=== PATIENT | female | born 1980 | race Hispanic/Latino ===

== ENCOUNTER 2018-12-07 11:02 | Emergency (ER) | payer SELFPAY ==
--- OUTSIDE RECORDS SUMMARY | 2018-12-07 11:04 | XMS REPORT ---
:1980 [facility] Address [address] [place] [address] Care Team Providers Name Role Phone Unavailable Unavailable Unavailable Problems This patient has no known problems. Allergies, Adverse Reactions, Alerts This patient has no known allergies or adverse reactions. Medications This patient has no known medications. Results Test Description Test Time Test Comments Text Results Atomic Results Result Comments DIAG MAMM BILATERAL CAD 2018-10-13 11:19:31 - DIAG MAMM BILATERAL CAD DIGITAL DIGITALBILATERAL DIGITAL DIAGNOSTIC MAMMOGRAM WITH CAD: 10/13/2018CLINICAL: Palpable mass, left breast. Current mammographic images were evaluated by either a PPTV M-Vu or a [employer] ImageChecker CAD (computer aided detection system). No prior exams were available for comparison. The tissue of both breasts has scattered fibroglandular background echotexure. No suspicious mass, architectural distortion, malignant type calcification, or lymph node abnormality detected. INCOMPLETE ASSESSMENT: ADDITIONAL IMAGING EVALUATION RECOMMENDEDThere is no mammographic evidence of malignancy. Targeted left and bilateral survey ultrasound to follow.- BREAST ULTRASOUND BILATERALULTRASOUND OF BOTH BREASTS: 10/13/2018No prior exams were available for comparison. Color flow and real-time ultrasound of both breasts were performed. Garcia scale images of the real-time examination were reviewed. The breast tissue has scattered fibroglandular background echotexture. Targeted left breast ultrasound at 2 o'clock, 7 cm from the nipple, at the site of clinical area of concern demonstrates no suspicious sonographic abnormality. The rest of the bilateral survey ultrasound demonstrates no suspicious sonographic abnormality. No axillary lymphadenopathy was seen.IMPRESSION: NEGATIVE There is no sonographic evidence of malignancy. Resume annual screening mammography in one year. Clinical follow up is also recommended, and further management of palpable abnormalities should be based on clinical examination.Xu Ascencio M.D. ss/:10/13/2018 11:19:31 Entry: allen Liu 10/14/2018 08:09:35Imaging Technologist: Marti HUERTA, [facility]FW[facility] sent: BIRADS 1-2 Combo FU Letter Mammogram BI-RADS: 0 Indeterminate Ultrasound BI-RADS: 1 Negative BREAST ULTRASOUND 2018-10-13 11:19:31 - DIAG MAMM BILATERAL CAD BILATERAL DIGITALBILATERAL DIGITAL DIAGNOSTIC MAMMOGRAM WITH CAD: 10/13/2018CLINICAL: Palpable mass, left breast. Current mammographic images were evaluated by either a PPTV M-Vu or a [employer] CAD (computer aided detection system). No prior exams were available for comparison. The tissue of both breasts has scattered fibroglandular background echotexure. No suspicious mass, architectural distortion, malignant type calcification, or lymph node abnormality detected. INCOMPLETE ASSESSMENT: ADDITIONAL IMAGING EVALUATION RECOMMENDEDThere is no mammographic evidence of malignancy. Targeted left and bilateral survey ultrasound to follow.- BREAST ULTRASOUND BILATERALULTRASOUND OF BOTH BREASTS: 10/13/2018No prior exams were available for comparison. Color flow and real-time ultrasound of both breasts were performed. Garcia scale images of the real-time examination were reviewed. The breast tissue has scattered fibroglandular background echotexture. Targeted left breast ultrasound at 2 o'clock, 7 cm from the nipple, at the site of clinical area of concern demonstrates no suspicious sonographic abnormality. The rest of the bilateral survey ultrasound demonstrates no suspicious sonographic abnormality. No axillary lymphadenopathy was seen.IMPRESSION: NEGATIVE There is no sonographic evidence of malignancy. Resume annual screening mammography in one year. Clinical follow up is also recommended, and further management of palpable abnormalities should be based on clinical examination.Xu Ascencio M.D. /:10/13/2018 11:19:31 Entry: - 10/14/2018 08:09:35Imaging Technologist: Marti HUERTA, [facility]-FWletter sent: BIRADS 1-2 Combo FU Letter Mammogram BI-RADS: 0 Indeterminate Ultrasound BI-RADS: 1 Negative
[2018-12-07] MEDS ORDERED: MORPHINE 4 MG/ML SYR ONE (12:32)
[2018-12-07] MEDS ORDERED: NA CHLORIDE 0.9% 1,000 ML ONE (12:32)
[2018-12-07] MEDS ORDERED: ONDANSETRON 4 MG/2 ML VIAL ONE (12:32)
[2018-12-07] MEDS ORDERED: CEFTRIAXONE/SWI 1gm 1 GM/10 ML SYR ONE (12:32)
--- NOTE | 2018-12-07 12:40 | RAD REPORT ---
EXAM DESCRIPTION: CT - Abdomen Pelvis Wo Contrast - 12/07/2018 12:31 pm CLINICAL HISTORY: Abdominal pain COMPARISON: 2014 TECHNIQUE: Computed axial tomography of the abdomen and pelvis was obtained. IV and oral contrast we re not requested. All CT scans are performed using dose optimization technique as appropriate and may include automated exposure control or mA/KV adjustment according to patient size. FINDINGS: The evaluation of solid organs, vessels and bowel is limited secondary to the lack of con trast administration. Liver, spleen, pancreas, adrenals and kidneys appear grossly normal. Multiple gallstones without gallbladder wall thickening Small umbilical hernia contains fat. Tampon is present within the vagina. There is no evidence of diverticulitis. IMPRESSION: Cholelithiasis without cholecystitis.
[2018-12-07 13:30] LABS: Absolute Lymphocytes (CBC) 2.3 K/uL (0.7-4.9); Absolute Monocytes 0.5 K/uL (0.1-1.3); Absolute Neutrophil 6.4 K/uL (1.8-8.0); Basophils % 0.5 % (0-1.3); Eosinophils % 1.1 % (0-4.4); Hematocrit 41.5 % (36.0-45.0); Lymphocytes % 24.4 % (15.3-44.8); MPV 8.2 fL (7.6-11.3); Monocytes % 5.2 % (3.3-12.3)
[2018-12-07 13:39] LABS: ALT/SGPT 27 U/L (12-78); AST/SGOT 14 U/L (15-37); Albumin 3.8 g/dL (3.4-5.0); Alkaline Phosphatase 76 U/L (45-117); BUN Blood Urea Nitrogen 13 mg/dL (7-18); Bicarbonate 26 mmol/L (21-32); Bilirubin Direct < 0.1 mg/dL (0-0.2); Bilirubin Total 0.3 mg/dL (0.2-1.0); Glucose Level 97 mg/dL (74-106); Lipase 62 U/L (73-393); Protein, Total 7.6 g/dL (6.4-8.2); Sodium Level 141 mmol/L (136-145)
--- NOTE | 2018-12-07 13:55 | EDPHYS ---
Physician Documentation [facility] Name: Maria De Jesus Wagoner Age: 38 yrs Sex: Female : 1980 Arrival Date: 12/07/2018 Time: 11:06 Bed 13 Private MD: None, None ED Physician Aspen Perla HPI: 12/07 12:09 This 38 yrs old Female presents to ER via Ambulatory with complaints of Flank ma2 Burn, Back Pain. 12:09 Onset: The symptoms/episode began/occurred gradually, 1 day(s) ago. Associated signs ma2 and symptoms: Pertinent positives: vomiting, Pertinent negatives: confusion, increased lacrimation, nausea, neck pain. The patient has experienced a previous episode. left flank pain . Historical: - Allergies: 11:08 No Known Allergies; sv - PMHx: 11:08 Hypertension; GERD; sv - PSHx: 11:08 Tubal ligation; sv - Immunization history:: Flu vaccine is up to date. - Social history:: Smoking status: Patient/guardian denies using tobacco, Smoking status: Patient/guardian denies using alcohol, street drugs, The patient lives with family. - Ebola Screening: : No symptoms or risks identified at this time. - Family history:: not pertinent. ROS: 12:09 Constitutional: Negative for fever, chills, and weight loss, Respiratory: Negative for ma2 shortness of breath, cough, wheezing, and pleuritic chest pain. 12:09 Abdomen/GI: Positive for nausea, vomiting, diarrhea, Negative for rectal pain, bowel incontinence. 12:09 Back: Positive for flank pain, Negative for pain at rest, radiated pain. 12:09 All other systems are negative. Exam: 12:09 Constitutional: This is a well developed, well nourished patient who is awake, alert, ma2 and in no acute distress. Chest/axilla: Normal chest wall appearance and motion. Nontender with no deformity. No lesions are appreciated. Cardiovascular: Regular rate and rhythm with a normal S1 and S2. No gallops, murmurs, or rubs. Normal PMI, no JVD. No pulse deficits. Respiratory: Lungs have equal breath sounds bilaterally, clear to auscultation and percussion. No rales, rhonchi or wheezes noted. No increased work of breathing, no retractions or nasal flaring. Abdomen/GI: Soft, non-tender, with normal bowel sounds. No distension or tympany. No guarding or rebound. No evidence of tenderness throughout. MS/ Extremity: Pulses equal, no cyanosis. Neurovascular intact. Full, normal range of motion. Neuro: Awake and alert, GCS 15, oriented to person, place, time, and situation. Cranial nerves II-XII grossly intact. Motor strength 5/5 in all extremities. Sensory grossly intact. Cerebellar exam normal. Normal gait. 12:09 Back: CVA tenderness, that is moderate, is noted on the left. Vital Signs: 11:08 BP 124 / 83; Resp 18; Temp 98.6; Weight 97.52 kg; Height 5 ft. 3 in. (160.02 cm); Pain sv 7/10; 11:08 Body Mass Index 38.08 (97.52 kg, 160.02 cm) sv MDM: 11:59 Patient medically screened. [facility] 12:09 Differential diagnosis: pyelonephritis vs diverticulitis vs kidney stoen. [facility] 13:54 Data reviewed: vital signs, nurses notes. Counseling: I had a detailed discussion with ma2 the patient and/or guardian regarding: the historical points, exam findings, and any diagnostic results supporting the discharge/admit diagnosis, the presence of at least one elevated blood pressure reading (>120/80) during this emergency department visit, the need for outpatient follow up. Response to treatment: the patient's symptoms have resolved after treatment. 12/07 12:07 Order name: Basic Metabolic Panel; Complete Time: 13:53 [facility] 12/07 12:07 Order name: CBC with Diff; Complete Time: 13:53 [facility] 12/07 12:07 Order name: Creatinine for Radiology; Complete Time: 13:53 [facility] 12/07 12:07 Order name: Hepatic Function; Complete Time: 13:53 [facility] 12/07 12:07 Order name: Lipase; Complete Time: 13:53 [facility] 12/07 13:29 Order name: Urine Dipstick--Ancillary (enter results) bd 12/07 12:07 Order name: IV Saline Lock; Complete Time: 13:30 [facility] 12/07 12:07 Order name: Labs collected and sent; Complete Time: 13:31 [facility] 12/07 12:07 Order name: CT Abd/Pelvis - Without Cont; Complete Time: 12:46 ma2 12/07 13:29 Order name: Urine --Ancillary (enter results) bd 12/07 12:07 Order name: Urine Dipstick-Ancillary (obtain specimen); Complete Time: 12:32 ma2 Administered Medications: 13:10 Drug: NS 0.9% 1000 ml Route: IV; Rate: 1 bolus; Site: right antecubital; hb 13:10 Drug: Rocephin 1 grams Route: IV; Rate: calculated rate; Site: right antecubital; hb 13:10 Drug: Zofran 4 mg Route: IVP; Site: right antecubital; hb 13:10 Drug: morphine 4 mg Route: IVP; Site: right antecubital; hb Disposition: 12/07/18 13:55 Discharged to Home. Impression: Diarrhea, unspecified, Vomiting. - Condition is Stable. - Discharge Instructions: Diarrhea, Adult, Viral Gastroenteritis, Adult, Form - Excuse from Work, School, or Physical Activity. - Prescriptions for Tylenol- Codeine #3 300-30 mg Oral Tablet - take 2 tablet by ORAL route every 6 hours As needed; 30 tablet. Zofran 4 mg Oral Tablet - take 1 tablet by ORAL route every 12 hours As needed; 20 tablet. - Work release form, Medication Reconciliation Form, Thank You Letter, Antibiotic Education, Prescription Opioid Use form. - Follow up: Private Physician; When: Tomorrow; Reason: Continuance of care. Signatures: Dispatcher [employer] Elisabet Wilhelm RN RN Dennise Cuevas RN RN hb Alzahri, Mohammad, MD MD ma2 Corrections: (The following items were deleted from the chart) 14:43 13:55 12/07/2018 13:55 Discharged to Home. Impression: Diarrhea, unspecified; Vomiting. hb Condition is Stable. Forms are Medication Reconciliation Form, Thank You Letter, Antibiotic Education, Prescription Opioid Use. Follow up: Private Physician; When: Tomorrow; Reason: Continuance of care. ma2
--- NOTE | 2018-12-07 13:55 | ER ---
Nurse's Notes [facility] Name: Maria De Jesus Wagoner Age: 38 yrs Sex: Female : 1980 Arrival Date: 12/07/2018 Time: 11:06 Bed 13 Private MD: None, None Diagnosis: Diarrhea, unspecified;Vomiting Presentation: 12/07 11:07 Presenting complaint: Patient states: left flank burning x 2 days. c/o vomiting. sv Transition of care: patient was not received from another setting of care. Onset of symptoms was December 05, 2018. Care prior to arrival: None. 11:07 Method Of Arrival: Ambulatory sv 11:07 Acuity: JOCELIN 3 sv 11:30 Risk Assessment: Do you want to hurt yourself or someone else? Patient reports no hb desire to harm self or others. Initial Sepsis Screen: Does the patient meet any 2 criteria? No. Patient's initial sepsis screen is negative. Does the patient have a suspected source of infection? No. Patient's initial sepsis screen is negative. Triage Assessment: 11:09 General: Appears in no apparent distress. uncomfortable, Behavior is calm, cooperative, sv appropriate for age. Pain: Complains of pain in posterior aspect of left lateral abdomen and anterior aspect of left lateral abdomen Pain currently is 7 out of 10 on a pain scale. Neuro: Level of Consciousness is awake, alert, obeys commands, Oriented to person, place, time, situation, Gait is steady. GI: Reports vomiting. Historical: - Allergies: 11:08 No Known Allergies; sv - PMHx: 11:08 Hypertension; GERD; sv - PSHx: 11:08 Tubal ligation; sv - Immunization history:: Flu vaccine is up to date. - Social history:: Smoking status: Patient/guardian denies using tobacco, Smoking status: Patient/guardian denies using alcohol, street drugs, The patient lives with family. - Ebola Screening: : No symptoms or risks identified at this time. - Family history:: not pertinent. Screenin:15 Abuse screen: Denies threats or abuse. Denies injuries from another. Nutritional hb screening: No deficits noted. Tuberculosis screening: No symptoms or risk factors identified. Fall Risk None identified. Assessment: 12:15 General: Appears in no apparent distress. Behavior is calm, cooperative. Pain: Pain hb currently is 7 out of 10 on a pain scale. Neuro: Level of Consciousness is awake, alert, obeys commands, Oriented to person, place, time, situation. Cardiovascular: Capillary refill < 3 seconds Patient's skin is warm and dry. Respiratory: Airway is patent Respiratory effort is even, unlabored, Respiratory pattern is regular, symmetrical, Breath sounds are clear bilaterally. GI: Abdomen is non-distended, Bowel sounds present X 4 quads. Abd is soft and non tender X 4 quads. Reports lower abdominal pain. : No signs and/or symptoms were reported regarding the genitourinary system. EENT: No signs and/or symptoms were reported regarding the EENT system. Derm: Skin is intact, is healthy with good turgor, Skin is pink, warm \T\ dry. Musculoskeletal: No signs and/or symptoms reported regarding the musculoskeletal system. 13:00 Reassessment: Patient appears in no apparent distress at this time. No changes from hb previously documented assessment. Patient and/or family updated on plan of care and expected duration. Pain level reassessed. Patient is alert, oriented x 3, equal unlabored respirations, skin warm/dry/pink. 14:00 Reassessment: Patient appears in no apparent distress at this time. No changes from hb previously documented assessment. Patient and/or family updated on plan of care and expected duration. Pain level reassessed. Patient is alert, oriented x 3, equal unlabored respirations, skin warm/dry/pink. Vital Signs: 11:08 BP 124 / 83; Resp 18; Temp 98.6; Weight 97.52 kg; Height 5 ft. 3 in. (160.02 cm); Pain sv 7/10; 11:08 Body Mass Index 38.08 (97.52 kg, 160.02 cm) sv ED Course: 11:06 Patient arrived in ED. mr 11:06 None, None is Private Physician. mr 11:07 Triage completed. sv 11:09 Arm band placed on. sv 11:59 Aspen Perla MD is Attending Physician. ma2 12:01 Dennise Cuevas, WILI is Primary Nurse. hb 12:15 Patient has correct armband on for positive identification. Placed in gown. Bed in low hb position. Call light in reach. Side rails up X 1. 12:32 CT Abd/Pelvis - Without Cont In Process Unspecified. EDMS 14:40 No provider procedures requiring assistance completed. IV discontinued, intact, hb bleeding controlled, No redness/swelling at site. Pressure dressing applied. Administered Medications: 13:10 Drug: NS 0.9% 1000 ml Route: IV; Rate: 1 bolus; Site: right antecubital; hb 13:10 Drug: Rocephin 1 grams Route: IV; Rate: calculated rate; Site: right antecubital; hb 13:10 Drug: Zofran 4 mg Route: IVP; Site: right antecubital; hb 13:10 Drug: morphine 4 mg Route: IVP; Site: right antecubital; hb Outcome: 13:55 Discharge ordered by . alexsandra 14:40 Discharged to home ambulatory. hb 14:40 Condition: stable 14:40 Discharge instructions given to patient, Instructed on discharge instructions, follow up and referral plans. medication usage, Demonstrated understanding of instructions, follow-up care, medications, Prescriptions given X 2. 14:43 Patient left the ED. Signatures: Dispatcher [employer] EDElisabet Mederos RN RN Elisa Barba Heather, RN RN Aspen Perla MD MD ma2 Corrections: (The following items were deleted from the chart) 11:09 11:08 Resp 18bpm; Temp 98.6F; 97.52 kg; Height 5 ft. 3 in.; BMI: 38.0; Pain 7/10; [facility]
[2018-12-07 14:01] LABS: Urine Blood 1+ (NEG); Urine Glucose NEGATIVE (NEG); Urine Protein NEGATIVE (NEG); Urine Specific Gravity >1.030 (1.005-1.030); Urine pH 5.5 (5.0-7.0)
[2018-12-07 14:47] VITALS: BP 124/83; TEMP 98.6
== END 2018-12-07 14:43 | disposition home or self-care (01) ==
LOC: ER 11:02
DX: R19.7 Diarrhea, unspecified (principal); R11.10 Vomiting, unspecified; I10 Essential (primary) hypertension
CPT/HCPCS: 36415; 74176; 80048; 80076; 81003; 81025; 83690; 85025; 96374; 96375; 99283; J0696; J2405; J7030

== ENCOUNTER 2019-04-18 08:38 | Day surgery (SDC) | payer BC ==
[2019-04-14 17:21] LABS: Absolute Lymphocytes (CBC) 2.5 K/uL (0.7-4.9); Basophils % 0.6 % (0-1.3); Hematocrit 35.6 % (36.0-45.0); Lymphocytes % 24.7 % (15.3-44.8); RBC Red Blood Cell Count 4.15 M/uL (3.86-4.86)
[2019-04-14 17:57] LABS: ALT/SGPT 26 U/L (12-78); AST/SGOT 13 U/L (15-37); Albumin 3.5 g/dL (3.4-5.0); Alkaline Phosphatase 91 U/L (45-117); Amylase Level 32 U/L (25-115); BUN Blood Urea Nitrogen 14 mg/dL (7-18); Bicarbonate 26 mmol/L (21-32); Bilirubin Direct < 0.1 mg/dL (0-0.2); Bilirubin Total 0.2 mg/dL (0.2-1.0); Glucose Level 110 mg/dL (74-106); Potassium 3.6 mmol/L (3.5-5.1); Protein, Total 6.9 g/dL (6.4-8.2); Sodium Level 142 mmol/L (136-145)
--- OUTSIDE RECORDS SUMMARY | 2019-04-18 08:41 | XMS REPORT ---
:1980 [facility] Address [address] [place] [address] Dr. [address] [place] [id number] Care Team Providers Name Role Phone Unavailable [...] mammographic images were evaluated by either a [employer] M-Vu or a [employer] ImageChecker CAD (computer aided detection system). No [...] clinical examination.Xu Ascencio M.D. ss/:10/13/2018 11:19:31 Entry: - 10/14/2018 08:09:35Imaging Technologist: Marti HUERTA, [facility]-FWletter sent: BIRADS 1-2 Combo FU Letter Mammogram BI-RADS: 0 Indeterminate Ultrasound BI-RADS: 1 Negative BREAST ULTRASOUND 2018-10-13 11:19:31 - DIAG MAMM BILATERAL CAD BILATERAL DIGITALBILATERAL DIGITAL DIAGNOSTIC MAMMOGRAM WITH CAD: 10/13/2018CLINICAL: Palpable mass, left breast. Current mammographic images were evaluated by either a [employer] M-Vu or a [employer] CAD (computer aided detection system). No prior [...] - 10/14/2018 08:09:35Imaging Technologist: Marti HUERTA, [facility] sent: BIRADS 1-2 Combo FU Letter Mammogram BI-RADS: 0 Indeterminate Ultrasound BI-RADS: 1 Negative
[2019-04-18 09:07] LABS: Specific Gravity 1.025 (1.005-1.030)
[2019-04-18] MEDS ORDERED: Ringers Lactate 1,000 ML IV ONE ×2 (09:20→11:39)
[2019-04-18] MEDS ORDERED: FENTANYL CITR 100 MCG/2 ML ONE ×2 (09:28→10:42)
[2019-04-18] MEDS ORDERED: PROPOFOL 200 MG/20 ML VIAL IV ONE (09:28)
[2019-04-18] MEDS ORDERED: MIDAZOLAM HCL 2 MG/2 ML INJ ONE (09:29)
[2019-04-18] MEDS ORDERED: ROCURONIUM 50 MG/5 ML VIAL IV ONE (09:29)
[2019-04-18] MEDS ORDERED: LIDOCAINE 2% MPF 5 ML VIAL ONE (09:29)
[2019-04-18] MEDS ORDERED: CEFOXITIN/SWI 1gm 1 GM/10 ML SYR ONE (09:37)
[2019-04-18] MEDS ORDERED: SCOPOLAMINE HYDROBROMIDE PATCH TD ONE (09:53)
[2019-04-18] MEDS ORDERED: ONDANSETRON 4 MG/2 ML VIAL ONE (10:12)
[2019-04-18] MEDS ORDERED: dexAMETHasone 4 MG/ML VIAL ONE (10:12)
[2019-04-18] MEDS ORDERED: GLYCOPYRROLATE 0.2 MG/ML SYR ONE (11:00)
[2019-04-18] MEDS: HYDROMORPHONE HCL 1 MG/ML INJ ONE ×2 (11:20→11:30)
[2019-04-18] MEDS ORDERED: PROMETHAZINE 25 MG/ML VIAL ONE (11:33)
[2019-04-18] MEDS ORDERED: NEOSTIGMINE 1 MG/ML -10 ML VIAL ONE (11:39)
[2019-04-18] MEDS ORDERED: HYDROCODONE/APAP 7.5/325 MG TAB ONE (12:45)
[2019-04-18 13:01] VITALS: O2SAT 100
[2019-04-18 14:19] VITALS: BP 134/82; TEMP 97.5
--- NOTE | 2019-04-18 21:37 | OP ---
Date of Procedure: 04/18/2019 Surgeon: Timothy Welsh MD Manager Project Management: MARC Santos Preoperative Diagnosis: Symptomatic cholelithiasis. Postoperative Diagnoses: Symptomatic cholelithiasis with left upper quadrant adhesions. Procedure Performed: Laparoscopic cholecystectomy and lysis of adhesions. Estimated Blood Loss: Minimal. Specimen: Gallbladder. Findings: As stated above. Anesthesia: General. Complications: None. Patient tolerated the procedure in stable condition and taken to Recovery in good general condition. Procedure In Detail: Patient was brought to the OR and placed in supine position. General anesthesi a was begun. Patient was prepped and draped in the usual sterile fashion. Marcaine 0.5% was infiltr ated locally. A 15-blade was used to make a 1 cm supraumbilical midline incision. Subcutaneous tiss ue was divided. The fascia was identified and divided. A #1 Vicryl stay suture was placed. Periton eal cavity was entered with sharp and blunt dissection. 12 mm trocar was placed in the peritoneal ca vity under direct vision. Pneumoperitoneum was established. Three 5 mm trocars were placed, 1 in th e epigastrium just to the right of midline and 2 in the right subcostal region. Laparoscopy revealed inflammation of the gallbladder with some adhesions to the gallbladder itself, but there were also a dhesions in the left upper quadrant. The adhesions in the left upper quadrant were taken down with s harp dissection. Bleeding controlled with cautery. Omentum was being tented up in the upper quadran t on the left side. Then, fundus was retracted superiorly. There were adhesions to the body and inf undibulum of the gallbladder which were taken down with sharp and blunt dissection. Bleeding was con trolled with cautery. The infundibulum was identified and retracted inferolaterally. Cystic duct an d cystic artery were clearly identified with blunt dissection. Clips were placed. Both structures w ere divided. Cautery was used to remove the gallbladder from the liver bed. Bleeding on the liver b ed was controlled with cautery. The gallbladder was retrieved through the umbilicus via an EndoCatch bag. Right upper quadrant was irrigated. Effluent was clear. No evidence of bleeding or bile leak age appreciated. Subsequently, all trocars were removed under direct vision. Stay sutures were tied to each other across the fascial defect. Subcutaneous wounds were irrigated. Bleeding was controll ed with cautery. 3-0 chromic was used to approximate the subcutaneous tissue and close the skin. St erile dressing was applied. Patient was awakened and taken to Recovery in good general condition. Discharge Note: Patient will go to Day Surgery and home when stable. Disposition: Home. Condition: Stable. Discharge Instructions: Resume home medications and diet. Activity as tolerated. No heavy lifting. Remove outer dressing in 2 days. Shower. Keep wound clean and dry. Follow up in my office in 1 w barrow, call for appointment. Tylenol No. 3 one tablet p.o. q.4 p.r.n. pain. Keep Steri-Strips on at a ll times. Incentive spirometry was ordered. /MODL Voice ID: [id number] Report ID: [id number]
== END 2019-04-18 13:50 | disposition home or self-care (01) ==
LOC: OR 08:38
PROVIDERS: ATTEND Surgery
PROC: 0FT44ZZ Resection of Gallbladder, Percutaneous Endoscopic Approach (ICD-10-PCS; principal; 2019-04-18 10:00)
DX: K80.10 Calculus of gallbladder with chronic cholecystitis without obstruction (principal); K66.0 Peritoneal adhesions (postprocedural) (postinfection); I10 Essential (primary) hypertension; Z79.899 Other long term (current) drug therapy
CPT/HCPCS: 36415; 80048; 80076; 81025; 82150; 85025; 88304; J1170; J2250; J2405; J2550; J2704; J2710; J3010

== ENCOUNTER 2021-04-19 07:54 | Emergency (ER) | payer SELFPAY ==
--- OUTSIDE RECORDS SUMMARY | 2021-04-19 07:57 | XMS REPORT | Continuity of Care Document ---
:1980 Author Organization [facility] Address [address] [place] [id number] Care Team Providers Name Role Phone Unavailable Unavailable Unavailable Problems This patient has no known problems. Allergies, Adverse Reactions, Alerts This patient has no known allergies or adverse reactions. Medications This patient has no known medications. Procedures This patient has no known procedures. Results Test Description Test Time Test Comments Results Result [facility] e Comments SCR MAMM 2020-04-20 - SCR MAMM BILATERAL BILATERAL CAD 09:16:04 CAD DIGITALBILATERAL DIGITAL DIGITAL SCREENING MAMMOGRAM WITH CAD: 04/20/2020CLINICAL: Asymptomatic. Current mammographic images were evaluated by either a [employer] M-Vu or a IM-[employer]ense Imagepg40 Consulting Groupcker CAD (computer aided detection system). Comparison is made to exam dated 10/13/2018 mammogram - [facility]. There are scattered fibroglandular tissues in both breasts. No suspicious mass, architectural distortion, malignant type calcification, or lymph node abnormality detected. Breast architecture is stable compared to prior exams.IMPRESSION: NEGATIVEThere is no mammographic evidence of malignancy. Resume annual screening mammography in one year. Xu Ascencio M.D. ss/penrad:04/20/2020 09:16:04 Cabinet Abrasive Sandblaster: Kaye Marion FW, [facility] sent: BIRADS 1-2 Normal Mammogram BI-RADS: 1 Negative DIAG MAMM 2018-10-13 - DIAG MAMM BILATERAL BILATERAL CAD 11:19:31 CAD DIGITALBILATERAL DIGITAL DIGITAL DIAGNOSTIC MAMMOGRAM WITH CAD: 10/13/2018CLINICAL: Palpable mass, left breast. Current mammographic images were evaluated by either a [employer] M-Vu or a [employer] ImageChecker CAD (computer aided detection system). No [...] Entry: - 10/14/2018 08:09:35Imaging Technologist: Marti HUERTA, [facility] sent: BIRADS 1-2 Combo FU Letter Mammogram BI-RADS: 0 Indeterminate Ultrasound BI-RADS: 1 Negative BREAST ULTRASOUND 2018-10-13 - DIAG MAMM BILATERAL BILATERAL 11:19:31 CAD DIGITALBILATERAL DIGITAL DIAGNOSTIC MAMMOGRAM WITH CAD: 10/13/2018CLINICAL: Palpable mass, left breast. Current mammographic images were evaluated by either a [employer] M-Vu or a IM-Sense ImageChecker CAD (computer aided detection system). No [...] suspicious sonographic abnormality. No axillary lymphadenopathy was seen.
[2021-04-19 08:19] LABS: Urine Blood 2+ (Negative); Urine Glucose Negative (Negative); Urine Protein Trace (Negative); Urine Specific Gravity >=1.030 (1.005-1.030); Urine pH 5.5 (5.0-7.0)
--- NOTE | 2021-04-19 08:48 | EDPHYS ---
Physician Documentation [facility] Name: Maria De Jesus Wagoner Age: 40 yrs Sex: Female : 1980 Arrival Date: 04/19/2021 Time: 07:58 Bed 26 Private MD: BOZENA Physician Javier Weems HPI: 04/19 08:41 This 40 yrs old Female presents to ER via Ambulatory with complaints of barney Vaginal anal swelling. 08:41 The patient presents with perineal itching, of the clitoris, perineum, right labia barney majora and left labia majora. Onset: The symptoms/episode began/occurred 7 day(s) ago. Modifying factors: The symptoms are alleviated by nothing, the symptoms are aggravated by movement, pressure, walking. Associated signs and symptoms: The patient has no apparent associated signs or symptoms. Severity of symptoms: At their worst the symptoms were mild, in the emergency department the symptoms are unchanged. The patient has not experienced similar symptoms in the past. Historical: - Allergies: 08:04 No Known Allergies; tw2 - Home Meds: 08:04 lisinopril 20 mg Oral tab 1 tab once daily [Active]; omeprazole 40 mg Oral cpDR 1 cap tw2 once daily [Active]; "unknown name of med for depression and anxiety" [Active]; - PMHx: 08:04 Hypertension; GERD; Depressive disorder; Anxiety; tw2 - PSHx: 08:05 Cholecystectomy; tubal ligation; tw2 - Immunization history:: Client reports receiving the 2nd dose of the Covid vaccine. - Social history:: Smoking status: Patient denies any tobacco usage or history of. Patient uses street drugs, marijuana, every day use. - Family history:: not pertinent. ROS: 08:41 Constitutional: Negative for fever, chills, and weight loss, Eyes: Negative for injury, barney pain, redness, and discharge, ENT: Negative for injury, pain, and discharge, Neck: Negative for injury, pain, and swelling, Cardiovascular: Negative for chest pain, palpitations, and edema, Respiratory: Negative for shortness of breath, cough, wheezing, and pleuritic chest pain, Abdomen/GI: Negative for abdominal pain, nausea, vomiting, diarrhea, and constipation, Back: Negative for injury and pain, MS/Extremity: Negative for injury and deformity, Neuro: Negative for headache, weakness, numbness, tingling, and seizure, Psych: Negative for depression, anxiety, suicide ideation, homicidal ideation, and hallucinations, Allergy/Immunology: Negative for hives, rash, and allergies, Endocrine: Negative for neck swelling, polydipsia, polyuria, polyphagia, and marked weight changes, Hematologic/Lymphatic: Negative for swollen nodes, abnormal bleeding, and unusual bruising. 08:41 : Positive for burning with urination, vaginal itching, of the prepuce, perineum, right labia majora and left labia majora. Exam: 08:41 Constitutional: This is a well developed, well nourished patient who is awake, alert, barney and in no acute distress. Head/Face: Normocephalic, atraumatic. Eyes: Pupils equal round and reactive to light, extra-ocular motions intact. Lids and lashes normal. Conjunctiva and sclera are non-icteric and not injected. Cornea within normal limits. Periorbital areas with no swelling, redness, or edema. ENT: Nares patent. No nasal discharge, no septal abnormalities noted. Tympanic membranes are normal and external auditory canals are clear. Oropharynx with no redness, swelling, or masses, exudates, or evidence of obstruction, uvula midline. Mucous membranes moist. Neck: Trachea midline, no thyromegaly or masses palpated, and no cervical lymphadenopathy. Supple, full range of motion without nuchal rigidity, or vertebral point tenderness. No Meningismus. Chest/axilla: Normal chest wall appearance and motion. Nontender with no deformity. No lesions are appreciated. Cardiovascular: Regular rate and rhythm with a normal S1 and S2. No gallops, murmurs, or rubs. Normal PMI, no JVD. No pulse deficits. Respiratory: Lungs have equal breath sounds bilaterally, clear to auscultation and percussion. No rales, rhonchi or wheezes noted. No increased work of breathing, no retractions or nasal flaring. Abdomen/GI: Soft, non-tender, with normal bowel sounds. No distension or tympany. No guarding or rebound. No evidence of tenderness throughout. Back: No spinal tenderness. No costovertebral tenderness. Full range of motion. Skin: Warm, dry with normal turgor. Normal color with no rashes, no lesions, and no evidence of cellulitis. MS/ Extremity: Pulses equal, no cyanosis. Neurovascular intact. Full, normal range of motion. Neuro: Awake and alert, GCS 15, oriented to person, place, time, and situation. Cranial nerves II-XII grossly intact. Motor strength 5/5 in all extremities. Sensory grossly intact. Cerebellar exam normal. Normal gait. Psych: Awake, alert, with orientation to person, place and time. Behavior, mood, and affect are within normal limits. 08:41 : CVA tenderness, is absent, Pelvic Exam: External exam: erythema is noted. Vital Signs: 08:02 BP 122 / 80; Pulse 89; Resp 17; Temp 97.9(TE); Pulse Ox 100% on R/A; Weight 86.18 kg; tw2 Height 5 ft. 4 in. (162.56 cm); Pain 9/10; 08:02 Body Mass Index 32.61 (86.18 kg, 162.56 cm) tw2 MDM: 08:07 Patient medically screened. [facility] 08:45 Differential diagnosis: urinary tract infection. Data reviewed: vital signs, nurses [facility] notes, lab test result(s), urinalysis. Data interpreted: manager monitoring: rate is 89 beats/min, rhythm is regular. Test interpretation: by ED physician or midlevel provider:. Counseling: I had a detailed discussion with the patient and/or guardian regarding: lab results. 04/19 08:19 Order name: Urine Dipstick-Ancillary; Complete Time: 08:40 EDCT 04/19 08:41 Order name: Urine Culture [facility] 04/19 08:42 Order name: Urine --Ancillary (enter results) 04/19 08:43 Order name: Urine --Ancillary EDCT 04/19 08:59 Order name: Glucose, Ancillary Testing [facility] 04/19 08:41 Order name: Blood Glucose Level; Complete Time: 08:45 [facility] Administered Medications: 08:50 Drug: Bactrim (trimethoprim-sulfamethoxazole) (160 mg-800 mg (DS) 1 tablet Route: PO; tr6 09:23 Follow up: Response: No adverse reaction tr6 09:22 Drug: Zithromax (azithromycin) 1 grams Route: PO; tr6 09:22 Drug: Doxycycline 100 mg Route: PO; tr6 09:23 Drug: Rocephin (cefTRIAXone) 1 grams Route: IM; Site: right gluteus; tr6 Disposition Summary: 04/19/21 08:47 Discharge Ordered Location: Home [facility] Problem: new [facility] Symptoms: have improved barney Condition: Stable barney Diagnosis - UTI/ Urinary tract infection, site not specified barney - Other specified noninflammatory disorders of vagina barney Followup: barney - With: Private Physician - When: 2 - 3 days - Reason: Recheck today's complaints, Continuance of care, Re-evaluation by your physician Followup: barney - With: Alexandrea Castillo MD - When: 2 - 3 days - Reason: Recheck today's complaints, Re-evaluation by your physician Discharge Instructions: - Discharge Summary Sheet barney - Dysuria barney - Urinary Tract Infection, Adult barney - Urinary Tract Infection, Adult, [id number] [facility] - Preventing Sexually Transmitted Infections, Adult [facility] Forms: - Medication Reconciliation Form [facility] - Thank You Letter [facility] - Antibiotic Education [facility] - Prescription Opioid Use [facility] Prescriptions: - Ibuprofen 600 mg Oral Tablet - take 1 tablet by ORAL route every 6 hours As needed take with food; 20 tablet; barney Refills: 0, Product Selection Permitted - Medrol (Raul) 4 mg Oral Tablets, Dose Pack - take 1 tablet by ORAL route as directed - follow package instructions; 1 barney packet; Refills: 0, Product Selection Permitted - Doxycycline Hyclate 100 mg Oral Tablet - take 1 tablet by ORAL route every 12 hours; 20 tablet; Refills: 0, Product [facility] Selection Permitted - Bactrim DS 800-160 mg Oral Tablet - take 1 tablet by ORAL route every 12 hours for 7 days; 14 tablet; Refills: 0, [facility] Product Selection Permitted Signatures: Dispatcher [employer] Javier Cerrato MD MD cha Wise, Tara, RN RN tw2 Iraida Fabian, RN RN tr6
--- NOTE | 2021-04-19 08:48 | ER ---
Nurse's Notes [facility] Name: Maria De Jesus Wagoner Age: 40 yrs Sex: Female : 1980 Arrival Date: 04/19/2021 Time: 07:58 Bed 26 Private MD: Diagnosis: UTI/ Urinary tract infection, site not specified;Other specified noninflammatory disorders of vagina Presentation: 04/19 08:02 Chief complaint: Patient states: almost 2 weeks ago i was in the hospital with my tw2 daughter who was having a baby and thought i got irritated with the toilet paper. so i have been treating it with over the counter and spray stuff. i have been treating it. so i have this break out between my vagina and my anus. and i feel this big ball on the left side of my vagina. Coronavirus screen: At this time, the client does not indicate any symptoms associated with coronavirus-19. Ebola Screen: Patient denies travel to an Ebola-affected area in the 21 days before illness onset. Initial Sepsis Screen: Does the patient meet any 2 criteria? No. Patient's initial sepsis screen is negative. Does the patient have a suspected source of infection? No. Patient's initial sepsis screen is negative. Risk Assessment: Do you want to hurt yourself or someone else? Patient reports no desire to harm self or others. Onset of symptoms was April 19, 2021. 08:02 Method Of Arrival: Ambulatory tw2 08:02 Acuity: JOCELIN 3 tw2 Triage Assessment: 08:06 General: Appears uncomfortable, Behavior is calm, cooperative, appropriate for age. tw2 Pain: Complains of pain in pelvis. : Reports burning with urination, pain. : Reports "sores on my labia". Historical: - Allergies: 08:04 No Known Allergies; tw2 - Home Meds: 08:04 lisinopril 20 mg Oral tab 1 tab once daily [Active]; omeprazole 40 mg Oral cpDR 1 cap tw2 once daily [Active]; "unknown name of med for depression and anxiety" [Active]; - PMHx: 08:04 Hypertension; GERD; Depressive disorder; Anxiety; tw2 - PSHx: 08:05 Cholecystectomy; tubal ligation; tw2 - Immunization history:: Client reports receiving the 2nd dose of the Covid vaccine. - Social history:: Smoking status: Patient denies any tobacco usage or history of. Patient uses street drugs, marijuana, every day use. - Family history:: not pertinent. Screenin:20 Abuse screen: Denies threats or abuse. Denies injuries from another. Nutritional tr6 screening: No deficits noted. Tuberculosis screening: No symptoms or risk factors identified. Fall Risk None identified. Assessment: 08:20 General: Appears uncomfortable, Behavior is calm, cooperative, appropriate for age. tr6 Pain: Complains of pain in pelvis. Neuro: No deficits noted. Cardiovascular: No deficits noted. Respiratory: No deficits noted. GI: No deficits noted. : Reports pain in vaginal area. EENT: No deficits noted. Derm: No deficits noted. Musculoskeletal: No deficits noted. Vital Signs: 08:02 BP 122 / 80; Pulse 89; Resp 17; Temp 97.9(TE); Pulse Ox 100% on R/A; Weight 86.18 kg; tw2 Height 5 ft. 4 in. (162.56 cm); Pain 9/10; 08:02 Body Mass Index 32.61 (86.18 kg, 162.56 cm) tw2 ED Course: 07:58 Patient arrived in ED. mr 08:04 Triage completed. tw2 08:06 Iraida Fabian, RN is Primary Nurse. tr6 08:06 Arm band placed on. tw2 08:07 Javier Weems MD is Attending Physician. [facility] 08:20 Patient has correct armband on for positive identification. Bed in low position. Call tr6 light in reach. Side rails up X 1. Door closed. Noise minimized. Visitors limited. Lights dimmed. 08:44 Assist provider with pelvic exam: Performed by Javier Weems MD Patient tolerated well.tr6 08:46 Alexandrea Castillo MD is Referral Physician. barney Administered Medications: 08:50 Drug: Bactrim (trimethoprim-sulfamethoxazole) (160 mg-800 mg (DS) 1 tablet Route: PO; tr6 09:23 Follow up: Response: No adverse reaction tr6 09:22 Drug: Zithromax (azithromycin) 1 grams Route: PO; tr6 09:22 Drug: Doxycycline 100 mg Route: PO; tr6 09:23 Drug: Rocephin (cefTRIAXone) 1 grams Route: IM; Site: right gluteus; tr6 Outcome: 08:47 Discharge ordered by . barney 09:23 Patient left the ED. tr6 Signatures: Javier Weems MD MD cha Rivera, Mary mr Wise, Tara, RN RN tw2 Iraida Fabian RN RN tr6
[2021-04-19] MEDS ORDERED: SMZ./TMP. 800/160 MG TABLET ONE (09:11)
[2021-04-19 09:30] VITALS: BP 122/80; TEMP 97.9; O2SAT 100
[2021-04-19] MEDS ORDERED: AZITHROMYCIN 250 MG TAB ONE (09:34)
[2021-04-19] MEDS ORDERED: CEFTRIAXONE 1000 MG/VIAL ONE (09:34)
[2021-04-19] MEDS ORDERED: DOXYCYCLINE 100 MG CAP PO ONE (09:34)
[2021-04-19] MEDS ORDERED: LIDOCAINE 1% MPF 2 ML AMPULE ONE (09:35)
[2021-04-19] MEDS ORDERED: WATER FOR INJ,STERILE 10 ML ONE (09:36)
== END 2021-04-19 09:23 | disposition home or self-care (01) ==
LOC: ER 07:54
DX: N39.0 Urinary tract infection, site not specified (principal); N89.8 Other specified noninflammatory disorders of vagina; I10 Essential (primary) hypertension; K21.9 Gastro-esophageal reflux disease without esophagitis; F32.9 Major depressive disorder, single episode, unspecified; F41.9 Anxiety disorder, unspecified
CPT/HCPCS: 81003; 81025; 82947; 87086; 87088; 96372; 99283

== ENCOUNTER 2022-12-07 14:38 | Emergency (ER) | payer BC, SELFPAY ==
--- OUTSIDE RECORDS SUMMARY | 2022-12-07 14:44 | XMS REPORT | Continuity of Care Document ---
:1980 Author Organization [facility] t Address [address] [place] [address] [place] [id number] Care Team Providers Name Role Phone Lilly Farley Primary Care Physician [phone] Problems This patient has no known problems. Allergies, Adverse Reactions, Alerts This patient has no known allergies or adverse reactions. Medications Ordered Filled Start Stop Current Ordering Indication Dosage Frequency Signature Comments Components Source Medication Medication Date Date Medication? Clinician (SIG) Name Name TAKE 1 CAP 2022-0 No 40 DAILY 05-23 00:00: 00 TAKE 1 CAP 2022-0 No DAILY 05-23 00:00: 00 TAKE 1 2022-0 No TABLET BY 8-16 MOUTH EVERY 00:00: 12 HOURS 00 FOR 7 DAYS TAKE 1 2022-0 No TABLET BY 8-16 MOUTH EVERY 00:00: 12 HOURS 00 FOR 7 DAYS Cymbalta 30 2-0 No 1mg mg 7-18 capsule,del 00:00: ayed 00 release TAKE 1 2-0 No 100 TABLET BY 7-18 MOUTH EVERY 00:00: 12 HOURS 00 Cymbalta 30 2022-0 No 1mg mg 7-18 capsule,del 00:00: ayed 00 release TAKE 1 2022-0 No 100 TABLET BY 7-18 MOUTH EVERY 00:00: 12 HOURS 00 Cymbalta 30 2022-0 No 1mg mg 6-22 capsule,del 00:00: ayed 00 release Cymbalta 30 2022-0 No 1mg mg 6-22 capsule,del 00:00: ayed 00 release lisinopril 2022-0 No 1mg 20 mg 6-01 tablet 00:00: 00 omeprazole 2022-0 No 1mg 40 mg 6-01 capsule,del 00:00: ayed 00 release TAKE 1 2022-0 No TABLET BY 6- MOUTH EVERY 00:00: 12 HOURS 00 TAKE 1 2022-0 No TABLET BY 6-01 MOUTH EVERY 00:00: 6 HOURS 00 NEEDED FOR PAIN WITH FOOD lisinopril 2022-0 No 1mg 20 mg 6-01 tablet 00:00: 00 TAKE 1 CAP 2022-0 No DAILY 02-19 00:00: 00 TAKE 1 2022-0 No TABLET BY 6- MOUTH EVERY 00:00: 12 HOURS 00 TAKE 1 2022-0 No TABLET BY 6- MOUTH EVERY 00:00: 6 HOURS 00 NEEDED FOR PAIN WITH FOOD Cymbalta 30 2022-0 No 1mg mg 5-23 capsule,del 00:00: ayed 00 release Dose 2022-0 No Unknown 5-23 00:00: 00 Cymbalta 30 2022-0 No 1mg mg 5-23 capsule,del 00:00: ayed 00 release Dose 2022-0 No Unknown 5-23 00:00: 00 Cymbalta 20 2022-0 No 1mg mg 5-12 capsule,del 00:00: ayed 00 release Cymbalta 20 2022-0 No 1mg mg 5-12 capsule,del 00:00: ayed 00 release Dose 2022-0 No Unknown 3-31 00:00: 00 Dose 2022-0 No Unknown 3-31 00:00: 00 Dose 2022-0 No Unknown 3-31 00:00: 00 Dose 2022-0 No Unknown 3-31 00:00: 00 lisinopril 2022-0 No 1mg 20 mg 2-22 tablet 00:00: 00 omeprazole 2022-0 No 1mg 40 mg 2-22 capsule,del 00:00: ayed 00 release lisinopril 2022-0 No 1mg 20 mg 2-22 tablet 00:00: 00 omeprazole 2022-0 No 1mg 40 mg 2-22 capsule,del 00:00: ayed 00 release Bromfed DM 2022-0 No 5mg/5 2 mg-30 2-09 mL mg-10 mg/5 00:00: mL oral 00 syrup Bromfed DM 2022-0 No 5mg/5 2 mg-30 2-09 mL mg-10 mg/5 00:00: mL oral 00 syrup Wellbutrin 2022-0 No 1mg XL 150 mg 1-14 24 hr 00:00: tablet, 00 extended release Zoloft 50 2021-0 No 1mg mg tablet 1-14 00:00: 00 buspirone 2021-0 No 1mg 15 mg 1-14 tablet 00:00: 00 Wellbutrin 2021-0 No 1mg XL 150 mg 1-14 24 hr 00:00: tablet, 00 extended release Zoloft 50 2021-0 No 1mg mg tablet 1-14 00:00: 00 Dose 2021-0 No Unknown 1-14 00:00: 00 Wellbutrin 2020-1 No 1mg XL 150 mg 2-06 24 hr 00:00: tablet, 00 extended release Zoloft 50 2020-1 No 1mg mg tablet 2-06 00:00: 00 Wellbutrin 2020-1 No 1mg XL 150 mg 2-06 24 hr 00:00: tablet, 00 extended release Zoloft 50 2020-1 No 1mg mg tablet 2-06 00:00: 00 Wellbutrin 2020-1 No 1mg XL 150 mg 1-24 24 hr 00:00: tablet, 00 extended release propranolol 2020-1 No 1mg 10 mg 1-24 tablet 00:00: 00 Zoloft 50 2020-1 No 1mg mg tablet 1-24 00:00: 00 buspirone 2020-1 No 1mg 15 mg 1-24 tablet 00:00: 00 Wellbutrin 2020-1 No 1mg XL 150 mg 1-24 24 hr 00:00: tablet, 00 extended release propranolol 2020-1 No 1mg 10 mg 1-24 tablet 00:00: 00 Zoloft 50 2020-1 No 1mg mg tablet 1-24 00:00: 00 buspirone 2020-1 No 1mg 15 mg 1-24 tablet 00:00: 00 Dose 2020-1 No Unknown 1-16 00:00: 00 Dose 2020-1 No Unknown 1-16 00:00: 00 Dose 2020-1 No Unknown 1-16 00:00: 00 Dose 2020-1 No Unknown 1-16 00:00: 00 omeprazole 2020-1 No 1mg 40 mg 0-13 capsule,del 00:00: ayed 00 release omeprazole 2021-1 No 1mg 40 mg 0-13 capsule,del 00:00: ayed 00 release lisinopril 2021-0 No 1mg 20 mg 8-18 tablet 00:00: 00 lisinopril 2021-0 No 1mg 20 mg 8-18 tablet 00:00: 00 omeprazole 2021-0 No 1mg 40 mg 7-22 capsule,del 00:00: ayed 00 release omeprazole 2021-0 No 1mg 40 mg 7-22 capsule,del 00:00: ayed 00 release sulfamethox 2021-0 No 1mg azole 800 7-10 mg-trimetho 00:00: prim 160 mg 00 tablet sulfamethox 2021-0 No 1mg azole 800 7-10 mg-trimetho 00:00: prim 160 mg 00 tablet ibuprofen 2021-0 No 1mg 800 mg 7-05 tablet 00:00: 00 ibuprofen 2021-0 No 1mg 800 mg 7-05 tablet 00:00: 00 diclofenac 2021-0 No 1% 1 % topical 7-01 gel 00:00: 00 cyclobenzap 2021-0 No 1mg rine 10 mg 7-01 tablet 00:00: 00 diclofenac 2021-0 No 1% 1 % topical 7-01 gel 00:00: 00 cyclobenzap 2021-0 No 1mg rine 10 mg 7-01 tablet 00:00: 00 Zoloft 100 2021-0 No 2mg mg tablet 6-23 00:00: 00 Wellbutrin 2021-0 No 1mg XL 150 mg 6-23 24 hr 00:00: tablet, 00 extended release propranolol 2021-0 No 1mg 10 mg 6-23 tablet 00:00: 00 buspirone 2021-0 No 1mg 15 mg 6-23 tablet 00:00: 00 Zoloft 100 2021-0 No 2mg mg tablet 6-23 00:00: 00 Wellbutrin 2021-0 No 1mg XL 150 mg 6-23 24 hr 00:00: tablet, 00 extended release propranolol 2021-0 No 1mg 10 mg 6-23 tablet 00:00: 00 buspirone 2021-0 No 1mg 15 mg 6-23 tablet 00:00: 00 prednisone 2021-0 No 1mg 20 mg 6-09 tablet 00:00: 00 cetirizine 2021-0 No 1mg 5 6-09 mg-pseudoep 00:00: hedrine ER 00 120 mg tablet,exte nded release,12h r amoxicillin 1-0 No 1mg 875 6-09 mg-potassiu 00:00: m 00 clavulanate 125 mg tablet Bromfed DM 2020-0 No 5mg/5 2 mg-30 6-09 mL mg-10 mg/5 00:00: mL oral 00 syrup prednisone 1-0 No 1mg 20 mg 6-09 tablet 00:00: 00 cetirizine 1-0 No 1mg 5 6-09 mg-pseudoep 00:00: hedrine ER 00 120 mg tablet,exte nded release,12h r amoxicillin 1-0 No 1mg 875 6-09 mg-potassiu 00:00: m 00 clavulanate 125 mg tablet Bromfed DM 2020-0 No 5mg/5 2 mg-30 6-09 mL mg-10 mg/5 00:00: mL oral 00 syrup Anusol-HC 1-0 No % 2.5 % 6-03 topical 00:00: cream with 00 perineal applicator medroxyprog 1-0 No 1mg/mL esterone 6-03 150 mg/mL 00:00: intramuscul 00 ar suspension Anusol-HC 1-0 No % 2.5 % 6-03 topical 00:00: cream with 00 perineal applicator medroxyprog 1-0 No 1mg/mL esterone 6-03 150 mg/mL 00:00: intramuscul 00 ar suspension benzonatate 1-0 No 1mg 200 mg 6-02 capsule 00:00: 00 Bromfed DM 2020-0 No 5mg/5 2 mg-30 6-02 mL mg-10 mg/5 00:00: mL oral 00 syrup ProAir HFA 2020-0 No 12mcg/a 90 6-02 ctuatio mcg/actuati 00:00: n on aerosol 00 inhaler azithromyci 1-0 No mg n 250 mg 6-02 tablet 00:00: 00 benzonatate 1-0 No 1mg 200 mg 6-02 capsule 00:00: 00 Bromfed DM 2020-0 No 5mg/5 2 mg-30 6-02 mL mg-10 mg/5 00:00: mL oral 00 syrup ProAir HFA 1-0 No 12mcg/a 90 6-02 ctuatio mcg/actuati 00:00: n on aerosol 00 inhaler azithromyci 1-0 No mg n 250 mg 6-02 tablet 00:00: 00 lisinopril 2021-0 No 1mg 20 mg 5-05 tablet 00:00: 00 lisinopril 1-0 No 1mg 20 mg 5-05 tablet 00:00: 00 Zoloft 100 1-0 No 2mg mg tablet 5-04 00:00: 00 Wellbutrin 1-0 No 1mg XL 150 mg 5-04 24 hr 00:00: tablet, 00 extended release propranolol 1-0 No 1mg 10 mg 5-04 tablet 00:00: 00 buspirone 1-0 No 1mg 15 mg 5-04 tablet 00:00: 00 Zoloft 100 1-0 No 2mg mg tablet 5-04 00:00: 00 Wellbutrin 1-0 No 1mg XL 150 mg 5-04 24 hr 00:00: tablet, 00 extended release propranolol 2021-0 No 1mg 10 mg 5-04 tablet 00:00: 00 buspirone 2021-0 No 1mg 15 mg 5-04 tablet 00:00: 00 Zoloft 100 2021-0 No 2mg mg tablet 4-20 00:00: 00 Wellbutrin 2021-0 No 1mg XL 150 mg 4-20 24 hr 00:00: tablet, 00 extended release propranolol 2021-0 No 1mg 10 mg 4-20 tablet 00:00: 00 buspirone 2021-0 No 1mg 15 mg 4-20 tablet 00:00: 00 Zoloft 100 2021-0 No 2mg mg tablet 4-20 00:00: 00 Wellbutrin 2021-0 No 1mg XL 150 mg 4-20 24 hr 00:00: tablet, 00 extended release propranolol 2021-0 No 1mg 10 mg 4-20 tablet 00:00: 00 buspirone 2021-0 No 1mg 15 mg 4-20 tablet 00:00: 00 lisinopril 2021-0 No 1mg 20 mg 4-05 tablet 00:00: 00 Zoloft 100 2021-0 No 15mg mg tablet 4-05 00:00: 00 Wellbutrin 1-0 No 1mg XL 150 mg 4-05 24 hr 00:00: tablet, 00 extended release buspirone 2021-0 No 1mg 15 mg 4-05 tablet 00:00: 00 omeprazole 1-0 No 1mg 40 mg 4-05 capsule,del 00:00: ayed 00 release lisinopril 1-0 No 1mg 20 mg 4-05 tablet 00:00: 00 Zoloft 100 1-0 No 15mg mg tablet 4-05 00:00: 00 Wellbutrin 1-0 No 1mg XL 150 mg 4-05 24 hr 00:00: tablet, 00 extended release buspirone 1-0 No 1mg 15 mg 4-05 tablet 00:00: 00 omeprazole 1-0 No 1mg 40 mg 4-05 capsule,del 00:00: ayed 00 release Anusol-HC 1-0 No % 2.5 % 3-18 topical 00:00: cream with 00 perineal applicator Anusol-HC 2021-0 No % 2.5 % 3-18 topical 00:00: cream with 00 perineal applicator sulfamethox 1-0 No 1mg azole 800 3-17 mg-trimetho 00:00: prim 160 mg 00 tablet sulfamethox 1-0 No 1mg azole 800 3-17 mg-trimetho 00:00: prim 160 mg 00 tablet Zoloft 100 1-0 No 15mg mg tablet 3-02 00:00: 00 Wellbutrin 1-0 No 1mg XL 150 mg 3-02 24 hr 00:00: tablet, 00 extended release buspirone 1-0 No 1mg 15 mg 3-02 tablet 00:00: 00 Zoloft 100 1-0 No 15mg mg tablet 3-02 00:00: 00 Wellbutrin 2021-0 No 1mg XL 150 mg 3-02 24 hr 00:00: tablet, 00 extended release buspirone 2021-0 No 1mg 15 mg 3-02 tablet 00:00: 00 Zoloft 100 2021-0 No 1mg mg tablet 2-02 00:00: 00 Wellbutrin 2021-0 No 1mg XL 150 mg 2-02 24 hr 00:00: tablet, 00 extended release buspirone 1-0 No 1mg 10 mg 2-02 tablet 00:00: 00 Zoloft 100 1-0 No 1mg mg tablet 2-02 00:00: 00 Wellbutrin 1-0 No 1mg XL 150 mg 2-02 24 hr 00:00: tablet, 00 extended release buspirone 2020-0 No 1mg 10 mg 2-02 tablet 00:00: 00 ibuprofen 1-0 No 1mg 800 mg 1-28 tablet 00:00: 00 ibuprofen 1-0 No 1mg 800 mg 1-28 tablet 00:00: 00 Zoloft 100 1-0 No 1mg mg tablet 1-20 00:00: 00 Wellbutrin 2020-0 No 1mg XL 150 mg 1-20 24 hr 00:00: tablet, 00 extended release buspirone 2020-0 No 1mg 10 mg 1-20 tablet 00:00: 00 Zoloft 100 2020-0 No 1mg mg tablet 1-20 00:00: 00 Wellbutrin 2020-0 No 1mg XL 150 mg 1-20 24 hr 00:00: tablet, 00 extended release buspirone 2020-0 No 1mg 10 mg 1-20 tablet 00:00: 00 lisinopril 2019-1 No 1mg 20 mg 2-28 tablet 00:00: 00 lisinopril 2019-1 No 1mg 20 mg 2-28 tablet 00:00: 00 Wellbutrin 2019-1 No 1mg XL 150 mg 2-08 24 hr 00:00: tablet, 00 extended release Zoloft 50 2019-1 No 15mg mg tablet 2-08 00:00: 00 buspirone 2019-1 No 1mg 10 mg 2-08 tablet 00:00: 00 Wellbutrin 2019-1 No 1mg XL 150 mg 2-08 24 hr 00:00: tablet, 00 extended release Zoloft 50 2019-1 No 15mg mg tablet 2-08 00:00: 00 buspirone 2019-1 No 1mg 10 mg 2-08 tablet 00:00: 00 Zoloft 50 2019-1 No 15mg mg tablet 1-18 00:00: 00 Wellbutrin 2019-1 No 1mg XL 150 mg 1-18 24 hr 00:00: tablet, 00 extended release buspirone 2019-1 No 1mg 10 mg 1-18 tablet 00:00: 00 Zoloft 50 2019-1 No 15mg mg tablet 1-18 00:00: 00 Wellbutrin 2019-1 No 1mg XL 150 mg 1-18 24 hr 00:00: tablet, 00 extended release buspirone 2019-1 No 1mg 10 mg 1-18 tablet 00:00: 00 Wellbutrin 2019-1 No 1mg XL 150 mg 0-22 24 hr 00:00: tablet, 00 extended release Zoloft 50 2019-1 No 1mg mg tablet 0-22 00:00: 00 buspirone 2019-1 No 1mg 10 mg 0-22 tablet 00:00: 00 Wellbutrin 2019-1 No 1mg XL 150 mg 0-22 24 hr 00:00: tablet, 00 extended release Zoloft 50 2019-1 No 1mg mg tablet 022 00:00: 00 buspirone 2019-1 No 1mg 10 mg 0-22 tablet 00:00: 00 lisinopril 2019-1 No 1mg 20 mg 0-02 tablet 00:00: 00 omeprazole 2019-1 No 1mg 40 mg 0-02 capsule,del 00:00: ayed 00 release lisinopril 2019-1 No 1mg 20 mg 0-02 tablet 00:00: 00 omeprazole 2019-1 No 1mg 40 mg 0-02 capsule,del 00:00: ayed 00 release Wellbutrin 2019-0 No 1mg XL 150 mg 9-22 24 hr 00:00: tablet, 00 extended release Zoloft 50 2019-0 No 1mg mg tablet 922 00:00: 00 buspirone 2020-0 No 1mg 10 mg 9-22 tablet 00:00: 00 Wellbutrin 2019-0 No 1mg XL 150 mg 9-22 24 hr 00:00: tablet, 00 extended release Zoloft 50 2019-0 No 1mg mg tablet 922 00:00: 00 buspirone 2020-0 No 1mg 10 mg 9-22 tablet 00:00: 00 Zoloft 50 2019-0 No 1mg mg tablet 8-21 00:00: 00 Wellbutrin 2020-0 No 1mg XL 150 mg 8-21 24 hr 00:00: tablet, 00 extended release buspirone 2020-0 No 1mg 10 mg 8-21 tablet 00:00: 00 Zoloft 50 2020-0 No 1mg mg tablet 8-21 00:00: 00 Wellbutrin 2020-0 No 1mg XL 150 mg 8-21 24 hr 00:00: tablet, 00 extended release buspirone 2020-0 No 1mg 10 mg 8-21 tablet 00:00: 00 Zoloft 100 2020-0 No 1mg mg tablet 7-23 00:00: 00 buspirone 2020-0 No 1mg 10 mg 7-23 tablet 00:00: 00 Zoloft 100 2020-0 No 1mg mg tablet 7-23 00:00: 00 buspirone 2020-0 No 1mg 10 mg 7-23 tablet 00:00: 00 Zoloft 100 2020-0 No 1mg mg tablet 7-16 00:00: 00 buspirone 2020-0 No 1mg 10 mg 7-16 tablet 00:00: 00 Zoloft 100 2020-0 No 1mg mg tablet 7-16 00:00: 00 buspirone 2020-0 No 1mg 10 mg 7-16 tablet 00:00: 00 lisinopril 2020-0 No 1mg 20 mg 7-02 tablet 00:00: 00 lisinopril 2020-0 No 1mg 20 mg 7-02 tablet 00:00: 00 mupirocin 2 2020-0 No 1% % topical 6-04 ointment 00:00: 00 mupirocin 2 2020-0 No 1% % topical 6-04 ointment 00:00: 00 mirtazapine 2020-0 No 1mg 7.5 mg 5-27 tablet 00:00: 00 mirtazapine 2020-0 No 2mg 7.5 mg 5-27 tablet 00:00: 00 hydroxyzine 2020-0 No 1mg pamoate 25 5-27 mg capsule 00:00: 00 mirtazapine 2020-0 No 1mg 7.5 mg 5-27 tablet 00:00: 00 mirtazapine 2020-0 No 2mg 7.5 mg 5-27 tablet 00:00: 00 hydroxyzine 2020-0 No 1mg pamoate 25 5-27 mg capsule 00:00: 00 escitalopra 2020-0 No 1mg m 20 mg 5-26 tablet 00:00: 00 escitalopra 2020-0 No 1mg m 20 mg 5-26 tablet 00:00: 00 buspirone 2020-0 No 1mg 10 mg 5-04 tablet 00:00: 00 buspirone 2020-0 No 1mg 10 mg 5-04 tablet 00:00: 00 omeprazole 2020-0 No 1mg 40 mg 4-23 capsule,del 00:00: ayed 00 release omeprazole 2020-0 No 1mg 40 mg 4-23 capsule,del 00:00: ayed 00 release lisinopril 2020-0 No 1mg 20 mg 4-06 tablet 00:00: 00 buspirone 2020-0 No 1mg 10 mg 4-06 tablet 00:00: 00 lisinopril 2020-0 No 1mg 20 mg 4-06 tablet 00:00: 00 buspirone 2020-0 No 1mg 10 mg 4-06 tablet 00:00: 00 Macrobid 2020-0 No 1mg 100 mg 3-26 capsule 00:00: 00 Macrobid 2020-0 No 1mg 100 mg 3-26 capsule 00:00: 00 oxybutynin 2020-0 No 1mg chloride ER 2-25 10 mg 00:00: tablet,exte 00 nded release 24 hr escitalopra 2020-0 No 1mg m 20 mg 2-25 tablet 00:00: 00 oxybutynin 2020-0 No 1mg chloride ER 2-25 10 mg 00:00: tablet,exte 00 nded release 24 hr escitalopra 2020-0 No 1mg m 20 mg 2-25 tablet 00:00: 00 escitalopra 2020-0 No 1mg m 10 mg 1-15 tablet 00:00: 00 oxybutynin 2020-0 No 1mg chloride ER 1-15 10 mg 00:00: tablet,exte 00 nded release 24 hr mirtazapine 2020-0 No 1mg 30 mg 1-15 tablet 00:00: 00 escitalopra 2020-0 No 1mg m 10 mg 1-15 tablet 00:00: 00 oxybutynin 2020-0 No 1mg chloride ER 1-15 10 mg 00:00: tablet,exte 00 nded release 24 hr mirtazapine 2020-0 No 1mg 30 mg 1-15 tablet 00:00: 00 mupirocin 2 2019-1 No 1% % topical 2-09 ointment 00:00: 00 mupirocin 2 2019-1 No 1% % topical 2-09 ointment 00:00: 00 atorvastati 2019-1 No 1mg n 10 mg 0-30 tablet 00:00: 00 atorvastati 2019-1 No 1mg n 10 mg 0-30 tablet 00:00: 00 lisinopril 2019-1 No 1mg 20 mg 0-29 tablet 00:00: 00 lisinopril 2019-1 No 1mg 20 mg 0-29 tablet 00:00: 00 omeprazole 2019-1 No 1mg 40 mg 0-29 capsule,del 00:00: ayed 00 release lisinopril 2019-1 No 1mg 20 mg 0-29 tablet 00:00: 00 lisinopril 2019-1 No 1mg 20 mg 0-29 tablet 00:00: 00 omeprazole 2019-1 No 1mg 40 mg 0-29 capsule,del 00:00: ayed 00 release lisinopril 2019-0 No 1mg 20 mg 9-23 tablet 00:00: 00 lisinopril 2019-0 No 1mg 20 mg 9-23 tablet 00:00: 00 lisinopril 2019-0 No 1mg 20 mg 6-17 tablet 00:00: 00 lisinopril 2019-0 No 1mg 20 mg 6-17 tablet 00:00: 00 lisinopril 2019-0 No 1mg 10 mg 4-23 tablet 00:00: 00 omeprazole 2019-0 No 1mg 20 mg 4-23 capsule,del 00:00: ayed 00 release lisinopril 2019-0 No 1mg 10 mg 4-23 tablet 00:00: 00 omeprazole 2019-0 No 1mg 20 mg 4-23 capsule,del 00:00: ayed 00 release lisinopril 2019-0 No 1mg 10 mg 1-16 tablet 00:00: 00 omeprazole 2019-0 No 1mg 20 mg 1-16 capsule,del 00:00: ayed 00 release lisinopril 2019-0 No 1mg 10 mg 1-16 tablet 00:00: 00 omeprazole 2019-0 No 1mg 20 mg 1-16 capsule,del 00:00: ayed 00 release lisinopril 2019-0 No 1mg 10 mg 1-14 tablet 00:00: 00 omeprazole 2019-0 No 1mg 20 mg 1-14 capsule,del 00:00: ayed 00 release lisinopril 2019-0 No 1mg 10 mg 1-14 tablet 00:00: 00 omeprazole 2019-0 No 1mg 20 mg 1-14 capsule,del 00:00: ayed 00 release lisinopril 2018-1 No 1mg 10 mg 2-14 tablet 00:00: 00 omeprazole 2018-1 No 1mg 20 mg 2-14 capsule,del 00:00: ayed 00 release lisinopril 2018-1 No 1mg 10 mg 2-14 tablet 00:00: 00 omeprazole 2018-1 No 1mg 20 mg 2-14 capsule,del 00:00: ayed 00 release fluticasone 2018-1 No 2mcg/ac 50 1-06 tuation mcg/actuati 00:00: on nasal 00 spray,suspe nsion amoxicillin 2018-1 No 1mg 500 1-06 mg-potassiu 00:00: m 00 clavulanate 125 mg tablet fluticasone 2018-1 No 2mcg/ac 50 1-06 tuation mcg/actuati 00:00: on nasal 00 spray,suspe nsion amoxicillin 2018-1 No 1mg 500 1-06 mg-potassiu 00:00: m 00 clavulanate 125 mg tablet amoxicillin 2018-0 No 1mg 500 mg 3-08 capsule 00:00: 00 amoxicillin 2018-0 No 1mg 500 mg 3-08 capsule 00:00: 00 Zoloft 50 2018-0 No 1mg mg tablet - 00:00: 00 trazodone 2018-0 No 1mg 50 mg 1-26 tablet 00:00: 00 buspirone 5 2018-0 No 1mg mg tablet 10-16 00:00: 00 Zoloft 50 2018-0 No 1mg mg tablet 10-16 00:00: 00 trazodone 2018-0 No 1mg 50 mg 1-26 tablet 00:00: 00 buspirone 5 2018-0 No 1mg mg tablet 10-16 00:00: 00 lisinopril 2017-0 No 1mg 10 mg 8-01 tablet 00:00: 00 lisinopril 2017-0 No 1mg 10 mg 8-01 tablet 00:00: 00 lisinopril 2016-0 No 1mg 10 mg 6-30 tablet 00:00: 00 meclizine 2016-0 No 1mg 12.5 mg 6-30 tablet 00:00: 00 lisinopril 2016-0 No 1mg 10 mg 6-30 tablet 00:00: 00 meclizine 2016-0 No 1mg 12.5 mg 6-30 tablet 00:00: 00 lisinopril 2016-0 No 1mg 10 mg 6-06 tablet 00:00: 00 lisinopril 2016-0 No 1mg 10 mg 6-06 tablet 00:00: 00 lisinopril 2016-0 No 1mg 10 mg 5-05 tablet 00:00: 00 meclizine 2016-0 No 1mg 12.5 mg 5-05 tablet 00:00: 00 lisinopril 2016-0 No 1mg 10 mg 5-05 tablet 00:00: 00 meclizine 2016-0 No 1mg 12.5 mg 5-05 tablet 00:00: 00 lisinopril 2016-0 No 1mg 10 mg 4-06 tablet 00:00: 00 meclizine 2016-0 No 1mg 12.5 mg 4-06 tablet 00:00: 00 lisinopril 2016-0 No 1mg 10 mg 4-06 tablet 00:00: 00 meclizine 2016-0 No 1mg 12.5 mg 4-06 tablet 00:00: 00 loratadine 2016-0 No 1mg 10 mg 2-03 tablet 00:00: 00 loratadine 2016-0 No 1mg 10 mg 2-03 tablet 00:00: 00 tramadol 50 2016-0 No 1mg mg tablet 1- 00:00: 00 tramadol 50 2016-0 No 1mg mg tablet - 00:00: 00 Immunizations Ordered Immunization Filled Immunization Date Status Commen ts Source Name Name Tunde COVID-19 2020-10-13 Completed Vaccine 00:00:00 Moderna COVID-19 2020-10-13 Completed Vaccine 00:00:00 Moderna COVID-19 2020-09-17 Completed Vaccine 00:00:00 Moderna COVID-19 2020-09-17 Completed Vaccine 00:00:00 Influenza, seasonal, 2020-07-04 Completed inj 00:00:00 Influenza, seasonal, 2020-07-04 Completed inj 00:00:00 Influenza, seasonal, 2020-06-26 Completed inj 00:00:00 Influenza, seasonal, 2020-06-26 Completed inj 00:00:00 Hep B, adult 2018-12-28 Completed 00:00:00 Hep B, adult 2018-12-28 Completed 00:00:00 Hep B, adult 2018-11-15 Completed 00:00:00 Hep B, adult 2018-11-15 Completed 00:00:00 Tdap 2018-09-03 Completed 00:00:00 Influenza, seasonal, 2018-09-03 Completed inj 00:00:00 Tdap 2018-09-03 Completed 00:00:00 Influenza, seasonal, 2018-09-03 Completed inj 00:00:00 Vital Signs Vital Name Observation Time Observation Value Comments Source BP Systolic 2022-06-17 11:09:00 118 mm[Hg] BP Diastolic 2022-06-17 11:09:00 87 mm[Hg] Weight Measured 2022-06-17 11:09:00 182.80 pounds Height Measured 2022-06-17 11:09:00 54.00 inches Body Temperature 2022-06-17 11:09:00 98.30 degrees Heart Rate 2022-06-17 11:09:00 97.00 /min Respiratory Rate 2022-06-17 11:09:00 BP Systolic 2022-05-23 15:21:00 BP Diastolic 2022-05-23 15:21:00 Weight Measured 2022-05-23 15:21:00 160.00 pounds Height Measured 2022-05-23 15:21:00 54.00 inches Body Temperature 2022-05-23 15:21:00 Heart Rate 2022-05-23 15:21:00 Respiratory Rate 2022-05-23 15:21:00 BP Systolic 2022-02-19 17:06:00 127 mm[Hg] BP Diastolic 2022-02-19 17:06:00 80 mm[Hg] Weight Measured 2022-02-19 17:06:00 160.00 pounds Height Measured 2022-02-19 17:06:00 Body Temperature 2022-02-19 17:06:00 Heart Rate 2022-02-19 17:06:00 Respiratory Rate 2022-02-19 17:06:00 BP Systolic 2021-11-12 09:44:00 BP Diastolic 2021-11-12 09:44:00 Weight Measured 2021-11-12 09:44:00 140.00 pounds Height Measured 2021-11-12 09:44:00 54.00 inches Body Temperature 2021-11-12 09:44:00 Heart Rate 2021-11-12 09:44:00 Respiratory Rate 2021-11-12 09:44:00 BP Systolic 2021-08-06 14:45:00 124 mm[Hg] BP Diastolic 2021-08-06 14:45:00 82 mm[Hg] Weight Measured 2021-08-06 14:45:00 189.40 pounds Height Measured 2021-08-06 14:45:00 54.00 inches Body Temperature 2021-08-06 14:45:00 98.20 degrees Heart Rate 2021-08-06 14:45:00 85.00 /min Respiratory Rate 2021-08-06 14:45:00 21.00 /min BP Systolic 2021-03-21 15:50:00 116 mm[Hg] BP Diastolic 2021-03-21 15:50:00 77 mm[Hg] Weight Measured 2021-03-21 15:50:00 197.20 pounds Height Measured 2021-03-21 15:50:00 54.00 inches Body Temperature 2021-03-21 15:50:00 98.60 degrees Heart Rate 2021-03-21 15:50:00 88.00 /min Respiratory Rate 2021-03-21 15:50:00 21.00 /min BP Systolic 2021-02-27 16:37:00 130 mm[Hg] BP Diastolic 2021-02-27 16:37:00 83 mm[Hg] Weight Measured 2021-02-27 16:37:00 197.80 pounds Height Measured 2021-02-27 16:37:00 54.00 inches Body Temperature 2021-02-27 16:37:00 99.50 degrees Heart Rate 2021-02-27 16:37:00 78.00 /min Respiratory Rate 2021-02-27 16:37:00 16.00 /min BP Systolic 2021-02-21 13:36:00 124 mm[Hg] BP Diastolic 2021-02-21 13:36:00 80 mm[Hg] Weight Measured 2021-02-21 13:36:00 197.40 pounds Height Measured 2021-02-21 13:36:00 54.00 inches Body Temperature 2021-02-21 13:36:00 98.60 degrees Heart Rate 2021-02-21 13:36:00 80.00 /min Respiratory Rate 2021-02-21 13:36:00 21.00 /min BP Systolic 2021-02-20 14:29:00 126 mm[Hg] BP Diastolic 2021-02-20 14:29:00 94 mm[Hg] Weight Measured 2021-02-20 14:29:00 197.40 pounds Height Measured 2021-02-20 14:29:00 54.00 inches Body Temperature 2021-02-20 14:29:00 98.20 degrees Heart Rate 2021-02-20 14:29:00 94.00 /min Respiratory Rate 2021-02-20 14:29:00 16.00 /min BP Systolic 2021-01-23 10:16:00 123 mm[Hg] BP Diastolic 2021-01-23 10:16:00 80 mm[Hg] Weight Measured 2021-01-23 10:16:00 200.00 pounds Height Measured 2021-01-23 10:16:00 64.00 inches Body Temperature 2021-01-23 10:16:00 98.40 degrees Heart Rate 2021-01-23 10:16:00 75.00 /min Respiratory Rate 2021-01-23 10:16:00 16.00 /min BP Systolic 2020-12-06 17:32:00 119 mm[Hg] BP Diastolic 2020-12-06 17:32:00 82 mm[Hg] Weight Measured 2020-12-06 17:32:00 202.00 pounds Height Measured 2020-12-06 17:32:00 64.00 inches Body Temperature 2020-12-06 17:32:00 98.10 degrees Heart Rate 2020-12-06 17:32:00 70.00 /min Respiratory Rate 2020-12-06 17:32:00 18.00 /min Procedures This patient has no known procedures. Plan of Care Planned Activity Planned Date Details Comments Source Goal Plan of Care Note [code = 12592-0] Goal Plan of Care Note [code = 83458-4] Goal Plan of Care Note [code = 09383-8] Goal Plan of Care Note [code = 95876-3] Goal Plan of Care Note [code = 79869-8] Goal Plan of Care Note [code = 62761-5] Goal Plan of Care Note [code = 83383-7] Goal Plan of Care Note [code = 53714-0] Goal Plan of Care Note [code = 41636-1] Goal Plan of Care Note [code = 66269-8] Goal Plan of Care Note [code = 67665-0] Goal Plan of Care Note [code = 84618-0] Goal Plan of Care Note [code = 81380-8] Goal Plan of Care Note [code = 60597-0] Goal Plan of Care Note [code = 07136-7] Goal Plan of Care Note [code = 31038-8] Goal Plan of Care Note [code = 79227-6] Goal Plan of Care Note [code = 70717-9] Goal Plan of Care Note [code = 98068-0] Goal Plan of Care Note [code = 10012-0] Goal Plan of Care Note [code = 18593-1] Goal Plan of Care Note [code = 02854-9] Goal Plan of Care Note [code = 25103-9] Goal Plan of Care Note [code = 33804-5] Goal Plan of Care Note [code = 18834-8] Goal Plan of Care Note [code = 10300-3] Goal Plan of Care Note [code = 55779-8] Goal Plan of Care Note [code = 42171-0] Goal Plan of Care Note [code = 30523-9] Goal Plan of Care Note [code = 05168-9] Goal Plan of Care Note [code = 54579-9] Goal Plan of Care Note [code = 55883-1] Goal Plan of Care Note [code = 93923-8] Goal Plan of Care Note [code = 01729-9] Goal Plan of Care Note [code = 56371-8] Goal Plan of Care Note [code = 51602-5] Goal Plan of Care Note [code = 63112-2] Goal Plan of Care Note [code = 93665-3] Goal Plan of Care Note [code = 11401-2] Goal Plan of Care Note [code = 86169-6] Goal Plan of Care Note [code = 43068-6] Goal Plan of Care Note [code = 24134-8] Goal Plan of Care Note [code = 02851-2] Goal Plan of Care Note [code = 67399-1] Goal Plan of Care Note [code = 65086-0] Goal Plan of Care Note [code = 71795-2] Goal Plan of Care Note [code = 22772-6] Goal Plan of Care Note [code = 53172-9] Goal Plan of Care Note [code = 80205-4] Goal Plan of Care Note [code = 30495-8] Goal Plan of Care Note [code = 39306-8] Goal Plan of Care Note [code = 92412-4] Goal Plan of Care Note [code = 52827-5] Goal Plan of Care Note [code = 34010-8] Goal Plan of Care Note [code = 90823-8] Goal Plan of Care Note [code = 79743-2] Goal Plan of Care Note [code = 69462-5] Goal Plan of Care Note [code = 82157-3] Goal Plan of Care Note [code = 25379-5] Goal Plan of Care Note [code = 34320-5] Goal Plan of Care Note [code = 59620-5] Goal Plan of Care Note [code = 66883-2] Goal Plan of Care Note [code = 06629-7] Goal Plan of Care Note [code = 87137-6] Goal Plan of Care Note [code = 12341-1] Goal Plan of Care Note [code = 78556-3] Goal Plan of Care Note [code = 14951-1] Goal Plan of Care Note [code = 32690-9] Goal Plan of Care Note [code = 12812-3] Goal Plan of Care Note [code = 36395-0] Goal Plan of Care Note [code = 67499-5] Goal Plan of Care Note [code = 88201-5] Goal Plan of Care Note [code = 50155-9] Goal Plan of Care Note [code = 89235-8] Goal Plan of Care Note [code = 76167-8] Goal Plan of Care Note [code = 70169-6] Goal Plan of Care Note [code = 58016-4] Goal Plan of Care Note [code = 11557-0] Goal Plan of Care Note [code = 97893-5] Goal Plan of Care Note [code = 58205-9] Goal Plan of Care Note [code = 94893-6] Goal Plan of Care Note [code = 15050-6] Goal Plan of Care Note [code = 38880-8] Goal Plan of Care Note [code = 72524-3] Goal Plan of Care Note [code = 27926-6] Goal Plan of Care Note [code = 86774-9] Goal Plan of Care Note [code = 27591-8] Goal Plan of Care Note [code = 55296-9] Goal Plan of Care Note [code = 88951-6] Goal Plan of Care Note [code = 30352-9] Goal Plan of Care Note [code = 61466-9] Goal Plan of Care Note [code = 24966-5] Goal Plan of Care Note [code = 91323-9] Goal Plan of Care Note [code = 12735-8] Goal Plan of Care Note [code = 14194-3] Goal Plan of Care Note [code = 34882-8] Goal Plan of Care Note [code = 41279-5] Goal Plan of Care Note [code = 15414-7] Goal Plan of Care Note [code = 08793-9] Goal Plan of Care Note [code = 24571-2] Goal Plan of Care Note [code = 98212-8] Goal Plan of Care Note [code = 04707-5] Goal Plan of Care Note [code = 29541-3] Goal Plan of Care Note [code = 09051-6] Goal Plan of Care Note [code = 67203-1] Goal Plan of Care Note [code = 46383-3] Goal Plan of Care Note [code = 68658-1] Goal Plan of Care Note [code = 90086-9] Goal Plan of Care Note [code = 03792-3] Goal Plan of Care Note [code = 86048-4] Goal Plan of Care Note [code = 93713-7] Goal Plan of Care Note [code = 64365-3] Goal Plan of Care Note [code = 78531-3] Goal Plan of Care Note [code = 03326-3] Goal Plan of Care Note [code = 72199-9] Goal Plan of Care Note [code = 66155-1] Encounters Start End Encounter Admission Attending Care Care Encounter Source Date/Time Date/Time Type Type Clinicians Facility Department ID 2022-09-01 2022-09-01 Outpatient [facility] [id number] Alex 18:36:29 18:36:29 1212 F Pernell 2022-08-25 2022-08-25 Outpatient [facility] [id number] Alex 18:01:33 18:01:33 1205 F Pernell 2022-06-17 2022-06-17 Outpatient [id number] 00:00:00 00:00:00 Visit [id number] [id number] 2022-05-23 2022-05-23 Outpatient [id number] 00:00:00 00:00:00 Visit [id number] -[id number]-afc [id number] Results Test Description Test Time Test Comments Results Result Sour e Comments BREAST ULTRASOUND 2022-08-04 BILATERAL 10:28:50 Name: Abigail : 1980 Sex: F - DIAG MAMM BILATERAL KAREN CAD DIGITAL - BREAST ULTRASOUND BILATERALBILATERAL DIGITAL DIAGNOSTIC MAMMOGRAM 3D/2D WITH CAD: 2CLINICAL: Left breast pain and masses. Pain left breast. Digital breast tomosynthesis was performed in addition to routine CC and MLO views. Current mammographic images were evaluated by [employer] CAD (computer-aided detection) software. Comparison is made to exams dated 04/20/2020 mammogram and [facility] There are scattered fibroglandular tissues in both breasts. No suspicious mass, architectural distortion, malignant type calcification, or lymph node abnormality detected. IMPRESSION: NEGATIVEThere is no mammographic evidence of malignancy. Bilateral survey ultrasound to follow.COMPLETE ULTRASOUND OF BOTH BREASTS AND AXILLA: 08/04/2022omparison is made to exams dated 04/20/2020 mammogram and [facility] Color flow and real-time ultrasound of both breasts four quadrants, retroareolar, and axilla regions were performed. The breast tissue has scattered fibroglandular background echotexture. Bilateral survey ultrasound demonstrates no suspicious sonographic abnormality. No axillary lymphadenopathy.IMPRESSI ON: NEGATIVE There is no sonographic evidence of malignancy. Resume annual screening mammography in one year. (08/05/2023) Clinical follow is also recommended, and further management of clinical findings should be based on clinical examination.Xu Ascencio M.D. ss/:08/04/2022 10:28:50 Entry: - 08/04/2022 12:56:06Imaging Technologist: Jael Alfaro FW, [facility]; Rose Lundberg , [facility]-letter sent: BIRADS 1-2 Normal Mammogram BI-RADS: 1 Negative Ultrasound BI-RADS: [address]/NG, NAAT, URINE 2022-06-18 18:19:17 Test Item Value Reference Range Interpretation Comme nts GONORRHEA, NAAT NEGATIVE NEGATIVE IMPORTA NT NOTICE: SEE ANNOUNCEMENT AT (test code = [email or web address].introNetworks/OpenPlacementKit Note: 34745) Assay methodolo gy is nucleic acid amplification by transcriptio n mediated amplification (TMA) utilizing the A ptima Combo 2 Assay. CHLAMYDIA, NAAT NEGATIVE NEGATIVE IMPORTA NT NOTICE: SEE ANNOUNCEMENT AT (test code = [email or web address]://www.introNetworks/Novalere FPCobasUrineKit Note: 70052) Assay methodolo gy is nucleic acid amplification by transcriptio n mediated amplification (TMA) utilizing the A ptima Combo 2 Assay. [id number] 04:50:21 Test Item Value Reference Range Interpretation Comments RPR RESULT (test NON-REACTIVE NON-REACTIVE code = 3501) RPR TITER (test NOT INDIC. NOT INDIC. UNLESS OTHE RWISE code = 3500) TITER INDICATED, ALL TESTING PERFORMED [facility] [employer] [address] [place] [address] 4 LABORATORY DIRE CTOR: MARQUIS AL M.D. CLIA NUMBER [id number] [place] [id number] HIV 1/2 4TH GEN, RFLX [id number] 04:32:05 Test Item Value Reference Range Interpretation Comments HIV 1/2 4TH GEN, RFLX CONF (test NON-REACTIVE NON-REACTIVE code = 3514) HEPATITIS PANEL, [id number] 04:32:05 Test Item Value Reference Range Interpretation Comments HEPATITIS A IgM (test NON-REACTIVE NON-REACTIVE code = 31452) HEPATITIS B CORE IgM NON-REACTIVE NON-REACTIVE (test code = 4644) HEPATITIS B SURF AG NON-REACTIVE NON-REACTIVE (test code = 2739) HEPATITIS C ANTIBODY NON-REACTIVE NON-REACTIVE (test code = 4675) INTERPRETATION (NOTE) Hepatitis A HEPATITIS A: (test code sero logy shows no = 2552) evidence of acu te hepatitis A. INTERPRETATION (NOTE) Hepatitis B HEPATITIS B: (test code sero logy shows no = 45623) evidence of acu te hepatitis B and no indication of exposure to hepatitis B vir us in the previous zulma eight months. INTERPRETATION (NOTE) Hepatitis C HEPATITIS C: (test code sero logy shows no = 90137) evidence of exposure to hepatitisC viru s at this time. I t can take up to 12 months after exposure tothe hepatitis C vir us for antibodies to become detectab le in the blood i n certain patient s. SARS-CoV-2 (COVID-19), RT-PCR/[id number] 07:46:51 Test Item Value Reference Interpretation Comments Range SARS-CoV-2 NEGATIVE SEE NOTE SARS-CoV-2 RNA NOT INTERPRETATION DETECTEDNegat carolyn (test code = 28810) results do not preclude SARS-C oV-2 infection and s shikha hartley used as t he sole basis for patie nt management deci sions. Negativeresults must be combined wit h clinical observ ations, patient history ,and epidemiological information. Op timum specimen types and timingfor peak viral levels during infections caus ed by SARS-CoV-2 have notbeen determi isidro. Collection of m ultiple specimens or ty pes ofspecimens may be necessary to de tect virus. Improper specimencollect ion and handling, seque nce variability und er primers/probes, or organism presen t below the limit of de tection may lead to falsenegative r esults. Positive and ne gative predictive valu es oftesting are h ighly dependent on prevalence. Fal se negative testre sults are more likely when prevalence is h igh. SOURCE (test code = NASOPHARYNGEAL Note: [place] [address]) Tim Marjorie Elisa l-Time RT-PCR. The exp ected result or refer ence range is NEGATI VE (Not Detected). For more information reg arding COVID-19 testin g to include clinicalinforma tion, methodology det ail, intended use, F DA authorization andrecommended fact sheets for saira ents or healthcare prov iders, see NewTest Announcement: SARS-CoV-2 (COV ID-19) by NAAT at URL below (note,fact shee ts are provided by met hod given in report:[email or web address] Alternatively, see downloadable PD F fact sheet at:[email or web address]/[email or web address]-R T-PCR UNLESS OTHERWIS E INDICATED, ALL TESTING PERFORMED [facility], [place] [id number] [place] [address] RAFIA DIRECTOR: MARQUIS GURROLA M.D. CLIA NUMBER [id number] CAP ACCREDITATION N O. [id number] SARS-CoV-2 (COVID-19) by RT-PCR (HIGH RISK)2021-10-31 00:00:00 Test Item Value Reference Range Interpretation Comments SARS-CoV-2 INTERPRETATION NEGATIVE (test code = 37803) SOURCE (test code = 11076) NASOPHARYNGEAL SARS-CoV-2 (COVID-19) by RT-PCR (HIGH RISK)2021-10-31 00:00:00 Test Item Value Reference Range Interpretation Comments SARS-CoV-2 INTERPRETATION NEGATIVE (test code = 91543) SOURCE (test code = 58662) NASOPHARYNGEAL SARS-CoV-2 (COVID-19) by RT-PCR (HIGH RISK)2021-10-31 00:00:00 Test Item Value Reference Range Interpretation Comments SARS-CoV-2 INTERPRETATION NEGATIVE (test code = 80312) SOURCE (test code = 39801) NASOPHARYNGEAL SARS-CoV-2 (COVID-19) by RT-PCR (HIGH RISK)2021-10-31 00:00:00 Test Item Value Reference Range Interpretation Comments SARS-CoV-2 INTERPRETATION NEGATIVE (test code = 26775) SOURCE (test code = 61329) NASOPHARYNGEAL SARS-CoV-2 (COVID-19) by RT-PCR (HIGH RISK)2020-08-29 00:00:00 Test Item Value Reference Range Interpretation Comments SARS-CoV-2 INTERPRETATION NEGATIVE (test code = 30728) SOURCE (test code = 57497) NASOPHARYNGEAL SARS-CoV-2 (COVID-19) by RT-PCR (HIGH RISK)2020-08-29 00:00:00 Test Item Value Reference Range Interpretation Comments SARS-CoV-2 INTERPRETATION NEGATIVE (test code = 38207) SOURCE (test code = 75127) NASOPHARYNGEAL SARS-CoV-2 (COVID-19) by RT-PCR (HIGH RISK)2020-08-29 00:00:00 Test Item Value Reference Range Interpretation Comments SARS-CoV-2 INTERPRETATION NEGATIVE (test code = 40474) SOURCE (test code = 02758) NASOPHARYNGEAL SARS-CoV-2 (COVID-19) by RT-PCR (HIGH RISK)2020-08-29 00:00:00 Test Item Value Reference Range Interpretation Comments SARS-CoV-2 INTERPRETATION NEGATIVE (test code = 91466) SOURCE (test code = 53126) NASOPHARYNGEAL LIPID [id number] 00:00:00 Test Item Value Reference Range Interpretation Comments CHOLESTEROL (test code = 2210) 195 MG/DL TRIGLYCERIDES (test code = 2232) 334 MG/DL HDL CHOLESTEROL (test code = 2220) 34 MG/DL CALC LDL CHOL (test code = 2237) 113 MG/DL RISK RATIO LDL/HDL (test code = 3.32 RATIO 2238) LIPID [id number] 00:00:00 Test Item Value Reference Range Interpretation Comments CHOLESTEROL (test code = 2210) 195 MG/DL TRIGLYCERIDES (test code = 2232) 334 MG/DL HDL CHOLESTEROL (test code = 2220) 34 MG/DL CALC LDL CHOL (test code = 2237) 113 MG/DL RISK RATIO LDL/HDL (test code = 3.32 RATIO 2238) COMPREHENSIVE METABOLIC [id number] 00:00:00 Test Item Value Reference Range Interpretation Comments GLUCOSE (test code = 2217) 89 MG/DL BUN (test code = 2208) 16 MG/DL CREATININE (test code = 2214) 0.74 MG/DL eGFR AMER. (test code 117 ML/MIN/1.73 = 73736) eGFR NON- AMER. (test 101 ML/MIN/1.73 code = 42436) CALC BUN/CREAT (test code = 22 RATIO 2235) SODIUM (test code = 2231) 138 MEQ/L POTASSIUM (test code = 2228) 3.9 MEQ/L CHLORIDE (test code = 2215) 101 MEQ/L CARBON DIOXIDE (test code = 26 MEQ/L 2206) CALCIUM (test code = 2209) 9.2 MG/DL PROTEIN, TOTAL (test code = 7.5 G/DL 2228) ALBUMIN (test code = 2201) 4.5 G/DL CALC GLOBULIN (test code = 3.0 G/DL 2240) CALC A/G RATIO (test code = 1.5 RATIO 4) BILIRUBIN, TOTAL (test code = 0.4 MG/DL 2206) ALKALINE PHOSPHATASE (test 90 U/L code = 2204) AST (test code = 2218) 19 U/L ALT (test code = 2219) 23 U/L COMPREHENSIVE METABOLIC [id number] 00:00:00 Test Item Value Reference Range Interpretation Comments GLUCOSE (test code = 2217) 89 MG/DL BUN (test code = 2208) 16 MG/DL CREATININE (test code = 2214) 0.74 MG/DL eGFR AMER. (test code 117 ML/MIN/1.73 = 18618) eGFR NON- AMER. (test 101 ML/MIN/1.73 code = 63447) CALC BUN/CREAT (test code = 22 RATIO 2235) SODIUM (test code = 2231) 138 MEQ/L POTASSIUM (test code = 2228) 3.9 MEQ/L CHLORIDE (test code = 2215) 101 MEQ/L CARBON DIOXIDE (test code = 26 MEQ/L 2206) CALCIUM (test code = 220) 9.2 MG/DL PROTEIN, TOTAL (test code = 7.5 G/DL 2228) ALBUMIN (test code = 2201) 4.5 G/DL CALC GLOBULIN (test code = 3.0 G/DL 2239) CALC A/G RATIO (test code = 1.5 RATIO 2234) BILIRUBIN, TOTAL (test code = 0.4 MG/DL 2206) ALKALINE PHOSPHATASE (test 90 U/L code = 2204) AST (test code = 2218) 19 U/L ALT (test code = 2219) 23 U/L LIPID [id number] 00:00:00 Test Item Value Reference Range Interpretation Comments CHOLESTEROL (test code = 2210) 195 MG/DL TRIGLYCERIDES (test code = 2232) 334 MG/DL HDL CHOLESTEROL (test code = 2220) 34 MG/DL CALC LDL CHOL (test code = 2237) 113 MG/DL RISK RATIO LDL/HDL (test code = 3.32 RATIO 2238) LIPID [id number] 00:00:00 Test Item Value Reference Range Interpretation Comments CHOLESTEROL (test code = 2210) 195 MG/DL TRIGLYCERIDES (test code = 2232) 334 MG/DL HDL CHOLESTEROL (test code = 2220) 34 MG/DL CALC LDL CHOL (test code = 2237) 113 MG/DL RISK RATIO LDL/HDL (test code = 3.32 RATIO 2238) COMPREHENSIVE METABOLIC [id number] 00:00:00 Test Item Value Reference Range Interpretation Comments GLUCOSE (test code = 2217) 89 MG/DL BUN (test code = 2208) 16 MG/DL CREATININE (test code = 2214) 0.74 MG/DL eGFR AMER. (test code 117 ML/MIN/1.73 = 85832) eGFR NON- AMER. (test 101 ML/MIN/1.73 code = 24133) CALC BUN/CREAT (test code = 22 RATIO 2235) SODIUM (test code = 2231) 138 MEQ/L POTASSIUM (test code = 2228) 3.9 MEQ/L CHLORIDE (test code = 2215) 101 MEQ/L CARBON DIOXIDE (test code = 26 MEQ/L 2205) CALCIUM (test code = 2209) 9.2 MG/DL PROTEIN, TOTAL (test code = 7.5 G/DL 2228) ALBUMIN (test code = 2201) 4.5 G/DL CALC GLOBULIN (test code = 3.0 G/DL 2240) CALC A/G RATIO (test code = 1.5 RATIO 2234) BILIRUBIN, TOTAL (test code = 0.4 MG/DL 2206) ALKALINE PHOSPHATASE (test 90 U/L code = 2204) AST (test code = 2218) 19 U/L ALT (test code = 2219) 23 U/L COMPREHENSIVE METABOLIC [id number] 00:00:00 Test Item Value Reference Range Interpretation Comments GLUCOSE (test code = 2217) 89 MG/DL BUN (test code = 2208) 16 MG/DL CREATININE (test code = 2214) 0.74 MG/DL eGFR AMER. (test code 117 ML/MIN/1.73 = 97329) eGFR NON- AMER. (test 101 ML/MIN/1.73 code = 14771) CALC BUN/CREAT (test code = 22 RATIO 2235) SODIUM (test code = 2231) 138 MEQ/L POTASSIUM (test code = 2228) 3.9 MEQ/L CHLORIDE (test code = 2215) 101 MEQ/L CARBON DIOXIDE (test code = 26 MEQ/L 220) CALCIUM (test code = 2209) 9.2 MG/DL PROTEIN, TOTAL (test code = 7.5 G/DL 2228) ALBUMIN (test code = 2201) 4.5 G/DL CALC GLOBULIN (test code = 3.0 G/DL 2240) CALC A/G RATIO (test code = 1.5 RATIO 2234) BILIRUBIN, TOTAL (test code = 0.4 MG/DL 2206) ALKALINE PHOSPHATASE (test 90 U/L code = 2204) AST (test code = 2218) 19 U/L ALT (test code = 2219) 23 U/L SARS-CoV-2 (COVID-19) by RT-PCR (HIGH RISK)2020-04-27 00:00:00 Test Item Value Reference Range Interpretation Comments SARS-CoV-2 INTERPRETATION NEGATIVE (test code = 21118) SOURCE (test code = 32873) NASOPHARYNGEAL SARS-CoV-2 (COVID-19) by RT-PCR (HIGH RISK)2020-04-27 00:00:00 Test Item Value Reference Range Interpretation Comments SARS-CoV-2 INTERPRETATION NEGATIVE (test code = 34290) SOURCE (test code = 03212) NASOPHARYNGEAL SARS-CoV-2 (COVID-19) by RT-PCR (HIGH RISK)2020-04-27 00:00:00 Test Item Value Reference Range Interpretation Comments SARS-CoV-2 INTERPRETATION NEGATIVE (test code = 03502) SOURCE (test code = 52382) NASOPHARYNGEAL SARS-CoV-2 (COVID-19) by RT-PCR (HIGH RISK)2020-04-27 00:00:00 Test Item Value Reference Range Interpretation Comments SARS-CoV-2 INTERPRETATION NEGATIVE (test code = 84715) SOURCE (test code = 33001) NASOPHARYNGEAL SCR MAMM BILATERAL CAD [id number] 09:16:04 - SCR MAMM BILATERAL CAD DIGITALBILATERAL DIGITAL SCREENING MAMMOGRAM WITH CAD: 04/20/2020CLINICAL: A symptomatic. Current mammographic images were evaluated by either a [employer]u or a [employer] Image[employer]er CAD (computer aided detection system). Comparison is made to exam dated 10/13/2018 mammogram - [facility]-. There are scattered fibroglandular tissues in both breasts. No suspicious mass, architectural distortion, malignant type calcification, or lymph node abnormality detected. Breast architecture is stable compared to prior exams.IMPRESSION: NEGATIVEThere is no mammographic evidence of malignancy. Resume annual screening mammography in one year. Xu Ascencio M.D. ss/penrad:04/20/2020 09:16:04 Podiatric Surgeon: Kaye Marion , [facility]-FWletter sent: BIRADS 1-2 Normal Mammogram BI-RADS: 1 NegativePAP TEST, THINPREP, [id number] 00:00:00 Test Item Value Reference Range Interpretation Comments SOURCE: (test code = Cervical/Endocervical 8001) SLIDES: (test code = 1 8011) LMP: (test code = 8021) 03/05/2020 SPECIMEN ADEQUACY: (test (NOTE) code = 89039) INTERPRETATION: (test NILM/NO EPITH. code = 18765) ABNORMALITY;SEE BELOW MILIEU COORDINATOR: (test Amparo Hartman CT (ASCP) code = 8101) QC TECHNOLOGIST: (test Roxanne code = 8111) MAYKEL Olsen(ASCP)CT(IA C) LOCATION: (test code = (NOTE) 59483) CPT: (test code = 8140) (NOTE) PAP TEST, THINPREP, [id number] 00:00:00 Test Item Value Reference Range Interpretation Comments SOURCE: (test code = Cervical/Endocervical 8001) SLIDES: (test code = 1 8011) LMP: (test code = 8021) 03/05/2020 SPECIMEN ADEQUACY: (test (NOTE) code = 70657) INTERPRETATION: (test NILM/NO EPITH. code = 53018) ABNORMALITY;SEE BELOW MILIEU COORDINATOR: (test Amparo Hartman CT (ASCP) code = 8101) QC TECHNOLOGIST: (test Roxanne code = 8111) MAYKEL Olsen(ASCP)CT(IA C) LOCATION: (test code = (NOTE) 46930) CPT: (test code = 8140) (NOTE) PAP TEST, THINPREP, [id number] 00:00:00 Test Item Value Reference Range Interpretation Comments SOURCE: (test code = Cervical/Endocervical 8001) SLIDES: (test code = 1 8011) LMP: (test code = 8021) 03/05/2020 SPECIMEN ADEQUACY: (test (NOTE) code = 41493) INTERPRETATION: (test NILM/NO EPITH. code = 18221) ABNORMALITY;SEE BELOW MILIEU COORDINATOR: (test AD Meier (ASCP) code = 8101) QC TECHNOLOGIST: (test Roxanne code = 8111) RaúlSCT(ASCP)CT(IA C) LOCATION: (test code = (NOTE) 15465) CPT: (test code = 8140) (NOTE) PAP TEST, THINPREP, [id number] 00:00:00 Test Item Value Reference Range Interpretation Comments SOURCE: (test code = Cervical/Endocervical 8001) SLIDES: (test code = 1 8011) LMP: (test code = 8021) 03/05/2020 SPECIMEN ADEQUACY: (test (NOTE) code = 99969) INTERPRETATION: (test NILM/NO EPITH. code = 53184) ABNORMALITY;SEE BELOW MILIEU COORDINATOR: (test AD Meier (ASCP) code = 8101) QC TECHNOLOGIST: (test Roxanne code = 8111) MAYKEL Olsen(ASCP)CT(IA C) LOCATION: (test code = (NOTE) 80992) CPT: (test code = 8140) (NOTE) HPV HIGH RISK WITH GENOTYPE, [id number] 00:00:00 Test Item Value Reference Range Interpretation Comments HPV HIGH RISK INTERP (test code = POSITIVE 77333) HPV 16 (test code = 63094) NEGATIVE HPV 18 (test code = 85109) NEGATIVE HPV, HR, OTHER GENOTYPES (test code POSITIVE = 45717) HPV HIGH RISK WITH GENOTYPE, [id number] 00:00:00 Test Item Value Reference Range Interpretation Comments HPV HIGH RISK INTERP (test code = POSITIVE 23407) HPV 16 (test code = 11581) NEGATIVE HPV 18 (test code = 09825) NEGATIVE HPV, HR, OTHER GENOTYPES (test code POSITIVE = 53197) HPV HIGH RISK WITH GENOTYPE, [id number] 00:00:00 Test Item Value Reference Range Interpretation Comments HPV HIGH RISK INTERP (test code = POSITIVE 58350) HPV 16 (test code = 86270) NEGATIVE HPV 18 (test code = 74794) NEGATIVE HPV, HR, OTHER GENOTYPES (test code POSITIVE = 35262) HPV HIGH RISK WITH GENOTYPE, [id number] 00:00:00 Test Item Value Reference Range Interpretation Comments HPV HIGH RISK INTERP (test code = POSITIVE 19430) HPV 16 (test code = 12174) NEGATIVE HPV 18 (test code = 02747) NEGATIVE HPV, HR, OTHER GENOTYPES (test code POSITIVE = 10542) VAGINAL PATHOGENS DNA [id number] 00:00:00 Test Item Value Reference Range Interpretation Comments ELIZABETH SPECIES (test code = ) NEGATIVE G. VAGINALIS (test code = 48335) NEGATIVE T. VAGINALIS (test code = 08755) NEGATIVE VAGINAL PATHOGENS DNA [id number] 00:00:00 Test Item Value Reference Range Interpretation Comments ELIZABETH SPECIES (test code = 50637) NEGATIVE G. VAGINALIS (test code = 30689) NEGATIVE T. VAGINALIS (test code = 32351) NEGATIVE VAGINAL PATHOGENS DNA [id number] 00:00:00 Test Item Value Reference Range Interpretation Comments ELIZABETH SPECIES (test code = 75894) NEGATIVE G. VAGINALIS (test code = 15560) NEGATIVE T. VAGINALIS (test code = 34514) NEGATIVE VAGINAL PATHOGENS DNA [id number] 00:00:00 Test Item Value Reference Range Interpretation Comments ELIZABETH SPECIES (test code = 76240) NEGATIVE G. VAGINALIS (test code = ) NEGATIVE T. VAGINALIS (test code = ) NEGATIVE SARS-CoV-2 (COVID-19) by RT-PCR (HIGH RISK)2020-03-19 00:00:00 Test Item Value Reference Range Interpretation Comments SARS-CoV-2 INTERPRETATION (test NEGATIVE code = 79063) SOURCE (test code = 27941) NOT SPECIFIED SARS-CoV-2 (COVID-19) by RT-PCR (HIGH RISK)2020-03-19 00:00:00 Test Item Value Reference Range Interpretation Comments SARS-CoV-2 INTERPRETATION (test NEGATIVE code = 85374) SOURCE (test code = 53547) NOT SPECIFIED SARS-CoV-2 (COVID-19) by RT-PCR (HIGH RISK)2020-03-19 00:00:00 Test Item Value Reference Range Interpretation Comments SARS-CoV-2 INTERPRETATION (test NEGATIVE code = 35630) SOURCE (test code = 89800) NOT SPECIFIED SARS-CoV-2 (COVID-19) by RT-PCR (HIGH RISK)2020-03-19 00:00:00 Test Item Value Reference Range Interpretation Comments SARS-CoV-2 INTERPRETATION (test NEGATIVE code = 39102) SOURCE (test code = 27075) NOT SPECIFIED CULTURE, [id number] 00:00:00 Test Item Value Reference Range Interpretation Comments CULTURE, URINE (test SPECIMEN NUMBER: code = 81961) [id number] CULTURE, [id number] 00:00:00 Test Item Value Reference Range Interpretation Comments CULTURE, URINE (test SPECIMEN NUMBER: code = 06841) [id number] CULTURE, [id number] 00:00:00 Test Item Value Reference Range Interpretation Comments CULTURE, URINE (test SPECIMEN NUMBER: code = 52263) [id number] CULTURE, [id number] 00:00:00 Test Item Value Reference Range Interpretation Comments CULTURE, URINE (test SPECIMEN NUMBER: code = 54343) [id number] CULTURE, URINE [ADDED]2019-10-07 00:00:00 Test Item Value Reference Range Interpretation Comments CULTURE, URINE (test SPECIMEN NUMBER: code = 44225) [id number] CULTURE, URINE [ADDED]2019-10-07 00:00:00 Test Item Value Reference Range Interpretation Comments CULTURE, URINE (test SPECIMEN NUMBER: code = 76717) [id number] CULTURE, URINE [ADDED]2019-10-07 00:00:00 Test Item Value Reference Range Interpretation Comments CULTURE, URINE (test SPECIMEN NUMBER: code = 48579) [id number] CULTURE, URINE [ADDED]2019-10-07 00:00:00 Test Item Value Reference Range Interpretation Comments CULTURE, URINE (test SPECIMEN NUMBER: code = 41001) [id number] COMPREHENSIVE METABOLIC [id number] 00:00:00 Test Item Value Reference Range Interpretation Comments GLUCOSE (test code = 2217) 70 MG/DL BUN (test code = 2208) 13 MG/DL CREATININE (test code = 2214) 0.52 MG/DL eGFR AMER. (test code 139 ML/MIN/1.73 = 71649) eGFR NON- AMER. (test 120 ML/MIN/1.73 code = 93749) CALC BUN/CREAT (test code = 25 RATIO 2235) SODIUM (test code = 2231) 143 MEQ/L POTASSIUM (test code = 2228) 4.0 MEQ/L CHLORIDE (test code = 2215) 104 MEQ/L CARBON DIOXIDE (test code = 26 MEQ/L 6) CALCIUM (test code = 2209) 9.8 MG/DL PROTEIN, TOTAL (test code = 7.6 G/DL 2228) ALBUMIN (test code = 2201) 4.9 G/DL CALC GLOBULIN (test code = 2.7 G/DL 2240) CALC A/G RATIO (test code = 1.8 RATIO 4) BILIRUBIN, TOTAL (test code = 0.3 MG/DL 2206) ALKALINE PHOSPHATASE (test 92 U/L code = 2204) AST (test code = 2218) 14 U/L ALT (test code = 2219) 19 U/L COMPREHENSIVE METABOLIC [id number] 00:00:00 Test Item Value Reference Range Interpretation Comments GLUCOSE (test code = 2217) 70 MG/DL BUN (test code = 2208) 13 MG/DL CREATININE (test code = 2214) 0.52 MG/DL eGFR AMER. (test code 139 ML/MIN/1.73 = 99898) eGFR NON- AMER. (test 120 ML/MIN/1.73 code = 33526) CALC BUN/CREAT (test code = 25 RATIO 2235) SODIUM (test code = 2231) 143 MEQ/L POTASSIUM (test code = 2228) 4.0 MEQ/L CHLORIDE (test code = 2215) 104 MEQ/L CARBON DIOXIDE (test code = 26 MEQ/L 2205) CALCIUM (test code = 2209) 9.8 MG/DL PROTEIN, TOTAL (test code = 7.6 G/DL 2228) ALBUMIN (test code = 2201) 4.9 G/DL CALC GLOBULIN (test code = 2.7 G/DL 2239) CALC A/G RATIO (test code = 1.8 RATIO 2233) BILIRUBIN, TOTAL (test code = 0.3 MG/DL 2206) ALKALINE PHOSPHATASE (test 92 U/L code = 2204) AST (test code = 2218) 14 U/L ALT (test code = 2219) 19 U/L CBC W/AUTO [id number] 00:00:00 Test Item Value Reference Range Interpretation Comments WBC (test code = 1001) 10.4 K/UL RBC (test code = 1002) 4.73 M/UL HEMOGLOBIN (test code = 1003) 13.5 G/DL HEMATOCRIT (test code = 1004) 39.0 % MCV (test code = 1005) 82.5 fL MCH (test code = 1006) 28.5 PG MCHC (test code = 1007) 34.6 G/DL RDW (test code = 1038) 13.4 % NEUTROPHILS (test code = 1008) 66.0 % LYMPHOCYTES (test code = 1010) 25.7 % MONOCYTES (test code = 1011) 6.7 % EOSINOPHILS (test code = 1012) 1.2 % BASOPHILS (test code = 1013) 0.4 % PLATELET COUNT (test code = 1015) 322 K/UL CBC W/AUTO [id number] 00:00:00 Test Item Value Reference Range Interpretation Comments WBC (test code = 1001) 10.4 K/UL RBC (test code = 1002) 4.73 M/UL HEMOGLOBIN (test code = 1003) 13.5 G/DL HEMATOCRIT (test code = 1004) 39.0 % MCV (test code = 1005) 82.5 fL MCH (test code = 1006) 28.5 PG MCHC (test code = 1007) 34.6 G/DL RDW (test code = 1038) 13.4 % NEUTROPHILS (test code = 1008) 66.0 % LYMPHOCYTES (test code = 1010) 25.7 % MONOCYTES (test code = 1011) 6.7 % EOSINOPHILS (test code = 1012) 1.2 % BASOPHILS (test code = 1013) 0.4 % PLATELET COUNT (test code = 1015) 322 K/UL CBC W/AUTO [id number] 00:00:00 Test Item Value Reference Range Interpretation Comments WBC (test code = 1001) 10.4 K/UL RBC (test code = 1002) 4.73 M/UL HEMOGLOBIN (test code = 1003) 13.5 G/DL HEMATOCRIT (test code = 1004) 39.0 % MCV (test code = 1005) 82.5 fL MCH (test code = 1006) 28.5 PG MCHC (test code = 1007) 34.6 G/DL RDW (test code = 1038) 13.4 % NEUTROPHILS (test code = 1008) 66.0 % LYMPHOCYTES (test code = 1010) 25.7 % MONOCYTES (test code = 1011) 6.7 % EOSINOPHILS (test code = 1012) 1.2 % BASOPHILS (test code = 1013) 0.4 % PLATELET COUNT (test code = 1015) 322 K/UL HEMOGLOBIN [id number] 00:00:00 Test Item Value Reference Range Interpretation Comments HEMOGLOBIN A1c (test code = 41487) 5.5 % HEMOGLOBIN [id number] 00:00:00 Test Item Value Reference Range Interpretation Comments HEMOGLOBIN A1c (test code = 85408) 5.5 % HEMOGLOBIN [id number] 00:00:00 Test Item Value Reference Range Interpretation Comments HEMOGLOBIN A1c (test code = 31767) 5.5 % [id number] 00:00:00 Test Item Value Reference Range Interpretation Comments TSH, THIRD GENERATION (test code 0.978 UIU/ML = 2821) [id number] 00:00:00 Test Item Value Reference Range Interpretation Comments TSH, THIRD GENERATION (test code 0.978 UIU/ML = 2821) [id number] 00:00:00 Test Item Value Reference Range Interpretation Comments TSH, THIRD GENERATION (test code 0.978 UIU/ML = 2821) COMPREHENSIVE METABOLIC [id number] 00:00:00 Test Item Value Reference Range Interpretation Comments GLUCOSE (test code = 2217) 70 MG/DL BUN (test code = 2208) 13 MG/DL CREATININE (test code = 2214) 0.52 MG/DL eGFR AMER. (test code 139 ML/MIN/1.73 = 36610) eGFR NON- AMER. (test 120 ML/MIN/1.73 code = 78829) CALC BUN/CREAT (test code = 25 RATIO 2235) SODIUM (test code = 2231) 143 MEQ/L POTASSIUM (test code = 2228) 4.0 MEQ/L CHLORIDE (test code = 2215) 104 MEQ/L CARBON DIOXIDE (test code = 26 MEQ/L 2205) CALCIUM (test code = 2209) 9.8 MG/DL PROTEIN, TOTAL (test code = 7.6 G/DL 2228) ALBUMIN (test code = 2201) 4.9 G/DL CALC GLOBULIN (test code = 2.7 G/DL 2239) CALC A/G RATIO (test code = 1.8 RATIO 2234) BILIRUBIN, TOTAL (test code = 0.3 MG/DL 2206) ALKALINE PHOSPHATASE (test 92 U/L code = 2204) AST (test code = 2218) 14 U/L ALT (test code = 2219) 19 U/L COMPREHENSIVE METABOLIC [id number] 00:00:00 Test Item Value Reference Range Interpretation Comments GLUCOSE (test code = 2217) 70 MG/DL BUN (test code = 2208) 13 MG/DL CREATININE (test code = 2214) 0.52 MG/DL eGFR AMER. (test code 139 ML/MIN/1.73 = 66533) eGFR NON- AMER. (test 120 ML/MIN/1.73 code = 42688) CALC BUN/CREAT (test code = 25 RATIO 2235) SODIUM (test code = 2231) 143 MEQ/L POTASSIUM (test code = 2228) 4.0 MEQ/L CHLORIDE (test code = 2215) 104 MEQ/L CARBON DIOXIDE (test code = 26 MEQ/L 220) CALCIUM (test code = 2209) 9.8 MG/DL PROTEIN, TOTAL (test code = 7.6 G/DL 2228) ALBUMIN (test code = 2201) 4.9 G/DL CALC GLOBULIN (test code = 2.7 G/DL 2240) CALC A/G RATIO (test code = 1.8 RATIO 2234) BILIRUBIN, TOTAL (test code = 0.3 MG/DL 7) ALKALINE PHOSPHATASE (test 92 U/L code = 2204) AST (test code = 2218) 14 U/L ALT (test code = 2219) 19 U/L CBC W/AUTO [id number] 00:00:00 Test Item Value Reference Range Interpretation Comments WBC (test code = 1001) 10.4 K/UL RBC (test code = 1002) 4.73 M/UL HEMOGLOBIN (test code = 1003) 13.5 G/DL HEMATOCRIT (test code = 1004) 39.0 % MCV (test code = 1005) 82.5 fL MCH (test code = 1006) 28.5 PG MCHC (test code = 1007) 34.6 G/DL RDW (test code = 1038) 13.4 % NEUTROPHILS (test code = 1008) 66.0 % LYMPHOCYTES (test code = 1010) 25.7 % MONOCYTES (test code = 1011) 6.7 % EOSINOPHILS (test code = 1012) 1.2 % BASOPHILS (test code = 1013) 0.4 % PLATELET COUNT (test code = 1015) 322 K/UL CBC W/AUTO [id number] 00:00:00 Test Item Value Reference Range Interpretation Comments WBC (test code = 1001) 10.4 K/UL RBC (test code = 1002) 4.73 M/UL HEMOGLOBIN (test code = 1003) 13.5 G/DL HEMATOCRIT (test code = 1004) 39.0 % MCV (test code = 1005) 82.5 fL MCH (test code = 1006) 28.5 PG MCHC (test code = 1007) 34.6 G/DL RDW (test code = 1038) 13.4 % NEUTROPHILS (test code = 1008) 66.0 % LYMPHOCYTES (test code = 1010) 25.7 % MONOCYTES (test code = 1011) 6.7 % EOSINOPHILS (test code = 1012) 1.2 % BASOPHILS (test code = 1013) 0.4 % PLATELET COUNT (test code = 1015) 322 K/UL CBC W/AUTO [id number] 00:00:00 Test Item Value Reference Range Interpretation Comments WBC (test code = 1001) 10.4 K/UL RBC (test code = 1002) 4.73 M/UL HEMOGLOBIN (test code = 1003) 13.5 G/DL HEMATOCRIT (test code = 1004) 39.0 % MCV (test code = 1005) 82.5 fL MCH (test code = 1006) 28.5 PG MCHC (test code = 1007) 34.6 G/DL RDW (test code = 1038) 13.4 % NEUTROPHILS (test code = 1008) 66.0 % LYMPHOCYTES (test code = 1010) 25.7 % MONOCYTES (test code = 1011) 6.7 % EOSINOPHILS (test code = 1012) 1.2 % BASOPHILS (test code = 1013) 0.4 % PLATELET COUNT (test code = 1015) 322 K/UL HEMOGLOBIN [id number] 00:00:00 Test Item Value Reference Range Interpretation Comments HEMOGLOBIN A1c (test code = 89502) 5.5 % HEMOGLOBIN [id number] 00:00:00 Test Item Value Reference Range Interpretation Comments HEMOGLOBIN A1c (test code = 18526) 5.5 % HEMOGLOBIN [id number] 00:00:00 Test Item Value Reference Range Interpretation Comments HEMOGLOBIN A1c (test code = 54042) 5.5 % [id number] 00:00:00 Test Item Value Reference Range Interpretation Comments TSH, THIRD GENERATION (test code 0.978 UIU/ML = 2821) [id number] 00:00:00 Test Item Value Reference Range Interpretation Comments TSH, THIRD GENERATION (test code 0.978 UIU/ML = 2821) [id number] 00:00:00 Test Item Value Reference Range Interpretation Comments TSH, THIRD GENERATION (test code 0.978 UIU/ML = 2821) LIPID [id number] 00:00:00 Test Item Value Reference Range Interpretation Comments CHOLESTEROL (test code = 2210) 172 MG/DL TRIGLYCERIDES (test code = 2232) 230 MG/DL HDL CHOLESTEROL (test code = 2220) 36 MG/DL CALC LDL CHOL (test code = 2237) 90 MG/DL RISK RATIO LDL/HDL (test code = 2.50 RATIO 2238) LIPID [id number] 00:00:00 Test Item Value Reference Range Interpretation Comments CHOLESTEROL (test code = 2210) 172 MG/DL TRIGLYCERIDES (test code = 2232) 230 MG/DL HDL CHOLESTEROL (test code = 2220) 36 MG/DL CALC LDL CHOL (test code = 2237) 90 MG/DL RISK RATIO LDL/HDL (test code = 2.50 RATIO 2238) LIPID [id number] 00:00:00 Test Item Value Reference Range Interpretation Comments CHOLESTEROL (test code = 2210) 172 MG/DL TRIGLYCERIDES (test code = 2232) 230 MG/DL HDL CHOLESTEROL (test code = 2220) 36 MG/DL CALC LDL CHOL (test code = 2237) 90 MG/DL RISK RATIO LDL/HDL (test code = 2.50 RATIO 2238) LIPID [id number] 00:00:00 Test Item Value Reference Range Interpretation Comments CHOLESTEROL (test code = 2210) 172 MG/DL TRIGLYCERIDES (test code = 2232) 230 MG/DL HDL CHOLESTEROL (test code = 2220) 36 MG/DL CALC LDL CHOL (test code = 2237) 90 MG/DL RISK RATIO LDL/HDL (test code = 2.50 RATIO 2238) CBC W/AUTO [id number] 00:00:00 Test Item Value Reference Range Interpretation Comments WBC (test code = 1001) 8.2 K/UL RBC (test code = 1002) 4.55 M/UL HEMOGLOBIN (test code = 1003) 12.9 G/DL HEMATOCRIT (test code = 1004) 38.0 % MCV (test code = 1005) 83.5 fL MCH (test code = 1006) 28.4 PG MCHC (test code = 1007) 33.9 G/DL RDW (test code = 1038) 13.4 % NEUTROPHILS (test code = 1008) 62.7 % LYMPHOCYTES (test code = 1010) 29.5 % MONOCYTES (test code = 1011) 6.0 % EOSINOPHILS (test code = 1012) 1.2 % BASOPHILS (test code = 1013) 0.6 % PLATELET COUNT (test code = 1015) 301 K/UL CBC W/AUTO [id number] 00:00:00 Test Item Value Reference Range Interpretation Comments WBC (test code = 1001) 8.2 K/UL RBC (test code = 1002) 4.55 M/UL HEMOGLOBIN (test code = 1003) 12.9 G/DL HEMATOCRIT (test code = 1004) 38.0 % MCV (test code = 1005) 83.5 fL MCH (test code = 1006) 28.4 PG MCHC (test code = 1007) 33.9 G/DL RDW (test code = 1038) 13.4 % NEUTROPHILS (test code = 1008) 62.7 % LYMPHOCYTES (test code = 1010) 29.5 % MONOCYTES (test code = 1011) 6.0 % EOSINOPHILS (test code = 1012) 1.2 % BASOPHILS (test code = 1013) 0.6 % PLATELET COUNT (test code = 1015) 301 K/UL CBC W/AUTO [id number] 00:00:00 Test Item Value Reference Range Interpretation Comments WBC (test code = 1001) 8.2 K/UL RBC (test code = 1002) 4.55 M/UL HEMOGLOBIN (test code = 1003) 12.9 G/DL HEMATOCRIT (test code = 1004) 38.0 % MCV (test code = 1005) 83.5 fL MCH (test code = 1006) 28.4 PG MCHC (test code = 1007) 33.9 G/DL RDW (test code = 1038) 13.4 % NEUTROPHILS (test code = 1008) 62.7 % LYMPHOCYTES (test code = 1010) 29.5 % MONOCYTES (test code = 1011) 6.0 % EOSINOPHILS (test code = 1012) 1.2 % BASOPHILS (test code = 1013) 0.6 % PLATELET COUNT (test code = 1015) 301 K/UL LIPID [id number] 00:00:00 Test Item Value Reference Range Interpretation Comments CHOLESTEROL (test code = 2210) 155 MG/DL TRIGLYCERIDES (test code = 2232) 192 MG/DL HDL CHOLESTEROL (test code = 2220) 36 MG/DL CALC LDL CHOL (test code = 2237) 81 MG/DL RISK RATIO LDL/HDL (test code = 2.24 RATIO 2238) LIPID [id number] 00:00:00 Test Item Value Reference Range Interpretation Comments CHOLESTEROL (test code = 2210) 155 MG/DL TRIGLYCERIDES (test code = 2232) 192 MG/DL HDL CHOLESTEROL (test code = 2220) 36 MG/DL CALC LDL CHOL (test code = 2237) 81 MG/DL RISK RATIO LDL/HDL (test code = 2.24 RATIO 2238) COMPREHENSIVE METABOLIC [id number] 00:00:00 Test Item Value Reference Range Interpretation Comments GLUCOSE (test code = 2217) 103 MG/DL BUN (test code = 2208) 16 MG/DL CREATININE (test code = 2214) 0.58 MG/DL eGFR AMER. (test code 135 ML/MIN/1.73 = 53894) eGFR NON- AMER. (test 116 ML/MIN/1.73 code = 18549) CALC BUN/CREAT (test code = 28 RATIO 2235) SODIUM (test code = 2231) 143 MEQ/L POTASSIUM (test code = 2228) 4.6 MEQ/L CHLORIDE (test code = 2215) 106 MEQ/L CARBON DIOXIDE (test code = 26 MEQ/L 2205) CALCIUM (test code = 2209) 9.2 MG/DL PROTEIN, TOTAL (test code = 7.1 G/DL 2228) ALBUMIN (test code = 2201) 4.5 G/DL CALC GLOBULIN (test code = 2.6 G/DL 2240) CALC A/G RATIO (test code = 1.7 RATIO 2234) BILIRUBIN, TOTAL (test code = 0.2 MG/DL 2206) ALKALINE PHOSPHATASE (test 76 U/L code = 2204) AST (test code = 2218) 17 U/L ALT (test code = 2219) 19 U/L COMPREHENSIVE METABOLIC [id number] 00:00:00 Test Item Value Reference Range Interpretation Comments GLUCOSE (test code = 2217) 103 MG/DL BUN (test code = 2208) 16 MG/DL CREATININE (test code = 2214) 0.58 MG/DL eGFR AMER. (test code 135 ML/MIN/1.73 = 13957) eGFR NON- AMER. (test 116 ML/MIN/1.73 code = 17792) CALC BUN/CREAT (test code = 28 RATIO 2235) SODIUM (test code = 2231) 143 MEQ/L POTASSIUM (test code = 2228) 4.6 MEQ/L CHLORIDE (test code = 2215) 106 MEQ/L CARBON DIOXIDE (test code = 26 MEQ/L 2206) CALCIUM (test code = 2209) 9.2 MG/DL PROTEIN, TOTAL (test code = 7.1 G/DL 2228) ALBUMIN (test code = 2201) 4.5 G/DL CALC GLOBULIN (test code = 2.6 G/DL 0) CALC A/G RATIO (test code = 1.7 RATIO 4) BILIRUBIN, TOTAL (test code = 0.2 MG/DL 2206) ALKALINE PHOSPHATASE (test 76 U/L code = 2204) AST (test code = 2218) 17 U/L ALT (test code = 2219) 19 U/L [id number] 00:00:00 Test Item Value Reference Range Interpretation Comments TSH, THIRD GENERATION (test code 0.772 UIU/ML = 2821) [id number] 00:00:00 Test Item Value Reference Range Interpretation Comments TSH, THIRD GENERATION (test code 0.772 UIU/ML = 2821) [id number] 00:00:00 Test Item Value Reference Range Interpretation Comments TSH, THIRD GENERATION (test code 0.772 UIU/ML = 2821) CBC W/AUTO [id number] 00:00:00 Test Item Value Reference Range Interpretation Comments WBC (test code = 1001) 8.2 K/UL RBC (test code = 1002) 4.55 M/UL HEMOGLOBIN (test code = 1003) 12.9 G/DL HEMATOCRIT (test code = 1004) 38.0 % MCV (test code = 1005) 83.5 fL MCH (test code = 1006) 28.4 PG MCHC (test code = 1007) 33.9 G/DL RDW (test code = 1038) 13.4 % NEUTROPHILS (test code = 1008) 62.7 % LYMPHOCYTES (test code = 1010) 29.5 % MONOCYTES (test code = 1011) 6.0 % EOSINOPHILS (test code = 1012) 1.2 % BASOPHILS (test code = 1013) 0.6 % PLATELET COUNT (test code = 1015) 301 K/UL CBC W/AUTO [id number] 00:00:00 Test Item Value Reference Range Interpretation Comments WBC (test code = 1001) 8.2 K/UL RBC (test code = 1002) 4.55 M/UL HEMOGLOBIN (test code = 1003) 12.9 G/DL HEMATOCRIT (test code = 1004) 38.0 % MCV (test code = 1005) 83.5 fL MCH (test code = 1006) 28.4 PG MCHC (test code = 1007) 33.9 G/DL RDW (test code = 1038) 13.4 % NEUTROPHILS (test code = 1008) 62.7 % LYMPHOCYTES (test code = 1010) 29.5 % MONOCYTES (test code = 1011) 6.0 % EOSINOPHILS (test code = 1012) 1.2 % BASOPHILS (test code = 1013) 0.6 % PLATELET COUNT (test code = 1015) 301 K/UL CBC W/AUTO [id number] 00:00:00 Test Item Value Reference Range Interpretation Comments WBC (test code = 1001) 8.2 K/UL RBC (test code = 1002) 4.55 M/UL HEMOGLOBIN (test code = 1003) 12.9 G/DL HEMATOCRIT (test code = 1004) 38.0 % MCV (test code = 1005) 83.5 fL MCH (test code = 1006) 28.4 PG MCHC (test code = 1007) 33.9 G/DL RDW (test code = 1038) 13.4 % NEUTROPHILS (test code = 1008) 62.7 % LYMPHOCYTES (test code = 1010) 29.5 % MONOCYTES (test code = 1011) 6.0 % EOSINOPHILS (test code = 1012) 1.2 % BASOPHILS (test code = 1013) 0.6 % PLATELET COUNT (test code = 1015) 301 K/UL LIPID [id number] 00:00:00 Test Item Value Reference Range Interpretation Comments CHOLESTEROL (test code = 2210) 155 MG/DL TRIGLYCERIDES (test code = 2232) 192 MG/DL HDL CHOLESTEROL (test code = 2220) 36 MG/DL CALC LDL CHOL (test code = 2237) 81 MG/DL RISK RATIO LDL/HDL (test code = 2.24 RATIO 2238) LIPID [id number] 00:00:00 Test Item Value Reference Range Interpretation Comments CHOLESTEROL (test code = 2210) 155 MG/DL TRIGLYCERIDES (test code = 2232) 192 MG/DL HDL CHOLESTEROL (test code = 2220) 36 MG/DL CALC LDL CHOL (test code = 2237) 81 MG/DL RISK RATIO LDL/HDL (test code = 2.24 RATIO 2238) COMPREHENSIVE METABOLIC [id number] 00:00:00 Test Item Value Reference Range Interpretation Comments GLUCOSE (test code = 2217) 103 MG/DL BUN (test code = 2208) 16 MG/DL CREATININE (test code = 2214) 0.58 MG/DL eGFR AMER. (test code 135 ML/MIN/1.73 = 46079) eGFR NON- AMER. (test 116 ML/MIN/1.73 code = 28510) CALC BUN/CREAT (test code = 28 RATIO 2235) SODIUM (test code = 2231) 143 MEQ/L POTASSIUM (test code = 2228) 4.6 MEQ/L CHLORIDE (test code = 2215) 106 MEQ/L CARBON DIOXIDE (test code = 26 MEQ/L 220) CALCIUM (test code = 2209) 9.2 MG/DL PROTEIN, TOTAL (test code = 7.1 G/DL 2228) ALBUMIN (test code = 2201) 4.5 G/DL CALC GLOBULIN (test code = 2.6 G/DL 2239) CALC A/G RATIO (test code = 1.7 RATIO 2234) BILIRUBIN, TOTAL (test code = 0.2 MG/DL 2206) ALKALINE PHOSPHATASE (test 76 U/L code = 2204) AST (test code = 2218) 17 U/L ALT (test code = 2219) 19 U/L COMPREHENSIVE METABOLIC [id number] 00:00:00 Test Item Value Reference Range Interpretation Comments GLUCOSE (test code = 2217) 103 MG/DL BUN (test code = 2208) 16 MG/DL CREATININE (test code = 2214) 0.58 MG/DL eGFR AMER. (test code 135 ML/MIN/1.73 = 94124) eGFR NON- AMER. (test 116 ML/MIN/1.73 code = 37507) CALC BUN/CREAT (test code = 28 RATIO 2235) SODIUM (test code = 2231) 143 MEQ/L POTASSIUM (test code = 2228) 4.6 MEQ/L CHLORIDE (test code = 2215) 106 MEQ/L CARBON DIOXIDE (test code = 26 MEQ/L 2206) CALCIUM (test code = 2209) 9.2 MG/DL PROTEIN, TOTAL (test code = 7.1 G/DL 2228) ALBUMIN (test code = 2201) 4.5 G/DL CALC GLOBULIN (test code = 2.6 G/DL 2240) CALC A/G RATIO (test code = 1.7 RATIO 2234) BILIRUBIN, TOTAL (test code = 0.2 MG/DL 2206) ALKALINE PHOSPHATASE (test 76 U/L code = 2204) AST (test code = 2218) 17 U/L ALT (test code = 2219) 19 U/L [id number] 00:00:00 Test Item Value Reference Range Interpretation Comments TSH, THIRD GENERATION (test code 0.772 UIU/ML = 2821) [id number] 00:00:00 Test Item Value Reference Range Interpretation Comments TSH, THIRD GENERATION (test code 0.772 UIU/ML = 2821) [id number] 00:00:00 Test Item Value Reference Range Interpretation Comments TSH, THIRD GENERATION (test code 0.772 UIU/ML = 2821) MUMPS IgG AND [id number] 00:00:00 Test Item Value Reference Range Interpretation Comments MUMPS VIRUS IgG (test code = 46.5 AU/mL 98159) MUMPS VIRUS IgM (test code = 4587) 0.55 IV MUMPS IgG AND [id number] 00:00:00 Test Item Value Reference Range Interpretation Comments MUMPS VIRUS IgG (test code = 46.5 AU/mL 60035) MUMPS VIRUS IgM (test code = 4587) 0.55 IV MUMPS IgG AND [id number] 00:00:00 Test Item Value Reference Range Interpretation Comments MUMPS VIRUS IgG (test code = 46.5 AU/mL 43241) MUMPS VIRUS IgM (test code = 4587) 0.55 IV MUMPS IgG AND [id number] 00:00:00 Test Item Value Reference Range Interpretation Comments MUMPS VIRUS IgG (test code = 46.5 AU/mL 16718) MUMPS VIRUS IgM (test code = 4587) 0.55 IV RUBEOLA IgG [id number] 00:00:00 Test Item Value Reference Range Interpretation Comments RUBEOLA IgG ANTIBODY (test code = 98.5 AU/ML 38101) RUBEOLA IgG [id number] 00:00:00 Test Item Value Reference Range Interpretation Comments RUBEOLA IgG ANTIBODY (test code = 98.5 AU/ML 37950) RUBELLA ANTIBODY [id number] 00:00:00 Test Item Value Reference Range Interpretation Comments RUBELLA ANTIBODY SCREEN (test code = 12 IU/ML 4600) RUBELLA IgG INTERP (test code = REACTIVE 75859) RUBELLA ANTIBODY [id number] 00:00:00 Test Item Value Reference Range Interpretation Comments RUBELLA ANTIBODY SCREEN (test code = 12 IU/ML 4600) RUBELLA IgG INTERP (test code = REACTIVE 77004) VARICELLA ZOSTER [id number] 00:00:00 Test Item Value Reference Range Interpretation Comments VARICELLA ZOSTER IgG (test code = 454 INDEX 40476) VARICELLA ZOSTER [id number] 00:00:00 Test Item Value Reference Range Interpretation Comments VARICELLA ZOSTER IgG (test code = 454 INDEX 33257) HEPATITIS B SURFACE [id number] 00:00:00 Test Item Value Reference Range Interpretation Comments HEPATITIS B SURFACE AB (test NON-REACTIVE code = 2737) HEPATITIS B SURFACE [id number] 00:00:00 Test Item Value Reference Range Interpretation Comments HEPATITIS B SURFACE AB (test NON-REACTIVE code = 2737) RUBEOLA IgG [id number] 00:00:00 Test Item Value Reference Range Interpretation Comments RUBEOLA IgG ANTIBODY (test code = 98.5 AU/ML 76979) RUBEOLA IgG [id number] 00:00:00 Test Item Value Reference Range Interpretation Comments RUBEOLA IgG ANTIBODY (test code = 98.5 AU/ML 37332) RUBELLA ANTIBODY [id number] 00:00:00 Test Item Value Reference Range Interpretation Comments RUBELLA ANTIBODY SCREEN (test code = 12 IU/ML 4600) RUBELLA IgG INTERP (test code = REACTIVE 64385) RUBELLA ANTIBODY [id number] 00:00:00 Test Item Value Reference Range Interpretation Comments RUBELLA ANTIBODY SCREEN (test code = 12 IU/ML 4600) RUBELLA IgG INTERP (test code = REACTIVE 53999) VARICELLA ZOSTER [id number] 00:00:00 Test Item Value Reference Range Interpretation Comments VARICELLA ZOSTER IgG (test code = 454 INDEX 58836) VARICELLA ZOSTER [id number] 00:00:00 Test Item Value Reference Range Interpretation Comments VARICELLA ZOSTER IgG (test code = 454 INDEX 36114) HEPATITIS B SURFACE [id number] 00:00:00 Test Item Value Reference Range Interpretation Comments HEPATITIS B SURFACE AB (test NON-REACTIVE code = 2737) HEPATITIS B SURFACE [id number] 00:00:00 Test Item Value Reference Range Interpretation Comments HEPATITIS B SURFACE AB (test NON-REACTIVE code = 2737) DIAG MAMM BILATERAL CAD [id number] 11:19:31 - DIAG MAMM BILATERAL CAD DIGITALBILATERAL DIGITAL DIAGNOSTIC MAMMOGRAM WITH CAD: 10/13/2018CLINICAL: Palpable mass, left breast. Current mammographic images were evaluated by either a [employer]-Vu or [employer] ImageChecker CAD (computer aided detection system). No [...] of the bilateral survey ultrasound demonstrates no suspicioussonographic abnormality. No axillary lymphadenopathy was seen.IMPRESSION: NEGATIVE There is no sonographic evidence of malignancy. Resume annual screening mammography in one year. Clinical follow up isalso recommended, and further management of palpable abnormalities should be based on clinical examination.Xu Ascencio M.D. ss/:10/13/2018 11:19:31 Entry: - 10/14/2018 08:09:35Imaging Technologist: Marti HUERTA, [facility]-FWletter sent: BIRADS 1-2 Combo FU Letter Mammogram BI-RADS: 0 Indeterminate Ultrasound BI-RADS: 1 NegativeBREAST ULTRASOUND BILATERAL 2018-10-13 11:19:31 - DIAG MAMM BILATERAL CAD DIGITALBILATERAL DIGITAL DIAGNOSTIC MAMMOGRAM WITH CAD: 10/13/2018CLINICAL: Palpable mass, left breast. Current mammographic images were evaluated by either a [employer] M-Vu or [facility] ImageChecker CAD (computer aided detection system). No [...] of the bilateral survey ultrasound demonstrates no suspicioussonographic abnormality. No axillary lymphadenopathy was seen.IMPRESSION: NEGATIVE There is no sonographic evidence of malignancy. Resume annual screening mammography in one year. Clinical follow up isalso recommended, and further management of palpable abnormalities should be based on clinical examination.Xu Ascencio M.D. ss/:10/13/2018 11:19:31 Entry: - 10/14/2018 08:09:35Imaging Technologist: Marti HUERTA, [facility]-FWletter sent: BIRADS 1-2 Combo FU Letter Mammogram BI-RADS: 0 Indeterminate Ultrasound BI-RADS: 1 NegativeCBC W/AUTO [id number] 00:00:00 Test Item Value Reference Range Interpretation Comments WBC (test code = 1001) 9.8 K/UL RBC (test code = 1002) 4.52 M/UL HEMOGLOBIN (test code = 1003) 12.6 G/DL HEMATOCRIT (test code = 1004) 36.8 % MCV (test code = 1005) 81.4 fL MCH (test code = 1006) 27.9 PG MCHC (test code = 1007) 34.2 G/DL RDW (test code = 1038) 14.2 % NEUTROPHILS (test code = 1008) 64.8 % LYMPHOCYTES (test code = 1010) 28.1 % MONOCYTES (test code = 1011) 5.7 % EOSINOPHILS (test code = 1012) 1.2 % BASOPHILS (test code = 1013) 0.2 % PLATELET COUNT (test code = 1015) 312 K/UL CBC W/AUTO [id number] 00:00:00 Test Item Value Reference Range Interpretation Comments WBC (test code = 1001) 9.8 K/UL RBC (test code = 1002) 4.52 M/UL HEMOGLOBIN (test code = 1003) 12.6 G/DL HEMATOCRIT (test code = 1004) 36.8 % MCV (test code = 1005) 81.4 fL MCH (test code = 1006) 27.9 PG MCHC (test code = 1007) 34.2 G/DL RDW (test code = 1038) 14.2 % NEUTROPHILS (test code = 1008) 64.8 % LYMPHOCYTES (test code = 1010) 28.1 % MONOCYTES (test code = 1011) 5.7 % EOSINOPHILS (test code = 1012) 1.2 % BASOPHILS (test code = 1013) 0.2 % PLATELET COUNT (test code = 1015) 312 K/UL CBC W/AUTO [id number] 00:00:00 Test Item Value Reference Range Interpretation Comments WBC (test code = 1001) 9.8 K/UL RBC (test code = 1002) 4.52 M/UL HEMOGLOBIN (test code = 1003) 12.6 G/DL HEMATOCRIT (test code = 1004) 36.8 % MCV (test code = 1005) 81.4 fL MCH (test code = 1006) 27.9 PG MCHC (test code = 1007) 34.2 G/DL RDW (test code = 1038) 14.2 % NEUTROPHILS (test code = 1008) 64.8 % LYMPHOCYTES (test code = 1010) 28.1 % MONOCYTES (test code = 1011) 5.7 % EOSINOPHILS (test code = 1012) 1.2 % BASOPHILS (test code = 1013) 0.2 % PLATELET COUNT (test code = 1015) 312 K/UL COMPREHENSIVE METABOLIC [id number] 00:00:00 Test Item Value Reference Range Interpretation Comments GLUCOSE (test code = 2217) 85 MG/DL BUN (test code = 2208) 13 MG/DL CREATININE (test code = 2214) 0.56 MG/DL eGFR AMER. (test code 136 ML/MIN/1.73 = 06470) eGFR NON- AMER. (test 117 ML/MIN/1.73 code = 98332) CALC BUN/CREAT (test code = 23 RATIO 2235) SODIUM (test code = 2231) 140 MEQ/L POTASSIUM (test code = 2228) 3.9 MEQ/L CHLORIDE (test code = 2215) 102 MEQ/L CARBON DIOXIDE (test code = 27 MEQ/L 2206) CALCIUM (test code = 2209) 9.5 MG/DL PROTEIN, TOTAL (test code = 7.0 G/DL 2228) ALBUMIN (test code = 2201) 4.5 G/DL CALC GLOBULIN (test code = 2.5 G/DL 2240) CALC A/G RATIO (test code = 1.8 RATIO 2234) BILIRUBIN, TOTAL (test code = <0.2 MG/DL 2206) ALKALINE PHOSPHATASE (test 88 U/L code = 2204) AST (test code = 2218) 13 U/L ALT (test code = 2219) 18 U/L COMPREHENSIVE METABOLIC [id number] 00:00:00 Test Item Value Reference Range Interpretation Comments GLUCOSE (test code = 2217) 85 MG/DL BUN (test code = 2208) 13 MG/DL CREATININE (test code = 2214) 0.56 MG/DL eGFR AMER. (test code 136 ML/MIN/1.73 = 90785) eGFR NON- AMER. (test 117 ML/MIN/1.73 code = 12929) CALC BUN/CREAT (test code = 23 RATIO 2235) SODIUM (test code = 2231) 140 MEQ/L POTASSIUM (test code = 2228) 3.9 MEQ/L CHLORIDE (test code = 2215) 102 MEQ/L CARBON DIOXIDE (test code = 27 MEQ/L 2206) CALCIUM (test code = 2209) 9.5 MG/DL PROTEIN, TOTAL (test code = 7.0 G/DL 2228) ALBUMIN (test code = 2201) 4.5 G/DL CALC GLOBULIN (test code = 2.5 G/DL 2240) CALC A/G RATIO (test code = 1.8 RATIO 2234) BILIRUBIN, TOTAL (test code = <0.2 MG/DL 2206) ALKALINE PHOSPHATASE (test 88 U/L code = 2204) AST (test code = 2218) 13 U/L ALT (test code = 2219) 18 U/L [id number] 00:00:00 Test Item Value Reference Range Interpretation Comments TSH, THIRD GENERATION (test code 0.630 UIU/ML = 2821) [id number] 00:00:00 Test Item Value Reference Range Interpretation Comments TSH, THIRD GENERATION (test code 0.630 UIU/ML = 2821) [id number] 00:00:00 Test Item Value Reference Range Interpretation Comments TSH, THIRD GENERATION (test code 0.630 UIU/ML = 2821) CBC W/AUTO [id number] 00:00:00 Test Item Value Reference Range Interpretation Comments WBC (test code = 1001) 9.8 K/UL RBC (test code = 1002) 4.52 M/UL HEMOGLOBIN (test code = 1003) 12.6 G/DL HEMATOCRIT (test code = 1004) 36.8 % MCV (test code = 1005) 81.4 fL MCH (test code = 1006) 27.9 PG MCHC (test code = 1007) 34.2 G/DL RDW (test code = 1038) 14.2 % NEUTROPHILS (test code = 1008) 64.8 % LYMPHOCYTES (test code = 1010) 28.1 % MONOCYTES (test code = 1011) 5.7 % EOSINOPHILS (test code = 1012) 1.2 % BASOPHILS (test code = 1013) 0.2 % PLATELET COUNT (test code = 1015) 312 K/UL CBC W/AUTO [id number] 00:00:00 Test Item Value Reference Range Interpretation Comments WBC (test code = 1001) 9.8 K/UL RBC (test code = 1002) 4.52 M/UL HEMOGLOBIN (test code = 1003) 12.6 G/DL HEMATOCRIT (test code = 1004) 36.8 % MCV (test code = 1005) 81.4 fL MCH (test code = 1006) 27.9 PG MCHC (test code = 1007) 34.2 G/DL RDW (test code = 1038) 14.2 % NEUTROPHILS (test code = 1008) 64.8 % LYMPHOCYTES (test code = 1010) 28.1 % MONOCYTES (test code = 1011) 5.7 % EOSINOPHILS (test code = 1012) 1.2 % BASOPHILS (test code = 1013) 0.2 % PLATELET COUNT (test code = 1015) 312 K/UL CBC W/AUTO [id number] 00:00:00 Test Item Value Reference Range Interpretation Comments WBC (test code = 1001) 9.8 K/UL RBC (test code = 1002) 4.52 M/UL HEMOGLOBIN (test code = 1003) 12.6 G/DL HEMATOCRIT (test code = 1004) 36.8 % MCV (test code = 1005) 81.4 fL MCH (test code = 1006) 27.9 PG MCHC (test code = 1007) 34.2 G/DL RDW (test code = 1038) 14.2 % NEUTROPHILS (test code = 1008) 64.8 % LYMPHOCYTES (test code = 1010) 28.1 % MONOCYTES (test code = 1011) 5.7 % EOSINOPHILS (test code = 1012) 1.2 % BASOPHILS (test code = 1013) 0.2 % PLATELET COUNT (test code = 1015) 312 K/UL COMPREHENSIVE METABOLIC [id number] 00:00:00 Test Item Value Reference Range Interpretation Comments GLUCOSE (test code = 2217) 85 MG/DL BUN (test code = 2208) 13 MG/DL CREATININE (test code = 2214) 0.56 MG/DL eGFR AMER. (test code 136 ML/MIN/1.73 = 95943) eGFR NON- AMER. (test 117 ML/MIN/1.73 code = 37534) CALC BUN/CREAT (test code = 23 RATIO 2235) SODIUM (test code = 2231) 140 MEQ/L POTASSIUM (test code = 2228) 3.9 MEQ/L CHLORIDE (test code = 2215) 102 MEQ/L CARBON DIOXIDE (test code = 27 MEQ/L 2205) CALCIUM (test code = 2209) 9.5 MG/DL PROTEIN, TOTAL (test code = 7.0 G/DL 2228) ALBUMIN (test code = 2201) 4.5 G/DL CALC GLOBULIN (test code = 2.5 G/DL 2239) CALC A/G RATIO (test code = 1.8 RATIO 2233) BILIRUBIN, TOTAL (test code = <0.2 MG/DL 2206) ALKALINE PHOSPHATASE (test 88 U/L code = 2204) AST (test code = 2218) 13 U/L ALT (test code = 2219) 18 U/L COMPREHENSIVE METABOLIC [id number] 00:00:00 Test Item Value Reference Range Interpretation Comments GLUCOSE (test code = 2217) 85 MG/DL BUN (test code = 2208) 13 MG/DL CREATININE (test code = 2214) 0.56 MG/DL eGFR AMER. (test code 136 ML/MIN/1.73 = 52701) eGFR NON- AMER. (test 117 ML/MIN/1.73 code = 23137) CALC BUN/CREAT (test code = 23 RATIO 2235) SODIUM (test code = 2231) 140 MEQ/L POTASSIUM (test code = 2228) 3.9 MEQ/L CHLORIDE (test code = 2215) 102 MEQ/L CARBON DIOXIDE (test code = 27 MEQ/L 2205) CALCIUM (test code = 2209) 9.5 MG/DL PROTEIN, TOTAL (test code = 7.0 G/DL 2228) ALBUMIN (test code = 2201) 4.5 G/DL CALC GLOBULIN (test code = 2.5 G/DL 2240) CALC A/G RATIO (test code = 1.8 RATIO 2234) BILIRUBIN, TOTAL (test code = <0.2 MG/DL 2206) ALKALINE PHOSPHATASE (test 88 U/L code = 2204) AST (test code = 2218) 13 U/L ALT (test code = 2219) 18 U/L [id number] 00:00:00 Test Item Value Reference Range Interpretation Comments TSH, THIRD GENERATION (test code 0.630 UIU/ML = 2821) [id number] 00:00:00 Test Item Value Reference Range Interpretation Comments TSH, THIRD GENERATION (test code 0.630 UIU/ML = 2821) [id number] 00:00:00 Test Item Value Reference Range Interpretation Comments TSH, THIRD GENERATION (test code 0.630 UIU/ML = 2821) COMPREHENSIVE METABOLIC [id number] 00:00:00 Test Item Value Reference Range Interpretation Comments GLUCOSE (test code = 2217) 92 MG/DL BUN (test code = 2208) 20 MG/DL CREATININE (test code = 2214) 0.69 MG/DL eGFR AMER. (test code 129 ML/MIN/1.73 = 47709) eGFR NON- AMER. (test 111 ML/MIN/1.73 code = 77337) CALC BUN/CREAT (test code = 29 RATIO 2235) SODIUM (test code = 2231) 144 MEQ/L POTASSIUM (test code = 2228) 3.9 MEQ/L CHLORIDE (test code = 2215) 101 MEQ/L CARBON DIOXIDE (test code = 24 MEQ/L 2206) CALCIUM (test code = 2209) 9.6 MG/DL PROTEIN, TOTAL (test code = 6.8 G/DL 2228) ALBUMIN (test code = 2201) 4.5 G/DL CALC GLOBULIN (test code = 2.3 G/DL 2240) CALC A/G RATIO (test code = 2.0 RATIO 2234) BILIRUBIN, TOTAL (test code = 0.3 MG/DL 2206) ALKALINE PHOSPHATASE (test 78 U/L code = 2204) AST (test code = 2218) 20 U/L ALT (test code = 2219) 20 U/L COMPREHENSIVE METABOLIC [id number] 00:00:00 Test Item Value Reference Range Interpretation Comments GLUCOSE (test code = 2217) 92 MG/DL BUN (test code = 2208) 20 MG/DL CREATININE (test code = 2214) 0.69 MG/DL eGFR AMER. (test code 129 ML/MIN/1.73 = 29136) eGFR NON- AMER. (test 111 ML/MIN/1.73 code = 53289) CALC BUN/CREAT (test code = 29 RATIO 2235) SODIUM (test code = 2231) 144 MEQ/L POTASSIUM (test code = 2228) 3.9 MEQ/L CHLORIDE (test code = 2215) 101 MEQ/L CARBON DIOXIDE (test code = 24 MEQ/L 2206) CALCIUM (test code = 2209) 9.6 MG/DL PROTEIN, TOTAL (test code = 6.8 G/DL 2228) ALBUMIN (test code = 2201) 4.5 G/DL CALC GLOBULIN (test code = 2.3 G/DL 2240) CALC A/G RATIO (test code = 2.0 RATIO 2234) BILIRUBIN, TOTAL (test code = 0.3 MG/DL 2206) ALKALINE PHOSPHATASE (test 78 U/L code = 2204) AST (test code = 2218) 20 U/L ALT (test code = 2219) 20 U/L COMPREHENSIVE METABOLIC [id number] 00:00:00 Test Item Value Reference Range Interpretation Comments GLUCOSE (test code = 2217) 92 MG/DL BUN (test code = 2208) 20 MG/DL CREATININE (test code = 2214) 0.69 MG/DL eGFR AMER. (test code 129 ML/MIN/1.73 = 68181) eGFR NON- AMER. (test 111 ML/MIN/1.73 code = 69135) CALC BUN/CREAT (test code = 29 RATIO 2235) SODIUM (test code = 2231) 144 MEQ/L POTASSIUM (test code = 2228) 3.9 MEQ/L CHLORIDE (test code = 2215) 101 MEQ/L CARBON DIOXIDE (test code = 24 MEQ/L 2205) CALCIUM (test code = 2209) 9.6 MG/DL PROTEIN, TOTAL (test code = 6.8 G/DL 2228) ALBUMIN (test code = 2201) 4.5 G/DL CALC GLOBULIN (test code = 2.3 G/DL 224) CALC A/G RATIO (test code = 2.0 RATIO 2234) BILIRUBIN, TOTAL (test code = 0.3 MG/DL 2206) ALKALINE PHOSPHATASE (test 78 U/L code = 2204) AST (test code = 2218) 20 U/L ALT (test code = 2219) 20 U/L COMPREHENSIVE METABOLIC [id number] 00:00:00 Test Item Value Reference Range Interpretation Comments GLUCOSE (test code = 2217) 92 MG/DL BUN (test code = 2208) 20 MG/DL CREATININE (test code = 2214) 0.69 MG/DL eGFR AMER. (test code 129 ML/MIN/1.73 = 10976) eGFR NON- AMER. (test 111 ML/MIN/1.73 code = 19025) CALC BUN/CREAT (test code = 29 RATIO 2235) SODIUM (test code = 2231) 144 MEQ/L POTASSIUM (test code = 2228) 3.9 MEQ/L CHLORIDE (test code = 2215) 101 MEQ/L CARBON DIOXIDE (test code = 24 MEQ/L 2206) CALCIUM (test code = 2209) 9.6 MG/DL PROTEIN, TOTAL (test code = 6.8 G/DL 2228) ALBUMIN (test code = 2201) 4.5 G/DL CALC GLOBULIN (test code = 2.3 G/DL 2240) CALC A/G RATIO (test code = 2.0 RATIO 2234) BILIRUBIN, TOTAL (test code = 0.3 MG/DL 2206) ALKALINE PHOSPHATASE (test 78 U/L code = 2204) AST (test code = 2218) 20 U/L ALT (test code = 2219) 20 U/L COMPREHENSIVE METABOLIC [id number] 00:00:00 Test Item Value Reference Range Interpretation Comments GLUCOSE (test code = 2217) 85 MG/DL BUN (test code = 2208) 15 MG/DL CREATININE (test code = 2214) 0.48 MG/DL eGFR AMER. (test code 146 ML/MIN/1.73 = 84679) eGFR NON- AMER. (test 126 ML/MIN/1.73 code = 33960) CALCULATED BUN/CREAT (test 31 RATIO code = 2235) SODIUM (test code = 2231) 138 MEQ/L POTASSIUM (test code = 2228) 3.9 MEQ/L CHLORIDE (test code = 2215) 106 MEQ/L CARBON DIOXIDE (test code = 20 MEQ/L 2206) CALCIUM (test code = 2209) 9.1 MG/DL PROTEIN, TOTAL (test code = 7.2 G/DL 2228) ALBUMIN (test code = 2201) 4.1 G/DL CALCULATED GLOBULIN (test 3.1 G/DL code = 2240) CALCULATED A/G RATIO (test 1.3 RATIO code = 2234) BILIRUBIN, TOTAL (test code = 0.3 MG/DL 2206) ALKALINE PHOSPHATASE (test 66 U/L code = 2204) SGOT (AST) (test code = 2218) 11 U/L SGPT (ALT) (test code = 2219) 9 U/L COMPREHENSIVE METABOLIC [id number] 00:00:00 Test Item Value Reference Range Interpretation Comments GLUCOSE (test code = 2217) 85 MG/DL BUN (test code = 2208) 15 MG/DL CREATININE (test code = 2214) 0.48 MG/DL eGFR AMER. (test code 146 ML/MIN/1.73 = 36919) eGFR NON- AMER. (test 126 ML/MIN/1.73 code = 77158) CALCULATED BUN/CREAT (test 31 RATIO code = 2235) SODIUM (test code = 2231) 138 MEQ/L POTASSIUM (test code = 2228) 3.9 MEQ/L CHLORIDE (test code = 2215) 106 MEQ/L CARBON DIOXIDE (test code = 20 MEQ/L 2205) CALCIUM (test code = 2209) 9.1 MG/DL PROTEIN, TOTAL (test code = 7.2 G/DL 2228) ALBUMIN (test code = 2201) 4.1 G/DL CALCULATED GLOBULIN (test 3.1 G/DL code = 2240) CALCULATED A/G RATIO (test 1.3 RATIO code = 2234) BILIRUBIN, TOTAL (test code = 0.3 MG/DL 2206) ALKALINE PHOSPHATASE (test 66 U/L code = 220) SGOT (AST) (test code = 2218) 11 U/L SGPT (ALT) (test code = 221) 9 U/L LIPID [id number] 00:00:00 Test Item Value Reference Range Interpretation Comments CHOLESTEROL (test code = 2210) 187 MG/DL TRIGLYCERIDES (test code = 2232) 284 MG/DL HDL CHOLESTEROL (test code = 2220) 39 MG/DL CALCULATED LDL CHOL (test code = 91 MG/DL 7) RISK RATIO LDL/HDL (test code = 2.34 RATIO 2238) LIPID [id number] 00:00:00 Test Item Value Reference Range Interpretation Comments CHOLESTEROL (test code = 2210) 187 MG/DL TRIGLYCERIDES (test code = 2232) 284 MG/DL HDL CHOLESTEROL (test code = 2220) 39 MG/DL CALCULATED LDL CHOL (test code = 91 MG/DL 7) RISK RATIO LDL/HDL (test code = 2.34 RATIO 2238) CBC W/AUTO [id number] 00:00:00 Test Item Value Reference Range Interpretation Comments WBC (test code = 1001) 9.7 K/UL RBC (test code = 1002) 4.59 M/UL HEMOGLOBIN (test code = 1003) 13.5 G/DL HEMATOCRIT (test code = 1004) 40.7 % MCV (test code = 1005) 88.7 fL MCH (test code = 1006) 29.4 PG MCHC (test code = 1007) 33.2 G/DL RDW (test code = 1038) 13.6 % NEUTROPHILS (test code = 1008) 68 % LYMPHOCYTES (test code = 1010) 25 % MONOCYTES (test code = 1011) 5 % EOSINOPHILS (test code = 1012) 1 % BASOPHILS (test code = 1013) % PLATELET COUNT (test code = 1015) 261 K/UL CBC W/AUTO [id number] 00:00:00 Test Item Value Reference Range Interpretation Comments WBC (test code = 1001) 9.7 K/UL RBC (test code = 1002) 4.59 M/UL HEMOGLOBIN (test code = 1003) 13.5 G/DL HEMATOCRIT (test code = 1004) 40.7 % MCV (test code = 1005) 88.7 fL MCH (test code = 1006) 29.4 PG MCHC (test code = 1007) 33.2 G/DL RDW (test code = 1038) 13.6 % NEUTROPHILS (test code = 1008) 68 % LYMPHOCYTES (test code = 1010) 25 % MONOCYTES (test code = 1011) 5 % EOSINOPHILS (test code = 1012) 1 % BASOPHILS (test code = 1013) % PLATELET COUNT (test code = 1015) 261 K/UL CBC W/AUTO [id number] 00:00:00 Test Item Value Reference Range Interpretation Comments WBC (test code = 1001) 9.7 K/UL RBC (test code = 1002) 4.59 M/UL HEMOGLOBIN (test code = 1003) 13.5 G/DL HEMATOCRIT (test code = 1004) 40.7 % MCV (test code = 1005) 88.7 fL MCH (test code = 1006) 29.4 PG MCHC (test code = 1007) 33.2 G/DL RDW (test code = 1038) 13.6 % NEUTROPHILS (test code = 1008) 68 % LYMPHOCYTES (test code = 1010) 25 % MONOCYTES (test code = 1011) 5 % EOSINOPHILS (test code = 1012) 1 % BASOPHILS (test code = 1013) % PLATELET COUNT (test code = 1015) 261 K/UL HEMOGLOBIN [id number] 00:00:00 Test Item Value Reference Range Interpretation Comments HEMOGLOBIN A1c (test code = 41435) 5.3 % HEMOGLOBIN [id number] 00:00:00 Test Item Value Reference Range Interpretation Comments HEMOGLOBIN A1c (test code = 41904) 5.3 % HEMOGLOBIN [id number] 00:00:00 Test Item Value Reference Range Interpretation Comments HEMOGLOBIN A1c (test code = 69780) 5.3 % [id number] 00:00:00 Test Item Value Reference Range Interpretation Comments TSH (test code = 2821) 0.9 UIU/ML [id number] 00:00:00 Test Item Value Reference Range Interpretation Comments TSH (test code = 2821) 0.9 UIU/ML [id number] 00:00:00 Test Item Value Reference Range Interpretation Comments TSH (test code = 2821) 0.9 UIU/ML COMPREHENSIVE METABOLIC [id number] 00:00:00 Test Item Value Reference Range Interpretation Comments GLUCOSE (test code = 2217) 85 MG/DL BUN (test code = 2208) 15 MG/DL CREATININE (test code = 2214) 0.48 MG/DL eGFR AMER. (test code 146 ML/MIN/1.73 = 24222) eGFR NON- AMER. (test 126 ML/MIN/1.73 code = 09611) CALCULATED BUN/CREAT (test 31 RATIO code = 2235) SODIUM (test code = 2231) 138 MEQ/L POTASSIUM (test code = 2228) 3.9 MEQ/L CHLORIDE (test code = 2215) 106 MEQ/L CARBON DIOXIDE (test code = 20 MEQ/L 2205) CALCIUM (test code = 2209) 9.1 MG/DL PROTEIN, TOTAL (test code = 7.2 G/DL 2228) ALBUMIN (test code = 2201) 4.1 G/DL CALCULATED GLOBULIN (test 3.1 G/DL code = 2240) CALCULATED A/G RATIO (test 1.3 RATIO code = 2234) BILIRUBIN, TOTAL (test code = 0.3 MG/DL 2206) ALKALINE PHOSPHATASE (test 66 U/L code = 2204) SGOT (AST) (test code = 2218) 11 U/L SGPT (ALT) (test code = 2219) 9 U/L COMPREHENSIVE METABOLIC [id number] 00:00:00 Test Item Value Reference Range Interpretation Comments GLUCOSE (test code = 2217) 85 MG/DL BUN (test code = 2208) 15 MG/DL CREATININE (test code = 2214) 0.48 MG/DL eGFR AMER. (test code 146 ML/MIN/1.73 = 23772) eGFR NON- AMER. (test 126 ML/MIN/1.73 code = 25825) CALCULATED BUN/CREAT (test 31 RATIO code = 2235) SODIUM (test code = 2231) 138 MEQ/L POTASSIUM (test code = 2228) 3.9 MEQ/L CHLORIDE (test code = 2215) 106 MEQ/L CARBON DIOXIDE (test code = 20 MEQ/L 2205) CALCIUM (test code = 2209) 9.1 MG/DL PROTEIN, TOTAL (test code = 7.2 G/DL 2228) ALBUMIN (test code = 2201) 4.1 G/DL CALCULATED GLOBULIN (test 3.1 G/DL code = 2240) CALCULATED A/G RATIO (test 1.3 RATIO code = 2234) BILIRUBIN, TOTAL (test code = 0.3 MG/DL 2206) ALKALINE PHOSPHATASE (test 66 U/L code = 2204) SGOT (AST) (test code = 2218) 11 U/L SGPT (ALT) (test code = 2219) 9 U/L LIPID [id number] 00:00:00 Test Item Value Reference Range Interpretation Comments CHOLESTEROL (test code = 2210) 187 MG/DL TRIGLYCERIDES (test code = 2232) 284 MG/DL HDL CHOLESTEROL (test code = 2220) 39 MG/DL CALCULATED LDL CHOL (test code = 91 MG/DL 2237) RISK RATIO LDL/HDL (test code = 2.34 RATIO 2238) LIPID [id number] 00:00:00 Test Item Value Reference Range Interpretation Comments CHOLESTEROL (test code = 2210) 187 MG/DL TRIGLYCERIDES (test code = 2232) 284 MG/DL HDL CHOLESTEROL (test code = 2220) 39 MG/DL CALCULATED LDL CHOL (test code = 91 MG/DL 2237) RISK RATIO LDL/HDL (test code = 2.34 RATIO 2238) CBC W/AUTO [id number] 00:00:00 Test Item Value Reference Range Interpretation Comments WBC (test code = 1001) 9.7 K/UL RBC (test code = 1002) 4.59 M/UL HEMOGLOBIN (test code = 1003) 13.5 G/DL HEMATOCRIT (test code = 1004) 40.7 % MCV (test code = 1005) 88.7 fL MCH (test code = 1006) 29.4 PG MCHC (test code = 1007) 33.2 G/DL RDW (test code = 1038) 13.6 % NEUTROPHILS (test code = 1008) 68 % LYMPHOCYTES (test code = 1010) 25 % MONOCYTES (test code = 1011) 5 % EOSINOPHILS (test code = 1012) 1 % BASOPHILS (test code = 1013) % PLATELET COUNT (test code = 1015) 261 K/UL CBC W/AUTO [id number] 00:00:00 Test Item Value Reference Range Interpretation Comments WBC (test code = 1001) 9.7 K/UL RBC (test code = 1002) 4.59 M/UL HEMOGLOBIN (test code = 1003) 13.5 G/DL HEMATOCRIT (test code = 1004) 40.7 % MCV (test code = 1005) 88.7 fL MCH (test code = 1006) 29.4 PG MCHC (test code = 1007) 33.2 G/DL RDW (test code = 1038) 13.6 % NEUTROPHILS (test code = 1008) 68 % LYMPHOCYTES (test code = 1010) 25 % MONOCYTES (test code = 1011) 5 % EOSINOPHILS (test code = 1012) 1 % BASOPHILS (test code = 1013) % PLATELET COUNT (test code = 1015) 261 K/UL CBC W/AUTO [id number] 00:00:00 Test Item Value Reference Range Interpretation Comments WBC (test code = 1001) 9.7 K/UL RBC (test code = 1002) 4.59 M/UL HEMOGLOBIN (test code = 1003) 13.5 G/DL HEMATOCRIT (test code = 1004) 40.7 % MCV (test code = 1005) 88.7 fL MCH (test code = 1006) 29.4 PG MCHC (test code = 1007) 33.2 G/DL RDW (test code = 1038) 13.6 % NEUTROPHILS (test code = 1008) 68 % LYMPHOCYTES (test code = 1010) 25 % MONOCYTES (test code = 1011) 5 % EOSINOPHILS (test code = 1012) 1 % BASOPHILS (test code = 1013) % PLATELET COUNT (test code = 1015) 261 K/UL HEMOGLOBIN [id number] 00:00:00 Test Item Value Reference Range Interpretation Comments HEMOGLOBIN A1c (test code = 34541) 5.3 % HEMOGLOBIN [id number] 00:00:00 Test Item Value Reference Range Interpretation Comments HEMOGLOBIN A1c (test code = 42924) 5.3 % HEMOGLOBIN [id number] 00:00:00 Test Item Value Reference Range Interpretation Comments HEMOGLOBIN A1c (test code = 35474) 5.3 % [id number] 00:00:00 Test Item Value Reference Range Interpretation Comments TSH (test code = 2821) 0.9 UIU/ML [id number] 00:00:00 Test Item Value Reference Range Interpretation Comments TSH (test code = 2821) 0.9 UIU/ML [id number] 00:00:00 Test Item Value Reference Range Interpretation Comments TSH (test code = 2821) 0.9 UIU/ML
[2022-12-07 15:14] LABS: Urine Blood 3+ (Negative); Urine Glucose Trace (Negative); Urine Protein 3+ (Negative); Urine pH 8.5 (5.0-7.0)
[2022-12-07] MEDS ORDERED: NA CHLORIDE 0.9% 1,000 ML ONE (15:31)
[2022-12-07] MEDS ORDERED: KETOROLAC 30 MG/ML INJ ONE (15:31)
--- NOTE | 2022-12-07 15:35 | RAD REPORT ---
EXAM DESCRIPTION: CT - Stone Protocol - 12/07/2022 3:20 pm CLINICAL HISTORY: FLANK PAIN COMPARISON: Abdomen Pelvis Wo Contrast dated 12/07/2018; CT ABD PELVIS W CONTRAST dated 09/17/2015; CTSTONE PROTOCOL dated 05/20/2013 TECHNIQUE: Thin cut axial CT imaging of the abdomen and pelvis was performed without IV contrast. Mu ltiplanar reformats were generated and reviewed. All CT scans are performed using dose optimization technique as appropriate and may include automated exposure control or mA/KV adjustment according to patient size. FINDINGS: No suspicious findings in the lung bases. The liver, spleen, and pancreas show no suspicious findings. Gallbladder has been surgically removed. Biliary tree is without suspicious finding. Symmetric renal contour, without suspicious parenchymal findings within limits of noncontrast techniq ue. No evidence of radiopaque calculi or hydroureteronephrosis. No dilated bowel loops or bowel wall thickening. No free air, free fluid or inflammatory stranding. N o hernia, mass or bulky lymphadenopathy. The urinary bladder is suboptimally distended limiting evalu ation. No suspicious bony findings. IMPRESSION: No acute intra-abdominal process.
[2022-12-07 16:37] LABS: Absolute Lymphocytes (CBC) 2.5 K/uL (0.7-4.9); Lymphocytes % 14.7 % (15.3-44.8); MCV 85.6 fL (80-100); MPV 8.1 fL (7.6-11.3); RBC Red Blood Cell Count 4.44 M/uL (3.86-4.86)
[2022-12-07 16:43] LABS: Albumin 3.9 g/dL (3.4-5.0); Bilirubin Total 0.5 mg/dL (0.2-1.0); Potassium 3.7 mEq/L (3.5-5.1); Protein, Total 7.7 g/dL (6.4-8.2)
--- NOTE | 2022-12-07 17:46 | ER ---
Nurse's Notes [facility] Name: Maria De Jesus Wagoner Age: 42 yrs Sex: Female : 1980 Arrival Date: 12/07/2022 Time: 14:41 Bed 19 Private MD: Diagnosis: UTI/ Urinary tract infection, site not specified Presentation: 12/07 15:01 Chief complaint: Patient states: Dysuria, hematuria, clots in urine, L flank pain ll1 started last night. No N/V/D or fever. Coronavirus screen: Vaccine status: Patient reports receiving the 2nd dose of the covid vaccine. Client denies travel out of the [place] in the last 14 days. At this time, the client does not indicate any symptoms associated with coronavirus-19. Ebola Screen: Patient denies travel to an Ebola-affected area in the 21 days before illness onset. Initial Sepsis Screen: Does the patient meet any 2 criteria? HR > 90 bpm. No. Patient's initial sepsis screen is negative. Does the patient have a suspected source of infection? Yes: Dysuria/Frequency/Urgency/UTI. Risk Assessment: Do you want to hurt yourself or someone else? Patient reports no desire to harm self or others. Onset of symptoms was December 06, 2022. 15:01 Method Of Arrival: Ambulatory ll1 15:01 Acuity: JOCELIN 3 ll1 Triage Assessment: 15:05 General: Appears uncomfortable, Behavior is calm, cooperative, appropriate for age. ll1 Pain: Complains of pain in L flank Quality of pain is described as aching. : Reports burning with urination, cramping, pain in left flank(s), urgency, urinary frequency. Historical: - Allergies: 15:01 No Known Allergies; ll1 - PMHx: 14:58 Anxiety; depressive disorder; GERD; Hypertension; ll1 15:01 ADHD; ll1 - PSHx: 14:58 Cholecystectomy; tubal ligation; ll1 - Immunization history:: Adult Immunizations up to date, Client reports receiving the 2nd dose of the Covid vaccine. - Social history:: Smoking status: Patient denies any tobacco usage or history of. Vital Signs: 15:01 BP 149 / 98; Pulse 105; Resp 18; Temp 99.1; Pulse Ox 99% ; Weight 72.57 kg; Height 5 ll1 ft. 4 in. ; Pain 9/10; 15:01 Body Mass Index 27.46 (72.57 kg, 162.56 cm) ll1 15:01 Pain Scale: Adult ll1 ED Course: 14:41 Patient arrived in ED. mr 14:42 Marti Gonzalez FNP-C is [facility]. kb 14:42 Ronald Brock MD is Attending Physician. kb 14:58 Arm band placed on. ll1 15:03 Triage completed. ll1 15:09 Sienna Celestin, RN is Primary Nurse. kr3 15:21 CT Stone Protocol In Process Unspecified. EDMS 15:30 Inserted saline lock: 20 gauge in right antecubital area, using aseptic technique. eh3 Blood collected. Administered Medications: 15:35 Drug: NS 0.9% IV 1000 ml Route: IV; Rate: 1 bolus; Site: right antecubital; eh3 15:35 Drug: TORadol - Ketorolac IVP 15 mg Route: IVP; Site: right antecubital; 3 Outcome: 17:46 Discharge ordered by . kb Signatures: Dispatcher [employer] EDOH Marti Gonzalez FNP-C FNP-Elisa Ramirez mr Jessee Wagoner RN RN 1 Isela Ellsworth RN RN 3 Sienna Celestin, WILI RN 3
--- NOTE | 2022-12-07 17:47 | EDPHYS ---
Physician Documentation [facility] Name: Maria De Jesus Wagoner Age: 42 yrs Sex: Female : 1980 Arrival Date: 12/07/2022 Time: 14:41 Bed 19 Private MD: ED Physician Ronald Brock Historical: - Allergies: 12/07 15:01 No Known Allergies; ll1 - PMHx: 14:58 Anxiety; depressive disorder; GERD; Hypertension; ll1 15:01 ADHD; ll1 - PSHx: 14:58 Cholecystectomy; tubal ligation; ll1 - Immunization history:: Adult Immunizations up to date, Client reports receiving the 2nd dose of the Covid vaccine. - Social history:: Smoking status: Patient denies any tobacco usage or history of. Vital Signs: 15:01 BP 149 / 98; Pulse 105; Resp 18; Temp 99.1; Pulse Ox 99% ; Weight 72.57 kg; Height 5 ll1 ft. 4 in. ; Pain 9/10; 15:01 Body Mass Index 27.46 (72.57 kg, 162.56 cm) ll1 15:01 Pain Scale: Adult ll1 MDM: 14:42 Patient medically screened. kb 12/07 14:51 Order name: Urine Microscopic Only kb 12/07 14:51 Order name: Urine Dipstick-Ancillary (obtain specimen); Complete Time: 15:19 kb 12/07 14:51 Order name: Urine Test (obtain specimen); Complete Time: 15:19 kb 12/07 15:16 Order name: Urine --Ancillary (enter results); Complete Time: 15:28 kj1 12/07 14:51 Order name: CT Stone Protocol; Complete Time: 15:36 kb 12/07 14:51 Order name: IV Saline Lock; Complete Time: 15:47 kb 12/07 14:51 Order name: Labs collected and sent; Complete Time: 15:47 kb 12/07 14:51 Order name: CBC with Diff; Complete Time: 16:42 kb 12/07 14:51 Order name: CMP; Complete Time: 16:47 kb 12/07 14:51 Order name: Lipase; Complete Time: 16:47 kb 12/07 15:14 Order name: Urine Dipstick-Ancillary; Complete Time: 15:16 EDMS Administered Medications: 15:35 Drug: NS 0.9% IV 1000 ml Route: IV; Rate: 1 bolus; Site: right antecubital; 3 15:35 Drug: TORadol - Ketorolac IVP 15 mg Route: IVP; Site: right antecubital; 3 Disposition Summary: 12/07/22 17:46 Discharge Ordered Location: Home kb Condition: Stable kb Diagnosis - UTI/ Urinary tract infection, site not specified kb Followup: kb - With: Emergency Department - When: As needed - Reason: Worsening of condition Followup: kb - With: Private Physician - When: 2 - 3 days - Reason: Recheck today's complaints, Continuance of care, Re-evaluation by your physician Forms: - Medication Reconciliation Form kb - Thank You Letter kb - Antibiotic Education kb - Prescription Opioid Use kb Signatures: Dispatcher [employer] Marti Hess FNP-C FNP-Jessee Jackson, RN RN 1 Isela Ellsworth RN RN eh3
[2022-12-07] MEDS ORDERED: NA CHLORIDE 0.9% 50 ML ONE (17:56)
[2022-12-07] MEDS ORDERED: CEFTRIAXONE 1000 MG/VIAL ONE (17:56)
[2022-12-07 22:17] VITALS: TEMP 99.1
[2022-12-07 22:18] VITALS: O2SAT 100
[2022-12-07 22:20] VITALS: BP 149/109
== END 2022-12-07 18:30 | disposition home or self-care (01) ==
LOC: ER 14:38
DX: N39.0 Urinary tract infection, site not specified (principal); R30.0 Dysuria; R31.9 Hematuria, unspecified; R10.32 Left lower quadrant pain; R35.0 Frequency of micturition; F41.9 Anxiety disorder, unspecified; F32.A Depression, unspecified; K21.9 Gastro-esophageal reflux disease without esophagitis; I10 Essential (primary) hypertension
CPT/HCPCS: 36415; 74176; 76377; 80053; 81003; 81025; 83690; 85025; 96361; 96365; 96375; 99284; J7030

== ENCOUNTER 2023-02-11 09:45 | Emergency (ER) | payer BC, SELFPAY ==
--- OUTSIDE RECORDS SUMMARY | 2023-02-11 09:57 | XMS REPORT | Continuity of Care Document ---
:1980 Author Organization [facility] t Address [address] [place] [address] [place] [address] Care Team Providers Name Role Phone Lilly Farley Primary Care Physician [phone] Problems This patient has no known problems. [...] Goal Plan of Care Note [code = 93470-4] Goal Plan of Care Note [code = 10928-2] Goal Plan of Care Note [code = 70223-2] Goal Plan of Care Note [code = 83541-0] Goal Plan of Care Note [code = 11666-8] Goal Plan of Care Note [code = 66011-4] Goal Plan of Care Note [code = 94627-6] Goal Plan of Care Note [code = 87119-2] Goal Plan of Care Note [code = 31630-4] Goal Plan of Care Note [code = 34079-0] Goal Plan of Care Note [code = 84004-4] Goal Plan of Care Note [code = 31209-7] Goal Plan of Care Note [code = 85767-9] Goal Plan of Care Note [code = 09940-0] Goal Plan of Care Note [code = 42586-1] Goal Plan of Care Note [code = 08734-8] Goal Plan of Care Note [code = 78390-8] Goal Plan of Care Note [code = 26019-7] Goal Plan of Care Note [code = 36425-8] Goal Plan of Care Note [code = 76212-4] Goal Plan of Care Note [code = 08143-0] Goal Plan of Care Note [code = 39328-7] Goal Plan of Care Note [code = 14079-3] Goal Plan of Care Note [code = 74960-8] Goal Plan of Care Note [code = 36200-9] Goal Plan of Care Note [code = 34526-7] Goal Plan of Care Note [code = 24341-3] Goal Plan of Care Note [code = 75855-3] Goal Plan of Care Note [code = 13580-9] Goal Plan of Care Note [code = 63412-2] Goal Plan of Care Note [code = 50480-6] Goal Plan of Care Note [code = 11896-6] Goal Plan of Care Note [code = 51362-8] Goal Plan of Care Note [code = 99964-5] Goal Plan of Care Note [code = 35185-2] Goal Plan of Care Note [code = 51570-9] Goal Plan of Care Note [code = 72579-3] Goal Plan of Care Note [code = 14367-1] Goal Plan of Care Note [code = 44558-6] Goal Plan of Care Note [code = 55999-9] Goal Plan of Care Note [code = 82121-4] Goal Plan of Care Note [code = 67043-0] Goal Plan of Care Note [code = 85890-9] Goal Plan of Care Note [code = 18297-7] Goal Plan of Care Note [code = 35516-1] Goal Plan of Care Note [code = 93514-2] Goal Plan of Care Note [code = 63398-5] Goal Plan of Care Note [code = 03123-3] Goal Plan of Care Note [code = 98767-5] Goal Plan of Care Note [code = 40459-0] Goal Plan of Care Note [code = 72235-5] Goal Plan of Care Note [code = 04319-3] Goal Plan of Care Note [code = 13600-5] Goal Plan of Care Note [code = 96157-5] Goal Plan of Care Note [code = 37177-9] Goal Plan of Care Note [code = 02090-3] Goal Plan of Care Note [code = 62527-3] Goal Plan of Care Note [code = 99005-9] Goal Plan of Care Note [code = 38523-6] Goal Plan of Care Note [code = 45587-6] Goal Plan of Care Note [code = 61444-9] Goal Plan of Care Note [code = 48471-7] Goal Plan of Care Note [code = 88641-6] Goal Plan of Care Note [code = 16314-7] Goal Plan of Care Note [code = 84142-9] Goal Plan of Care Note [code = 40457-5] Goal Plan of Care Note [code = 29206-7] Goal Plan of Care Note [code = 00823-3] Goal Plan of Care Note [code = 86469-8] Goal Plan of Care Note [code = 53892-1] Goal Plan of Care Note [code = 08611-8] Goal Plan of Care Note [code = 95615-8] Goal Plan of Care Note [code = 13528-4] Goal Plan of Care Note [code = 10317-8] Goal Plan of Care Note [code = 03006-9] Goal Plan of Care Note [code = 77809-0] Goal Plan of Care Note [code = 42295-6] Goal Plan of Care Note [code = 95392-3] Goal Plan of Care Note [code = 46250-7] Goal Plan of Care Note [code = 97199-7] Goal Plan of Care Note [code = 35364-7] Goal Plan of Care Note [code = 39875-2] Goal Plan of Care Note [code = 99981-4] Goal Plan of Care Note [code = 45782-2] Goal Plan of Care Note [code = 37971-4] Goal Plan of Care Note [code = 74465-4] Goal Plan of Care Note [code = 49745-6] Goal Plan of Care Note [code = 80241-7] Goal Plan of Care Note [code = 39211-8] Goal Plan of Care Note [code = 54181-2] Goal Plan of Care Note [code = 12566-3] Goal Plan of Care Note [code = 38613-7] Goal Plan of Care Note [code = 63379-2] Goal Plan of Care Note [code = 66523-6] Goal Plan of Care Note [code = 21918-2] Goal Plan of Care Note [code = 71860-8] Goal Plan of Care Note [code = 25762-2] Goal Plan of Care Note [code = 53559-9] Goal Plan of Care Note [code = 13766-2] Goal Plan of Care Note [code = 89937-7] Goal Plan of Care Note [code = 73128-7] Goal Plan of Care Note [code = 46422-5] Goal Plan of Care Note [code = 89962-1] Goal Plan of Care Note [code = 01563-6] Goal Plan of Care Note [code = 68002-7] Goal Plan of Care Note [code = 82618-3] Goal Plan of Care Note [code = 02569-5] Goal Plan of Care Note [code = 57961-4] Goal Plan of Care Note [code = 63526-9] Goal Plan of Care Note [code = 65587-1] Goal Plan of Care Note [code = 90278-5] Goal Plan of Care Note [code = 48163-2] Goal Plan of Care Note [code = 76185-3] Goal Plan of Care Note [code = 25192-0] Goal Plan of Care Note [code = 51741-4] Goal Plan of Care Note [code = 19785-6] Encounters Start End Encounter Admission Attending Care Care Encounter Source Date/Time Date/Time Type Type Clinicians Facility Department ID 2022-09-01 2022-09-01 Outpatient [facility] [id number] Alex 18:36:29 18:36:29 1212 F Pernell 2022-08-25 2022-08-25 Outpatient [facility] [id number] Alex 18:01:33 18:01:33 1205 F Pernell 2022-06-17 2022-06-17 Outpatient [id number] 00:00:00 00:00:00 Visit [id number] fef-[id number]-a -[id number] 2022-05-23 2022-05-23 Outpatient gi2he5kg- [id number] 00:00:00 00:00:00 Visit [id number] [id number]-1 -8ead-afc [id number] Results Test Description Test Time Test [...] views. Current mammographic images were evaluated by [employer] CAD (computer-aided detection) software. Comparison is made to exams dated 04/20/2020 mammogram [facility] There are scattered fibroglandular tissues in both breasts. No suspicious mass, architectural distortion, malignant type calcification, or lymph node abnormality detected. IMPRESSION: NEGATIVEThere is no mammographic evidence of malignancy. Bilateral survey ultrasound to follow.COMPLETE ULTRASOUND OF BOTH BREASTS AND AXILLA: 08/04/2022omparison is made to exams dated 04/20/2020 mammogram and [facility] Color flow and real-time ultrasound of both [...] 08/04/2022 12:56:06Imaging Technologist: Jael Alfaro FW, [facility]; Rose Lundberg , [facility]-letter sent: BIRADS 1-2 Normal Mammogram BI-RADS: 1 Negative Ultrasound BI-RADS: [address]/NG, NAAT, URINE 2022-06-18 18:19:17 Test Item Value Reference Range Interpretation Comme nts GONORRHEA, NAAT NEGATIVE NEGATIVE IMPORTA NT NOTICE: SEE ANNOUNCEMENT AT (test code = [email or web address] ReservationsKit Note: 44030) Assay methodolo gy is nucleic acid amplification by transcriptio n mediated amplification (TMA) utilizing the A ptima Combo 2 Assay. CHLAMYDIA, NAAT NEGATIVE NEGATIVE IMPORTA NT NOTICE: SEE ANNOUNCEMENT AT (test code = [email or web address]/SQLstreamCobasUrineKit Note: 60428) Assay methodolo gy is nucleic acid amplification by transcriptio n mediated amplification (TMA) utilizing the A ptima Combo 2 Assay. [id number] 04:50:21 Test Item Value Reference Range Interpretation Comments RPR RESULT (test NON-REACTIVE NON-REACTIVE code = 3501) RPR TITER (test NOT INDIC. NOT INDIC. UNLESS OTHE RWISE code = 3500) TITER INDICATED, ALL TESTING PERFORMED [facility] [employer] [address] [place] [address] 4 LABORATORY DIRE CTOR: MARQUIS AL M.D. CLIA NUMBER [id number] [place] [id number] HIV 1/2 4TH GEN, RFLX [id number] 04:32:05 Test Item Value Reference Range Interpretation Comments HIV 1/2 4TH GEN, RFLX CONF (test NON-REACTIVE NON-REACTIVE code = 3514) HEPATITIS PANEL, [id number] 04:32:05 Test Item Value Reference Range Interpretation Comments HEPATITIS A IgM (test NON-REACTIVE NON-REACTIVE code = 12500) HEPATITIS B CORE IgM NON-REACTIVE NON-REACTIVE (test code = 4644) HEPATITIS B SURF AG NON-REACTIVE NON-REACTIVE (test code = 2739) HEPATITIS C ANTIBODY NON-REACTIVE NON-REACTIVE (test code = 4675) INTERPRETATION (NOTE) Hepatitis A HEPATITIS A: (test code sero logy shows no = 2552) evidence of acu te hepatitis A. INTERPRETATION (NOTE) Hepatitis B HEPATITIS B: (test code sero logy shows no = 35960) evidence of acu te hepatitis B and no indication of exposure to hepatitis B vir us in the previous zulma eight months. INTERPRETATION (NOTE) Hepatitis C HEPATITIS C: (test code sero logy shows no = 12055) evidence of exposure to hepatitisC viru s at this time. I t can take up to 12 months after exposure tothe hepatitis C vir us for antibodies to become detectab le in the blood i n certain patient s. SARS-CoV-2 (COVID-19), RT-PCR/[id number] 07:46:51 Test Item Value Reference Interpretation Comments Range SARS-CoV-2 NEGATIVE SEE NOTE SARS-CoV-2 RNA NOT INTERPRETATION DETECTEDNegat carolyn (test code = 47740) results do not preclude SARS-C oV-2 infection [...] (test code = [place]OP[place]: [place] [address]) Tim Marjorie Elisa l-Time RT-PCR. The exp [...] provided by met hod given in report:https:// www.[facility].com/clinic ians/cl ient-communicat ions/ Alternatively, see downloadable PD F fact sheet at:https://www. [employer]/COVID-19-R T-PCR UNLESS OTHERWIS E INDICATED, ALL TESTING PERFORMED [facility], [place] [id number] [place] [address] RAFIA DIRECTOR: MARQUIS GURROLA M.D. CLIA NUMBER [id number] CAP ACCREDITATION N O. [id number] SARS-CoV-2 (COVID-19) by RT-PCR (HIGH RISK)2021-10-31 00:00:00 Test Item Value Reference Range Interpretation Comments SARS-CoV-2 INTERPRETATION NEGATIVE (test code = 18310) SOURCE (test code = 83226) NASOPHARYNGEAL SARS-CoV-2 (COVID-19) by RT-PCR (HIGH RISK)2021-10-31 00:00:00 Test Item Value Reference Range Interpretation Comments SARS-CoV-2 INTERPRETATION NEGATIVE (test code = 75329) SOURCE (test code = 90399) NASOPHARYNGEAL SARS-CoV-2 (COVID-19) by RT-PCR (HIGH RISK)2021-10-31 00:00:00 Test Item Value Reference Range Interpretation Comments SARS-CoV-2 INTERPRETATION NEGATIVE (test code = 16900) SOURCE (test code = 79965) NASOPHARYNGEAL SARS-CoV-2 (COVID-19) by RT-PCR (HIGH RISK)2021-10-31 00:00:00 Test Item Value Reference Range Interpretation Comments SARS-CoV-2 INTERPRETATION NEGATIVE (test code = 09075) SOURCE (test code = 88417) NASOPHARYNGEAL SARS-CoV-2 (COVID-19) by RT-PCR (HIGH RISK)2020-08-29 00:00:00 Test Item Value Reference Range Interpretation Comments SARS-CoV-2 INTERPRETATION NEGATIVE (test code = 64684) SOURCE (test code = 37934) NASOPHARYNGEAL SARS-CoV-2 (COVID-19) by RT-PCR (HIGH RISK)2020-08-29 00:00:00 Test Item Value Reference Range Interpretation Comments SARS-CoV-2 INTERPRETATION NEGATIVE (test code = 39940) SOURCE (test code = 82672) NASOPHARYNGEAL SARS-CoV-2 (COVID-19) by RT-PCR (HIGH RISK)2020-08-29 00:00:00 Test Item Value Reference Range Interpretation Comments SARS-CoV-2 INTERPRETATION NEGATIVE (test code = 55564) SOURCE (test code = 45563) NASOPHARYNGEAL SARS-CoV-2 (COVID-19) by RT-PCR (HIGH RISK)2020-08-29 00:00:00 Test Item Value Reference Range Interpretation Comments SARS-CoV-2 INTERPRETATION NEGATIVE (test code = 07927) SOURCE (test code = 28612) NASOPHARYNGEAL LIPID [id number] 00:00:00 Test Item Value Reference Range Interpretation Comments CHOLESTEROL (test code = 2210) 195 MG/DL TRIGLYCERIDES (test code = 2232) 334 MG/DL HDL CHOLESTEROL (test code = 2220) 34 MG/DL CALC LDL CHOL (test code = 2237) 113 MG/DL RISK RATIO LDL/HDL (test code = 3.32 RATIO 2238) LIPID [id number] 00:00:00 Test Item Value Reference Range Interpretation Comments CHOLESTEROL (test code = 2210) 195 MG/DL TRIGLYCERIDES (test code = 2232) 334 MG/DL HDL CHOLESTEROL (test code = 2220) 34 MG/DL CALC LDL CHOL (test code = 2237) 113 MG/DL RISK RATIO LDL/HDL (test code = 3.32 RATIO 2238) COMPREHENSIVE METABOLIC [id number] 00:00:00 Test Item Value Reference Range Interpretation Comments GLUCOSE (test code = 2217) 89 MG/DL BUN (test code = 2208) 16 MG/DL CREATININE (test code = 2214) 0.74 MG/DL eGFR AMER. (test code 117 ML/MIN/1.73 = 79704) eGFR NON- AMER. (test 101 ML/MIN/1.73 code = 42302) CALC BUN/CREAT (test code = 22 RATIO [...] code = 2219) 23 U/L COMPREHENSIVE METABOLIC [id number] 00:00:00 Test Item Value Reference Range Interpretation Comments GLUCOSE (test code = 2217) 89 MG/DL BUN (test code = 2208) 16 MG/DL CREATININE (test code = 2214) 0.74 MG/DL eGFR AMER. (test code 117 ML/MIN/1.73 = 82171) eGFR NON- AMER. (test 101 ML/MIN/1.73 code = 98023) CALC BUN/CREAT (test code = 22 RATIO [...] (test code = 2219) 23 U/L LIPID [id number] 00:00:00 Test Item Value Reference Range Interpretation Comments CHOLESTEROL (test code = 2210) 195 MG/DL TRIGLYCERIDES (test code = 2232) 334 MG/DL HDL CHOLESTEROL (test code = 2220) 34 MG/DL CALC LDL CHOL (test code = 2237) 113 MG/DL RISK RATIO LDL/HDL (test code = 3.32 RATIO 2238) LIPID [id number] 00:00:00 Test Item Value Reference Range Interpretation Comments CHOLESTEROL (test code = 2210) 195 MG/DL TRIGLYCERIDES (test code = 2232) 334 MG/DL HDL CHOLESTEROL (test code = 2220) 34 MG/DL CALC LDL CHOL (test code = 2237) 113 MG/DL RISK RATIO LDL/HDL (test code = 3.32 RATIO 2238) COMPREHENSIVE METABOLIC [id number] 00:00:00 Test Item Value Reference Range Interpretation Comments GLUCOSE (test code = 2217) 89 MG/DL BUN (test code = 2208) 16 MG/DL CREATININE (test code = 2214) 0.74 MG/DL eGFR AMER. (test code 117 ML/MIN/1.73 = 92131) eGFR NON- AMER. (test 101 ML/MIN/1.73 code = 76074) CALC BUN/CREAT (test code = 22 RATIO [...] code = 2219) 23 U/L COMPREHENSIVE METABOLIC [id number] 00:00:00 Test Item Value Reference Range Interpretation Comments GLUCOSE (test code = 2217) 89 MG/DL BUN (test code = 2208) 16 MG/DL CREATININE (test code = 2214) 0.74 MG/DL eGFR AMER. (test code 117 ML/MIN/1.73 = 48175) eGFR NON- AMER. (test 101 ML/MIN/1.73 code = 76019) CALC BUN/CREAT (test code = 22 RATIO [...] Comments SARS-CoV-2 INTERPRETATION NEGATIVE (test code = 58872) SOURCE (test code = 21884) NASOPHARYNGEAL SARS-CoV-2 (COVID-19) by RT-PCR (HIGH RISK)2020-04-27 00:00:00 Test Item Value Reference Range Interpretation Comments SARS-CoV-2 INTERPRETATION NEGATIVE (test code = 51114) SOURCE (test code = 32932) NASOPHARYNGEAL SARS-CoV-2 (COVID-19) by RT-PCR (HIGH RISK)2020-04-27 00:00:00 Test Item Value Reference Range Interpretation Comments SARS-CoV-2 INTERPRETATION NEGATIVE (test code = 66539) SOURCE (test code = 39196) NASOPHARYNGEAL SARS-CoV-2 (COVID-19) by RT-PCR (HIGH RISK)2020-04-27 00:00:00 Test Item Value Reference Range Interpretation Comments SARS-CoV-2 INTERPRETATION NEGATIVE (test code = 27633) SOURCE (test code = 53250) NASOPHARYNGEAL SCR MAMM BILATERAL CAD [id number] 09:16:04 - SCR MAMM BILATERAL CAD DIGITALBILATERAL DIGITAL SCREENING MAMMOGRAM WITH CAD: 04/20/2020CLINICAL: A symptomatic. Current mammographic images were evaluated by either a [employer] M-Vu or a [employer] CAD (computer aided detection system). Comparison is made to exam dated 10/13/2018 mammogram - [facility]-. There are scattered fibroglandular tissues in both breasts. No suspicious mass, architectural distortion, malignant type calcification, or lymph node abnormality detected. Breast architecture is stable compared to prior exams.IMPRESSION: NEGATIVEThere is no mammographic evidence of malignancy. Resume annual screening mammography in one year. Xu Ascencio M.D. ss/penrad:04/20/2020 09:16:04 Small Animal Caretaker: Kaye Marion , [facility]-FWletter sent: BIRADS 1-2 Normal Mammogram BI-RADS: 1 NegativePAP TEST, THINPREP, [id number] 00:00:00 Test Item Value Reference Range Interpretation Comments SOURCE: (test code = Cervical/Endocervical 8001) SLIDES: (test code = 1 8011) LMP: (test code = 8021) 03/05/2020 SPECIMEN ADEQUACY: (test (NOTE) code = 92805) INTERPRETATION: (test NILM/NO EPITH. code = 98059) ABNORMALITY;SEE BELOW FRONT DESK SUPERVISOR: (test Amparo Hartman CT (ASCP) code = 8101) QC TECHNOLOGIST: (test Roxanne code = 8111) MAYKEL Olsen(ASCP)CT(IA C) LOCATION: (test code = (NOTE) 49764) CPT: (test code = 8140) (NOTE) PAP TEST, THINPREP, [id number] 00:00:00 Test Item Value Reference Range Interpretation Comments SOURCE: (test code = Cervical/Endocervical 8001) SLIDES: (test code = 1 8011) LMP: (test code = 8021) 03/05/2020 SPECIMEN ADEQUACY: (test (NOTE) code = 88166) INTERPRETATION: (test NILM/NO EPITH. code = 38063) ABNORMALITY;SEE BELOW FRONT DESK SUPERVISOR: (test Amparo Harmtan CT (ASCP) code = 8101) QC TECHNOLOGIST: (test Roxanne code = 8111) AMYKEL Olsen(ASCP)CT(IA C) LOCATION: (test code = (NOTE) 02738) CPT: (test code = 8140) (NOTE) PAP TEST, THINPREP, [id number] 00:00:00 Test Item Value Reference Range Interpretation Comments SOURCE: (test code = Cervical/Endocervical 8001) SLIDES: (test code = 1 8011) LMP: (test code = 8021) 03/05/2020 SPECIMEN ADEQUACY: (test (NOTE) code = 66262) INTERPRETATION: (test NILM/NO EPITH. code = 13532) ABNORMALITY;SEE BELOW FRONT DESK SUPERVISOR: (test AD Meier (ASCP) code = 8101) QC TECHNOLOGIST: (test Roxanne code = 8111) RaúlSCT(ASCP)CT(IA C) LOCATION: (test code = (NOTE) 15294) CPT: (test code = 8140) (NOTE) PAP TEST, THINPREP, [id number] 00:00:00 Test Item Value Reference Range Interpretation Comments SOURCE: (test code = Cervical/Endocervical 8001) SLIDES: (test code = 1 8011) LMP: (test code = 8021) 03/05/2020 SPECIMEN ADEQUACY: (test (NOTE) code = 56780) INTERPRETATION: (test NILM/NO EPITH. code = 03748) ABNORMALITY;SEE BELOW FRONT DESK SUPERVISOR: (test AD Meier (ASCP) code = 8101) QC TECHNOLOGIST: (test Roxanne code = 8111) MAYKEL Olsen(ASCP)CT(IA C) LOCATION: (test code = (NOTE) 96837) CPT: (test code = 8140) (NOTE) HPV HIGH RISK WITH GENOTYPE, [id number] 00:00:00 Test Item Value Reference Range Interpretation Comments HPV HIGH RISK INTERP (test code = POSITIVE 71845) HPV 16 (test code = 11550) NEGATIVE HPV 18 (test code = 31508) NEGATIVE HPV, HR, OTHER GENOTYPES (test code POSITIVE = 49173) HPV HIGH RISK WITH GENOTYPE, [id number] 00:00:00 Test Item Value Reference Range Interpretation Comments HPV HIGH RISK INTERP (test code = POSITIVE 04951) HPV 16 (test code = 56865) NEGATIVE HPV 18 (test code = 67086) NEGATIVE HPV, HR, OTHER GENOTYPES (test code POSITIVE = 24444) HPV HIGH RISK WITH GENOTYPE, [id number] 00:00:00 Test Item Value Reference Range Interpretation Comments HPV HIGH RISK INTERP (test code = POSITIVE 43141) HPV 16 (test code = 40790) NEGATIVE HPV 18 (test code = 29964) NEGATIVE HPV, HR, OTHER GENOTYPES (test code POSITIVE = 87173) HPV HIGH RISK WITH GENOTYPE, [id number] 00:00:00 Test Item Value Reference Range Interpretation Comments HPV HIGH RISK INTERP (test code = POSITIVE 14531) HPV 16 (test code = 00118) NEGATIVE HPV 18 (test code = 80220) NEGATIVE HPV, HR, OTHER GENOTYPES (test code POSITIVE = 92363) VAGINAL PATHOGENS DNA [id number] 00:00:00 Test Item Value Reference Range Interpretation Comments [place] SPECIES (test code = ) NEGATIVE G. VAGINALIS (test code = 95900) NEGATIVE T. VAGINALIS (test code = 19013) NEGATIVE VAGINAL PATHOGENS DNA [id number] 00:00:00 Test Item Value Reference Range Interpretation Comments [place] SPECIES (test code = 69159) NEGATIVE G. VAGINALIS (test code = 82938) NEGATIVE T. VAGINALIS (test code = 57643) NEGATIVE VAGINAL PATHOGENS DNA [id number] 00:00:00 Test Item Value Reference Range Interpretation Comments [place] SPECIES (test code = 53451) NEGATIVE G. VAGINALIS (test code = 76239) NEGATIVE T. VAGINALIS (test code = 02273) NEGATIVE VAGINAL PATHOGENS DNA [id number] 00:00:00 Test Item Value Reference Range Interpretation Comments [place] SPECIES (test code = 16664) NEGATIVE G. VAGINALIS (test code = ) NEGATIVE T. VAGINALIS (test code = ) NEGATIVE SARS-CoV-2 (COVID-19) by RT-PCR (HIGH RISK)2020-03-19 00:00:00 Test Item Value Reference Range Interpretation Comments SARS-CoV-2 INTERPRETATION (test NEGATIVE code = 88838) SOURCE (test code = 64088) NOT SPECIFIED SARS-CoV-2 (COVID-19) by RT-PCR (HIGH RISK)2020-03-19 00:00:00 Test Item Value Reference Range Interpretation Comments SARS-CoV-2 INTERPRETATION (test NEGATIVE code = 41620) SOURCE (test code = 71649) NOT SPECIFIED SARS-CoV-2 (COVID-19) by RT-PCR (HIGH RISK)2020-03-19 00:00:00 Test Item Value Reference Range Interpretation Comments SARS-CoV-2 INTERPRETATION (test NEGATIVE code = 96018) SOURCE (test code = 38284) NOT SPECIFIED SARS-CoV-2 (COVID-19) by RT-PCR (HIGH RISK)2020-03-19 00:00:00 Test Item Value Reference Range Interpretation Comments SARS-CoV-2 INTERPRETATION (test NEGATIVE code = 96506) SOURCE (test code = 66157) NOT SPECIFIED CULTURE, [id number] 00:00:00 Test Item Value Reference Range Interpretation Comments CULTURE, URINE (test SPECIMEN NUMBER: code = 51235) [id number] CULTURE, [id number] 00:00:00 Test Item Value Reference Range Interpretation Comments CULTURE, URINE (test SPECIMEN NUMBER: code = 19020) [id number] CULTURE, [id number] 00:00:00 Test Item Value Reference Range Interpretation Comments CULTURE, URINE (test SPECIMEN NUMBER: code = 92055) [id number] CULTURE, [id number] 00:00:00 Test Item Value Reference Range Interpretation Comments CULTURE, URINE (test SPECIMEN NUMBER: code = 58300) [id number] CULTURE, URINE [ADDED]2019-10-07 00:00:00 Test Item Value Reference Range Interpretation Comments CULTURE, URINE (test SPECIMEN NUMBER: code = 43697) [id number] CULTURE, URINE [ADDED]2019-10-07 00:00:00 Test Item Value Reference Range Interpretation Comments CULTURE, URINE (test SPECIMEN NUMBER: code = 81147) [id number] CULTURE, URINE [ADDED]2019-10-07 00:00:00 Test Item Value Reference Range Interpretation Comments CULTURE, URINE (test SPECIMEN NUMBER: code = 03542) [id number] CULTURE, URINE [ADDED]2019-10-07 00:00:00 Test Item Value Reference Range Interpretation Comments CULTURE, URINE (test SPECIMEN NUMBER: code = 33787) [id number] COMPREHENSIVE METABOLIC [id number] 00:00:00 Test Item Value Reference Range Interpretation Comments GLUCOSE (test code = 2217) 70 MG/DL BUN (test code = 2208) 13 MG/DL CREATININE (test code = 2214) 0.52 MG/DL eGFR AMER. (test code 139 ML/MIN/1.73 = 62492) eGFR NON- AMER. (test 120 ML/MIN/1.73 code = 02825) CALC BUN/CREAT (test code = 25 RATIO [...] code = 2219) 19 U/L COMPREHENSIVE METABOLIC [id number] 00:00:00 Test Item Value Reference Range Interpretation Comments GLUCOSE (test code = 2217) 70 MG/DL BUN (test code = 2208) 13 MG/DL CREATININE (test code = 2214) 0.52 MG/DL eGFR AMER. (test code 139 ML/MIN/1.73 = 14693) eGFR NON- AMER. (test 120 ML/MIN/1.73 code = 50749) CALC BUN/CREAT (test code = 25 RATIO [...] code = 2219) 19 U/L CBC W/AUTO [id number] 00:00:00 Test Item Value Reference Range Interpretation [...] code = 1015) 322 K/UL CBC W/AUTO [id number] 00:00:00 Test Item Value Reference Range Interpretation [...] code = 1015) 322 K/UL CBC W/AUTO [id number] 00:00:00 Test Item Value Reference Range Interpretation [...] (test code = 1015) 322 K/UL HEMOGLOBIN [id number] 00:00:00 Test Item Value Reference Range Interpretation Comments HEMOGLOBIN A1c (test code = 16595) 5.5 % HEMOGLOBIN [id number] 00:00:00 Test Item Value Reference Range Interpretation Comments HEMOGLOBIN A1c (test code = 20038) 5.5 % HEMOGLOBIN [id number] 00:00:00 Test Item Value Reference Range Interpretation Comments HEMOGLOBIN A1c (test code = 99292) 5.5 % [id number] 00:00:00 Test Item Value Reference Range Interpretation Comments TSH, THIRD GENERATION (test code 0.978 UIU/ML = 2821) [id number] 00:00:00 Test Item Value Reference Range Interpretation Comments TSH, THIRD GENERATION (test code 0.978 UIU/ML = 2821) [id number] 00:00:00 Test Item Value Reference Range Interpretation Comments TSH, THIRD GENERATION (test code 0.978 UIU/ML = 2821) COMPREHENSIVE METABOLIC [id number] 00:00:00 Test Item Value Reference Range Interpretation Comments GLUCOSE (test code = 2217) 70 MG/DL BUN (test code = 2208) 13 MG/DL CREATININE (test code = 2214) 0.52 MG/DL eGFR AMER. (test code 139 ML/MIN/1.73 = 64388) eGFR NON- AMER. (test 120 ML/MIN/1.73 code = 87912) CALC BUN/CREAT (test code = 25 RATIO [...] code = 2219) 19 U/L COMPREHENSIVE METABOLIC [id number] 00:00:00 Test Item Value Reference Range Interpretation Comments GLUCOSE (test code = 2217) 70 MG/DL BUN (test code = 2208) 13 MG/DL CREATININE (test code = 2214) 0.52 MG/DL eGFR AMER. (test code 139 ML/MIN/1.73 = 82105) eGFR NON- AMER. (test 120 ML/MIN/1.73 code = 96750) CALC BUN/CREAT (test code = 25 RATIO [...] code = 2219) 19 U/L CBC W/AUTO [id number] 00:00:00 Test Item Value Reference Range Interpretation [...] code = 1015) 322 K/UL CBC W/AUTO [id number] 00:00:00 Test Item Value Reference Range Interpretation [...] code = 1015) 322 K/UL CBC W/AUTO [id number] 00:00:00 Test Item Value Reference Range Interpretation [...] (test code = 1015) 322 K/UL HEMOGLOBIN [id number] 00:00:00 Test Item Value Reference Range Interpretation Comments HEMOGLOBIN A1c (test code = 14416) 5.5 % HEMOGLOBIN [id number] 00:00:00 Test Item Value Reference Range Interpretation Comments HEMOGLOBIN A1c (test code = 11469) 5.5 % HEMOGLOBIN [id number] 00:00:00 Test Item Value Reference Range Interpretation Comments HEMOGLOBIN A1c (test code = 55768) 5.5 % [id number] 00:00:00 Test Item Value Reference Range Interpretation Comments TSH, THIRD GENERATION (test code 0.978 UIU/ML = 2821) [id number] 00:00:00 Test Item Value Reference Range Interpretation Comments TSH, THIRD GENERATION (test code 0.978 UIU/ML = 2821) [id number] 00:00:00 Test Item Value Reference Range Interpretation Comments TSH, THIRD GENERATION (test code 0.978 UIU/ML = 2821) LIPID [id number] 00:00:00 Test Item Value Reference Range Interpretation Comments CHOLESTEROL (test code = 2210) 172 MG/DL TRIGLYCERIDES (test code = 2232) 230 MG/DL HDL CHOLESTEROL (test code = 2220) 36 MG/DL CALC LDL CHOL (test code = 2237) 90 MG/DL RISK RATIO LDL/HDL (test code = 2.50 RATIO 2238) LIPID [id number] 00:00:00 Test Item Value Reference Range Interpretation Comments CHOLESTEROL (test code = 2210) 172 MG/DL TRIGLYCERIDES (test code = 2232) 230 MG/DL HDL CHOLESTEROL (test code = 2220) 36 MG/DL CALC LDL CHOL (test code = 2237) 90 MG/DL RISK RATIO LDL/HDL (test code = 2.50 RATIO 2238) LIPID [id number] 00:00:00 Test Item Value Reference Range Interpretation Comments CHOLESTEROL (test code = 2210) 172 MG/DL TRIGLYCERIDES (test code = 2232) 230 MG/DL HDL CHOLESTEROL (test code = 2220) 36 MG/DL CALC LDL CHOL (test code = 2237) 90 MG/DL RISK RATIO LDL/HDL (test code = 2.50 RATIO 2238) LIPID [id number] 00:00:00 Test Item Value Reference Range Interpretation Comments CHOLESTEROL (test code = 2210) 172 MG/DL TRIGLYCERIDES (test code = 2232) 230 MG/DL HDL CHOLESTEROL (test code = 2220) 36 MG/DL CALC LDL CHOL (test code = 2237) 90 MG/DL RISK RATIO LDL/HDL (test code = 2.50 RATIO 2238) CBC W/AUTO [id number] 00:00:00 Test Item Value Reference Range Interpretation [...] code = 1015) 301 K/UL CBC W/AUTO [id number] 00:00:00 Test Item Value Reference Range Interpretation [...] code = 1015) 301 K/UL CBC W/AUTO [id number] 00:00:00 Test Item Value Reference Range Interpretation [...] (test code = 1015) 301 K/UL LIPID [id number] 00:00:00 Test Item Value Reference Range Interpretation Comments CHOLESTEROL (test code = 2210) 155 MG/DL TRIGLYCERIDES (test code = 2232) 192 MG/DL HDL CHOLESTEROL (test code = 2220) 36 MG/DL CALC LDL CHOL (test code = 2237) 81 MG/DL RISK RATIO LDL/HDL (test code = 2.24 RATIO 2238) LIPID [id number] 00:00:00 Test Item Value Reference Range Interpretation Comments CHOLESTEROL (test code = 2210) 155 MG/DL TRIGLYCERIDES (test code = 2232) 192 MG/DL HDL CHOLESTEROL (test code = 2220) 36 MG/DL CALC LDL CHOL (test code = 2237) 81 MG/DL RISK RATIO LDL/HDL (test code = 2.24 RATIO 2238) COMPREHENSIVE METABOLIC [id number] 00:00:00 Test Item Value Reference Range Interpretation Comments GLUCOSE (test code = 2217) 103 MG/DL BUN (test code = 2208) 16 MG/DL CREATININE (test code = 2214) 0.58 MG/DL eGFR AMER. (test code 135 ML/MIN/1.73 = 09364) eGFR NON- AMER. (test 116 ML/MIN/1.73 code = 68276) CALC BUN/CREAT (test code = 28 RATIO [...] code = 2219) 19 U/L COMPREHENSIVE METABOLIC [id number] 00:00:00 Test Item Value Reference Range Interpretation Comments GLUCOSE (test code = 2217) 103 MG/DL BUN (test code = 2208) 16 MG/DL CREATININE (test code = 2214) 0.58 MG/DL eGFR AMER. (test code 135 ML/MIN/1.73 = 17970) eGFR NON- AMER. (test 116 ML/MIN/1.73 code = 24634) CALC BUN/CREAT (test code = 28 RATIO [...] ALT (test code = 2219) 19 U/L [id number] 00:00:00 Test Item Value Reference Range Interpretation Comments TSH, THIRD GENERATION (test code 0.772 UIU/ML = 2821) [id number] 00:00:00 Test Item Value Reference Range Interpretation Comments TSH, THIRD GENERATION (test code 0.772 UIU/ML = 2821) [id number] 00:00:00 Test Item Value Reference Range Interpretation Comments TSH, THIRD GENERATION (test code 0.772 UIU/ML = 2821) CBC W/AUTO [id number] 00:00:00 Test Item Value Reference Range Interpretation [...] code = 1015) 301 K/UL CBC W/AUTO [id number] 00:00:00 Test Item Value Reference Range Interpretation [...] code = 1015) 301 K/UL CBC W/AUTO [id number] 00:00:00 Test Item Value Reference Range Interpretation [...] (test code = 1015) 301 K/UL LIPID [id number] 00:00:00 Test Item Value Reference Range Interpretation Comments CHOLESTEROL (test code = 2210) 155 MG/DL TRIGLYCERIDES (test code = 2232) 192 MG/DL HDL CHOLESTEROL (test code = 2220) 36 MG/DL CALC LDL CHOL (test code = 2237) 81 MG/DL RISK RATIO LDL/HDL (test code = 2.24 RATIO 2238) LIPID [id number] 00:00:00 Test Item Value Reference Range Interpretation Comments CHOLESTEROL (test code = 2210) 155 MG/DL TRIGLYCERIDES (test code = 2232) 192 MG/DL HDL CHOLESTEROL (test code = 2220) 36 MG/DL CALC LDL CHOL (test code = 2237) 81 MG/DL RISK RATIO LDL/HDL (test code = 2.24 RATIO 2238) COMPREHENSIVE METABOLIC [id number] 00:00:00 Test Item Value Reference Range Interpretation Comments GLUCOSE (test code = 2217) 103 MG/DL BUN (test code = 2208) 16 MG/DL CREATININE (test code = 2214) 0.58 MG/DL eGFR AMER. (test code 135 ML/MIN/1.73 = 24635) eGFR NON- AMER. (test 116 ML/MIN/1.73 code = 86559) CALC BUN/CREAT (test code = 28 RATIO [...] code = 2219) 19 U/L COMPREHENSIVE METABOLIC [id number] 00:00:00 Test Item Value Reference Range Interpretation Comments GLUCOSE (test code = 2217) 103 MG/DL BUN (test code = 2208) 16 MG/DL CREATININE (test code = 2214) 0.58 MG/DL eGFR AMER. (test code 135 ML/MIN/1.73 = 12928) eGFR NON- AMER. (test 116 ML/MIN/1.73 code = 00820) CALC BUN/CREAT (test code = 28 RATIO [...] ALT (test code = 2219) 19 U/L [id number] 00:00:00 Test Item Value Reference Range Interpretation Comments TSH, THIRD GENERATION (test code 0.772 UIU/ML = 2821) [id number] 00:00:00 Test Item Value Reference Range Interpretation Comments TSH, THIRD GENERATION (test code 0.772 UIU/ML = 2821) [id number] 00:00:00 Test Item Value Reference Range Interpretation Comments TSH, THIRD GENERATION (test code 0.772 UIU/ML = 2821) MUMPS IgG AND [id number] 00:00:00 Test Item Value Reference Range Interpretation Comments MUMPS VIRUS IgG (test code = 46.5 AU/mL 33263) MUMPS VIRUS IgM (test code = 4587) 0.55 IV MUMPS IgG AND [id number] 00:00:00 Test Item Value Reference Range Interpretation Comments MUMPS VIRUS IgG (test code = 46.5 AU/mL 19312) MUMPS VIRUS IgM (test code = 4587) 0.55 IV MUMPS IgG AND [id number] 00:00:00 Test Item Value Reference Range Interpretation Comments MUMPS VIRUS IgG (test code = 46.5 AU/mL 68796) MUMPS VIRUS IgM (test code = 4587) 0.55 IV MUMPS IgG AND [id number] 00:00:00 Test Item Value Reference Range Interpretation Comments MUMPS VIRUS IgG (test code = 46.5 AU/mL 28745) MUMPS VIRUS IgM (test code = 4587) 0.55 IV RUBEOLA IgG [id number] 00:00:00 Test Item Value Reference Range Interpretation Comments RUBEOLA IgG ANTIBODY (test code = 98.5 AU/ML 03876) RUBEOLA IgG [id number] 00:00:00 Test Item Value Reference Range Interpretation Comments RUBEOLA IgG ANTIBODY (test code = 98.5 AU/ML 88591) RUBELLA ANTIBODY [id number] 00:00:00 Test Item Value Reference Range Interpretation Comments RUBELLA ANTIBODY SCREEN (test code = 12 IU/ML 4600) RUBELLA IgG INTERP (test code = REACTIVE 38114) RUBELLA ANTIBODY [id number] 00:00:00 Test Item Value Reference Range Interpretation Comments RUBELLA ANTIBODY SCREEN (test code = 12 IU/ML 4600) RUBELLA IgG INTERP (test code = REACTIVE 59329) VARICELLA ZOSTER [id number] 00:00:00 Test Item Value Reference Range Interpretation Comments VARICELLA ZOSTER IgG (test code = 454 INDEX 19525) VARICELLA ZOSTER [id number] 00:00:00 Test Item Value Reference Range Interpretation Comments VARICELLA ZOSTER IgG (test code = 454 INDEX 97500) HEPATITIS B SURFACE [id number] 00:00:00 Test Item Value Reference Range Interpretation Comments HEPATITIS B SURFACE AB (test NON-REACTIVE code = 2737) HEPATITIS B SURFACE [id number] 00:00:00 Test Item Value Reference Range Interpretation Comments HEPATITIS B SURFACE AB (test NON-REACTIVE code = 2737) RUBEOLA IgG [id number] 00:00:00 Test Item Value Reference Range Interpretation Comments RUBEOLA IgG ANTIBODY (test code = 98.5 AU/ML 97931) RUBEOLA IgG [id number] 00:00:00 Test Item Value Reference Range Interpretation Comments RUBEOLA IgG ANTIBODY (test code = 98.5 AU/ML 19918) RUBELLA ANTIBODY [id number] 00:00:00 Test Item Value Reference Range Interpretation Comments RUBELLA ANTIBODY SCREEN (test code = 12 IU/ML 4600) RUBELLA IgG INTERP (test code = REACTIVE 67439) RUBELLA ANTIBODY [id number] 00:00:00 Test Item Value Reference Range Interpretation Comments RUBELLA ANTIBODY SCREEN (test code = 12 IU/ML 4600) RUBELLA IgG INTERP (test code = REACTIVE 58444) VARICELLA ZOSTER [id number] 00:00:00 Test Item Value Reference Range Interpretation Comments VARICELLA ZOSTER IgG (test code = 454 INDEX 01263) VARICELLA ZOSTER [id number] 00:00:00 Test Item Value Reference Range Interpretation Comments VARICELLA ZOSTER IgG (test code = 454 INDEX 38568) HEPATITIS B SURFACE [id number] 00:00:00 Test Item Value Reference Range Interpretation Comments HEPATITIS B SURFACE AB (test NON-REACTIVE code = 2737) HEPATITIS B SURFACE [id number] 00:00:00 Test Item Value Reference Range Interpretation Comments HEPATITIS B SURFACE AB (test NON-REACTIVE code = 2737) DIAG MAMM BILATERAL CAD [id number] 11:19:31 - DIAG MAMM BILATERAL CAD DIGITALBILATERAL DIGITAL DIAGNOSTIC MAMMOGRAM WITH CAD: 10/13/2018CLINICAL: Palpable mass, left breast. Current mammographic images were evaluated by either a [employer] or [employer] ImageChecker CAD (computer aided detection system). No [...] - 10/14/2018 08:09:35Imaging Technologist: Marti HUERTA, [facility]-FWletter sent: BIRADS 1-2 Combo FU Letter Mammogram BI-RADS: 0 Indeterminate Ultrasound BI-RADS: 1 NegativeBREAST ULTRASOUND BILATERAL 2018-10-13 11:19:31 - DIAG MAMM BILATERAL CAD DIGITALBILATERAL DIGITAL DIAGNOSTIC MAMMOGRAM WITH CAD: 10/13/2018CLINICAL: Palpable mass, left breast. Current mammographic images were evaluated by either a [employer] M-Vu or [facility] ImageChecker CAD (computer aided detection system). [...] - 10/14/2018 08:09:35Imaging Technologist: Marti HUERTA, [facility]-FWletter sent: BIRADS 1-2 Combo FU Letter Mammogram BI-RADS: 0 Indeterminate Ultrasound BI-RADS: 1 NegativeCBC W/AUTO [id number] 00:00:00 Test Item Value Reference Range Interpretation [...] code = 1015) 312 K/UL CBC W/AUTO [id number] 00:00:00 Test Item Value Reference Range Interpretation [...] code = 1015) 312 K/UL CBC W/AUTO [id number] 00:00:00 Test Item Value Reference Range Interpretation [...] code = 1015) 312 K/UL COMPREHENSIVE METABOLIC [id number] 00:00:00 Test Item Value Reference Range Interpretation Comments GLUCOSE (test code = 2217) 85 MG/DL BUN (test code = 2208) 13 MG/DL CREATININE (test code = 2214) 0.56 MG/DL eGFR AMER. (test code 136 ML/MIN/1.73 = 81195) eGFR NON- AMER. (test 117 ML/MIN/1.73 code = 25122) CALC BUN/CREAT (test code = 23 RATIO [...] code = 2219) 18 U/L COMPREHENSIVE METABOLIC [id number] 00:00:00 Test Item Value Reference Range Interpretation Comments GLUCOSE (test code = 2217) 85 MG/DL BUN (test code = 2208) 13 MG/DL CREATININE (test code = 2214) 0.56 MG/DL eGFR AMER. (test code 136 ML/MIN/1.73 = 65767) eGFR NON- AMER. (test 117 ML/MIN/1.73 code = 31408) CALC BUN/CREAT (test code = 23 RATIO [...] ALT (test code = 2219) 18 U/L [id number] 00:00:00 Test Item Value Reference Range Interpretation Comments TSH, THIRD GENERATION (test code 0.630 UIU/ML = 2821) [id number] 00:00:00 Test Item Value Reference Range Interpretation Comments TSH, THIRD GENERATION (test code 0.630 UIU/ML = 2821) [id number] 00:00:00 Test Item Value Reference Range Interpretation Comments TSH, THIRD GENERATION (test code 0.630 UIU/ML = 2821) CBC W/AUTO [id number] 00:00:00 Test Item Value Reference Range Interpretation [...] code = 1015) 312 K/UL CBC W/AUTO [id number] 00:00:00 Test Item Value Reference Range Interpretation [...] code = 1015) 312 K/UL CBC W/AUTO [id number] 00:00:00 Test Item Value Reference Range Interpretation [...] code = 1015) 312 K/UL COMPREHENSIVE METABOLIC [id number] 00:00:00 Test Item Value Reference Range Interpretation Comments GLUCOSE (test code = 2217) 85 MG/DL BUN (test code = 2208) 13 MG/DL CREATININE (test code = 2214) 0.56 MG/DL eGFR AMER. (test code 136 ML/MIN/1.73 = 90017) eGFR NON- AMER. (test 117 ML/MIN/1.73 code = 48579) CALC BUN/CREAT (test code = 23 RATIO [...] code = 2219) 18 U/L COMPREHENSIVE METABOLIC [id number] 00:00:00 Test Item Value Reference Range Interpretation Comments GLUCOSE (test code = 2217) 85 MG/DL BUN (test code = 2208) 13 MG/DL CREATININE (test code = 2214) 0.56 MG/DL eGFR AMER. (test code 136 ML/MIN/1.73 = 29810) eGFR NON- AMER. (test 117 ML/MIN/1.73 code = 56561) CALC BUN/CREAT (test code = 23 RATIO [...] ALT (test code = 2219) 18 U/L [id number] 00:00:00 Test Item Value Reference Range Interpretation Comments TSH, THIRD GENERATION (test code 0.630 UIU/ML = 2821) [id number] 00:00:00 Test Item Value Reference Range Interpretation Comments TSH, THIRD GENERATION (test code 0.630 UIU/ML = 2821) [id number] 00:00:00 Test Item Value Reference Range Interpretation Comments TSH, THIRD GENERATION (test code 0.630 UIU/ML = 2821) COMPREHENSIVE METABOLIC [id number] 00:00:00 Test Item Value Reference Range Interpretation Comments GLUCOSE (test code = 2217) 92 MG/DL BUN (test code = 2208) 20 MG/DL CREATININE (test code = 2214) 0.69 MG/DL eGFR AMER. (test code 129 ML/MIN/1.73 = 13470) eGFR NON- AMER. (test 111 ML/MIN/1.73 code = 04198) CALC BUN/CREAT (test code = 29 RATIO [...] code = 2219) 20 U/L COMPREHENSIVE METABOLIC [id number] 00:00:00 Test Item Value Reference Range Interpretation Comments GLUCOSE (test code = 2217) 92 MG/DL BUN (test code = 2208) 20 MG/DL CREATININE (test code = 2214) 0.69 MG/DL eGFR AMER. (test code 129 ML/MIN/1.73 = 96522) eGFR NON- AMER. (test 111 ML/MIN/1.73 code = 33993) CALC BUN/CREAT (test code = 29 RATIO [...] code = 2219) 20 U/L COMPREHENSIVE METABOLIC [id number] 00:00:00 Test Item Value Reference Range Interpretation Comments GLUCOSE (test code = 2217) 92 MG/DL BUN (test code = 2208) 20 MG/DL CREATININE (test code = 2214) 0.69 MG/DL eGFR AMER. (test code 129 ML/MIN/1.73 = 38493) eGFR NON- AMER. (test 111 ML/MIN/1.73 code = 09140) CALC BUN/CREAT (test code = 29 RATIO [...] code = 2219) 20 U/L COMPREHENSIVE METABOLIC [id number] 00:00:00 Test Item Value Reference Range Interpretation Comments GLUCOSE (test code = 2217) 92 MG/DL BUN (test code = 2208) 20 MG/DL CREATININE (test code = 2214) 0.69 MG/DL eGFR AMER. (test code 129 ML/MIN/1.73 = 98664) eGFR NON- AMER. (test 111 ML/MIN/1.73 code = 18394) CALC BUN/CREAT (test code = 29 RATIO [...] code = 2219) 20 U/L COMPREHENSIVE METABOLIC [id number] 00:00:00 Test Item Value Reference Range Interpretation Comments GLUCOSE (test code = 2217) 85 MG/DL BUN (test code = 2208) 15 MG/DL CREATININE (test code = 2214) 0.48 MG/DL eGFR AMER. (test code 146 ML/MIN/1.73 = 74145) eGFR NON- AMER. (test 126 ML/MIN/1.73 code = 20541) CALCULATED BUN/CREAT (test 31 RATIO code = [...] code = 2219) 9 U/L COMPREHENSIVE METABOLIC [id number] 00:00:00 Test Item Value Reference Range Interpretation Comments GLUCOSE (test code = 2217) 85 MG/DL BUN (test code = 2208) 15 MG/DL CREATININE (test code = 2214) 0.48 MG/DL eGFR AMER. (test code 146 ML/MIN/1.73 = 71401) eGFR NON- AMER. (test 126 ML/MIN/1.73 code = 60320) CALCULATED BUN/CREAT (test 31 RATIO code = [...] (test code = 221) 9 U/L LIPID [id number] 00:00:00 Test Item Value Reference Range Interpretation Comments CHOLESTEROL (test code = 2210) 187 MG/DL TRIGLYCERIDES (test code = 2232) 284 MG/DL HDL CHOLESTEROL (test code = 2220) 39 MG/DL CALCULATED LDL CHOL (test code = 91 MG/DL 7) RISK RATIO LDL/HDL (test code = 2.34 RATIO 2238) LIPID [id number] 00:00:00 Test Item Value Reference Range Interpretation Comments CHOLESTEROL (test code = 2210) 187 MG/DL TRIGLYCERIDES (test code = 2232) 284 MG/DL HDL CHOLESTEROL (test code = 2220) 39 MG/DL CALCULATED LDL CHOL (test code = 91 MG/DL 7) RISK RATIO LDL/HDL (test code = 2.34 RATIO 2238) CBC W/AUTO [id number] 00:00:00 Test Item Value Reference Range Interpretation [...] code = 1015) 261 K/UL CBC W/AUTO [id number] 00:00:00 Test Item Value Reference Range Interpretation [...] code = 1015) 261 K/UL CBC W/AUTO [id number] 00:00:00 Test Item Value Reference Range Interpretation [...] (test code = 1015) 261 K/UL HEMOGLOBIN [id number] 00:00:00 Test Item Value Reference Range Interpretation Comments HEMOGLOBIN A1c (test code = 18952) 5.3 % HEMOGLOBIN [id number] 00:00:00 Test Item Value Reference Range Interpretation Comments HEMOGLOBIN A1c (test code = 15322) 5.3 % HEMOGLOBIN [id number] 00:00:00 Test Item Value Reference Range Interpretation Comments HEMOGLOBIN A1c (test code = 95559) 5.3 % [id number] 00:00:00 Test Item Value Reference Range Interpretation Comments TSH (test code = 2821) 0.9 UIU/ML [id number] 00:00:00 Test Item Value Reference Range Interpretation Comments TSH (test code = 2821) 0.9 UIU/ML [id number] 00:00:00 Test Item Value Reference Range Interpretation Comments TSH (test code = 2821) 0.9 UIU/ML COMPREHENSIVE METABOLIC [id number] 00:00:00 Test Item Value Reference Range Interpretation Comments GLUCOSE (test code = 2217) 85 MG/DL BUN (test code = 2208) 15 MG/DL CREATININE (test code = 2214) 0.48 MG/DL eGFR AMER. (test code 146 ML/MIN/1.73 = 72645) eGFR NON- AMER. (test 126 ML/MIN/1.73 code = 24871) CALCULATED BUN/CREAT (test 31 RATIO code = [...] code = 2219) 9 U/L COMPREHENSIVE METABOLIC [id number] 00:00:00 Test Item Value Reference Range Interpretation Comments GLUCOSE (test code = 2217) 85 MG/DL BUN (test code = 2208) 15 MG/DL CREATININE (test code = 2214) 0.48 MG/DL eGFR AMER. (test code 146 ML/MIN/1.73 = 05004) eGFR NON- AMER. (test 126 ML/MIN/1.73 code = 89537) CALCULATED BUN/CREAT (test 31 RATIO code = [...] (test code = 2219) 9 U/L LIPID [id number] 00:00:00 Test Item Value Reference Range Interpretation Comments CHOLESTEROL (test code = 2210) 187 MG/DL TRIGLYCERIDES (test code = 2232) 284 MG/DL HDL CHOLESTEROL (test code = 2220) 39 MG/DL CALCULATED LDL CHOL (test code = 91 MG/DL 2237) RISK RATIO LDL/HDL (test code = 2.34 RATIO 2238) LIPID [id number] 00:00:00 Test Item Value Reference Range Interpretation Comments CHOLESTEROL (test code = 2210) 187 MG/DL TRIGLYCERIDES (test code = 2232) 284 MG/DL HDL CHOLESTEROL (test code = 2220) 39 MG/DL CALCULATED LDL CHOL (test code = 91 MG/DL 2237) RISK RATIO LDL/HDL (test code = 2.34 RATIO 2238) CBC W/AUTO [id number] 00:00:00 Test Item Value Reference Range Interpretation [...] code = 1015) 261 K/UL CBC W/AUTO [id number] 00:00:00 Test Item Value Reference Range Interpretation [...] code = 1015) 261 K/UL CBC W/AUTO [id number] 00:00:00 Test Item Value Reference Range Interpretation [...] (test code = 1015) 261 K/UL HEMOGLOBIN [id number] 00:00:00 Test Item Value Reference Range Interpretation Comments HEMOGLOBIN A1c (test code = 63289) 5.3 % HEMOGLOBIN [id number] 00:00:00 Test Item Value Reference Range Interpretation Comments HEMOGLOBIN A1c (test code = 06601) 5.3 % HEMOGLOBIN [id number] 00:00:00 Test Item Value Reference Range Interpretation Comments HEMOGLOBIN A1c (test code = 32028) 5.3 % [id number] 00:00:00 Test Item Value Reference Range Interpretation Comments TSH (test code = 2821) 0.9 UIU/ML [id number] 00:00:00 Test Item Value Reference Range Interpretation Comments TSH (test code = 2821) 0.9 UIU/ML [id number] 00:00:00 Test Item Value Reference Range Interpretation Comments TSH (test code = 2821) 0.9 UIU/ML
[2023-02-11] MEDS ORDERED: TRIAMCINOLONE ACETON 40 MG/ML VIAL ONE (10:21)
[2023-02-11] MEDS ORDERED: DIAZEPAM 2 MG TABLET ONE (10:22)
[2023-02-11] MEDS ORDERED: LIDOCAINE 1% MPF 30 ML VIAL ONE (10:22)
--- NOTE | 2023-02-11 10:41 | EDPHYS ---
Physician Documentation [facility] Name: Maria De Jesus Wagoner Age: 42 yrs Sex: Female : 1980 Arrival Date: 02/11/2023 Time: 09:45 Bed 11 Private MD: ED Physician Gokul Bourgeois HPI: 02/11 10:08 This 42 yrs old Female presents to ER via Ambulatory with complaints of Arm snw Pain. 10:08 The patient or guardian complains of pain, that is acute. The complaints affect the snw posterior aspect of left shoulder. Context: resulted from unknown cause. Onset: The symptoms/episode began/occurred acutely. Associated signs and symptoms: Pertinent positives: left arm pain. Severity of symptoms: At their worst the symptoms were moderate. The patient has not experienced similar symptoms in the past. The patient has not recently seen a physician. 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 - Social history:: Smoking status: Patient denies any tobacco usage or history of. ROS: 10:08 Constitutional: Negative for fever, chills, and weight loss, Eyes: Negative for injury, snw pain, redness, and discharge, ENT: Negative for injury, pain, and discharge, Neck: Negative for injury, pain, and swelling, Cardiovascular: Negative for chest pain, palpitations, and edema, Respiratory: Negative for shortness of breath, cough, wheezing, and pleuritic chest pain, Abdomen/GI: Negative for abdominal pain, nausea, vomiting, diarrhea, and constipation, Back: Negative for injury and pain, : Negative for injury, bleeding, discharge, and swelling, Skin: Negative for injury, rash, and discoloration, Neuro: Negative for headache, weakness, numbness, tingling, and seizure, Psych: Negative for depression, anxiety, suicide ideation, homicidal ideation, and hallucinations. 10:08 MS/extremity: Positive for pain, tenderness, of the left scapular area. Exam: 10:07 Constitutional: This is a well developed, well nourished patient who is awake, alert, snw and in no acute distress. Head/Face: Normocephalic, atraumatic. Eyes: Pupils equal round and reactive to light, extra-ocular motions intact. Lids and lashes normal. Conjunctiva and sclera are non-icteric and not injected. Cornea within normal limits. Periorbital areas with no swelling, redness, or edema. ENT: Nares patent. No nasal discharge, no septal abnormalities noted. Tympanic membranes are normal and external auditory canals are clear. Oropharynx with no redness, swelling, or masses, exudates, or evidence of obstruction, uvula midline. Mucous membranes moist. Neck: Trachea midline, no thyromegaly or masses palpated, and no cervical lymphadenopathy. Supple, full range of motion without nuchal rigidity, or vertebral point tenderness. No Meningismus. Chest/axilla: Normal chest wall appearance and motion. Nontender with no deformity. No lesions are appreciated. Cardiovascular: Regular rate and rhythm with a normal S1 and S2. No gallops, murmurs, or rubs. Normal PMI, no JVD. No pulse deficits. Respiratory: Lungs have equal breath sounds bilaterally, clear to auscultation and percussion. No rales, rhonchi or wheezes noted. No increased work of breathing, no retractions or nasal flaring. Abdomen/GI: Soft, non-tender, with normal bowel sounds. No distension or tympany. No guarding or rebound. No evidence of tenderness throughout. Skin: Warm, dry with normal turgor. Normal color with no rashes, no lesions, and no evidence of cellulitis. Neuro: Awake and alert, GCS 15, oriented to person, place, time, and situation. Cranial nerves II-XII grossly intact. Motor strength 5/5 in all extremities. Sensory grossly intact. Cerebellar exam normal. Normal gait. Psych: Awake, alert, with orientation to person, place and time. Behavior, mood, and affect are within normal limits. 10:07 Back: pain, that is moderate, of the left scapular area, ROM is normal, CVA tenderness, is absent, vertebral tenderness, is not appreciated, muscle spasm, is appreciated in the left scapular area. Vital Signs: 10:05 BP 138 / 97; Pulse 74; Resp 16; Temp 98.4; Pulse Ox 100% on R/A; iw 10:56 BP 122 / 84; Pulse 77; Resp 15; Pulse Ox 100% ; Pain 4/10; ll1 10:56 Pain Scale: Adult ll1 Procedures: 10:26 Performed Trigger point injection 1.5ml lido with 40mg Kenalog to left lower trapezius .snw MDM: 10:07 Patient medically screened. snw 10:09 Differential diagnosis: closed fracture, contusion, muscle spasm. Data reviewed: vital snw signs, nurses notes. I considered the following discharge prescriptions or medication management in the emergency department Medications were administered in the Emergency Department. See MAR. Counseling: I had a detailed discussion with the patient and/or guardian regarding: the historical points, exam findings, and any diagnostic results supporting the discharge/admit diagnosis, the presence of at least one elevated blood pressure reading (>120/80) during this emergency department visit, the need for outpatient follow up, for definitive care, to return to the emergency department if symptoms worsen or persist or if there are any questions or concerns that arise at home. Administered Medications: 10:21 Drug: Diazepam PO 2 mg {Note: RASS 0.} Route: PO; ll1 10:56 Follow up: Response: No adverse reaction; Pain is decreased; RASS: Alert and Calm (0) ll1 10:30 Drug: Triamcinolone Acetonide IM 40 mg {Note: by Latoya Delcid NP.} Route: IM; Site: Other;ll1 10:56 Follow up: Response: No adverse reaction; Pain is decreased; RASS: Alert and Calm (0) ll1 10:30 Drug: Lidocaine Infiltration (1 %) 1 vials {Note: by Latoya Delcid NP.} Volume: 20 ml; ll1 Route: Infiltration; 10:56 Follow up: Response: No adverse reaction ll1 Disposition: 20:11 Co-signature as Attending Physician, Gokul Bourgeois MD I reviewed the patient's care rt provided by the Advanced Practice Provider and agree with the diagnosis and treatment plan. Disposition Summary: 02/11/23 10:40 Discharge Ordered Location: Home snw Condition: Stable snw Diagnosis - Pain in left shoulder snw - Muscle spasm of back snw Followup: snw - With: Emergency Department - When: As needed - Reason: Worsening of condition Followup: snw - With: Private Physician - When: 2 - 3 days - Reason: Recheck today's complaints, Continuance of care, Re-evaluation by your physician Discharge Instructions: - Discharge Summary Sheet snw - Muscle Cramps and Spasms snw - Shoulder Pain snw - Heat Therapy snw - Cervical Radiculopathy, [id number] snw Forms: - Medication Reconciliation Form snw - Thank You Letter snw - Antibiotic Education snw - Prescription Opioid Use snw Prescriptions: - Mobic 7.5 mg Oral Tablet - take 1 tablet by ORAL route once daily take with food; 20 tablet; Refills: 0, snw Product Selection Permitted - orphenadrine citrate 100 mg Oral Tablet Sustained Release - take 1 tablet by ORAL route 2 times per day As needed; 20 tablet; Refills: 0, snw Product Selection Permitted Signatures: Jackie Delcid, ARNOLD-Kian PERSONNEL MANAGER-Csnw Lola Echeverria RN RN iw Jessee Wagoner RN RN ll1 Gokul Bourgeois MD MD rt
--- NOTE | 2023-02-11 10:41 | ER ---
Nurse's Notes [facility] Name: Maria De Jesus Wagoner Age: 42 yrs Sex: Female : 1980 Arrival Date: 02/11/2023 Time: 09:45 Bed 11 Private MD: Diagnosis: Pain in left shoulder;Muscle spasm of back Presentation: 02/11 10:05 Chief complaint: Patient states: shooting pain from left shoulder into left arm. iw Coronavirus screen: At this time, the client does not indicate any symptoms associated with coronavirus-19. Ebola Screen: Patient negative for fever greater than or equal to 101.5 degrees Fahrenheit, and additional compatible Ebola Virus Disease symptoms Patient denies exposure to infectious person. Patient denies travel to an Ebola-affected area in the 21 days before illness onset. No symptoms or risks identified at this time. Initial Sepsis Screen: Does the patient meet any 2 criteria? No. Patient's initial sepsis screen is negative. Does the patient have a suspected source of infection? No. Patient's initial sepsis screen is negative. Risk Assessment: Do you want to hurt yourself or someone else? Patient reports no desire to harm self or others. 10:05 Method Of Arrival: Ambulatory iw 10:06 Onset of symptoms was February 11, 2023. 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 - Social history:: Smoking status: Patient denies any tobacco usage or history of. Screenin:22 [facility] ED Fall Risk Assessment (Adult) Score/Fall Risk Level 0 - 2 = Low Risk ll1 Oriented to surroundings, Maintained a safe environment, Educated pt \T\ family on fall prevention, incl call for assistance when getting out of bed, Hourly rounding (assess needs \T\ fall precautionary measures) done. Abuse screen: Denies threats or abuse. Nutritional screening: No deficits noted. Tuberculosis screening: No symptoms or risk factors identified. Assessment: 10:21 General: Appears uncomfortable, Behavior is calm, cooperative, appropriate for age. ll1 Pain: Complains of pain in posterior aspect of left shoulder Quality of pain is described as aching, sharp. Musculoskeletal: Circulation, motion, and sensation intact. Capillary refill < 3 seconds, Reports pain in posterior aspect of left shoulder. 10:56 Reassessment: No changes from previously documented assessment. Patient and/or family ll1 updated on plan of care and expected duration. Pain level reassessed. Patient is alert, oriented x 3, equal unlabored respirations, skin warm/dry/pink. Vital Signs: 10:05 BP 138 / 97; Pulse 74; Resp 16; Temp 98.4; Pulse Ox 100% on R/A; iw 10:56 BP 122 / 84; Pulse 77; Resp 15; Pulse Ox 100% ; Pain 4/10; ll1 10:56 Pain Scale: Adult ll1 ED Course: 09:48 Patient arrived in ED. mr 09:53 Jackie Delcid, DURAN [facility]. snw 09:53 Gokul Bourgeois MD is Attending Physician. snw 10:06 Arm band placed on. iw 10:07 Triage completed. iw 10:22 Patient has correct armband on for positive identification. Bed in low position. Call ll1 light in reach. Cardiac monitoring not applicable on this patient. 10:25 Jessee Wagoner, RN is Primary Nurse. ll1 10:56 No provider procedures requiring assistance completed. Patient did not have IV access ll1 during this emergency room visit. Administered Medications: 10:21 Drug: Diazepam PO 2 mg {Note: RASS 0.} Route: PO; ll1 10:56 Follow up: Response: No adverse reaction; Pain is decreased; RASS: Alert and Calm (0) ll1 10:30 Drug: Triamcinolone Acetonide IM 40 mg {Note: by Latoya Delcid NP.} Route: IM; Site: Other;ll1 10:56 Follow up: Response: No adverse reaction; Pain is decreased; RASS: Alert and Calm (0) ll1 10:30 Drug: Lidocaine Infiltration (1 %) 1 vials {Note: by Latoya Delcid NP.} Volume: 20 ml; ll1 Route: Infiltration; 10:56 Follow up: Response: No adverse reaction ll1 Medication: 10:22 VIS not applicable for this client. ll1 Outcome: 10:40 Discharge ordered by . wilman 10:57 Discharged to home ambulatory. ll1 10:57 Condition: stable 10:57 Discharge instructions given to patient, Instructed on discharge instructions, follow up and referral plans. no driving heavy equipment, medication usage, Demonstrated understanding of instructions, follow-up care, medications, Prescriptions given X 2. 10:57 Patient left the ED. ll1 Signatures: Jackie Delcid, DURAN HUFFMANP-Elsia Baird Irene, RN RN iw Jessee Wagoner RN RN ll1
[2023-02-11 11:01] VITALS: TEMP 98.4; O2SAT 100
[2023-02-11 11:03] VITALS: BP 122/84
== END 2023-02-11 10:57 | disposition home or self-care (01) ==
LOC: ER 09:45
DX: M62.830 Muscle spasm of back (principal)
CPT/HCPCS: J2001; J3301

== ENCOUNTER 2024-01-11 10:22 | Emergency (ER) | payer OTHER ==
--- OUTSIDE RECORDS SUMMARY | 2024-01-11 10:27 | XMS REPORT | Continuity of Care Document ---
Author Name Unknown Address [address] [facility] [address] [place] [address] [facility] thconnect Address [address] [facility] 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 Role Phone Pcp, Patient Does Not Have A Primary Care Physic nanci [email or web address] Attending Clinician Serjio Richard NP Attending Clinician SERJIO SOW Attending Clinician Unavailable [email or web address] Admitting Clinician Candelario sifuentes Payers Payer Name Policy Type Policy Number Effective Date Expirati on Date Source [employer] [id number] 2023 00:00:00 Problems Condition Name Condition Details Condition Category Status Onset Date Resolution Date Last Treatment Date Treating Clinician Comments Source Other general counseling and advice for contracept carolyn management Other general counseling and advice for contracept carolyn management Disease Active 04-08 00:00: 00 [facility] Essential hypertensi on, benign Essential hypertensi on, benign Disease Active 04-08 00:00: 00 [facility] Tubal ligation status Tubal ligation status Disease Active 04-08 00:00: 00 [facility] Non morbid obesity due to excess calories Non morbid obesity due to excess calories Disease Active 04-08 00:00: 00 [facility] Allergies, Adverse Reactions, Alerts Allergy Name Allergy Type Status Severity Reaction(s) Onset Date Inactive Date Treating Clinician Comments Source NO KNOWN ALLERGIE S Drug Class Active [facility] Social History Social Habit Start Date Stop Date Quantity Comments Source Gender identity [facility] Sexual orientation U [facility] Sex Assigned At 1980 00:00:00 1980 00:00:00 [facility] Smoking Status Start Date Stop Date Source Tobacco smoking consumption unknown [facility] Medications Ordered Medication Name Filled Medication Name Start Date Stop Date Current Medication? Ordering Clinician Indication Dosage Frequency Signature (SIG) Comments Components Source buspirone HCl (BUSPIRONE ORAL) 04-27 19:54: 31 Yes Take by mouth daily. [facility] lisinopriL 20 mg tablet 04-27 19:54: 31 Yes 20mg Take 1 tablet by mouth in the morning. [facility] omeprazole 40 mg capsule 04-27 19:54: 31 Yes 40mg Take 1 capsule by mouth in the morning. [facility] TAKE 1 CAP DAILY 0 05-23 00:00: 00 No 40 TAKE 1 CAP DAILY 0 05-23 00:00: 00 No TAKE 1 TABLET BY MOUTH EVERY 12 HOURS FOR 7 DAYS 0 16 00:00: 00 No TAKE 1 TABLET BY MOUTH EVERY 12 HOURS FOR 7 DAYS 0 16 00:00: 00 No Cymbalta 30 mg capsule,del ayed release 0 18 00:00: 00 No 1mg TAKE 1 TABLET BY MOUTH EVERY 12 HOURS 0 04-07 00:00: 00 No 100 Cymbalta 30 mg capsule,del ayed release 0 18 00:00: 00 No 1mg TAKE 1 TABLET BY MOUTH EVERY 12 HOURS 0 18 00:00: 00 No 100 Cymbalta 30 mg capsule,del ayed release 0 - 00:00: 00 No 1mg Cymbalta 30 mg capsule,del ayed release 0 03-12 00:00: 00 No 1mg lisinopril 20 mg tablet 2021-0 6- 00:00: 00 No 1mg omeprazole 40 mg capsule,del ayed release 2021-0 02-19 00:00: 00 No 1mg TAKE 1 TABLET BY MOUTH EVERY 12 HOURS 2021-0 02-19 00:00: 00 No TAKE 1 TABLET BY MOUTH EVERY 6 HOURS NEEDED FOR PAIN WITH FOOD 2021-0 02-19 00:00: 00 No lisinopril 20 mg tablet 2021-0 02-19 00:00: 00 No 1mg TAKE 1 CAP DAILY 2021-0 02-19 00:00: 00 No TAKE 1 TABLET BY MOUTH EVERY 12 HOURS 2021-0 02-19 00:00: 00 No TAKE 1 TABLET BY MOUTH EVERY 6 HOURS NEEDED FOR PAIN WITH FOOD 2021-0 02-19 00:00: 00 No Cymbalta 30 mg capsule,del ayed release 2021-0 5-23 00:00: 00 No 1mg Dose Unknown 2021-0 5-23 00:00: 00 No Cymbalta 30 mg capsule,del ayed release 2021-0 5-23 00:00: 00 No 1mg Dose Unknown 2021-0 5-23 00:00: 00 No Cymbalta 20 mg capsule,del ayed release 2021-0 5-12 00:00: 00 No 1mg Cymbalta 20 mg capsule,del ayed release 2-0 5-12 00:00: 00 No 1mg Dose Unknown 2021-0 3-31 00:00: 00 No Dose Unknown 2021-0 3-31 00:00: 00 No Dose Unknown 2-0 3-31 00:00: 00 No Dose Unknown 2-0 3-31 00:00: 00 No lisinopril 20 mg tablet 2021-0 2-22 00:00: 00 No 1mg omeprazole 40 mg capsule,del ayed release 2021-0 2-22 00:00: 00 No 1mg lisinopril 20 mg tablet 2021-0 2-22 00:00: 00 No 1mg omeprazole 40 mg capsule,del ayed release 2021-0 2-22 00:00: 00 No 1mg Bromfed DM 2 mg-30 mg-10 mg/5 mL oral syrup 2-09 00:00: 00 No 5mg/5 mL Bromfed DM 2 mg-30 mg-10 mg/5 mL oral syrup 2-09 00:00: 00 No 5mg/5 mL Wellbutrin XL 150 mg 24 hr tablet, extended release 1-14 00:00: 00 No 1mg Zoloft 50 mg tablet 1- 00:00: 00 No 1mg buspirone 15 mg tablet - 00:00: 00 No 1mg Wellbutrin XL 150 mg 24 hr tablet, extended release 10-04 00:00: 00 No 1mg Zoloft 50 mg tablet 10-04 00:00: 00 No 1mg Dose Unknown 10-04 00:00: 00 No Wellbutrin XL 150 mg 24 hr tablet, extended release 2020-09 2- 00:00: 00 No 1mg Zoloft 50 mg tablet 2020-09 2- 00:00: 00 No 1mg Wellbutrin XL 150 mg 24 hr tablet, extended release 2020-09 2 00:00: 00 No 1mg Zoloft 50 mg tablet 2020-09 2 00:00: 00 No 1mg Wellbutrin XL 150 mg 24 hr tablet, extended release 2020-09 00:00: 00 No 1mg propranolol 10 mg tablet 2020-09 00:00: 00 No 1mg Zoloft 50 mg tablet 2020-09 00:00: 00 No 1mg buspirone 15 mg tablet 2020-09 00:00: 00 No 1mg Wellbutrin XL 150 mg 24 hr tablet, extended release 2020-09 00:00: 00 No 1mg propranolol 10 mg tablet 2020-09 00:00: 00 No 1mg Zoloft 50 mg tablet 2020-09 00:00: 00 No 1mg buspirone 15 mg tablet 2020-09 00:00: 00 No 1mg Dose Unknown 2020-09- 00:00: 00 No Dose Unknown 2020-09- 00:00: 00 No Dose Unknown 2021-1 1-16 00:00: 00 No Dose Unknown 2020-09 1-16 00:00: 00 No omeprazole 40 mg capsule,del ayed release 2020-09 0-13 00:00: 00 No 1mg omeprazole 40 mg capsule,del ayed release 2020-09 0-13 00:00: 00 No 1mg lisinopril 20 mg tablet 0 8-18 00:00: 00 No 1mg lisinopril 20 mg tablet 8-18 00:00: 00 No 1mg omeprazole 40 mg capsule,del ayed release 7- 00:00: 00 No 1mg omeprazole 40 mg capsule,del ayed release 7 00:00: 00 No 1mg sulfamethox azole 800 mg-trimetho prim 160 mg tablet 7- 00:00: 00 No 1mg sulfamethox azole 800 mg-trimetho prim 160 mg tablet 7 00:00: 00 No 1mg ibuprofen 800 mg tablet 7- 00:00: 00 No 1mg ibuprofen 800 mg tablet 7 00:00: 00 No 1mg diclofenac 1 % topical gel 7 00:00: 00 No 1% cyclobenzap rine 10 mg tablet 7 00:00: 00 No 1mg diclofenac 1 % topical gel 7 00:00: 00 No 1% cyclobenzap rine 10 mg tablet 7 00:00: 00 No 1mg Zoloft 100 mg tablet 03-13 00:00: 00 No 2mg Wellbutrin XL 150 mg 24 hr tablet, extended release 03-13 00:00: 00 No 1mg propranolol 10 mg tablet 6 00:00: 00 No 1mg buspirone 15 mg tablet 03-13 00:00: 00 No 1mg Zoloft 100 mg tablet 6 00:00: 00 No 2mg Wellbutrin XL 150 mg 24 hr tablet, extended release 03-13 00:00: 00 No 1mg propranolol 10 mg tablet 03-13 00:00: 00 No 1mg buspirone 15 mg tablet 03-13 00:00: 00 No 1mg prednisone 20 mg tablet 02-27 00:00: 00 No 1mg cetirizine 5 mg-pseudoep hedrine ER 120 mg tablet,exte nded release,12h r 02-27 00:00: 00 No 1mg amoxicillin 875 mg-potassiu m clavulanate 125 mg tablet 02-27 00:00: 00 No 1mg Bromfed DM 2 mg-30 mg-10 mg/5 mL oral syrup 02-27 00:00: 00 No 5mg/5 mL prednisone 20 mg tablet 02-27 00:00: 00 No 1mg cetirizine 5 mg-pseudoep hedrine ER 120 mg tablet,exte nded release,12h r 02-27 00:00: 00 No 1mg amoxicillin 875 mg-potassiu m clavulanate 125 mg tablet 02-27 00:00: 00 No 1mg Bromfed DM 2 mg-30 mg-10 mg/5 mL oral syrup 02-27 00:00: 00 No 5mg/5 mL Anusol-HC 2.5 % topical cream with perineal applicator 02-21 00:00: 00 No % medroxyprog esterone 150 mg/mL intramuscul ar suspension 02-21 00:00: 00 No 1mg/mL Anusol-HC 2.5 % topical cream with perineal applicator 02-21 00:00: 00 No % medroxyprog esterone 150 mg/mL intramuscul ar suspension 02-21 00:00: 00 No 1mg/mL benzonatate 200 mg capsule 02-20 00:00: 00 No 1mg Bromfed DM 2 mg-30 mg-10 mg/5 mL oral syrup 02-20 00:00: 00 No 5mg/5 mL ProAir HFA 90 mcg/actuati on aerosol inhaler 02-20 00:00: 00 No 12mcg/a ctuatio n azithromyci n 250 mg tablet 02-20 00:00: 00 No mg benzonatate 200 mg capsule 02-20 00:00: 00 No 1mg Bromfed DM 2 mg-30 mg-10 mg/5 mL oral syrup 02-20 00:00: 00 No 5mg/5 mL ProAir HFA 90 mcg/actuati on aerosol inhaler 02-20 00:00: 00 No 12mcg/a ctuatio n azithromyci n 250 mg tablet 02-20 00:00: 00 No mg lisinopril 20 mg tablet 01-23 00:00: 00 No 1mg lisinopril 20 mg tablet -05 00:00: 00 No 1mg Zoloft 100 mg tablet 5- 00:00: 00 No 2mg Wellbutrin XL 150 mg 24 hr tablet, extended release - 00:00: 00 No 1mg propranolol 10 mg tablet 5- 00:00: 00 No 1mg buspirone 15 mg tablet 5- 00:00: 00 No 1mg Zoloft 100 mg tablet 5- 00:00: 00 No 2mg Wellbutrin XL 150 mg 24 hr tablet, extended release 5- 00:00: 00 No 1mg propranolol 10 mg tablet 5- 00:00: 00 No 1mg buspirone 15 mg tablet 5- 00:00: 00 No 1mg Zoloft 100 mg tablet -20 00:00: 00 No 2mg Wellbutrin XL 150 mg 24 hr tablet, extended release -20 00:00: 00 No 1mg propranolol 10 mg tablet 4-20 00:00: 00 No 1mg buspirone 15 mg tablet -20 00:00: 00 No 1mg Zoloft 100 mg tablet 4-20 00:00: 00 No 2mg Wellbutrin XL 150 mg 24 hr tablet, extended release -20 00:00: 00 No 1mg propranolol 10 mg tablet 2021-0 4-20 00:00: 00 No 1mg buspirone 15 mg tablet 420 00:00: 00 No 1mg lisinopril 20 mg tablet 12-24 00:00: 00 No 1mg Zoloft 100 mg tablet 4 00:00: 00 No 15mg Wellbutrin XL 150 mg 24 hr tablet, extended release 12-24 00:00: 00 No 1mg buspirone 15 mg tablet 12-24 00:00: 00 No 1mg omeprazole 40 mg capsule,del ayed release 12-24 00:00: 00 No 1mg lisinopril 20 mg tablet 12-24 00:00: 00 No 1mg Zoloft 100 mg tablet 12-24 00:00: 00 No 15mg Wellbutrin XL 150 mg 24 hr tablet, extended release 12-24 00:00: 00 No 1mg buspirone 15 mg tablet 12-24 00:00: 00 No 1mg omeprazole 40 mg capsule,del ayed release 12-24 00:00: 00 No 1mg Anusol-HC 2.5 % topical cream with perineal applicator 12-06 00:00: 00 No % Anusol-HC 2.5 % topical cream with perineal applicator 18 00:00: 00 No % sulfamethox azole 800 mg-trimetho prim 160 mg tablet 12-05 00:00: 00 No 1mg sulfamethox azole 800 mg-trimetho prim 160 mg tablet 12-05 00:00: 00 No 1mg Zoloft 100 mg tablet - 00:00: 00 No 15mg Wellbutrin XL 150 mg 24 hr tablet, extended release - 00:00: 00 No 1mg buspirone 15 mg tablet - 00:00: 00 No 1mg Zoloft 100 mg tablet - 00:00: 00 No 15mg Wellbutrin XL 150 mg 24 hr tablet, extended release - 00:00: 00 No 1mg buspirone 15 mg tablet 0 3- 00:00: 00 No 1mg Zoloft 100 mg tablet 0 2- 00:00: 00 No 1mg Wellbutrin XL 150 mg 24 hr tablet, extended release 0 2- 00:00: 00 No 1mg buspirone 10 mg tablet 0 2- 00:00: 00 No 1mg Zoloft 100 mg tablet 2- 00:00: 00 No 1mg Wellbutrin XL 150 mg 24 hr tablet, extended release 2- 00:00: 00 No 1mg buspirone 10 mg tablet 0 2- 00:00: 00 No 1mg ibuprofen 800 mg tablet 0 - 00:00: 00 No 1mg ibuprofen 800 mg tablet - 00:00: 00 No 1mg Zoloft 100 mg tablet 0 1-20 00:00: 00 No 1mg Wellbutrin XL 150 mg 24 hr tablet, extended release 1- 00:00: 00 No 1mg buspirone 10 mg tablet 0 1-20 00:00: 00 No 1mg Zoloft 100 mg tablet 0 1-20 00:00: 00 No 1mg Wellbutrin XL 150 mg 24 hr tablet, extended release 1-20 00:00: 00 No 1mg buspirone 10 mg tablet 0 1-20 00:00: 00 No 1mg lisinopril 20 mg tablet 2019-09 2- 00:00: 00 No 1mg lisinopril 20 mg tablet 2019-09- 00:00: 00 No 1mg Wellbutrin XL 150 mg 24 hr tablet, extended release 2019-09- 00:00: 00 No 1mg Zoloft 50 mg tablet 2019-09- 00:00: 00 No 15mg buspirone 10 mg tablet 2019-09- 00:00: 00 No 1mg Wellbutrin XL 150 mg 24 hr tablet, extended release 2019-09 2- 00:00: 00 No 1mg Zoloft 50 mg tablet 2019-09 2- 00:00: 00 No 15mg buspirone 10 mg tablet 2019-09 2-08 00:00: 00 No 1mg Zoloft 50 mg tablet 2019-09 00:00: 00 No 15mg Wellbutrin XL 150 mg 24 hr tablet, extended release 2019-09 00:00: 00 No 1mg buspirone 10 mg tablet 2019-09 00:00: 00 No 1mg Zoloft 50 mg tablet 2019-09 00:00: 00 No 15mg Wellbutrin XL 150 mg 24 hr tablet, extended release 2019-09 00:00: 00 No 1mg buspirone 10 mg tablet 2019-09 00:00: 00 No 1mg Wellbutrin XL 150 mg 24 hr tablet, extended release 2019-09 00:00: 00 No 1mg Zoloft 50 mg tablet 2019-09 00:00: 00 No 1mg buspirone 10 mg tablet 2019-09 00:00: 00 No 1mg Wellbutrin XL 150 mg 24 hr tablet, extended release 2019-09 00:00: 00 No 1mg Zoloft 50 mg tablet 2019-09 00:00: 00 No 1mg buspirone 10 mg tablet 2019-09 0 00:00: 00 No 1mg lisinopril 20 mg tablet 2019-09 0 00:00: 00 No 1mg omeprazole 40 mg capsule,del ayed release 2019-09 0 00:00: 00 No 1mg lisinopril 20 mg tablet 2019-09 0 00:00: 00 No 1mg omeprazole 40 mg capsule,del ayed release 2019-09 0 00:00: 00 No 1mg Wellbutrin XL 150 mg 24 hr tablet, extended release 06-12 00:00: 00 No 1mg Zoloft 50 mg tablet 06-12 00:00: 00 No 1mg buspirone 10 mg tablet 06-12 00:00: 00 No 1mg Wellbutrin XL 150 mg 24 hr tablet, extended release 06-12 00:00: 00 No 1mg Zoloft 50 mg tablet 06-12 00:00: 00 No 1mg buspirone 10 mg tablet 06-12 00:00: 00 No 1mg Zoloft 50 mg tablet 0 8- 00:00: 00 No 1mg Wellbutrin XL 150 mg 24 hr tablet, extended release 0 8- 00:00: 00 No 1mg buspirone 10 mg tablet 0 8 00:00: 00 No 1mg Zoloft 50 mg tablet 0 8- 00:00: 00 No 1mg Wellbutrin XL 150 mg 24 hr tablet, extended release 0 8- 00:00: 00 No 1mg buspirone 10 mg tablet 0 8 00:00: 00 No 1mg Zoloft 100 mg tablet 0 7 00:00: 00 No 1mg buspirone 10 mg tablet 0 04-12 00:00: 00 No 1mg Zoloft 100 mg tablet 0 7 00:00: 00 No 1mg buspirone 10 mg tablet 0 7 00:00: 00 No 1mg Zoloft 100 mg tablet 0 04-05 00:00: 00 No 1mg buspirone 10 mg tablet 0 04-05 00:00: 00 No 1mg Zoloft 100 mg tablet 0 16 00:00: 00 No 1mg buspirone 10 mg tablet 0 16 00:00: 00 No 1mg lisinopril 20 mg tablet 0 03-22 00:00: 00 No 1mg lisinopril 20 mg tablet 0 03-22 00:00: 00 No 1mg mupirocin 2 % topical ointment 0 604 00:00: 00 No 1% mupirocin 2 % topical ointment 0 02-22 00:00: 00 No 1% mirtazapine 7.5 mg tablet 0 02-14 00:00: 00 No 1mg mirtazapine 7.5 mg tablet 0 02-14 00:00: 00 No 2mg hydroxyzine pamoate 25 mg capsule 0 02-14 00:00: 00 No 1mg mirtazapine 7.5 mg tablet 0 02-14 00:00: 00 No 1mg mirtazapine 7.5 mg tablet 0 02-14 00:00: 00 No 2mg hydroxyzine pamoate 25 mg capsule 0 02-14 00:00: 00 No 1mg escitalopra m 20 mg tablet 0 02-13 00:00: 00 No 1mg escitalopra m 20 mg tablet 0 02-13 00:00: 00 No 1mg buspirone 10 mg tablet 0 5 00:00: 00 No 1mg buspirone 10 mg tablet 01-22 00:00: 00 No 1mg omeprazole 40 mg capsule,del ayed release 0 01-11 00:00: 00 No 1mg omeprazole 40 mg capsule,del ayed release 0 01-11 00:00: 00 No 1mg lisinopril 20 mg tablet 0 -06 00:00: 00 No 1mg buspirone 10 mg tablet 0 12-25 00:00: 00 No 1mg lisinopril 20 mg tablet 0 -06 00:00: 00 No 1mg buspirone 10 mg tablet 0 12-25 00:00: 00 No 1mg Macrobid 100 mg capsule 0 - 00:00: 00 No 1mg Macrobid 100 mg capsule 0 3- 00:00: 00 No 1mg oxybutynin chloride ER 10 mg tablet,exte nded release 24 hr 0 2-25 00:00: 00 No 1mg escitalopra m 20 mg tablet 0 2-25 00:00: 00 No 1mg oxybutynin chloride ER 10 mg tablet,exte nded release 24 hr 0 2-25 00:00: 00 No 1mg escitalopra m 20 mg tablet 0 2-25 00:00: 00 No 1mg escitalopra m 10 mg tablet 0 1-15 00:00: 00 No 1mg oxybutynin chloride ER 10 mg tablet,exte nded release 24 hr 0 1-15 00:00: 00 No 1mg mirtazapine 30 mg tablet 0 1-15 00:00: 00 No 1mg escitalopra m 10 mg tablet 0 1-15 00:00: 00 No 1mg oxybutynin chloride ER 10 mg tablet,exte nded release 24 hr 0 15 00:00: 00 No 1mg mirtazapine 30 mg tablet 0 15 00:00: 00 No 1mg mupirocin 2 % topical ointment 2018-09 209 00:00: 00 No 1% mupirocin 2 % topical ointment 2018-0909 00:00: 00 No 1% atorvastati n 10 mg tablet 2018-09 00:00: 00 No 1mg atorvastati n 10 mg tablet 2018-09 00:00: 00 No 1mg lisinopril 20 mg tablet 2018-09 00:00: 00 No 1mg omeprazole 40 mg capsule,del ayed release 2018-09 00:00: 00 No 1mg lisinopril 20 mg tablet 2018-09 00:00: 00 No 1mg omeprazole 40 mg capsule,del ayed release 2018-09 00:00: 00 No 1mg lisinopril 20 mg tablet 0 06-13 00:00: 00 No 1mg lisinopril 20 mg tablet 06-13 00:00: 00 No 1mg lisinopril 20 mg tablet 0 03-07 00:00: 00 No 1mg lisinopril 20 mg tablet 03-07 00:00: 00 No 1mg lisinopril 10 mg tablet 01-11 00:00: 00 No 1mg omeprazole 20 mg capsule,del ayed release 01-11 00:00: 00 No 1mg lisinopril 10 mg tablet 01-11 00:00: 00 No 1mg omeprazole 20 mg capsule,del ayed release 01-11 00:00: 00 No 1mg lisinopril 10 mg tablet 16 00:00: 00 No 1mg omeprazole 20 mg capsule,del ayed release 16 00:00: 00 No 1mg lisinopril 10 mg tablet 0 16 00:00: 00 No 1mg omeprazole 20 mg capsule,del ayed release 0 16 00:00: 00 No 1mg lisinopril 10 mg tablet 10-04 00:00: 00 No 1mg omeprazole 20 mg capsule,del ayed release 10-04 00:00: 00 No 1mg lisinopril 10 mg tablet 10-04 00:00: 00 No 1mg omeprazole 20 mg capsule,del ayed release 10-04 00:00: 00 No 1mg lisinopril 10 mg tablet 2017-09 00:00: 00 No 1mg omeprazole 20 mg capsule,del ayed release 2017-09 00:00: 00 No 1mg lisinopril 10 mg tablet 2017-09 00:00: 00 No 1mg omeprazole 20 mg capsule,del ayed release 2017-09 00:00: 00 No 1mg fluticasone 50 mcg/actuati on nasal spray,suspe nsion 2017-09 00:00: 00 No 2mcg/ac tuation amoxicillin 500 mg-potassiu m clavulanate 125 mg tablet 2017-09 00:00: 00 No 1mg fluticasone 50 mcg/actuati on nasal spray,suspe nsion 2017-09 00:00: 00 No 2mcg/ac tuation amoxicillin 500 mg-potassiu m clavulanate 125 mg tablet 2017-09 00:00: 00 No 1mg amoxicillin 500 mg capsule 11-26 00:00: 00 No 1mg amoxicillin 500 mg capsule 11-26 00:00: 00 No 1mg Zoloft 50 mg tablet 10-16 00:00: 00 No 1mg trazodone 50 mg tablet 10-16 00:00: 00 No 1mg buspirone 5 mg tablet 10-16 00:00: 00 No 1mg Zoloft 50 mg tablet 10-16 00:00: 00 No 1mg trazodone 50 mg tablet 10-16 00:00: 00 No 1mg buspirone 5 mg tablet 10-16 00:00: 00 No 1mg lisinopril 10 mg tablet 04-21 00:00: 00 No 1mg lisinopril 10 mg tablet 04-21 00:00: 00 No 1mg lisinopril 10 mg tablet 03-20 00:00: 00 No 1mg meclizine 12.5 mg tablet 03-20 00:00: 00 No 1mg lisinopril 10 mg tablet 03-20 00:00: 00 No 1mg meclizine 12.5 mg tablet 03-20 00:00: 00 No 1mg lisinopril 10 mg tablet 02-24 00:00: 00 No 1mg lisinopril 10 mg tablet 02-24 00:00: 00 No 1mg lisinopril 10 mg tablet 01-23 00:00: 00 No 1mg meclizine 12.5 mg tablet 01-23 00:00: 00 No 1mg lisinopril 10 mg tablet 01-23 00:00: 00 No 1mg meclizine 12.5 mg tablet 01-23 00:00: 00 No 1mg lisinopril 10 mg tablet 12-25 00:00: 00 No 1mg meclizine 12.5 mg tablet 12-25 00:00: 00 No 1mg lisinopril 10 mg tablet 12-25 00:00: 00 No 1mg meclizine 12.5 mg tablet 12-25 00:00: 00 No 1mg loratadine 10 mg tablet 10-24 00:00: 00 No 1mg loratadine 10 mg tablet 10-24 00:00: 00 No 1mg tramadol 50 mg tablet 10-16 00:00: 00 No 1mg tramadol 50 mg tablet 10-16 00:00: 00 No 1mg Vital Signs Vital Name Observation Time Observation Value Comments S ource Systolic blood pressure 2023-04-27 21:33:00 130 mm[Hg] [facility] Diastolic blood pressure 2023-04-27 21:33:00 93 mm[Hg] [facility] Heart rate 2023-04-27 21:33:00 84 [facility] 2023-04-27 21:33:00 37 [place] [facility] Respiratory rate 2023-04-27 21:33:00 20 /min [facility] Body height 2023-04-27 21:33:00 162.6 cm [facility] Body weight 2023-04-27 21:33:00 72.576 kg [facility] BMI 2023-04-27 21:33:00 27.46 kg/m2 [facility] Oxygen saturation in Arterial blood by Pulse oximetry 2023-04-27 21:33:00 99 /min [facility] BP Systolic 2022-06-17 11:09:00 118 mm[Hg] BP [...] Respiratory Rate 2020-12-06 17:32:00 18.00 /min Procedures Procedure Date / Time Performed Performing Clinicia n Source ASSIGNMENT OF BENEFITS 2023-04-27 22:18:50 Docto r Unassigned, [place] [facility] NOTICE OF PRIVACY PRACTICES 2023-04-27 21:20:36 Doctor Unassigned, [place] [facility] CONSENT/REFUSAL FOR DIAGNOSIS AND TREATMENT 2023-04-27 21:20:10 Doctor Unassigned, [place] [facility] Plan of Care Planned Activity Planned Date Details Comments Source Goal Plan of Care Note [code = 11237-4] Goal Plan of Care Note [code = 41899-1] Goal Plan of Care Note [code = 10387-7] Goal Plan of Care Note [code = 33516-5] Goal Plan of Care Note [code = 64568-6] Goal Plan of Care Note [code = 84439-1] Goal Plan of Care Note [code = 64044-6] Goal Plan of Care Note [code = 37873-4] Goal Plan of Care Note [code = 79971-8] Goal Plan of Care Note [code = 58752-2] Goal Plan of Care Note [code = 95421-7] Goal Plan of Care Note [code = 08635-9] Goal Plan of Care Note [code = 19240-2] Goal Plan of Care Note [code = 60312-8] Goal Plan of Care Note [code = 79999-8] Goal Plan of Care Note [code = 20377-2] Goal Plan of Care Note [code = 41224-8] Goal Plan of Care Note [code = 74325-6] Goal Plan of Care Note [code = 17655-6] Goal Plan of Care Note [code = 67690-1] Goal Plan of Care Note [code = 06151-9] Goal Plan of Care Note [code = 65580-5] Goal Plan of Care Note [code = 19634-4] Goal Plan of Care Note [code = 56631-7] Goal Plan of Care Note [code = 05350-8] Goal Plan of Care Note [code = 09726-4] Goal Plan of Care Note [code = 51740-9] Goal Plan of Care Note [code = 28523-6] Goal Plan of Care Note [code = 62191-2] Goal Plan of Care Note [code = 71112-4] Goal Plan of Care Note [code = 21165-1] Goal Plan of Care Note [code = 21340-5] Goal Plan of Care Note [code = 33503-6] Goal Plan of Care Note [code = 71798-3] Goal Plan of Care Note [code = 33001-7] Goal Plan of Care Note [code = 92817-6] Goal Plan of Care Note [code = 66640-6] Goal Plan of Care Note [code = 89823-2] Goal Plan of Care Note [code = 82034-3] Goal Plan of Care Note [code = 80776-5] Goal Plan of Care Note [code = 76322-0] Goal Plan of Care Note [code = 43946-7] Goal Plan of Care Note [code = 38483-8] Goal Plan of Care Note [code = 16024-1] Goal Plan of Care Note [code = 47402-1] Goal Plan of Care Note [code = 53529-3] Goal Plan of Care Note [code = 53046-3] Goal Plan of Care Note [code = 82240-6] Goal Plan of Care Note [code = 22480-5] Goal Plan of Care Note [code = 65925-5] Goal Plan of Care Note [code = 34131-2] Goal Plan of Care Note [code = 86837-1] Goal Plan of Care Note [code = 54965-0] Goal Plan of Care Note [code = 07743-1] Goal Plan of Care Note [code = 26276-4] Goal Plan of Care Note [code = 51420-8] Goal Plan of Care Note [code = 61014-3] Goal Plan of Care Note [code = 36178-9] Goal Plan of Care Note [code = 11407-1] Goal Plan of Care Note [code = 75365-3] Goal Plan of Care Note [code = 52676-9] Goal Plan of Care Note [code = 66670-5] Goal Plan of Care Note [code = 05654-7] Goal Plan of Care Note [code = 69852-8] Goal Plan of Care Note [code = 37508-6] Goal Plan of Care Note [code = 96165-8] Goal Plan of Care Note [code = 13982-6] Goal Plan of Care Note [code = 39621-6] Goal Plan of Care Note [code = 25679-8] Goal Plan of Care Note [code = 85198-3] Goal Plan of Care Note [code = 40562-6] Goal Plan of Care Note [code = 45754-5] Goal Plan of Care Note [code = 70347-5] Goal Plan of Care Note [code = 22376-1] Goal Plan of Care Note [code = 92108-1] Goal Plan of Care Note [code = 73282-8] Goal Plan of Care Note [code = 13831-4] Goal Plan of Care Note [code = 40182-2] Goal Plan of Care Note [code = 57640-5] Goal Plan of Care Note [code = 41394-6] Goal Plan of Care Note [code = 85930-3] Goal Plan of Care Note [code = 89079-4] Goal Plan of Care Note [code = 19062-9] Goal Plan of Care Note [code = 20348-6] Goal Plan of Care Note [code = 29440-2] Goal Plan of Care Note [code = 49329-4] Goal Plan of Care Note [code = 14945-6] Goal Plan of Care Note [code = 99749-4] Goal Plan of Care Note [code = 04869-7] Goal Plan of Care Note [code = 75189-2] Goal Plan of Care Note [code = 41580-6] Goal Plan of Care Note [code = 54878-8] Goal Plan of Care Note [code = 65468-4] Goal Plan of Care Note [code = 82711-1] Goal Plan of Care Note [code = 93348-1] Goal Plan of Care Note [code = 22077-1] Goal Plan of Care Note [code = 05055-4] Goal Plan of Care Note [code = 18280-0] Goal Plan of Care Note [code = 87951-8] Goal Plan of Care Note [code = 86144-2] Goal Plan of Care Note [code = 97769-0] Goal Plan of Care Note [code = 38534-4] Goal Plan of Care Note [code = 49772-4] Goal Plan of Care Note [code = 95920-3] Goal Plan of Care Note [code = 23948-5] Goal Plan of Care Note [code = 93637-2] Goal Plan of Care Note [code = 30234-5] Goal Plan of Care Note [code = 79600-6] Goal Plan of Care Note [code = 43136-5] Goal Plan of Care Note [code = 01693-0] Goal Plan of Care Note [code = 57561-6] Goal Plan of Care Note [code = 26261-6] Goal Plan of Care Note [code = 95287-4] Goal Plan of Care Note [code = 93844-8] Goal Plan of Care Note [code = 26454-9] Goal Plan of Care Note [code = 54859-1] Encounters Start Date/Time End Date/Time Encounter Type Admission Type Attending [facility] Facility Care Department Encounter ID Source 2023-12-29 00:00:00 2023-12-29 00:00:00 Outpatient GC_GCBZW_Ka hamzah_Sakina [facility] [id number] [facility] 2023-04-27 16:34:00 2023-04-27 20:29:00 Emergency Serjio Sow Corey [facility] [id number] [facility] 2023-04-27 16:34:00 2023-04-27 20:29:00 Emergency X GAGEVARSHA DUPREEALA [facility] ERT [id number] [facility] 2022-09-01 18:36:29 2022-09-01 18:36:[address] [facility] [id number] 2022-08-25 18:01:33 2022-08-25 18:01:33 Outpatient [facility] [id number] 2022-06-17 00:00:00 2022-06-17 00:00:00 Outpatient Visit [id number] 2022-05-23 00:00:00 2022-05-23 00:00:00 Outpatient Visit [id number] Results Test Description Test Time Test Comments Results Resul t Comments Source BREAST ULTRASOUND BILATERAL 2022-08-04 10:28:50 Name: Abigail : 1980 Sex: F - DIAG MAMM BILATERAL KAREN CAD DIGITAL - BREAST ULTRASOUND BILATERALBILATERAL DIGITAL DIAGNOSTIC MAMMOGRAM 3D/2D WITH CAD: 08/04/2022LINICAL: Left breast pain and masses. Pain left breast. Digital breast tomosynthesis was performed in addition to routine CC and MLO views. Current mammographic images were evaluated by [employer] ImageAvexxin CAD (computer-aided detection) software. Comparison is made to exams dated 04/20/2020 mammogram and 10/13/2018 mammogram - [facility]-. There are scattered fibroglandular tissues in both breasts. No suspicious mass, architectural distortion, malignant type calcification, or lymph node abnormality detected. IMPRESSION: NEGATIVEThere is no mammographic evidence of malignancy. Bilateral survey ultrasound to follow.COMPLETE ULTRASOUND OF BOTH BREASTS AND AXILLA: 2Comparison is made to exams dated 04/20/2020 mammogram and 10/13/2018 mammogram - [facility]-. Color flow and real-time ultrasound of both [...] clinical examination.Xu Ascencio M.D. ss/:08/04/2022 10:28:50 Entry: cl - 08/04/2022 12:56:06Imaging Technologist: Jael Alfaro FW, [facility]-; Rose Lundberg FW, [facility]-FWletter sent: BIRADS 1-2 Normal Mammogram BI-RADS: 1 Negative Ultrasound BI-RADS: 1 Negative [id number] 04:50:21* Test Item Value Reference Range Interpretation Comme nts RPR RESULT (test code = 3501) NON-REACTIVE NON-REACTIVE RPR TITER (test code = 3500) NOT INDIC. TITER NOT INDIC. UNLESS OTHERWISE INDICATED, ALL TESTING PERFORMED [facility] [employer] [address] [place] [address] RESPIRATORY COORDINATOR: MARQUIS GURROLA M.D. CLIA NUMBER [id number] [facility] [place]. [id number] HIV 1/2 4TH GEN, RFLX [id number] 04:32:05* Test Item Value Reference Range Interpretation Comme nts HIV 1/2 4TH GEN, RFLX CONF ( test code = 3514) NON-REACTIVE NON-REACTIVE HEPATITIS PANEL, [id number] 04:32:05* Test Item Value Reference Range Interpretation Comme nts HEPATITIS A IgM (test code = 93318) NON-REACTIVE NON-REACTIVE HEPATITIS B CORE IgM (test code = 4644) NON-REACTIVE NON-REACTIVE HEPATITIS B SURF AG (test code = 2739) NON-REACTIVE NON-REACTIVE HEPATITIS C ANTIBODY (test code = 4675) NON-REACTIVE NON-REACTIVE INTERPRETATION HEPATITIS A: (test code = 2552) (NOTE) Hepatitis A serology shows no evidence of acute hepatitis A. INTERPRETATION HEPATITIS B: (test code = 15139) (NOTE) Hepatitis B serology shows no evidence of acute hepatitis B andno indication of exposure to hepatitis B virus in the previous zulma eight months. INTERPRETATION HEPATITIS C: (test code = 70979) (NOTE) Hepatitis C serology shows no evidence of exposure to hepatitisC virus at this time. It can take up to 12 months after exposure tothe hepatitis C virus for antibodies to become detectable in the blood in certain patients. SARS-CoV-2 (COVID-19), RT-PCR/[id number] 07:46:51* Test Item Value Reference Range Interpretation Comments SARS-CoV-2 INTERPRETATION (test code = 80146) NEGATIVE SEE NOTE SARS-CoV-2 R NA NOT DETECTEDNegative results do not preclude SARS-CoV-2 infection and should notbe used as the sole basis for patient management decisions. Negativeresults must be combined with clinical observations, patient history,and epidemiological information. Optimum specimen types and timingfor peak viral levels during infections caused by SARS-CoV-2 have notbeen determined. Collection of multiple specimens or types ofspecimens may be necessary to detect virus. Improper specimencollection and handling, sequence variability under primers/probes,or organism present below the limit of detection may lead to falsenegative results. Positive and negative predictive values oftesting are highly dependent on prevalence. False negative testresults are more likely when prevalence is high. SOURCE (test code = 71118) NASOPHARYNGEAL Note: Methodolog y is Tim Marjorie Real-Time RT-PCR. The expected result or reference range is NEGATIVE (Not Detected). For more information regarding COVID-19 testing to include clinicalinformation, methodology detail, intended use, FDA authorization andrecommended fact sheets for patients or healthcare providers, see [employer] Announcement: SARS-CoV-2 (COVID-19) by NAAT at URL below (note,fact sheets are provided by method given in report:[email or web address] Alternatively, see downloadable PDF fact sheet at:[email or web address] UNLESS OTHERWISE INDICATED, ALL TESTING PERFORMED [facility] [address] [place] [address] RESPIRATORY COORDINATOR: MARQUIS GURROLA M.D. CLIA NUMBER [id number] [facility]. [id number] SARS-CoV-2 (COVID-19) by RT-PCR (HIGH RISK)2021-10-31 00:00:00* Test Item Value Reference Range Interpretation Comme nts SARS-CoV-2 INTERPRETATION (test code = 39213) NEGATIVE SOURCE (test code = 52621) NASOPHARYNGEAL SARS-CoV-2 (COVID-19) by RT-PCR (HIGH RISK)2021-10-31 00:00:00* Test Item Value Reference Range Interpretation Comme nts SARS-CoV-2 INTERPRETATION (test code = 75886) NEGATIVE SOURCE (test code = 39262) NASOPHARYNGEAL SARS-CoV-2 (COVID-19) by RT-PCR (HIGH RISK)2021-10-31 00:00:00* Test Item Value Reference Range Interpretation Comme nts SARS-CoV-2 INTERPRETATION (test code = 04770) NEGATIVE SOURCE (test code = 59586) NASOPHARYNGEAL SARS-CoV-2 (COVID-19) by RT-PCR (HIGH RISK)2021-10-31 00:00:00* Test Item Value Reference Range Interpretation Comme nts SARS-CoV-2 INTERPRETATION (test code = 10372) NEGATIVE SOURCE (test code = 60217) NASOPHARYNGEAL SARS-CoV-2 (COVID-19) by RT-PCR (HIGH RISK)2020-08-29 00:00:00* Test Item Value Reference Range Interpretation Comme nts SARS-CoV-2 INTERPRETATION (test code = 98780) NEGATIVE SOURCE (test code = 75338) NASOPHARYNGEAL SARS-CoV-2 (COVID-19) by RT-PCR (HIGH RISK)2020-08-29 00:00:00* Test Item Value Reference Range Interpretation Comme nts SARS-CoV-2 INTERPRETATION (test code = 38252) NEGATIVE SOURCE (test code = 20263) NASOPHARYNGEAL SARS-CoV-2 (COVID-19) by RT-PCR (HIGH RISK)2020-08-29 00:00:00* Test Item Value Reference Range Interpretation Comme nts SARS-CoV-2 INTERPRETATION (test code = 54707) NEGATIVE SOURCE (test code = 58214) NASOPHARYNGEAL SARS-CoV-2 (COVID-19) by RT-PCR (HIGH RISK)2020-08-29 00:00:00* Test Item Value Reference Range Interpretation Comme nts SARS-CoV-2 INTERPRETATION (test code = 51350) NEGATIVE SOURCE (test code = 51820) NASOPHARYNGEAL LIPID [id number] 00:00:00* Test Item Value Reference Range Interpretation Comme nts CHOLESTEROL (test code = 2210) 195 MG/DL TRIGLYCERIDES (test code = 2232) 334 MG/DL HDL CHOLESTEROL (test code = 2220) 34 MG/DL CALC LDL CHOL (test code = 2237) 113 MG/DL RISK RATIO LDL/HDL (test cod e = 2238) 3.32 RATIO LIPID [id number] 00:00:00* Test Item Value Reference Range Interpretation Comme nts CHOLESTEROL (test code = 2210) 195 MG/DL TRIGLYCERIDES (test code = 2232) 334 MG/DL HDL CHOLESTEROL (test code = 2220) 34 MG/DL CALC LDL CHOL (test code = 2237) 113 MG/DL RISK RATIO LDL/HDL (test cod e = 2238) 3.32 RATIO COMPREHENSIVE METABOLIC [id number] 00:00:00* Test Item Value Reference Range Interpretation Comme nts GLUCOSE (test code = 2217) 89 MG/DL BUN (test code = 2208) 16 MG/DL CREATININE (test code = 2214) 0.74 MG/DL eGFR AMER. (test cod e = 03232) 117 ML/MIN/1.73 eGFR NON- AMER. (test code = 80680) 101 ML/MIN/1.73 CALC BUN/CREAT (test code = 2235) 22 RATIO SODIUM (test code = 2231) 138 MEQ/L POTASSIUM (test code = 2228) 3.9 MEQ/L CHLORIDE (test code = 2215) 101 MEQ/L CARBON DIOXIDE (test code = 2206) 26 MEQ/L CALCIUM (test code = 2209) 9.2 MG/DL PROTEIN, TOTAL (test code = 2229) 7.5 G/DL ALBUMIN (test code = 2201) 4.5 G/DL CALC GLOBULIN (test code = 2240) 3.0 G/DL CALC A/G RATIO (test code = 2234) 1.5 RATIO BILIRUBIN, TOTAL (test code = 2207) 0.4 MG/DL ALKALINE PHOSPHATASE (test code = 2204) 90 U/L AST (test code = 2218) 19 U/L ALT (test code = 2219) 23 U/L COMPREHENSIVE METABOLIC [id number] 00:00:00* Test Item Value Reference Range Interpretation Comme nts GLUCOSE (test code = 2217) 89 MG/DL BUN (test code = 2208) 16 MG/DL CREATININE (test code = 2214) 0.74 MG/DL eGFR AMER. (test cod e = 84688) 117 ML/MIN/1.73 eGFR NON- AMER. (test code = 40079) 101 ML/MIN/1.73 CALC BUN/CREAT (test code = 2235) 22 RATIO SODIUM (test code = 2231) 138 MEQ/L POTASSIUM (test code = 2228) 3.9 MEQ/L CHLORIDE (test code = 2215) 101 MEQ/L CARBON DIOXIDE (test code = 2206) 26 MEQ/L CALCIUM (test code = 2209) 9.2 MG/DL PROTEIN, TOTAL (test code = 2229) 7.5 G/DL ALBUMIN (test code = 2201) 4.5 G/DL CALC GLOBULIN (test code = 2240) 3.0 G/DL CALC A/G RATIO (test code = 2234) 1.5 RATIO BILIRUBIN, TOTAL (test code = 2207) 0.4 MG/DL ALKALINE PHOSPHATASE (test code = 2204) 90 U/L AST (test code = 2218) 19 U/L ALT (test code = 2219) 23 U/L LIPID [id number] 00:00:00* Test Item Value Reference Range Interpretation Comme nts CHOLESTEROL (test code = 2210) 195 MG/DL TRIGLYCERIDES (test code = 2232) 334 MG/DL HDL CHOLESTEROL (test code = 2220) 34 MG/DL CALC LDL CHOL (test code = 2237) 113 MG/DL RISK RATIO LDL/HDL (test cod e = 2238) 3.32 RATIO LIPID [id number] 00:00:00* Test Item Value Reference Range Interpretation Comme nts CHOLESTEROL (test code = 2210) 195 MG/DL TRIGLYCERIDES (test code = 2232) 334 MG/DL HDL CHOLESTEROL (test code = 2220) 34 MG/DL CALC LDL CHOL (test code = 2237) 113 MG/DL RISK RATIO LDL/HDL (test cod e = 2238) 3.32 RATIO COMPREHENSIVE METABOLIC [id number] 00:00:00* Test Item Value Reference Range Interpretation Comme nts GLUCOSE (test code = 2217) 89 MG/DL BUN (test code = 2208) 16 MG/DL CREATININE (test code = 2214) 0.74 MG/DL eGFR AMER. (test cod e = 94183) 117 ML/MIN/1.73 eGFR NON- AMER. (test code = 78301) 101 ML/MIN/1.73 CALC BUN/CREAT (test code = 2235) 22 RATIO SODIUM (test code = 2231) 138 MEQ/L POTASSIUM (test code = 2228) 3.9 MEQ/L CHLORIDE (test code = 2215) 101 MEQ/L CARBON DIOXIDE (test code = 2206) 26 MEQ/L CALCIUM (test code = 2209) 9.2 MG/DL PROTEIN, TOTAL (test code = 2229) 7.5 G/DL ALBUMIN (test code = 2201) 4.5 G/DL CALC GLOBULIN (test code = 2240) 3.0 G/DL CALC A/G RATIO (test code = 2234) 1.5 RATIO BILIRUBIN, TOTAL (test code = 2207) 0.4 MG/DL ALKALINE PHOSPHATASE (test code = 2204) 90 U/L AST (test code = 2218) 19 U/L ALT (test code = 2219) 23 U/L COMPREHENSIVE METABOLIC [id number] 00:00:00* Test Item Value Reference Range Interpretation Comme nts GLUCOSE (test code = 2217) 89 MG/DL BUN (test code = 2208) 16 MG/DL CREATININE (test code = 2214) 0.74 MG/DL eGFR AMER. (test cod e = 66048) 117 ML/MIN/1.73 eGFR NON- AMER. (test code = 28362) 101 ML/MIN/1.73 CALC BUN/CREAT (test code = 2235) 22 RATIO SODIUM (test code = 2231) 138 MEQ/L POTASSIUM (test code = 2228) 3.9 MEQ/L CHLORIDE (test code = 2215) 101 MEQ/L CARBON DIOXIDE (test code = 2206) 26 MEQ/L CALCIUM (test code = 2209) 9.2 MG/DL PROTEIN, TOTAL (test code = 2229) 7.5 G/DL ALBUMIN (test code = 2201) 4.5 G/DL CALC GLOBULIN (test code = 2240) 3.0 G/DL CALC A/G RATIO (test code = 2234) 1.5 RATIO BILIRUBIN, TOTAL (test code = 2207) 0.4 MG/DL ALKALINE PHOSPHATASE (test code = 2204) 90 U/L AST (test code = 2218) 19 U/L ALT (test code = 2219) 23 U/L SARS-CoV-2 (COVID-19) by RT-PCR (HIGH RISK)2020-04-27 00:00:00* Test Item Value Reference Range Interpretation Comme nts SARS-CoV-2 INTERPRETATION (test code = 24779) NEGATIVE SOURCE (test code = 87060) NASOPHARYNGEAL SARS-CoV-2 (COVID-19) by RT-PCR (HIGH RISK)2020-04-27 00:00:00* Test Item Value Reference Range Interpretation Comme nts SARS-CoV-2 INTERPRETATION (test code = 27759) NEGATIVE SOURCE (test code = 97056) NASOPHARYNGEAL SARS-CoV-2 (COVID-19) by RT-PCR (HIGH RISK)2020-04-27 00:00:00* Test Item Value Reference Range Interpretation Comme nts SARS-CoV-2 INTERPRETATION (test code = 32605) NEGATIVE SOURCE (test code = 66730) NASOPHARYNGEAL SARS-CoV-2 (COVID-19) by RT-PCR (HIGH RISK)2020-04-27 00:00:00* Test Item Value Reference Range Interpretation Comme nts SARS-CoV-2 INTERPRETATION (test code = 43204) NEGATIVE SOURCE (test code = 80439) NASOPHARYNGEAL SCR MAMM BILATERAL CAD [id number] 09:16:04- SCR MAMM BILATERAL CAD DIGITALBILATERAL DIGITAL SCREENING MAMMOGRAM WITH CAD: 04/20/2020CLINICAL: A symptomatic. Current mammographic images were evaluated by either a [employer] M-Vu or a [employer] Image[employer]er CAD (computer aided detection system). Comparison is made to exam dated 10/13/2018 mammogram -[facility]-. There are scattered fibroglandular tissues in both breasts. No suspicious mass, architectural distortion, malignant type calcification, or lymph node abnormality detected.Breast architecture is stable compared to prior exams.IMPRESSION: NEGATIVEThere is no mammographic evidence of malignancy. Resume annual screening mammography in one year. Xu Ascencio M.D. ss/p enrad:04/20/2020 09:16:04 Olive Grader: Kaye Marion , [facility]-FWletter sent: BIRADS 1-2 Normal Mammogram BI-RADS: 1 NegativePAP TEST, THINPREP, [id number] 00:00:00* Test Item Value Reference Range Interpretation Comme nts SOURCE: (test code = 8001) Cervical/Endocervical SLIDES: (test code = 8011) 1 LMP: (test code = 8021) 03/05/2020 SPECIMEN ADEQUACY: (test code = 70688) (NOTE) INTERPRETATION: (test code = 02857) NILM/NO EPITH. ABNORMALITY;SEE BELOW CENTRAL PROCESSING TECHNICIAN: (test code = 8101) Amparo Hartman, CT (ASCP) QC TECHNOLOGIST: (test code = 8111) Roxanne Olsen,SCT(ASCP)CT(IA C) LOCATION: (test code = 47439) (NOTE) CPT: (test code = 8140) (NOTE) PAP TEST, THINPREP, [id number] 00:00:00* Test Item Value Reference Range Interpretation Comme nts SOURCE: (test code = 8001) Cervical/Endocervical SLIDES: (test code = 8011) 1 LMP: (test code = 8021) 03/05/2020 SPECIMEN ADEQUACY: (test code = 44855) (NOTE) INTERPRETATION: (test code = 81366) NILM/NO EPITH. ABNORMALITY;SEE BELOW CENTRAL PROCESSING TECHNICIAN: (test code = 8101) AD Meier (ASCP) QC TECHNOLOGIST: (test code = 8111) MAYKEL Musa(ASCP)CT(IA C) LOCATION: (test code = 56410) (NOTE) CPT: (test code = 8140) (NOTE) PAP TEST, THINPREP, [id number] 00:00:00* Test Item Value Reference Range Interpretation Comme nts SOURCE: (test code = 8001) Cervical/Endocervical SLIDES: (test code = 8011) 1 LMP: (test code = 8021) 03/05/2020 SPECIMEN ADEQUACY: (test code = 58724) (NOTE) INTERPRETATION: (test code = 56832) NILM/NO EPITH. ABNORMALITY;SEE BELOW CENTRAL PROCESSING TECHNICIAN: (test code = 8101) AD Meier (ASCP) QC TECHNOLOGIST: (test code = 8111) MAYKEL Musa(ASCP)CT(IA C) LOCATION: (test code = 80889) (NOTE) CPT: (test code = 8140) (NOTE) PAP TEST, THINPREP, [id number] 00:00:00* Test Item Value Reference Range Interpretation Comme nts SOURCE: (test code = 8001) Cervical/Endocervical SLIDES: (test code = 8011) 1 LMP: (test code = 8021) 03/05/2020 SPECIMEN ADEQUACY: (test code = 25949) (NOTE) INTERPRETATION: (test code = 38025) NILM/NO EPITH. ABNORMALITY;SEE BELOW CENTRAL PROCESSING TECHNICIAN: (test code = 8101) AD Meier (ASCP) QC TECHNOLOGIST: (test code = 8111) Roxanne Olsen,SCT(ASCP)CT(IA C) LOCATION: (test code = 04247) (NOTE) CPT: (test code = 8140) (NOTE) HPV HIGH RISK WITH GENOTYPE, [id number] 00:00:00* Test Item Value Reference Range Interpretation Comme nts HPV HIGH RISK INTERP (test c ode = 89025) POSITIVE HPV 16 (test code = 46816) NEGATIVE HPV 18 (test code = 32824) NEGATIVE HPV, HR, OTHER GENOTYPES (te st code = 56546) POSITIVE HPV HIGH RISK WITH GENOTYPE, [id number] 00:00:00* Test Item Value Reference Range Interpretation Comme nts HPV HIGH RISK INTERP (test c ode = 07989) POSITIVE HPV 16 (test code = 35509) NEGATIVE HPV 18 (test code = 63034) NEGATIVE HPV, HR, OTHER GENOTYPES (te st code = 51638) POSITIVE HPV HIGH RISK WITH GENOTYPE, [id number] 00:00:00* Test Item Value Reference Range Interpretation Comme nts HPV HIGH RISK INTERP (test c ode = 12240) POSITIVE HPV 16 (test code = 95914) NEGATIVE HPV 18 (test code = 17633) NEGATIVE HPV, HR, OTHER GENOTYPES (te st code = 92013) POSITIVE HPV HIGH RISK WITH GENOTYPE, [id number] 00:00:00* Test Item Value Reference Range Interpretation Comme nts HPV HIGH RISK INTERP (test c ode = 86376) POSITIVE HPV 16 (test code = 77059) NEGATIVE HPV 18 (test code = 97127) NEGATIVE HPV, HR, OTHER GENOTYPES (te st code = 25755) POSITIVE VAGINAL PATHOGENS DNA [id number] 00:00:00* Test Item Value Reference Range Interpretation Comme nts ELIZABETH SPECIES (test code = ) NEGATIVE G. VAGINALIS (test code = 07974) NEGATIVE T. VAGINALIS (test code = 51551) NEGATIVE VAGINAL PATHOGENS DNA [id number] 00:00:00* Test Item Value Reference Range Interpretation Comme nts ELIZABETH SPECIES (test code = 39544) NEGATIVE G. VAGINALIS (test code = 53590) NEGATIVE T. VAGINALIS (test code = 57311) NEGATIVE VAGINAL PATHOGENS DNA [id number] 00:00:00* Test Item Value Reference Range Interpretation Comme nts ELIZABETH SPECIES (test code = 73712) NEGATIVE G. VAGINALIS (test code = 99258) NEGATIVE T. VAGINALIS (test code = 39635) NEGATIVE VAGINAL PATHOGENS DNA [id number] 00:00:00* Test Item Value Reference Range Interpretation Comme nts ELIZABETH SPECIES (test code = ) NEGATIVE G. VAGINALIS (test code = 29367) NEGATIVE T. VAGINALIS (test code = 77066) NEGATIVE SARS-CoV-2 (COVID-19) by RT-PCR (HIGH RISK)2020-03-19 00:00:00* Test Item Value Reference Range Interpretation Comme nts SARS-CoV-2 INTERPRETATION (t est code = 21341) NEGATIVE SOURCE (test code = 76498) NOT SPECIFIED SARS-CoV-2 (COVID-19) by RT-PCR (HIGH RISK)2020-03-19 00:00:00* Test Item Value Reference Range Interpretation Comme nts SARS-CoV-2 INTERPRETATION (t est code = 39111) NEGATIVE SOURCE (test code = 75372) NOT SPECIFIED SARS-CoV-2 (COVID-19) by RT-PCR (HIGH RISK)2020-03-19 00:00:00* Test Item Value Reference Range Interpretation Comme nts SARS-CoV-2 INTERPRETATION (t est code = 08872) NEGATIVE SOURCE (test code = 77510) NOT SPECIFIED SARS-CoV-2 (COVID-19) by RT-PCR (HIGH RISK)2020-03-19 00:00:00* Test Item Value Reference Range Interpretation Comme nts SARS-CoV-2 INTERPRETATION (t est code = 53488) NEGATIVE SOURCE (test code = 86186) NOT SPECIFIED CULTURE, [id number] 00:00:00* Test Item Value Reference Range Interpretation Comme nts CULTURE, URINE (test code = 48191) SPECIMEN NUMBER: [id number] CULTURE, [id number] 00:00:00* Test Item Value Reference Range Interpretation Comme nts CULTURE, URINE (test code = 86309) SPECIMEN NUMBER: [id number] CULTURE, [id number] 00:00:00* Test Item Value Reference Range Interpretation Comme nts CULTURE, URINE (test code = 85717) SPECIMEN NUMBER: [id number] CULTURE, [id number] 00:00:00* Test Item Value Reference Range Interpretation Comme nts CULTURE, URINE (test code = 91475) SPECIMEN NUMBER: [id number] CULTURE, URINE [ADDED]2019-10-07 00:00:00* Test Item Value Reference Range Interpretation Comme nts CULTURE, URINE (test code = 10402) SPECIMEN NUMBER: [id number] CULTURE, URINE [ADDED]2019-10-07 00:00:00* Test Item Value Reference Range Interpretation Comme nts CULTURE, URINE (test code = 39009) SPECIMEN NUMBER: [id number] CULTURE, URINE [ADDED]2019-10-07 00:00:00* Test Item Value Reference Range Interpretation Comme nts CULTURE, URINE (test code = 43619) SPECIMEN NUMBER: [id number] CULTURE, URINE [ADDED]2019-10-07 00:00:00* Test Item Value Reference Range Interpretation Comme nts CULTURE, URINE (test code = 99308) SPECIMEN NUMBER: [id number] COMPREHENSIVE METABOLIC [id number] 00:00:00* Test Item Value Reference Range Interpretation Comme nts GLUCOSE (test code = 2217) 70 MG/DL BUN (test code = 2208) 13 MG/DL CREATININE (test code = 2214) 0.52 MG/DL eGFR AMER. (test cod e = 37520) 139 ML/MIN/1.73 eGFR NON- AMER. (test code = 41650) 120 ML/MIN/1.73 CALC BUN/CREAT (test code = 2235) 25 RATIO SODIUM (test code = 2231) 143 MEQ/L POTASSIUM (test code = 2228) 4.0 MEQ/L CHLORIDE (test code = 2215) 104 MEQ/L CARBON DIOXIDE (test code = 2206) 26 MEQ/L CALCIUM (test code = 2209) 9.8 MG/DL PROTEIN, TOTAL (test code = 2229) 7.6 G/DL ALBUMIN (test code = 2201) 4.9 G/DL CALC GLOBULIN (test code = 2240) 2.7 G/DL CALC A/G RATIO (test code = 2234) 1.8 RATIO BILIRUBIN, TOTAL (test code = 2207) 0.3 MG/DL ALKALINE PHOSPHATASE (test code = 2204) 92 U/L AST (test code = 2218) 14 U/L ALT (test code = 2219) 19 U/L COMPREHENSIVE METABOLIC [id number] 00:00:00* Test Item Value Reference Range Interpretation Comme nts GLUCOSE (test code = 2217) 70 MG/DL BUN (test code = 2208) 13 MG/DL CREATININE (test code = 2214) 0.52 MG/DL eGFR AMER. (test cod e = 87142) 139 ML/MIN/1.73 eGFR NON- AMER. (test code = 44506) 120 ML/MIN/1.73 CALC BUN/CREAT (test code = 2235) 25 RATIO SODIUM (test code = 2231) 143 MEQ/L POTASSIUM (test code = 2228) 4.0 MEQ/L CHLORIDE (test code = 2215) 104 MEQ/L CARBON DIOXIDE (test code = 2206) 26 MEQ/L CALCIUM (test code = 2209) 9.8 MG/DL PROTEIN, TOTAL (test code = 2229) 7.6 G/DL ALBUMIN (test code = 2201) 4.9 G/DL CALC GLOBULIN (test code = 2240) 2.7 G/DL CALC A/G RATIO (test code = 2234) 1.8 RATIO BILIRUBIN, TOTAL (test code = 2207) 0.3 MG/DL ALKALINE PHOSPHATASE (test code = 2204) 92 U/L AST (test code = 2218) 14 U/L ALT (test code = 2219) 19 U/L CBC W/AUTO [id number] 00:00:00* Test Item Value Reference Range Interpretation Comme nts WBC (test code = 1001) 10.4 K/UL [...] code = 1015) 322 K/UL CBC W/AUTO [id number] 00:00:00* Test Item Value Reference Range Interpretation Comme nts WBC (test code = 1001) 10.4 K/UL [...] code = 1015) 322 K/UL CBC W/AUTO [id number] 00:00:00* Test Item Value Reference Range Interpretation Comme nts WBC (test code = 1001) 10.4 K/UL [...] (test code = 1015) 322 K/UL HEMOGLOBIN [id number] 00:00:00* Test Item Value Reference Range Interpretation Comme nts HEMOGLOBIN A1c (test code = 39344) 5.5 % HEMOGLOBIN [id number] 00:00:00* Test Item Value Reference Range Interpretation Comme nts HEMOGLOBIN A1c (test code = 85658) 5.5 % HEMOGLOBIN [id number] 00:00:00* Test Item Value Reference Range Interpretation Comme nts HEMOGLOBIN A1c (test code = 69682) 5.5 % [id number] 00:00:00* Test Item Value Reference Range Interpretation Comme nts TSH, THIRD GENERATION (test code = 2821) 0.978 UIU/ML [id number] 00:00:00* Test Item Value Reference Range Interpretation Comme nts TSH, THIRD GENERATION (test code = 2821) 0.978 UIU/ML [id number] 00:00:00* Test Item Value Reference Range Interpretation Comme nts TSH, THIRD GENERATION (test code = 2821) 0.978 UIU/ML COMPREHENSIVE METABOLIC [id number] 00:00:00* Test Item Value Reference Range Interpretation Comme nts GLUCOSE (test code = 2217) 70 MG/DL BUN (test code = 2208) 13 MG/DL CREATININE (test code = 2214) 0.52 MG/DL eGFR AMER. (test cod e = 95093) 139 ML/MIN/1.73 eGFR NON- AMER. (test code = 27472) 120 ML/MIN/1.73 CALC BUN/CREAT (test code = 2235) 25 RATIO SODIUM (test code = 2231) 143 MEQ/L POTASSIUM (test code = 2228) 4.0 MEQ/L CHLORIDE (test code = 2215) 104 MEQ/L CARBON DIOXIDE (test code = 2206) 26 MEQ/L CALCIUM (test code = 2209) 9.8 MG/DL PROTEIN, TOTAL (test code = 2229) 7.6 G/DL ALBUMIN (test code = 2201) 4.9 G/DL CALC GLOBULIN (test code = 2240) 2.7 G/DL CALC A/G RATIO (test code = 2234) 1.8 RATIO BILIRUBIN, TOTAL (test code = 2207) 0.3 MG/DL ALKALINE PHOSPHATASE (test code = 2204) 92 U/L AST (test code = 2218) 14 U/L ALT (test code = 2219) 19 U/L COMPREHENSIVE METABOLIC [id number] 00:00:00* Test Item Value Reference Range Interpretation Comme nts GLUCOSE (test code = 2217) 70 MG/DL BUN (test code = 2208) 13 MG/DL CREATININE (test code = 2214) 0.52 MG/DL eGFR AMER. (test cod e = 21814) 139 ML/MIN/1.73 eGFR NON- AMER. (test code = 12949) 120 ML/MIN/1.73 CALC BUN/CREAT (test code = 2235) 25 RATIO SODIUM (test code = 2231) 143 MEQ/L POTASSIUM (test code = 2228) 4.0 MEQ/L CHLORIDE (test code = 2215) 104 MEQ/L CARBON DIOXIDE (test code = 2206) 26 MEQ/L CALCIUM (test code = 2209) 9.8 MG/DL PROTEIN, TOTAL (test code = 2229) 7.6 G/DL ALBUMIN (test code = 2201) 4.9 G/DL CALC GLOBULIN (test code = 2240) 2.7 G/DL CALC A/G RATIO (test code = 2234) 1.8 RATIO BILIRUBIN, TOTAL (test code = 2207) 0.3 MG/DL ALKALINE PHOSPHATASE (test code = 2204) 92 U/L AST (test code = 2218) 14 U/L ALT (test code = 2219) 19 U/L CBC W/AUTO [id number] 00:00:00* Test Item Value Reference Range Interpretation Comme nts WBC (test code = 1001) 10.4 K/UL [...] code = 1015) 322 K/UL CBC W/AUTO [id number] 00:00:00* Test Item Value Reference Range Interpretation Comme nts WBC (test code = 1001) 10.4 K/UL [...] code = 1015) 322 K/UL CBC W/AUTO [id number] 00:00:00* Test Item Value Reference Range Interpretation Comme nts WBC (test code = 1001) 10.4 K/UL [...] (test code = 1015) 322 K/UL HEMOGLOBIN [id number] 00:00:00* Test Item Value Reference Range Interpretation Comme nts HEMOGLOBIN A1c (test code = 39898) 5.5 % HEMOGLOBIN [id number] 00:00:00* Test Item Value Reference Range Interpretation Comme nts HEMOGLOBIN A1c (test code = 66702) 5.5 % HEMOGLOBIN [id number] 00:00:00* Test Item Value Reference Range Interpretation Comme nts HEMOGLOBIN A1c (test code = 93619) 5.5 % [id number] 00:00:00* Test Item Value Reference Range Interpretation Comme nts TSH, THIRD GENERATION (test code = 2821) 0.978 UIU/ML [id number] 00:00:00* Test Item Value Reference Range Interpretation Comme nts TSH, THIRD GENERATION (test code = 2821) 0.978 UIU/ML [id number] 00:00:00* Test Item Value Reference Range Interpretation Comme nts TSH, THIRD GENERATION (test code = 2821) 0.978 UIU/ML LIPID [id number] 00:00:00* Test Item Value Reference Range Interpretation Comme nts CHOLESTEROL (test code = 2210) 172 MG/DL TRIGLYCERIDES (test code = 2232) 230 MG/DL HDL CHOLESTEROL (test code = 2220) 36 MG/DL CALC LDL CHOL (test code = 2237) 90 MG/DL RISK RATIO LDL/HDL (test cod e = 2238) 2.50 RATIO LIPID [id number] 00:00:00* Test Item Value Reference Range Interpretation Comme nts CHOLESTEROL (test code = 2210) 172 MG/DL TRIGLYCERIDES (test code = 2232) 230 MG/DL HDL CHOLESTEROL (test code = 2220) 36 MG/DL CALC LDL CHOL (test code = 2237) 90 MG/DL RISK RATIO LDL/HDL (test cod e = 2238) 2.50 RATIO LIPID [id number] 00:00:00* Test Item Value Reference Range Interpretation Comme nts CHOLESTEROL (test code = 2210) 172 MG/DL TRIGLYCERIDES (test code = 2232) 230 MG/DL HDL CHOLESTEROL (test code = 2220) 36 MG/DL CALC LDL CHOL (test code = 2237) 90 MG/DL RISK RATIO LDL/HDL (test cod e = 2238) 2.50 RATIO LIPID [id number] 00:00:00* Test Item Value Reference Range Interpretation Comme nts CHOLESTEROL (test code = 2210) 172 MG/DL TRIGLYCERIDES (test code = 2232) 230 MG/DL HDL CHOLESTEROL (test code = 2220) 36 MG/DL CALC LDL CHOL (test code = 2237) 90 MG/DL RISK RATIO LDL/HDL (test cod e = 2238) 2.50 RATIO CBC W/AUTO [id number] 00:00:00* Test Item Value Reference Range Interpretation Comme nts WBC (test code = 1001) 8.2 K/UL [...] code = 1015) 301 K/UL CBC W/AUTO [id number] 00:00:00* Test Item Value Reference Range Interpretation Comme nts WBC (test code = 1001) 8.2 K/UL [...] code = 1015) 301 K/UL CBC W/AUTO [id number] 00:00:00* Test Item Value Reference Range Interpretation Comme nts WBC (test code = 1001) 8.2 K/UL [...] (test code = 1015) 301 K/UL LIPID [id number] 00:00:00* Test Item Value Reference Range Interpretation Comme nts CHOLESTEROL (test code = 2210) 155 MG/DL TRIGLYCERIDES (test code = 2232) 192 MG/DL HDL CHOLESTEROL (test code = 2220) 36 MG/DL CALC LDL CHOL (test code = 2237) 81 MG/DL RISK RATIO LDL/HDL (test cod e = 2238) 2.24 RATIO LIPID [id number] 00:00:00* Test Item Value Reference Range Interpretation Comme nts CHOLESTEROL (test code = 2210) 155 MG/DL TRIGLYCERIDES (test code = 2232) 192 MG/DL HDL CHOLESTEROL (test code = 2220) 36 MG/DL CALC LDL CHOL (test code = 2237) 81 MG/DL RISK RATIO LDL/HDL (test cod e = 2238) 2.24 RATIO COMPREHENSIVE METABOLIC [id number] 00:00:00* Test Item Value Reference Range Interpretation Comme nts GLUCOSE (test code = 2217) 103 MG/DL BUN (test code = 2208) 16 MG/DL CREATININE (test code = 2214) 0.58 MG/DL eGFR AMER. (test cod e = 92923) 135 ML/MIN/1.73 eGFR NON- AMER. (test code = 52335) 116 ML/MIN/1.73 CALC BUN/CREAT (test code = 2235) 28 RATIO SODIUM (test code = 2231) 143 MEQ/L POTASSIUM (test code = 2228) 4.6 MEQ/L CHLORIDE (test code = 2215) 106 MEQ/L CARBON DIOXIDE (test code = 2206) 26 MEQ/L CALCIUM (test code = 2209) 9.2 MG/DL PROTEIN, TOTAL (test code = 2229) 7.1 G/DL ALBUMIN (test code = 2201) 4.5 G/DL CALC GLOBULIN (test code = 2240) 2.6 G/DL CALC A/G RATIO (test code = 2234) 1.7 RATIO BILIRUBIN, TOTAL (test code = 2207) 0.2 MG/DL ALKALINE PHOSPHATASE (test code = 2204) 76 U/L AST (test code = 2218) 17 U/L ALT (test code = 2219) 19 U/L COMPREHENSIVE METABOLIC [id number] 00:00:00* Test Item Value Reference Range Interpretation Comme nts GLUCOSE (test code = 2217) 103 MG/DL BUN (test code = 2208) 16 MG/DL CREATININE (test code = 2214) 0.58 MG/DL eGFR AMER. (test cod e = 38060) 135 ML/MIN/1.73 eGFR NON- AMER. (test code = 76312) 116 ML/MIN/1.73 CALC BUN/CREAT (test code = 2235) 28 RATIO SODIUM (test code = 2231) 143 MEQ/L POTASSIUM (test code = 2228) 4.6 MEQ/L CHLORIDE (test code = 2215) 106 MEQ/L CARBON DIOXIDE (test code = 2206) 26 MEQ/L CALCIUM (test code = 2209) 9.2 MG/DL PROTEIN, TOTAL (test code = 2229) 7.1 G/DL ALBUMIN (test code = 2201) 4.5 G/DL CALC GLOBULIN (test code = 2240) 2.6 G/DL CALC A/G RATIO (test code = 2234) 1.7 RATIO BILIRUBIN, TOTAL (test code = 2207) 0.2 MG/DL ALKALINE PHOSPHATASE (test code = 2204) 76 U/L AST (test code = 2218) 17 U/L ALT (test code = 2219) 19 U/L [id number] 00:00:00* Test Item Value Reference Range Interpretation Comme nts TSH, THIRD GENERATION (test code = 2821) 0.772 UIU/ML [id number] 00:00:00* Test Item Value Reference Range Interpretation Comme nts TSH, THIRD GENERATION (test code = 2821) 0.772 UIU/ML [id number] 00:00:00* Test Item Value Reference Range Interpretation Comme nts TSH, THIRD GENERATION (test code = 2821) 0.772 UIU/ML CBC W/AUTO [id number] 00:00:00* Test Item Value Reference Range Interpretation Comme nts WBC (test code = 1001) 8.2 K/UL [...] code = 1015) 301 K/UL CBC W/AUTO [id number] 00:00:00* Test Item Value Reference Range Interpretation Comme nts WBC (test code = 1001) 8.2 K/UL [...] code = 1015) 301 K/UL CBC W/AUTO [id number] 00:00:00* Test Item Value Reference Range Interpretation Comme nts WBC (test code = 1001) 8.2 K/UL [...] (test code = 1015) 301 K/UL LIPID [id number] 00:00:00* Test Item Value Reference Range Interpretation Comme nts CHOLESTEROL (test code = 2210) 155 MG/DL TRIGLYCERIDES (test code = 2232) 192 MG/DL HDL CHOLESTEROL (test code = 2220) 36 MG/DL CALC LDL CHOL (test code = 2237) 81 MG/DL RISK RATIO LDL/HDL (test cod e = 2238) 2.24 RATIO LIPID [id number] 00:00:00* Test Item Value Reference Range Interpretation Comme nts CHOLESTEROL (test code = 2210) 155 MG/DL TRIGLYCERIDES (test code = 2232) 192 MG/DL HDL CHOLESTEROL (test code = 2220) 36 MG/DL CALC LDL CHOL (test code = 2237) 81 MG/DL RISK RATIO LDL/HDL (test cod e = 2238) 2.24 RATIO COMPREHENSIVE METABOLIC [id number] 00:00:00* Test Item Value Reference Range Interpretation Comme nts GLUCOSE (test code = 2217) 103 MG/DL BUN (test code = 2208) 16 MG/DL CREATININE (test code = 2214) 0.58 MG/DL eGFR AMER. (test cod e = 33319) 135 ML/MIN/1.73 eGFR NON- AMER. (test code = 10880) 116 ML/MIN/1.73 CALC BUN/CREAT (test code = 2235) 28 RATIO SODIUM (test code = 2231) 143 MEQ/L POTASSIUM (test code = 2228) 4.6 MEQ/L CHLORIDE (test code = 2215) 106 MEQ/L CARBON DIOXIDE (test code = 2206) 26 MEQ/L CALCIUM (test code = 2209) 9.2 MG/DL PROTEIN, TOTAL (test code = 2229) 7.1 G/DL ALBUMIN (test code = 2201) 4.5 G/DL CALC GLOBULIN (test code = 2240) 2.6 G/DL CALC A/G RATIO (test code = 2234) 1.7 RATIO BILIRUBIN, TOTAL (test code = 2207) 0.2 MG/DL ALKALINE PHOSPHATASE (test code = 2204) 76 U/L AST (test code = 2218) 17 U/L ALT (test code = 2219) 19 U/L COMPREHENSIVE METABOLIC [id number] 00:00:00* Test Item Value Reference Range Interpretation Comme nts GLUCOSE (test code = 2217) 103 MG/DL BUN (test code = 2208) 16 MG/DL CREATININE (test code = 2214) 0.58 MG/DL eGFR AMER. (test cod e = 12904) 135 ML/MIN/1.73 eGFR NON- AMER. (test code = 66450) 116 ML/MIN/1.73 CALC BUN/CREAT (test code = 2235) 28 RATIO SODIUM (test code = 2231) 143 MEQ/L POTASSIUM (test code = 2228) 4.6 MEQ/L CHLORIDE (test code = 2215) 106 MEQ/L CARBON DIOXIDE (test code = 2206) 26 MEQ/L CALCIUM (test code = 2209) 9.2 MG/DL PROTEIN, TOTAL (test code = 2229) 7.1 G/DL ALBUMIN (test code = 2201) 4.5 G/DL CALC GLOBULIN (test code = 2240) 2.6 G/DL CALC A/G RATIO (test code = 2234) 1.7 RATIO BILIRUBIN, TOTAL (test code = 2207) 0.2 MG/DL ALKALINE PHOSPHATASE (test code = 2204) 76 U/L AST (test code = 2218) 17 U/L ALT (test code = 2219) 19 U/L [id number] 00:00:00* Test Item Value Reference Range Interpretation Comme nts TSH, THIRD GENERATION (test code = 2821) 0.772 UIU/ML [id number] 00:00:00* Test Item Value Reference Range Interpretation Comme nts TSH, THIRD GENERATION (test code = 2821) 0.772 UIU/ML [id number] 00:00:00* Test Item Value Reference Range Interpretation Comme nts TSH, THIRD GENERATION (test code = 2821) 0.772 UIU/ML MUMPS IgG AND [id number] 00:00:00* Test Item Value Reference Range Interpretation Comme nts MUMPS VIRUS IgG (test code = 50814) 46.5 AU/mL MUMPS VIRUS IgM (test code = 4587) 0.55 IV MUMPS IgG AND [id number] 00:00:00* Test Item Value Reference Range Interpretation Comme nts MUMPS VIRUS IgG (test code = 03712) 46.5 AU/mL MUMPS VIRUS IgM (test code = 4587) 0.55 IV MUMPS IgG AND [id number] 00:00:00* Test Item Value Reference Range Interpretation Comme nts MUMPS VIRUS IgG (test code = 69227) 46.5 AU/mL MUMPS VIRUS IgM (test code = 4587) 0.55 IV MUMPS IgG AND [id number] 00:00:00* Test Item Value Reference Range Interpretation Comme nts MUMPS VIRUS IgG (test code = 57621) 46.5 AU/mL MUMPS VIRUS IgM (test code = 4587) 0.55 IV RUBEOLA IgG [id number] 00:00:00* Test Item Value Reference Range Interpretation Comme nts RUBEOLA IgG ANTIBODY (test c ode = 33174) 98.5 AU/ML RUBEOLA IgG [id number] 00:00:00* Test Item Value Reference Range Interpretation Comme nts RUBEOLA IgG ANTIBODY (test c ode = 30256) 98.5 AU/ML RUBELLA ANTIBODY [id number] 00:00:00* Test Item Value Reference Range Interpretation Comme nts RUBELLA ANTIBODY SCREEN (katelin t code = 4600) 12 IU/ML RUBELLA IgG INTERP (test cod e = 45049) REACTIVE RUBELLA ANTIBODY [id number] 00:00:00* Test Item Value Reference Range Interpretation Comme nts RUBELLA ANTIBODY SCREEN (katelin t code = 4600) 12 IU/ML RUBELLA IgG INTERP (test cod e = 79707) REACTIVE VARICELLA ZOSTER [id number] 00:00:00* Test Item Value Reference Range Interpretation Comme nts VARICELLA ZOSTER IgG (test c ode = 35155) 454 INDEX VARICELLA ZOSTER [id number] 00:00:00* Test Item Value Reference Range Interpretation Comme nts VARICELLA ZOSTER IgG (test c ode = 11553) 454 INDEX HEPATITIS B SURFACE [id number] 00:00:00* Test Item Value Reference Range Interpretation Comme nts HEPATITIS B SURFACE AB (test code = 2737) NON-REACTIVE HEPATITIS B SURFACE [id number] 00:00:00* Test Item Value Reference Range Interpretation Comme nts HEPATITIS B SURFACE AB (test code = 2737) NON-REACTIVE RUBEOLA IgG [id number] 00:00:00* Test Item Value Reference Range Interpretation Comme nts RUBEOLA IgG ANTIBODY (test c ode = 76324) 98.5 AU/ML RUBEOLA IgG [id number] 00:00:00* Test Item Value Reference Range Interpretation Comme nts RUBEOLA IgG ANTIBODY (test c ode = 44772) 98.5 AU/ML RUBELLA ANTIBODY [id number] 00:00:00* Test Item Value Reference Range Interpretation Comme nts RUBELLA ANTIBODY SCREEN (katelin t code = 4600) 12 IU/ML RUBELLA IgG INTERP (test cod e = 97145) REACTIVE RUBELLA ANTIBODY [id number] 00:00:00* Test Item Value Reference Range Interpretation Comme nts RUBELLA ANTIBODY SCREEN (katelin t code = 4600) 12 IU/ML RUBELLA IgG INTERP (test cod e = 88706) REACTIVE VARICELLA ZOSTER [id number] 00:00:00* Test Item Value Reference Range Interpretation Comme nts VARICELLA ZOSTER IgG (test c ode = 96197) 454 INDEX VARICELLA ZOSTER [id number] 00:00:00* Test Item Value Reference Range Interpretation Comme nts VARICELLA ZOSTER IgG (test c ode = 07484) 454 INDEX HEPATITIS B SURFACE [id number] 00:00:00* Test Item Value Reference Range Interpretation Comme nts HEPATITIS B SURFACE AB (test code = 2737) NON-REACTIVE HEPATITIS B SURFACE [id number] 00:00:00* Test Item Value Reference Range Interpretation Comme nts HEPATITIS B SURFACE AB (test code = 2737) NON-REACTIVE DIAG MAMM BILATERAL CAD [id number] 11:19:31- DIAG MAMM BILATERAL CAD DIGITALBILATERAL DIGITAL DIAGNOSTIC MAMMOGRAM WITH CAD: 10/13/2018CLINICAL: Palpable mass, left breast. Current mammographic images were evaluated by either a [employer] M-Vu or a [employer] ImageChecker CAD (computer aided detection system). No prior exams were available for comparison. The tissue of both breasts has scattered fibroglandular background echotexure. No suspiciousmass, architectural distortion, malignant type calcification, or lymph [...] rest of the bilateral survey ultrasound demonstrates nosuspicious sonographic abnormality. No axillary lymphadenopathy was seen.IMPRESSION: NEGATIVE Thereis no sonographic evidence of malignancy. Resume annual screening mammography in one year. Clinicalfollow up is also recommended, and further management of palpable abnormalities should be based on clinical examination.Xu Ascencio M.D. ss/:10/13/2018 11:19:31 Entry: - 10/14/2018 08:09:35Imaging Technologist: Marti Shannon , [facility]-FWletter sent: BIRADS 1-2 Combo FU Letter Mammogram BI-RADS: 0 Indeterminate Ultrasound BI-RADS: 1 NegativeBREAST ULTRASOUND BILATERAL 2018-10-13 11:19:31- DIAG MAMM BILATERAL CAD DIGITALBILATERAL DIGITAL DIAGNOSTIC MAMMOGRAM WITH CAD: 10/13/2018CLINICAL: Palpable mass, left breast. Current mammographic images were evaluated by either a [employer] M-Vu or a [employer] Image[employer] CAD (computer aided detection system). No prior exams were available for comparison. The tissue of both breasts has scattered fibroglandular background echotexure. No suspiciousmass, architectural distortion, malignant type calcification, or lymph node abnormality detected. IN COMPLETE ASSESSMENT: ADDITIONAL IMAGING EVALUATION RECOMMENDEDThere is no [...] rest of the bilateral survey ultrasound demonstrates nosuspicious sonographic abnormality. No axillary lymphadenopathy was seen.IMPRESSION: NEGATIVE Thereis no sonographic evidence of malignancy. Resume annual screening mammography in one year. Clinicalfollow up is also recommended, and further management of palpable abnormalities should be based on clinical examination.Xu Ascencio M.D. ss/:10/13/2018 11:19:31 Entry: - 10/14/2018 08:09:35Imaging Technologist: Marti Shannon , [facility]-FWletter sent: BIRADS 1-2 Combo FU Letter Mammogram BI-RADS: 0 Indeterminate Ultrasound BI-RADS: 1 NegativeCBC W/AUTO [id number] 00:00:00* Test Item Value Reference Range Interpretation Comme nts WBC (test code = 1001) 9.8 K/UL [...] code = 1015) 312 K/UL CBC W/AUTO [id number] 00:00:00* Test Item Value Reference Range Interpretation Comme nts WBC (test code = 1001) 9.8 K/UL [...] code = 1015) 312 K/UL CBC W/AUTO [id number] 00:00:00* Test Item Value Reference Range Interpretation Comme nts WBC (test code = 1001) 9.8 K/UL [...] code = 1015) 312 K/UL COMPREHENSIVE METABOLIC [id number] 00:00:00* Test Item Value Reference Range Interpretation Comme nts GLUCOSE (test code = 2217) 85 MG/DL BUN (test code = 2208) 13 MG/DL CREATININE (test code = 2214) 0.56 MG/DL eGFR AMER. (test cod e = 02037) 136 ML/MIN/1.73 eGFR NON- AMER. (test code = 49529) 117 ML/MIN/1.73 CALC BUN/CREAT (test code = 2235) 23 RATIO SODIUM (test code = 2231) 140 MEQ/L POTASSIUM (test code = 2228) 3.9 MEQ/L CHLORIDE (test code = 2215) 102 MEQ/L CARBON DIOXIDE (test code = 2206) 27 MEQ/L CALCIUM (test code = 2209) 9.5 MG/DL PROTEIN, TOTAL (test code = 2229) 7.0 G/DL ALBUMIN (test code = 2201) 4.5 G/DL CALC GLOBULIN (test code = 2240) 2.5 G/DL CALC A/G RATIO (test code = 2234) 1.8 RATIO BILIRUBIN, TOTAL (test code = 2207) <0.2 MG/DL ALKALINE PHOSPHATASE (test code = 2204) 88 U/L AST (test code = 2218) 13 U/L ALT (test code = 2219) 18 U/L COMPREHENSIVE METABOLIC [id number] 00:00:00* Test Item Value Reference Range Interpretation Comme nts GLUCOSE (test code = 2217) 85 MG/DL BUN (test code = 2208) 13 MG/DL CREATININE (test code = 2214) 0.56 MG/DL eGFR AMER. (test cod e = 14936) 136 ML/MIN/1.73 eGFR NON- AMER. (test code = 04210) 117 ML/MIN/1.73 CALC BUN/CREAT (test code = 2235) 23 RATIO SODIUM (test code = 2231) 140 MEQ/L POTASSIUM (test code = 2228) 3.9 MEQ/L CHLORIDE (test code = 2215) 102 MEQ/L CARBON DIOXIDE (test code = 2206) 27 MEQ/L CALCIUM (test code = 2209) 9.5 MG/DL PROTEIN, TOTAL (test code = 2229) 7.0 G/DL ALBUMIN (test code = 2201) 4.5 G/DL CALC GLOBULIN (test code = 2240) 2.5 G/DL CALC A/G RATIO (test code = 2234) 1.8 RATIO BILIRUBIN, TOTAL (test code = 2207) <0.2 MG/DL ALKALINE PHOSPHATASE (test code = 2204) 88 U/L AST (test code = 2218) 13 U/L ALT (test code = 2219) 18 U/L [id number] 00:00:00* Test Item Value Reference Range Interpretation Comme nts TSH, THIRD GENERATION (test code = 2821) 0.630 UIU/ML [id number] 00:00:00* Test Item Value Reference Range Interpretation Comme nts TSH, THIRD GENERATION (test code = 2821) 0.630 UIU/ML [id number] 00:00:00* Test Item Value Reference Range Interpretation Comme nts TSH, THIRD GENERATION (test code = 2821) 0.630 UIU/ML CBC W/AUTO [id number] 00:00:00* Test Item Value Reference Range Interpretation Comme nts WBC (test code = 1001) 9.8 K/UL [...] code = 1015) 312 K/UL CBC W/AUTO [id number] 00:00:00* Test Item Value Reference Range Interpretation Comme nts WBC (test code = 1001) 9.8 K/UL [...] code = 1015) 312 K/UL CBC W/AUTO [id number] 00:00:00* Test Item Value Reference Range Interpretation Comme nts WBC (test code = 1001) 9.8 K/UL [...] code = 1015) 312 K/UL COMPREHENSIVE METABOLIC [id number] 00:00:00* Test Item Value Reference Range Interpretation Comme nts GLUCOSE (test code = 2217) 85 MG/DL BUN (test code = 2208) 13 MG/DL CREATININE (test code = 2214) 0.56 MG/DL eGFR AMER. (test cod e = 78787) 136 ML/MIN/1.73 eGFR NON- AMER. (test code = 33567) 117 ML/MIN/1.73 CALC BUN/CREAT (test code = 2235) 23 RATIO SODIUM (test code = 2231) 140 MEQ/L POTASSIUM (test code = 2228) 3.9 MEQ/L CHLORIDE (test code = 2215) 102 MEQ/L CARBON DIOXIDE (test code = 2206) 27 MEQ/L CALCIUM (test code = 2209) 9.5 MG/DL PROTEIN, TOTAL (test code = 2229) 7.0 G/DL ALBUMIN (test code = 2201) 4.5 G/DL CALC GLOBULIN (test code = 2240) 2.5 G/DL CALC A/G RATIO (test code = 2234) 1.8 RATIO BILIRUBIN, TOTAL (test code = 2207) <0.2 MG/DL ALKALINE PHOSPHATASE (test code = 2204) 88 U/L AST (test code = 2218) 13 U/L ALT (test code = 2219) 18 U/L COMPREHENSIVE METABOLIC [id number] 00:00:00* Test Item Value Reference Range Interpretation Comme nts GLUCOSE (test code = 2217) 85 MG/DL BUN (test code = 2208) 13 MG/DL CREATININE (test code = 2214) 0.56 MG/DL eGFR AMER. (test cod e = 24527) 136 ML/MIN/1.73 eGFR NON- AMER. (test code = 73547) 117 ML/MIN/1.73 CALC BUN/CREAT (test code = 2235) 23 RATIO SODIUM (test code = 2231) 140 MEQ/L POTASSIUM (test code = 2228) 3.9 MEQ/L CHLORIDE (test code = 2215) 102 MEQ/L CARBON DIOXIDE (test code = 2206) 27 MEQ/L CALCIUM (test code = 2209) 9.5 MG/DL PROTEIN, TOTAL (test code = 2229) 7.0 G/DL ALBUMIN (test code = 2201) 4.5 G/DL CALC GLOBULIN (test code = 2240) 2.5 G/DL CALC A/G RATIO (test code = 2234) 1.8 RATIO BILIRUBIN, TOTAL (test code = 2207) <0.2 MG/DL ALKALINE PHOSPHATASE (test code = 2204) 88 U/L AST (test code = 2218) 13 U/L ALT (test code = 2219) 18 U/L [id number] 00:00:00* Test Item Value Reference Range Interpretation Comme nts TSH, THIRD GENERATION (test code = 2821) 0.630 UIU/ML [id number] 00:00:00* Test Item Value Reference Range Interpretation Comme nts TSH, THIRD GENERATION (test code = 2821) 0.630 UIU/ML [id number] 00:00:00* Test Item Value Reference Range Interpretation Comme nts TSH, THIRD GENERATION (test code = 2821) 0.630 UIU/ML COMPREHENSIVE METABOLIC [id number] 00:00:00* Test Item Value Reference Range Interpretation Comme nts GLUCOSE (test code = 2217) 92 MG/DL BUN (test code = 2208) 20 MG/DL CREATININE (test code = 2214) 0.69 MG/DL eGFR AMER. (test cod e = 05670) 129 ML/MIN/1.73 eGFR NON- AMER. (test code = 80186) 111 ML/MIN/1.73 CALC BUN/CREAT (test code = 2235) 29 RATIO SODIUM (test code = 2231) 144 MEQ/L POTASSIUM (test code = 2228) 3.9 MEQ/L CHLORIDE (test code = 2215) 101 MEQ/L CARBON DIOXIDE (test code = 2206) 24 MEQ/L CALCIUM (test code = 2209) 9.6 MG/DL PROTEIN, TOTAL (test code = 2229) 6.8 G/DL ALBUMIN (test code = 2201) 4.5 G/DL CALC GLOBULIN (test code = 2240) 2.3 G/DL CALC A/G RATIO (test code = 2234) 2.0 RATIO BILIRUBIN, TOTAL (test code = 2207) 0.3 MG/DL ALKALINE PHOSPHATASE (test code = 2204) 78 U/L AST (test code = 2218) 20 U/L ALT (test code = 2219) 20 U/L COMPREHENSIVE METABOLIC [id number] 00:00:00* Test Item Value Reference Range Interpretation Comme nts GLUCOSE (test code = 2217) 92 MG/DL BUN (test code = 2208) 20 MG/DL CREATININE (test code = 2214) 0.69 MG/DL eGFR AMER. (test cod e = 64396) 129 ML/MIN/1.73 eGFR NON- AMER. (test code = 03624) 111 ML/MIN/1.73 CALC BUN/CREAT (test code = 2235) 29 RATIO SODIUM (test code = 2231) 144 MEQ/L POTASSIUM (test code = 2228) 3.9 MEQ/L CHLORIDE (test code = 2215) 101 MEQ/L CARBON DIOXIDE (test code = 2206) 24 MEQ/L CALCIUM (test code = 2209) 9.6 MG/DL PROTEIN, TOTAL (test code = 2229) 6.8 G/DL ALBUMIN (test code = 2201) 4.5 G/DL CALC GLOBULIN (test code = 2240) 2.3 G/DL CALC A/G RATIO (test code = 2234) 2.0 RATIO BILIRUBIN, TOTAL (test code = 2207) 0.3 MG/DL ALKALINE PHOSPHATASE (test code = 2204) 78 U/L AST (test code = 2218) 20 U/L ALT (test code = 2219) 20 U/L COMPREHENSIVE METABOLIC [id number] 00:00:00* Test Item Value Reference Range Interpretation Comme nts GLUCOSE (test code = 2217) 92 MG/DL BUN (test code = 2208) 20 MG/DL CREATININE (test code = 2214) 0.69 MG/DL eGFR AMER. (test cod e = 31416) 129 ML/MIN/1.73 eGFR NON- AMER. (test code = 55282) 111 ML/MIN/1.73 CALC BUN/CREAT (test code = 2235) 29 RATIO SODIUM (test code = 2231) 144 MEQ/L POTASSIUM (test code = 2228) 3.9 MEQ/L CHLORIDE (test code = 2215) 101 MEQ/L CARBON DIOXIDE (test code = 2206) 24 MEQ/L CALCIUM (test code = 2209) 9.6 MG/DL PROTEIN, TOTAL (test code = 2229) 6.8 G/DL ALBUMIN (test code = 2201) 4.5 G/DL CALC GLOBULIN (test code = 2240) 2.3 G/DL CALC A/G RATIO (test code = 2234) 2.0 RATIO BILIRUBIN, TOTAL (test code = 2207) 0.3 MG/DL ALKALINE PHOSPHATASE (test code = 2204) 78 U/L AST (test code = 2218) 20 U/L ALT (test code = 2219) 20 U/L COMPREHENSIVE METABOLIC [id number] 00:00:00* Test Item Value Reference Range Interpretation Comme nts GLUCOSE (test code = 2217) 92 MG/DL BUN (test code = 2208) 20 MG/DL CREATININE (test code = 2214) 0.69 MG/DL eGFR AMER. (test cod e = 34824) 129 ML/MIN/1.73 eGFR NON- AMER. (test code = 49142) 111 ML/MIN/1.73 CALC BUN/CREAT (test code = 2235) 29 RATIO SODIUM (test code = 2231) 144 MEQ/L POTASSIUM (test code = 2228) 3.9 MEQ/L CHLORIDE (test code = 2215) 101 MEQ/L CARBON DIOXIDE (test code = 2206) 24 MEQ/L CALCIUM (test code = 2209) 9.6 MG/DL PROTEIN, TOTAL (test code = 2229) 6.8 G/DL ALBUMIN (test code = 2201) 4.5 G/DL CALC GLOBULIN (test code = 2240) 2.3 G/DL CALC A/G RATIO (test code = 2234) 2.0 RATIO BILIRUBIN, TOTAL (test code = 2207) 0.3 MG/DL ALKALINE PHOSPHATASE (test code = 2204) 78 U/L AST (test code = 2218) 20 U/L ALT (test code = 2219) 20 U/L COMPREHENSIVE METABOLIC [id number] 00:00:00* Test Item Value Reference Range Interpretation Comme nts GLUCOSE (test code = 2217) 85 MG/DL BUN (test code = 2208) 15 MG/DL CREATININE (test code = 2214) 0.48 MG/DL eGFR AMER. (test cod e = 02127) 146 ML/MIN/1.73 eGFR NON- AMER. (test code = 95824) 126 ML/MIN/1.73 CALCULATED BUN/CREAT (test code = 2235) 31 RATIO SODIUM (test code = 2231) 138 MEQ/L POTASSIUM (test code = 2228) 3.9 MEQ/L CHLORIDE (test code = 2215) 106 MEQ/L CARBON DIOXIDE (test code = 2206) 20 MEQ/L CALCIUM (test code = 2209) 9.1 MG/DL PROTEIN, TOTAL (test code = 2229) 7.2 G/DL ALBUMIN (test code = 2201) 4.1 G/DL CALCULATED GLOBULIN (test code = 2240) 3.1 G/DL CALCULATED A/G RATIO (test code = 2234) 1.3 RATIO BILIRUBIN, TOTAL (test code = 2207) 0.3 MG/DL ALKALINE PHOSPHATASE (test code = 2204) 66 U/L SGOT (AST) (test code = 2218) 11 U/L SGPT (ALT) (test code = 2219) 9 U/L COMPREHENSIVE METABOLIC [id number] 00:00:00* Test Item Value Reference Range Interpretation Comme nts GLUCOSE (test code = 2217) 85 MG/DL BUN (test code = 2208) 15 MG/DL CREATININE (test code = 2214) 0.48 MG/DL eGFR AMER. (test cod e = 22119) 146 ML/MIN/1.73 eGFR NON- AMER. (test code = 73241) 126 ML/MIN/1.73 CALCULATED BUN/CREAT (test code = 2235) 31 RATIO SODIUM (test code = 2231) 138 MEQ/L POTASSIUM (test code = 2228) 3.9 MEQ/L CHLORIDE (test code = 2215) 106 MEQ/L CARBON DIOXIDE (test code = 2206) 20 MEQ/L CALCIUM (test code = 2209) 9.1 MG/DL PROTEIN, TOTAL (test code = 2229) 7.2 G/DL ALBUMIN (test code = 2201) 4.1 G/DL CALCULATED GLOBULIN (test code = 2240) 3.1 G/DL CALCULATED A/G RATIO (test code = 2234) 1.3 RATIO BILIRUBIN, TOTAL (test code = 2207) 0.3 MG/DL ALKALINE PHOSPHATASE (test code = 2204) 66 U/L SGOT (AST) (test code = 2218) 11 U/L SGPT (ALT) (test code = 2219) 9 U/L LIPID [id number] 00:00:00* Test Item Value Reference Range Interpretation Comme nts CHOLESTEROL (test code = 2210) 187 MG/DL TRIGLYCERIDES (test code = 2232) 284 MG/DL HDL CHOLESTEROL (test code = 2220) 39 MG/DL CALCULATED LDL CHOL (test co de = 2237) 91 MG/DL RISK RATIO LDL/HDL (test cod e = 2238) 2.34 RATIO LIPID [id number] 00:00:00* Test Item Value Reference Range Interpretation Comme nts CHOLESTEROL (test code = 2210) 187 MG/DL TRIGLYCERIDES (test code = 2232) 284 MG/DL HDL CHOLESTEROL (test code = 2220) 39 MG/DL CALCULATED LDL CHOL (test co de = 2237) 91 MG/DL RISK RATIO LDL/HDL (test cod e = 2238) 2.34 RATIO CBC W/AUTO [id number] 00:00:00* Test Item Value Reference Range Interpretation Comme nts WBC (test code = 1001) 9.7 K/UL [...] code = 1015) 261 K/UL CBC W/AUTO [id number] 00:00:00* Test Item Value Reference Range Interpretation Comme nts WBC (test code = 1001) 9.7 K/UL [...] code = 1015) 261 K/UL CBC W/AUTO [id number] 00:00:00* Test Item Value Reference Range Interpretation Comme nts WBC (test code = 1001) 9.7 K/UL [...] (test code = 1015) 261 K/UL HEMOGLOBIN [id number] 00:00:00* Test Item Value Reference Range Interpretation Comme nts HEMOGLOBIN A1c (test code = 71401) 5.3 % HEMOGLOBIN [id number] 00:00:00* Test Item Value Reference Range Interpretation Comme nts HEMOGLOBIN A1c (test code = 22947) 5.3 % HEMOGLOBIN [id number] 00:00:00* Test Item Value Reference Range Interpretation Comme nts HEMOGLOBIN A1c (test code = 41682) 5.3 % [id number] 00:00:00* Test Item Value Reference Range Interpretation Comme nts TSH (test code = 2821) 0.9 UIU/ML [id number] 00:00:00* Test Item Value Reference Range Interpretation Comme nts TSH (test code = 2821) 0.9 UIU/ML [id number] 00:00:00* Test Item Value Reference Range Interpretation Comme nts TSH (test code = 2821) 0.9 UIU/ML COMPREHENSIVE METABOLIC [id number] 00:00:00* Test Item Value Reference Range Interpretation Comme nts GLUCOSE (test code = 2217) 85 MG/DL BUN (test code = 2208) 15 MG/DL CREATININE (test code = 2214) 0.48 MG/DL eGFR AMER. (test cod e = 10175) 146 ML/MIN/1.73 eGFR NON- AMER. (test code = 68012) 126 ML/MIN/1.73 CALCULATED BUN/CREAT (test code = 2235) 31 RATIO SODIUM (test code = 2231) 138 MEQ/L POTASSIUM (test code = 2228) 3.9 MEQ/L CHLORIDE (test code = 2215) 106 MEQ/L CARBON DIOXIDE (test code = 2206) 20 MEQ/L CALCIUM (test code = 2209) 9.1 MG/DL PROTEIN, TOTAL (test code = 2229) 7.2 G/DL ALBUMIN (test code = 2201) 4.1 G/DL CALCULATED GLOBULIN (test code = 2240) 3.1 G/DL CALCULATED A/G RATIO (test code = 2234) 1.3 RATIO BILIRUBIN, TOTAL (test code = 2207) 0.3 MG/DL ALKALINE PHOSPHATASE (test code = 2204) 66 U/L SGOT (AST) (test code = 2218) 11 U/L SGPT (ALT) (test code = 2219) 9 U/L COMPREHENSIVE METABOLIC [id number] 00:00:00* Test Item Value Reference Range Interpretation Comme nts GLUCOSE (test code = 2217) 85 MG/DL BUN (test code = 2208) 15 MG/DL CREATININE (test code = 2214) 0.48 MG/DL eGFR AMER. (test cod e = 32022) 146 ML/MIN/1.73 eGFR NON- AMER. (test code = 40648) 126 ML/MIN/1.73 CALCULATED BUN/CREAT (test code = 2235) 31 RATIO SODIUM (test code = 223) 138 MEQ/L POTASSIUM (test code = 2228) 3.9 MEQ/L CHLORIDE (test code = 2215) 106 MEQ/L CARBON DIOXIDE (test code = 2206) 20 MEQ/L CALCIUM (test code = 2209) 9.1 MG/DL PROTEIN, TOTAL (test code = 222) 7.2 G/DL ALBUMIN (test code = 220) 4.1 G/DL CALCULATED GLOBULIN (test code = 2240) 3.1 G/DL CALCULATED A/G RATIO (test code = 2234) 1.3 RATIO BILIRUBIN, TOTAL (test code = 220) 0.3 MG/DL ALKALINE PHOSPHATASE (test code = 2203) 66 U/L SGOT (AST) (test code = 221) 11 U/L SGPT (ALT) (test code = 221) 9 U/L LIPID [id number] 00:00:00* Test Item Value Reference Range Interpretation Comme nts CHOLESTEROL (test code = 2210) 187 MG/DL TRIGLYCERIDES (test code = 2232) 284 MG/DL HDL CHOLESTEROL (test code = 2220) 39 MG/DL CALCULATED LDL CHOL (test co de = 2237) 91 MG/DL RISK RATIO LDL/HDL (test cod e = 2238) 2.34 RATIO LIPID [id number] 00:00:00* Test Item Value Reference Range Interpretation Comme nts CHOLESTEROL (test code = 2210) 187 MG/DL TRIGLYCERIDES (test code = 2232) 284 MG/DL HDL CHOLESTEROL (test code = 2220) 39 MG/DL CALCULATED LDL CHOL (test co de = 2237) 91 MG/DL RISK RATIO LDL/HDL (test cod e = 2238) 2.34 RATIO CBC W/AUTO [id number] 00:00:00* Test Item Value Reference Range Interpretation Comme nts WBC (test code = 1001) 9.7 K/UL [...] code = 1015) 261 K/UL CBC W/AUTO [id number] 00:00:00* Test Item Value Reference Range Interpretation Comme nts WBC (test code = 1001) 9.7 K/UL [...] code = 1015) 261 K/UL CBC W/AUTO [id number] 00:00:00* Test Item Value Reference Range Interpretation Comme nts WBC (test code = 1001) 9.7 K/UL [...] (test code = 1015) 261 K/UL HEMOGLOBIN [id number] 00:00:00* Test Item Value Reference Range Interpretation Comme nts HEMOGLOBIN A1c (test code = 45916) 5.3 % HEMOGLOBIN [id number] 00:00:00* Test Item Value Reference Range Interpretation Comme nts HEMOGLOBIN A1c (test code = 17047) 5.3 % HEMOGLOBIN [id number] 00:00:00* Test Item Value Reference Range Interpretation Comme nts HEMOGLOBIN A1c (test code = 92446) 5.3 % [id number] 00:00:00* Test Item Value Reference Range Interpretation Comme nts TSH (test code = 2821) 0.9 UIU/ML [id number] 00:00:00* Test Item Value Reference Range Interpretation Comme nts TSH (test code = 2821) 0.9 UIU/ML [id number] 00:00:00* Test Item Value Reference Range Interpretation Comme nts TSH (test code = 2821) 0.9 UIU/ML Notes Date/Time Note Provider Source 2023-04-27 20:29:04 IbT6ej4hDCjUgJSBwcnn Xhcm3euvmga0 4kPPF4bXYtY+Uhoe4I2/wto/GhAwUaTP 0576-21-98V45:29:04 Patient eloped before dispo. 73035-4Hwrxruzaa department FmsgRK4063-06-78C87:29:17Emergen department NoteTXT1.2.840.444148.1.13.104.2 .7.2.816873|[id number] e for patient dffq39724-2ZtwiZY686618791Rgzqqq ly M Felix RN[address] OsplYmtaaeapiQbtvogvduKPCK953688 5015FWABJYQPISLFDHQJLBOFFO1746-1 8-07T20:29:171.2.840.029392.1.72 .3.15|1.2.840.789754.1.13.104.2. 7.2.727879_[id number] Carlyn Payne RN [facility] 2023-04-27 20:24:25 rzB+96TORFowJQ51qnDh d8HJjcNdUEXY 62NBkpJgLARMKx/NZjxSVF6vfaicxUny 6246-89-80P70:24:25 Patient called from [facility]. No answer 80656-7Lhslrmjpr department NtzlVX9950-33-47R52:24:34[facility] NoteTXT1.2.840.859535.1.13.104.2 .7.2.041833|[id number] e for patient niac30595-3HatoLKMGYNQZJV[address]TX[address] 3719TXNVLKMIPFDNFHUEQDMWBY2732-7 04-27T20:24:341.2.840.760679.1.72 .3.15|1.2.840.336153.1.13.104.2. 7.2.727879_[id number] [facility] 2023-04-27 19:54:38 cIWDUhtDw1ULoEaN5KtX EmdRk2g4Bjj1 xpZviTdnALd6bEQ6rF3HGbGArhLD681y 4799-83-75X38:54:38 Patient called from [facility]. No answer. 18451-1Uxkzmizjo department GlggGS0505-71-22R32:54:49[facility] department NoteTXT1.2.840.131229.1.13.104.2 .7.2.402787|[id number] e for patient vpsw96651-5EcpmZQAIHMBIBV04 [address]TX[address] 2224DFXPIOZFCDCOLSOMOGEVEQ5021-7 9:54:491.2.840.077224.1.72 .3.15|1.2.840.951418.1.13.104.2. 7.2.727879_[id number] [facility] 2023-04-27 16:32:23 a84QZ80lUMBJPLHWC7Yv hBgXD0eblNyf 5iQGfKW6h6khbXIZyK5pY3XrMfY++D45 9391-75-46U15:32:23 Patient reports having a headache for the past couple of days. Reports taking 1000mg Tylenol every 4 hours with no relief. Reports nausea / vomiting. Head pain at the front / top of head 94483-8Iijybadbl department Triage rjwrML7844-35-19J88:33:26[facility] department Triage noteTXT1.2.840.311184.1.13.104.2 .7.2.499369|[id number] e for patient qbqu16976-8Tkgfnnzyx department [id number] M Hayes RN[address] RbblFcdxqefxxLuhlzjbagNONH709696 5484ONLTBEPUPENRQHOAUYXLOT8777-6 :33:261.2.840.516792.1.72 .3.15|1.2.840.773641.1.13.104.2. 7.2.727879_[id number] Jade Parikh RN [facility]"
[2024-01-11] MEDS ORDERED: IBUPROFEN 400 MG TAB ONE ×2 (11:15→11:19)
--- NOTE | 2024-01-11 11:22 | RAD REPORT ---
EXAM DESCRIPTION: RAD - Foot Left 3 View - 01/11/2024 10:50 am CLINICAL HISTORY: PAIN COMPARISON: No comparisons TECHNIQUE: Left foot, 3 views. FINDINGS: No fracture, dislocation or periosteal reaction. No air or foreign body in the soft tissues. Enthesopathy at the Achilles tendon attachment. IMPRESSION: Negative left foot radiographs.
--- NOTE | 2024-01-11 11:23 | RAD REPORT ---
EXAM DESCRIPTION: RAD - Ankle Left 3 View - 01/11/2024 10:50 am CLINICAL HISTORY: PAIN COMPARISON: Foot Left 3 View dated 01/11/2024 TECHNIQUE: Left ankle, 3 views. FINDINGS: No fracture, dislocation or periosteal reaction. No joint effusion seen. No joint space na rrowing. Soft tissue swelling about the lateral aspect of the ankle. IMPRESSION: No acute osseous abnormality. Soft tissue swelling as above.
--- NOTE | 2024-01-11 11:25 | RAD REPORT ---
EXAM DESCRIPTION: RAD - Tib Fib Left - 01/11/2024 10:50 am CLINICAL HISTORY: PAIN COMPARISON: No comparisons TECHNIQUE: Left tibia and fibula, 2 views. FINDINGS: No fracture is identified. There is no dislocation or periosteal reaction noted. Epiphyses and growth plates are normal in appea claudia. No foreign body or other soft tissue abnormality. IMPRESSION: Negative left tibia & fibula examination.
--- NOTE | 2024-01-11 11:32 | EDPHYS ---
Physician Documentation [facility] Name: Maria De Jesus Wagoner Age: 43 yrs Sex: Female : 1980 Arrival Date: 01/11/2024 Time: : Bed 11 Private MD: ED Physician Darrion Ortega HPI: 01/10 10:29 This 43 yrs old Female presents to ER via Unassigned with complaints of Ankle rn Injury. 10:29 The patient presents with an injury, pain. The complaints affect the left ankle. Onset: rn The symptoms/episode began/occurred last night. Context: The problem was sustained at home, resulted from a mis-step by the patient, The mechanism of injury involved inversion of the affected ankle. The patient can partially bear weight on the affected extremity. the patient is able to ambulate. Modifying factors: The symptoms are alleviated by elevation of extremity, the symptoms are aggravated by movement. Severity of symptoms: At their worst the symptoms were moderate, in the emergency department the symptoms are unchanged. The patient has not experienced similar symptoms in the past. Patient reports tripped over a rug last night, inversion injury of the left ankle/foot. Reports mainly pain to lateral left ankle and top of foot. Also pain radiates upward to the distal tibial region. No other injury.. 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 - Infectious Disease History:: Denies. - Social history:: Smoking status: Patient denies any tobacco usage or history of. - Family history:: not pertinent. - Hospitalizations: : No recent hospitalization is reported. ROS: 10:29 Constitutional: Negative for fever, chills, and weight loss, Neck: Negative for injury, rn pain, and swelling, Back: Negative for injury and pain, MS/Extremity: Positive for left ankle injury and pain Skin: Negative for injury, rash, and discoloration, Neuro: Negative for headache, weakness, numbness, tingling, and seizure, Exam: 10:29 Constitutional: This is a well developed, well nourished patient who is awake, alert, rn and in no acute distress. MS/ Extremity: Pulses equal, no cyanosis. Neurovascular intact. Mild tenderness left lateral malleolus and dorsum of midfoot. No gross deformity. No open wounds. No tenderness at knee or proximal tib-fib. Vital Signs: 10:28 BP 126 / 90; Pulse 82; Resp 16; Temp 97; Pulse Ox 100% ; ko1 11:30 BP 110 / 281; Pulse 77; Resp 18; Pulse Ox 99% on R/A; rs5 MDM: 10:25 Patient medically screened. jh7 11:31 Differential diagnosis: fracture, sprain. Data reviewed: vital signs, nurses notes, rn radiologic studies, plain films, and as a result, I will discharge patient. Counseling: I had a detailed discussion with the patient and/or guardian regarding the historical points, exam findings, and any diagnostic results supporting the discharge/admit diagnosis, radiology results, the need for outpatient follow up, to return to the emergency department if symptoms worsen or persist or if there are any questions or concerns that arise at home. Special discussion: I discussed with the patient/guardian in detail that at this point there is no indication for admission to the hospital. It is understood, however, that if the symptoms persist or worsen the patient needs to return immediately for re-evaluation. Further emergent ED testing is not indicated at this point in time. I discussed with the patient/guardian in detail the need to arrange with the PCP or specialist further outpatient testing, MRI, Based on the history and exam findings, there is no indication for further emergent testing or inpatient evaluation. I discussed with the patient/guardian the need to see the orthopedic surgeon for further evaluation of the symptoms. I discussed with the patient/guardian the need to see the primary care provider for further evaluation of the symptoms. 01/10 10:28 Order name: XRAY Foot LEFT 3 View; Complete Time: 11:30 rn 01/10 10:28 Order name: XRAY Ankle LEFT 3 view; Complete Time: 11:30 rn 01/10 10:28 Order name: XRAY Tib Fib LEFT; Complete Time: 11:30 rn Administered Medications: 11:17 Drug: Ibuprofen PO 800 mg PO once Route: PO; aa5 Disposition Summary: 01/11/24 11:31 Discharge Ordered Notes: Location: Home rn Problem: new rn Symptoms: have improved rn Condition: Stable rn Diagnosis - Sprain of unspecified ligament of left ankle, initial encounter rn Followup: rn - With: Private Physician - When: As needed - Reason: Recheck today's complaints, Re-evaluation by your physician Discharge Instructions: - Discharge Summary Sheet rn - Ankle Sprain rn Forms: - Medication Reconciliation Form rn - Thank You Letter rn - Antibiotic test and turn up technician - Prescription Opioid Use rn - Patient Portal Instructions rn - Leadership Thank You Letter rn Signatures: Dispatcher [employer] EDDarrion Munoz MD MD rn Calderon, Audri RN RN aa5 Kaye Chapman, PACKAGE WORKER PACKAGE WORKER 7 Estrella Leos, RN RN ko1
--- NOTE | 2024-01-11 11:32 | ER ---
Nurse's Notes [facility] Name: Maria De Jesus Wagoner Age: 43 yrs Sex: Female : 1980 Arrival Date: 01/11/2024 Time: : Bed 11 Private MD: Diagnosis: Sprain of unspecified ligament of left ankle, initial encounter Presentation: 01/10 10:28 Chief complaint: Patient states: pain to left ankle after tripping over a rug last ko1 night. Patient is ambulatory. Coronavirus screen: At this time, the client does not indicate any symptoms associated with coronavirus-19. Ebola Screen: No symptoms or risks identified at this time. Initial Sepsis Screen: Does the patient meet any 2 criteria? No. Patient's initial sepsis screen is negative. Does the patient have a suspected source of infection? No. Patient's initial sepsis screen is negative. Risk Assessment: Do you want to hurt yourself or someone else? Patient reports no desire to harm self or others. Onset of symptoms was January 11, 2024. 10:28 Method Of Arrival: Ambulatory ko1 10:28 Acuity: JOCELIN 4 ko1 Triage Assessment: 10:29 General: Appears in no apparent distress. Behavior is calm, cooperative, appropriate ko1 for age. Pain: Complains of pain in left lateral ankle. Musculoskeletal: Reports pain in left ankle. 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 - Infectious Disease History:: Denies. - Social history:: Smoking status: Patient denies any tobacco usage or history of. - Family history:: not pertinent. - Hospitalizations: : No recent hospitalization is reported. Screenin:32 [facility] ED Fall Risk Assessment (Adult) History of falling in the last 3 months, rs5 including since admission No falls in past 3 months (0 pts) Confusion or Disorientation No (0 pts) Intoxicated or Sedated No (0 pts) Impaired Gait No (0 pts) Mobility Assist Device Used No (0 pt) Altered Elimination No (0 pt) Score/Fall Risk Level 0 - 2 = Low Risk Oriented to surroundings, Maintained a safe environment. Abuse screen: Denies threats or abuse. Nutritional screening: No deficits noted. Tuberculosis screening: No symptoms or risk factors identified. Assessment: 10:32 General: Appears in no apparent distress. comfortable, Behavior is calm, cooperative. rs5 Pain: Complains of pain in left ankle Pain currently is 3 out of 10 on a pain scale. Quality of pain is described as aching, Is continuous. Neuro: Level of Consciousness is awake, alert, obeys commands, Oriented to person, place, time, situation. Cardiovascular: Patient's skin is warm and dry. Rhythm is regular. Respiratory: Airway is patent Respiratory effort is even, unlabored, Respiratory pattern is regular, symmetrical. GI: Abdomen is round non-distended, Abd is soft and non tender. : No signs and/or symptoms were reported regarding the genitourinary system. EENT: No signs and/or symptoms were reported regarding the EENT system. Derm: Skin is intact, Skin is pink, warm \T\ dry. Musculoskeletal: Range of motion: intact in all extremities. 11:29 Reassessment: Patient and/or family updated on plan of care and expected duration. Pain rs5 level reassessed. Patient is alert, oriented x 3, equal unlabored respirations, skin warm/dry/pink. Patient states feeling better. Patient states symptoms have improved. Vital Signs: 10:28 BP 126 / 90; Pulse 82; Resp 16; Temp 97; Pulse Ox 100% ; ko1 11:30 BP 110 / 281; Pulse 77; Resp 18; Pulse Ox 99% on R/A; rs5 ED Course: 10:25 Patient arrived in ED. mg5 10:25 Darrion Ortega MD is Attending Physician. rn 10:25 [facility] jh7 10:29 Triage completed. ko1 10:29 Arm band placed on right wrist. Patient placed in an exam room, on a stretcher, on ko1 pulse oximetry, Patient notified of wait time. 10:32 Patient has correct armband on for positive identification. Placed in gown. Bed in low rs5 position. Call light in reach. Side rails up X2. 10:32 No provider procedures requiring assistance completed. rs5 10:38 Roderick Aiken, RN is Primary Nurse. rs5 10:52 XRAY Foot LEFT 3 View In Process Unspecified. EDMS 10:52 XRAY Ankle LEFT 3 view In Process Unspecified. EDMS 10:52 XRAY Tib Fib LEFT In Process Unspecified. EDMS 11:50 IV discontinued, intact, bleeding controlled, No redness/swelling at site. Pressure rs5 dressing applied. Administered Medications: 11:17 Drug: Ibuprofen PO 800 mg PO once Route: PO; aa5 Medication: 12:05 VIS not applicable for this client. rs5 Outcome: 11:31 Discharge ordered by . rn 11:50 Discharged to home ambulatory, rs5 11:50 Condition: stable 11:50 Discharge instructions given to patient, family, Instructed on discharge instructions, follow up and referral plans. Demonstrated understanding of instructions, follow-up care, 11:52 Patient left the ED. aa5 Signatures: Dispatcher [employer] EDMS Darrion Ortega MD MD rn Calderon, Audri RN RN aa5 Kaye Chapman, ARNOLD CLINICAL STAFF ANESTHESIOLOGIST 7 Estrella Leos RN RN ko1 Roderick Aiken, RN RN rs5 Cheli Fenton mg5 Corrections: (The following items were deleted from the chart) 18:43 14:05 BP 120 / 81; Pulse 77bpm; Resp 18bpm; Pulse Ox 99% RA; rs5 rs5 01/11 10:29 01/10 11:09 Reassessment: Patient and/or family updated on plan of care and expected rs5 duration. Pain level reassessed. Patient is alert, oriented x 3, equal unlabored respirations, skin warm/dry/pink. Patient states feeling better. Patient states symptoms have improved. rs5 01/11 10:30 01/10 11:01 BP 110 / 281; Pulse 77bpm; Resp 18bpm; Pulse Ox 99% RA; rs5 rs5
[2024-01-11 11:58] VITALS: BP 126/90; TEMP 97; O2SAT 100
== END 2024-01-11 11:52 | disposition home or self-care (01) ==
LOC: ER 10:22
DX: S93.402A Sprain of unspecified ligament of left ankle, initial encounter (principal)
CPT/HCPCS: 99283

== ENCOUNTER 2025-06-08 07:59 | Emergency (ER) | payer OTHER, SELFPAY ==
--- OUTSIDE RECORDS SUMMARY | 2025-06-08 08:08 | XMS REPORT | Continuity of Care Document ---
Author Name Unknown Address [address] [facility] [place] [address] [facility] Address [address] [facility] [place] [address] Care Team Providers Care Bus Starter Name Role Phone Pcp, Patient Does Not Have A Primary Care Physic nanci [email or web address] Attending Clinician SERJIO Rivera Attending Clinician Serjio Abad NP Attending Clinician [phone] [email or web address] Admitting Clinician Candelario sifuentes Payers Payer Name Policy Type Policy Number Effective Date Expirati on Date Source COMMERCIAL FFS CI [id number] SELF-PAY CI [id number] [employer] [id number] 2023 00:00:00 Problems Condition Name Condition Details Condition Category Status Onset Date Resolution Date Last Treatment Date Treating Clinician Comments Source Other general counseling and advice for contracept carolyn management Other general counseling and advice for contracept carolyn management Disease Active 04-08 00:00: 00 [facility] Essential hypertensi on, benign Essential hypertensi on, benign Disease Active 04-08 00:00: 00 [facility] Tubal ligation status Tubal ligation status Disease Active 04-08 00:00: 00 [facility] Non morbid obesity due to excess calories Non morbid obesity due to excess calories Disease Active 7-19 00:00: 00 [facility] Allergies, Adverse Reactions, Alerts Allergy Name Allergy Type Status Severity Reaction(s) Onset Date Inactive Date Treating Clinician Comments Source NO KNOWN ALLERGIE S Drug Class Active [facility] Social History Social Habit Start Date Stop Date Quantity Comments Source Gender identity [facility] Sexual orientation [facility] Sex Assigned At 1980 00:00:00 1980 00:00:00 [facility] Smoking Status Start Date Stop Date Source Tobacco smoking consumption unknown [facility] Medications Ordered Medication Name Filled Medication Name Start Date Stop Date Current Medication? Ordering Clinician Indication Dosage Frequency Signature (SIG) Comments Components Source losartan 50 mg tablet 05-25 00:00: 00 Yes 1mg Alex Gimenez hydroxyzine HCl 50 mg tablet 0 05-25 00:00: 00 Yes 1mg Alex Gimenez fluoxetine 40 mg capsule 05-25 00:00: 00 Yes 1mg Alex Gimenez ARIPIPRAZOL E 5MG 2023-0 1-29 00:00: 00 Yes 5000 Alex Gimenez BUSPIRONE 15MG 2023-0 1-29 00:00: 00 Yes [id number] Alex Gimenez ARIPIPRAZOL E 2MG 2023-0 1-09 00:00: 00 Yes 2000 Alex Gimenez DULOXETINE 60MG DR 2023-0 1-09 00:00: 00 Yes [id number] Alex Gimenez BUSPIRONE 10MG 2022-1 1-15 00:00: 00 Yes [id number] Alex Gimenez LISINOPRIL 20MG 2022-1 0-15 00:00: 00 Yes [id number] Alex Gimenez OMEPRAZOLE 40 MG CPDR 2022-0 9-06 00:00: 00 Yes Alex Gimenez LISINOPRIL 20 MG TABS 2022-0 9-06 00:00: 00 Yes 20 Alex Gimenez buspirone HCl (BUSPIRONE ORAL) 2022-0 - 19:54: 31 Yes Take by mouth daily. [facility] lisinopriL 20 mg tablet 2022-0 8-07 19:54: 31 Yes 20mg Take 1 tablet by mouth in the morning. [facility] omeprazole 40 mg capsule 8-07 19:54: 31 Yes 40mg Take 1 capsule by mouth in the morning. [facility] DULOXETINE HCL 30 MG CPEP 6-08 00:00: 00 Yes 30 Alex Gimenez BUPROPION HCL ER (XL) 300 MG TB24 6-08 00:00: 00 Yes 300 Alex Gimenez LISINOPRIL 20 MG TABS 6-05 00:00: 00 Yes 20 Alex Gimenez OMEPRAZOLE 40 MG CPDR 6-05 00:00: 00 Yes 40 Alex Gimenez OMEPRAZOLE 40 MG CPDR 5-02 00:00: 00 Yes 40 Alex Gimenez DULOXETINE HCL 30 MG CPEP 4-04 00:00: 00 Yes 30 Alex Gimenez LISINOPRIL 20 MG TABS 3-29 00:00: 00 Yes 20 Alex Gimenez TAKE 1 TABLET BY MOUTH EVERY 12 HOURS FOR 10 DAYS WITH FOOD 3-20 00:00: 00 Yes Alex Gimenez ALBUTEROL SULFATE (2.5 MG/3ML) 0.08 ALBUTEROL SULFATE (2.5 MG/3ML) 0.08 3% NEBU 3-04 00:00: 00 Yes 83 Alex Gimenez ALBUTEROL SULFATE HFA 108 (90 Base) ALBUTEROL SULFATE HFA 108 (90 Base) MCG/ACT AERS 3-04 00:00: 00 Yes 108 Alex Gimenez AMOX/K CLAV [id number] 1856-0 3-04 00:00: 00 Yes Alex Gimenez HYDROCO/APA P 5-325MG 2-15 00:00: 00 Yes Alex Gimenez TAKE 1 CAPSULE BY MOUTH THREE TIMES A DAY UNTIL FINISHED 2-13 00:00: 00 Yes Alex Gimenez TAKE 1 CAPSULE BY MOUTH TWICE DAILY 1-21 00:00: 00 Yes Alex Gimenez TAKE 1 TABLET DAILY. 1-21 00:00: 00 - 00:00 :00 No 300 Alex Tash Gimenez TAKE 1 CAPSULE TWICE DAILY. 1-21 00:00: 00 01-27 00:00 :00 No 30 Alex Tash Gimenez TAKE 1 TABLET DAILY. 1-16 00:00: 00 01-27 00:00 :00 No Alex F Pernell TAKE 1 TABLET DAILY. 1-16 00:00: 00 01-27 00:00 :00 No 300 Alex Tash Gimenez TAKE 1 TABLET DAILY. 2021-09 2-22 00:00: 00 01-27 00:00 :00 No 150 Alex F Pernell Dose Unknown 2021-09 2-15 00:00: 00 Yes Alex F Pernell Dose Unknown 2021-09 2-15 00:00: 00 Yes Alex F Pernell Dose Unknown 2021-09 2-15 00:00: 00 Yes Alxe F Pernell Dose Unknown 2021-09 2-15 00:00: 00 Yes Alex F Pernell Dose Unknown 2021-09 2-15 00:00: 00 Yes Alex F Pernell TAKE 1 CAP DAILY 2021-09 2-12 00:00: 00 01-27 00:00 :00 No 40 Alex Tash Gimenez TAKE 1 TABLET DAILY. 2021-09 2-12 00:00: 00 01-27 00:00 :00 No 20 Alex Tash Gimenez TAKE 1 CAPSULE TWICE DAILY. 2021-09 1-23 00:00: 00 01-27 00:00 :00 No 30 Alex F Pernell Dose Unknown 2021-09 1-08 00:00: 00 Yes Alex F Pernell TAKE 1 CAP DAILY 9-02 00:00: 00 Yes Alex F Pernell TAKE 1 CAP DAILY 9- 00:00: 00 No 40 TAKE 1 CAP DAILY 9-02 00:00: 00 No TAKE 1 TABLET BY MOUTH EVERY 12 HOURS FOR 7 DAYS 8-16 00:00: 00 Yes Alex F Pernell TAKE 1 TABLET BY MOUTH EVERY 12 HOURS FOR 7 DAYS 8-16 00:00: 00 No TAKE 1 TABLET BY MOUTH EVERY 12 HOURS FOR 7 DAYS 8-16 00:00: 00 No Dose Unknown 7-18 00:00: 00 Yes Alex Gimenez TAKE 1 TABLET BY MOUTH EVERY 12 HOURS 2021-0 18 00:00: 00 Yes 100 Alex Gimenez Cymbalta 30 mg capsule,del ayed release 2021-0 18 00:00: 00 No 1mg TAKE 1 TABLET BY MOUTH EVERY 12 HOURS 2021-0 18 00:00: 00 No 100 Cymbalta 30 mg capsule,del ayed release 0 04-07 00:00: 00 No 1mg TAKE 1 TABLET BY MOUTH EVERY 12 HOURS 2021-0 04-07 00:00: 00 No 100 Cymbalta 30 mg capsule,del ayed release 0 03-12 00:00: 00 Yes 1mg Alex Gimenez Cymbalta 30 mg capsule,del ayed release 0 03-12 00:00: 00 No 1mg Cymbalta 30 mg capsule,del ayed release 0 03-12 00:00: 00 No 1mg Dose Unknown 0 02-19 00:00: 00 Yes Alex Gimenez TAKE 1 CAP DAILY 0 02-19 00:00: 00 Yes Alex Gimenez TAKE 1 TABLET BY MOUTH EVERY 12 HOURS 0 02-19 00:00: 00 Yes Alex Gimenez TAKE 1 TABLET BY MOUTH EVERY 6 HOURS NEEDED FOR PAIN WITH FOOD 0 02-19 00:00: 00 Yes Alex Gimenez lisinopril 20 mg tablet 0 02-19 00:00: 00 No 1mg omeprazole 40 mg capsule,del ayed release 0 02-19 00:00: 00 No 1mg TAKE 1 TABLET BY MOUTH EVERY 12 HOURS 0 02-19 00:00: 00 No TAKE 1 TABLET BY MOUTH EVERY 6 HOURS NEEDED FOR PAIN WITH FOOD 2021-0 02-19 00:00: 00 No lisinopril 20 mg tablet 0 02-19 00:00: 00 No 1mg TAKE 1 CAP DAILY 0 02-19 00:00: 00 No TAKE 1 TABLET BY MOUTH EVERY 12 HOURS 0 02-19 00:00: 00 No TAKE 1 TABLET BY MOUTH EVERY 6 HOURS NEEDED FOR PAIN WITH FOOD 0 02-19 00:00: 00 No Cymbalta 30 mg capsule,del ayed release 2022-0 5-23 00:00: 00 Yes 1mg Alex Gimenez Dose Unknown 2-0 5-23 00:00: 00 Yes Alex Gimenez Cymbalta 30 mg capsule,del ayed release 2021-0 5- 00:00: 00 No 1mg Dose Unknown 2-0 5- 00:00: 00 No Cymbalta 30 mg capsule,del ayed release 2-0 5- 00:00: 00 No 1mg Dose Unknown 2-0 5-23 00:00: 00 No Dose Unknown 2-0 5-12 00:00: 00 Yes Alex Gimenez Cymbalta 20 mg capsule,del ayed release 2021-0 5-12 00:00: 00 No 1mg Cymbalta 20 mg capsule,del ayed release 2-0 5 00:00: 00 No 1mg Dose Unknown 2021-0 3-31 00:00: 00 Yes Alex Gimenez Dose Unknown 2021-0 3-31 00:00: 00 Yes Alex Gimenez Dose Unknown 2021-0 3-31 00:00: 00 No Dose Unknown 2021-0 3-31 00:00: 00 No Dose Unknown 2-0 3-31 00:00: 00 No Dose Unknown 2-0 3-31 00:00: 00 No lisinopril 20 mg tablet 2021-0 2-22 00:00: 00 Yes 1mg Alex Gimenez omeprazole 40 mg capsule,del ayed release 2021-0 2-22 00:00: 00 Yes 1mg Alex Gimenez lisinopril 20 mg tablet 2021-0 2-22 00:00: 00 No 1mg omeprazole 40 mg capsule,del ayed release 2-0 2-22 00:00: 00 No 1mg lisinopril 20 mg tablet 2-0 2-22 00:00: 00 No 1mg omeprazole 40 mg capsule,del ayed release 2021-0 2-22 00:00: 00 No 1mg Dose Unknown 2-0 2-09 00:00: 00 Yes Alex Gimenez Bromfed DM 2 mg-30 mg-10 mg/5 mL oral syrup 2021-0 2-09 00:00: 00 No 5mg/5 mL Bromfed DM 2 mg-30 mg-10 mg/5 mL oral syrup 2-09 00:00: 00 No 5mg/5 mL Dose Unknown -14 00:00: 00 Yes Alex Gimenez Dose Unknown - 00:00: 00 Yes Alex Gimenez Dose Unknown - 00:00: 00 Yes Alex Gimenez Wellbutrin XL 150 mg 24 hr tablet, extended release - 00:00: 00 No 1mg Zoloft 50 mg tablet 10-04 00:00: 00 No 1mg buspirone 15 mg tablet 10-04 00:00: 00 No 1mg Wellbutrin XL 150 mg 24 hr tablet, extended release 10-04 00:00: 00 No 1mg Zoloft 50 mg tablet 10-04 00:00: 00 No 1mg Dose Unknown 10-04 00:00: 00 No Wellbutrin XL 150 mg 24 hr tablet, extended release 2020-09 2- 00:00: 00 Yes 1mg Alex Gimenez Zoloft 50 mg tablet 2020-09 2- 00:00: 00 Yes 1mg Alex Gimenez Wellbutrin XL 150 mg 24 hr tablet, extended release 2020-09 2- 00:00: 00 No 1mg Zoloft 50 mg tablet 2020-09 2- 00:00: 00 No 1mg Wellbutrin XL 150 mg 24 hr tablet, extended release 2020-09 2- 00:00: 00 No 1mg Zoloft 50 mg tablet 2020-09 2- 00:00: 00 No 1mg Wellbutrin XL 150 mg 24 hr tablet, extended release 2020-09- 00:00: 00 Yes 1mg Alex Gimenez Zoloft 50 mg tablet 2020-09- 00:00: 00 Yes 1mg Alex Gimenez buspirone 15 mg tablet 2020-09- 00:00: 00 Yes 1mg Alex Gimenez Dose Unknown 2020-09- 00:00: 00 Yes Alex Gimenez Wellbutrin XL 150 mg 24 hr tablet, [...] 2020-09 00:00: 00 No 1mg Dose Unknown 2020-09 00:00: 00 Yes Alex Gimenez Dose Unknown 2020-09 00:00: 00 Yes Alex Gimenez Dose Unknown 2020-09 00:00: 00 No Dose Unknown 2020-09 00:00: 00 No Dose Unknown 2020-09 00:00: 00 No Dose Unknown 2020-09 00:00: 00 No omeprazole 40 mg capsule,del ayed release 2020-09 0- 00:00: 00 Yes 1mg Alex Gimenez omeprazole 40 mg capsule,del ayed release 2020-09 0 00:00: 00 No 1mg omeprazole 40 mg capsule,del ayed release 2020-09 0 00:00: 00 No 1mg lisinopril 20 mg tablet 05-08 00:00: 00 Yes 1mg Alex Gimenez lisinopril 20 mg tablet 8-18 00:00: 00 No 1mg lisinopril 20 mg tablet 8 00:00: 00 No 1mg omeprazole 40 mg capsule,del ayed release 04-11 00:00: 00 Yes 1mg Alex Gimenez omeprazole 40 mg capsule,del ayed release 04-11 00:00: 00 No 1mg omeprazole 40 mg capsule,del ayed release 04-11 00:00: 00 No 1mg sulfamethox azole 800 mg-trimetho prim 160 mg tablet 03-30 00:00: 00 Yes 1mg Alex Gimenez sulfamethox azole 800 mg-trimetho prim 160 mg tablet 03-30 00:00: 00 No 1mg sulfamethox azole 800 mg-trimetho prim 160 mg tablet 03-30 00:00: 00 No 1mg ibuprofen 800 mg tablet 03-25 00:00: 00 Yes 1mg Alex Gimenez ibuprofen 800 mg tablet 03-25 00:00: 00 No 1mg ibuprofen 800 mg tablet 03-25 00:00: 00 No 1mg Dose Unknown 03-21 00:00: 00 Yes Alex Gimenez Dose Unknown 03-21 00:00: 00 Yes Alex Gimenez diclofenac 1 % topical gel 03-21 00:00: 00 No 1% cyclobenzap rine 10 mg tablet 03-21 00:00: 00 No 1mg diclofenac 1 % topical gel 03-21 00:00: 00 No 1% cyclobenzap rine 10 mg tablet 03-21 00:00: 00 No 1mg Wellbutrin XL 150 mg 24 hr tablet, extended release 03-13 00:00: 00 Yes 1mg Alex Gimenez propranolol 10 mg tablet 03-13 00:00: 00 Yes 1mg Alex Gimenez buspirone 15 mg tablet 03-13 00:00: 00 Yes 1mg Alex Gimenez Dose Unknown 03-13 00:00: 00 Yes Alex Gimenez Zoloft 100 mg tablet 03-13 00:00: 00 [...] prednisone 20 mg tablet 02-27 00:00: 00 Yes 1mg Alex Gimenez cetirizine 5 mg-pseudoep hedrine ER 120 mg tablet,exte nded release,12h r 02-27 00:00: 00 Yes 1mg Alex Gimenez amoxicillin 875 mg-potassiu m clavulanate 125 mg tablet 02-27 00:00: 00 Yes 1mg Alex Gimenez Bromfed DM 2 mg-30 mg-10 mg/5 mL oral syrup 02-27 00:00: 00 Yes 5mg/5 mL Alex Gimenez prednisone 20 mg tablet 02-27 00:00: 00 [...] cream with perineal applicator 02-21 00:00: 00 Yes % Alex Gimenez medroxyprog esterone 150 mg/mL intramuscul ar suspension 02-21 00:00: 00 Yes 1mg/mL Alex Tash Gimenez Anusol-HC 2.5 % topical cream with perineal applicator 02-21 00:00: 00 No % medroxyprog esterone 150 mg/mL intramuscul ar suspension 02-21 00:00: 00 No 1mg/mL Anusol-HC 2.5 % topical cream with perineal applicator 02-21 00:00: 00 No % medroxyprog esterone 150 mg/mL intramuscul ar suspension 02-21 00:00: 00 No 1mg/mL ProAir HFA 90 mcg/actuati on aerosol inhaler 02-20 00:00: 00 Yes 12mcg/a ctuatio n Alex F Pernell azithromyci n 250 mg tablet 02-20 00:00: 00 Yes mg Alex F Pernell benzonatate 200 mg capsule 02-20 00:00: 00 Yes 1mg Alex F Pernell Bromfed DM 2 mg-30 mg-10 mg/5 mL oral syrup 02-20 00:00: 00 Yes 5mg/5 mL Alex F Pernell benzonatate 200 mg capsule 02-20 00:00: 00 [...] lisinopril 20 mg tablet 01-23 00:00: 00 Yes 1mg Alex Gimenez lisinopril 20 mg tablet - 00:00: 00 No 1mg lisinopril 20 mg tablet 01-23 00:00: 00 No 1mg Zoloft 100 mg tablet - 00:00: 00 Yes 2mg Alex Gimenez Wellbutrin XL 150 mg 24 hr tablet, extended release - 00:00: 00 Yes 1mg Alex Gimenez propranolol 10 mg tablet - 00:00: 00 Yes 1mg Alex Gimenez buspirone 15 mg tablet 5- 00:00: 00 Yes 1mg Alex Gimenez Zoloft 100 mg tablet - 00:00: 00 No 2mg Wellbutrin XL 150 mg 24 hr tablet, extended release - 00:00: 00 No 1mg propranolol 10 mg tablet - 00:00: 00 No 1mg buspirone 15 mg tablet - 00:00: 00 No 1mg Zoloft 100 mg tablet - 00:00: 00 No 2mg Wellbutrin XL 150 mg 24 hr tablet, extended release - 00:00: 00 No 1mg propranolol 10 mg tablet - 00:00: 00 No 1mg buspirone 15 mg tablet 5- 00:00: 00 No 1mg Zoloft 100 mg tablet 0 -20 00:00: 00 Yes 2mg Alex Gimenez Wellbutrin XL 150 mg 24 hr tablet, extended release -20 00:00: 00 Yes 1mg Alex Gimenez propranolol 10 mg tablet 0 -20 00:00: 00 Yes 1mg Alex Gimenez buspirone 15 mg tablet 0 -20 00:00: 00 Yes 1mg Alex Gimenez Zoloft 100 mg tablet 0 -20 00:00: 00 No 2mg Wellbutrin XL 150 mg 24 hr tablet, extended release 0 -20 00:00: 00 No 1mg propranolol 10 mg tablet 01-08 00:00: 00 No 1mg buspirone 15 mg tablet 01-08 00:00: 00 No 1mg Zoloft 100 mg tablet 01-08 00:00: 00 No 2mg Wellbutrin XL 150 mg 24 hr tablet, extended release 01-08 00:00: 00 No 1mg propranolol 10 mg tablet 01-08 00:00: 00 No 1mg buspirone 15 mg tablet 01-08 00:00: 00 No 1mg lisinopril 20 mg tablet 12-24 00:00: 00 Yes 1mg Alex Gimenez Zoloft 100 mg tablet 12-24 00:00: 00 Yes 15mg Alex Gimenez Wellbutrin XL 150 mg 24 hr tablet, extended release 12-24 00:00: 00 Yes 1mg Alex Gimenez buspirone 15 mg tablet 12-24 00:00: 00 Yes 1mg Alex Gimenez omeprazole 40 mg capsule,del ayed release 12-24 00:00: 00 Yes 1mg Alex Gimenez lisinopril 20 mg tablet 12-24 00:00: 00 No 1mg Zoloft 100 mg tablet 12-24 00:00: 00 No 15mg Wellbutrin XL 150 mg 24 hr tablet, extended release 12-24 00:00: 00 No 1mg buspirone 15 mg tablet 12-24 00:00: 00 No 1mg omeprazole 40 mg capsule,del ayed release 12-24 00:00: 00 No 1mg lisinopril 20 mg tablet 4 00:00: 00 No 1mg Zoloft 100 mg tablet 405 00:00: 00 No 15mg Wellbutrin XL 150 mg 24 hr tablet, extended release 05 00:00: 00 No 1mg buspirone 15 mg tablet 4-05 00:00: 00 No 1mg omeprazole 40 mg capsule,del ayed release -05 00:00: 00 No 1mg Anusol-HC 2.5 % topical cream with perineal applicator 12-06 00:00: 00 Yes % Alex Gimenez Anusol-HC 2.5 % topical cream with perineal applicator 12-06 00:00: 00 No % Anusol-HC 2.5 % topical cream with perineal applicator 12-06 00:00: 00 No % sulfamethox azole 800 mg-trimetho prim 160 mg tablet - 00:00: 00 Yes 1mg Alex Gimenez sulfamethox azole 800 mg-trimetho prim 160 mg tablet 12-05 00:00: 00 No 1mg sulfamethox azole 800 mg-trimetho prim 160 mg tablet 12-05 00:00: 00 No 1mg Zoloft 100 mg tablet 3- 00:00: 00 Yes 15mg Alex Gimenez Wellbutrin XL 150 mg 24 hr tablet, extended release 3- 00:00: 00 Yes 1mg Alex Gimenez buspirone 15 mg tablet 3- 00:00: 00 Yes 1mg Alex Gimenez Zoloft 100 mg tablet 3- 00:00: 00 No 15mg Wellbutrin XL 150 mg 24 hr tablet, extended release 3- 00:00: 00 No 1mg buspirone 15 mg tablet 3- 00:00: 00 No 1mg Zoloft 100 mg tablet 3- 00:00: 00 No 15mg Wellbutrin XL 150 mg 24 hr tablet, extended release 3- 00:00: 00 No 1mg buspirone 15 mg tablet 3- 00:00: 00 No 1mg Zoloft 100 mg tablet 2- 00:00: 00 Yes 1mg Alex Gimenez Wellbutrin XL 150 mg 24 hr tablet, extended release 2- 00:00: 00 Yes 1mg Alex Gimenez buspirone 10 mg tablet 2- 00:00: 00 Yes 1mg Alex Gimenez Zoloft 100 mg tablet 10-23 00:00: 00 No 1mg Wellbutrin XL 150 mg 24 hr tablet, extended release 2 00:00: 00 No 1mg buspirone 10 mg tablet 10-23 00:00: 00 No 1mg Zoloft 100 mg tablet 10-23 00:00: 00 No 1mg Wellbutrin XL 150 mg 24 hr tablet, extended release 10-23 00:00: 00 No 1mg buspirone 10 mg tablet 10-23 00:00: 00 No 1mg ibuprofen 800 mg tablet 10-18 00:00: 00 Yes 1mg Alex Gimenez ibuprofen 800 mg tablet 10-18 00:00: 00 No 1mg ibuprofen 800 mg tablet 10-18 00:00: 00 No 1mg Zoloft 100 mg tablet 10-10 00:00: 00 Yes 1mg Alex Gimenez Wellbutrin XL 150 mg 24 hr tablet, extended release 10-10 00:00: 00 Yes 1mg Alex Gimenez buspirone 10 mg tablet 10-10 00:00: 00 Yes 1mg Alex Gimenez Zoloft 100 mg tablet 10-10 00:00: 00 No 1mg Wellbutrin XL 150 mg 24 hr tablet, extended release 10-10 00:00: 00 No 1mg buspirone 10 mg tablet 10-10 00:00: 00 No 1mg Zoloft 100 mg tablet 10-10 00:00: 00 No 1mg Wellbutrin XL 150 mg 24 hr tablet, extended release 10-10 00:00: 00 No 1mg buspirone 10 mg tablet 10-10 00:00: 00 No 1mg lisinopril 20 mg tablet 2019-09 00:00: 00 Yes 1mg Alex Gimenez lisinopril 20 mg tablet 2019-09 00:00: 00 No 1mg lisinopril 20 mg tablet 2019-09 00:00: 00 No 1mg Wellbutrin XL 150 mg 24 hr tablet, extended release 2019-09 00:00: 00 Yes 1mg Alex Gimenez Zoloft 50 mg tablet 2019-09 00:00: 00 Yes 15mg Alex Gimenez buspirone 10 mg tablet 2019-09 00:00: 00 Yes 1mg Alex Gimenez Wellbutrin XL 150 mg 24 hr tablet, extended release 2019-09 00:00: 00 No 1mg Zoloft 50 mg tablet 2019-09 00:00: 00 No 15mg buspirone 10 mg tablet 2019-09 00:00: 00 No 1mg Wellbutrin XL 150 mg 24 hr tablet, extended release 2019-09 00:00: 00 No 1mg Zoloft 50 mg tablet 2019-09 00:00: 00 No 15mg buspirone 10 mg tablet 2019-09 00:00: 00 No 1mg Zoloft 50 mg tablet 2019-09 00:00: 00 Yes 15mg Alex Gimenez Wellbutrin XL 150 mg 24 hr tablet, extended release 2019-09 00:00: 00 Yes 1mg Alex Gimenez buspirone 10 mg tablet 2019-09 00:00: 00 Yes 1mg Alex Gimenez Zoloft 50 mg tablet 2019-09 00:00: 00 [...] hr tablet, extended release 2019-09 00:00: 00 Yes 1mg Alex Gimenez Zoloft 50 mg tablet 2019-09 00:00: 00 Yes 1mg Alex Gimenez buspirone 10 mg tablet 2019-09 00:00: 00 Yes 1mg Alex Gimenez Wellbutrin XL 150 mg 24 hr tablet, [...] mg tablet 2019-09 00:00: 00 No 1mg lisinopril 20 mg tablet 2019-09 00:00: 00 Yes 1mg Alex Gimenez omeprazole 40 mg capsule,del ayed release 2019-09 00:00: 00 Yes 1mg Alex Gimenez lisinopril 20 mg tablet 2019-09 00:00: 00 No 1mg omeprazole 40 mg capsule,del ayed release 2019-09 00:00: 00 No 1mg lisinopril 20 mg tablet 2019-09 00:00: 00 No 1mg omeprazole 40 mg capsule,del ayed release 2019-09 00:00: 00 No 1mg Wellbutrin XL 150 mg 24 hr tablet, extended release 06-12 00:00: 00 Yes 1mg Alex Gimenez Zoloft 50 mg tablet 06-12 00:00: 00 Yes 1mg Alex Gimenez buspirone 10 mg tablet 06-12 00:00: 00 Yes 1mg Alex Gimenez Wellbutrin XL 150 mg 24 hr tablet, [...] 00 No 1mg Zoloft 50 mg tablet 05-11 00:00: 00 Yes 1mg Alex Gimenez Wellbutrin XL 150 mg 24 hr tablet, extended release 0 05-11 00:00: 00 Yes 1mg Alex Gimenez buspirone 10 mg tablet 0 05-11 00:00: 00 Yes 1mg Alex Gimenez Zoloft 50 mg tablet 0 05-11 00:00: 00 No 1mg Wellbutrin XL 150 mg 24 hr tablet, extended release 0 05-11 00:00: 00 No 1mg buspirone 10 mg tablet 0 05-11 00:00: 00 No 1mg Zoloft 50 mg tablet 05-11 00:00: 00 No 1mg Wellbutrin XL 150 mg 24 hr tablet, extended release 05-11 00:00: 00 No 1mg buspirone 10 mg tablet 05-11 00:00: 00 No 1mg Zoloft 100 mg tablet 0 04-12 00:00: 00 Yes 1mg Alex Gimenez buspirone 10 mg tablet 0 04-12 00:00: 00 Yes 1mg Alex Gimenez Zoloft 100 mg tablet 0 04-12 00:00: 00 No 1mg buspirone 10 mg tablet 0 04-12 00:00: 00 No 1mg Zoloft 100 mg tablet 04-12 00:00: 00 No 1mg buspirone 10 mg tablet 0 04-12 00:00: 00 No 1mg Zoloft 100 mg tablet 0 04-05 00:00: 00 Yes 1mg Alex Gimenez buspirone 10 mg tablet 0 04-05 00:00: 00 Yes 1mg Alex Gimenez Zoloft 100 mg tablet 0 04-05 00:00: 00 No 1mg buspirone 10 mg tablet 04-05 00:00: 00 No 1mg Zoloft 100 mg tablet 04-05 00:00: 00 No 1mg buspirone 10 mg tablet 04-05 00:00: 00 No 1mg lisinopril 20 mg tablet 0 03-22 00:00: 00 Yes 1mg Alex Gimenez lisinopril 20 mg tablet 0 03-22 00:00: 00 No 1mg lisinopril 20 mg tablet 0 03-22 00:00: 00 No 1mg mupirocin 2 % topical ointment 0 6 00:00: 00 Yes 1% Alex Gimenez mupirocin 2 % topical ointment 0 6- 00:00: 00 No 1% mupirocin 2 % topical ointment 0 02-22 00:00: 00 No 1% mirtazapine 7.5 mg tablet 0 02-14 00:00: 00 Yes 1mg Alex Gimenez hydroxyzine pamoate 25 mg capsule 0 02-14 00:00: 00 Yes 1mg Alex Gimenez mirtazapine 7.5 mg tablet 0 02-14 00:00: [...] 20 mg tablet 0 02-13 00:00: 00 Yes 1mg Alex Gimenez escitalopra m 20 mg tablet 0 02-13 00:00: 00 No 1mg escitalopra m 20 mg tablet 0 02-13 00:00: 00 No 1mg buspirone 10 mg tablet 0 5- 00:00: 00 Yes 1mg Alex Gimenez buspirone 10 mg tablet 0 5 00:00: 00 No 1mg buspirone 10 mg tablet 0 5- 00:00: 00 No 1mg omeprazole 40 mg capsule,del ayed release 2019-0 - 00:00: 00 Yes 1mg Alex Gimenez omeprazole 40 mg capsule,del ayed release 2019-0 - 00:00: 00 No 1mg omeprazole 40 mg capsule,del ayed release 2019-0 - 00:00: 00 No 1mg lisinopril 20 mg tablet 0 -06 00:00: 00 Yes 1mg Alex Gimenez buspirone 10 mg tablet 0 4-06 00:00: 00 Yes 1mg Alex Gimenez lisinopril 20 mg tablet 0 - 00:00: 00 No 1mg buspirone 10 mg tablet 0 - 00:00: 00 No 1mg lisinopril 20 mg tablet 0 - 00:00: 00 No 1mg buspirone 10 mg tablet 0 - 00:00: 00 No 1mg Macrobid 100 mg capsule 0 3- 00:00: 00 Yes 1mg Alex Gimenez Macrobid 100 mg capsule 0 3-26 00:00: 00 No 1mg Macrobid 100 mg capsule 0 3- 00:00: 00 No 1mg oxybutynin chloride ER 10 mg tablet,exte nded release 24 hr 0 2-25 00:00: 00 Yes 1mg Alex Gimenez escitalopra m 20 mg tablet 0 2-25 00:00: 00 Yes 1mg Alex Gimenez oxybutynin chloride ER 10 mg tablet,exte nded release 24 hr 2019-0 2-25 00:00: 00 No 1mg escitalopra m 20 mg tablet 0 2-25 00:00: 00 No 1mg oxybutynin chloride ER 10 mg tablet,exte nded release 24 hr 2019-0 2-25 00:00: 00 No 1mg escitalopra m 20 mg tablet 2019-0 2-25 00:00: 00 No 1mg escitalopra m 10 mg tablet 0 1-15 00:00: 00 Yes 1mg Alex Gimenez oxybutynin chloride ER 10 mg tablet,exte nded release 24 hr 2019-0 1-15 00:00: 00 Yes 1mg Alex Gimenez mirtazapine 30 mg tablet 2019-0 1-15 00:00: 00 Yes 1mg Alex Gimenez escitalopra m 10 mg tablet 2019-0 1-15 00:00: 00 No 1mg oxybutynin chloride ER 10 mg tablet,exte nded release 24 hr 2019-0 1-15 00:00: 00 No 1mg mirtazapine 30 mg tablet 10-05 00:00: 00 No 1mg escitalopra m 10 mg tablet 10-05 00:00: 00 No 1mg oxybutynin chloride ER 10 mg tablet,exte nded release 24 hr 10-05 00:00: 00 No 1mg mirtazapine 30 mg tablet 10-05 00:00: 00 No 1mg mupirocin 2 % topical ointment 2018-09 00:00: 00 Yes 1% Alex Gimenez mupirocin 2 % topical ointment 2018-09 00:00: 00 No 1% mupirocin 2 % topical ointment 2018-09 00:00: 00 No 1% atorvastati n 10 mg tablet 2018-09 00:00: 00 Yes 1mg Alex Gimenez atorvastati n 10 mg tablet 2018-09 00:00: 00 No 1mg atorvastati n 10 mg tablet 2018-09 00:00: 00 No 1mg lisinopril 20 mg tablet 2018-09 00:00: 00 Yes 1mg Alex Gimenez omeprazole 40 mg capsule,del ayed release 2018-09 00:00: 00 Yes 1mg Alex Gimenez lisinopril 20 mg tablet 2018-09 00:00: 00 No 1mg omeprazole 40 mg capsule,del ayed release 2018-09 00:00: 00 No 1mg lisinopril 20 mg tablet 2018-09 00:00: 00 No 1mg omeprazole 40 mg capsule,del ayed release 2018-09 00:00: 00 No 1mg lisinopril 20 mg tablet 06-13 00:00: 00 Yes 1mg Alex Gimenez lisinopril 20 mg tablet 06-13 00:00: 00 No 1mg lisinopril 20 mg tablet 06-13 00:00: 00 No 1mg lisinopril 20 mg tablet 03-07 00:00: 00 Yes 1mg Alex Gimenez lisinopril 20 mg tablet 03-07 00:00: 00 No 1mg lisinopril 20 mg tablet 2019-0 6-17 00:00: 00 No 1mg lisinopril 10 mg tablet 0 23 00:00: 00 Yes 1mg Alex Gimenez omeprazole 20 mg capsule,del ayed release 0 01-11 00:00: 00 Yes 1mg Alex Gimenez lisinopril 10 mg tablet 0 01-11 00:00: 00 No 1mg omeprazole 20 mg capsule,del ayed release 0 01-11 00:00: 00 No 1mg lisinopril 10 mg tablet 0 01-11 00:00: 00 No 1mg omeprazole 20 mg capsule,del ayed release 0 01-11 00:00: 00 No 1mg lisinopril 10 mg tablet 0 16 00:00: 00 Yes 1mg Alex Gimenez omeprazole 20 mg capsule,del ayed release 0 16 00:00: 00 Yes 1mg Alex Gimenez lisinopril 10 mg tablet 0 16 00:00: 00 No 1mg omeprazole 20 mg capsule,del ayed release 0 16 00:00: 00 No 1mg lisinopril 10 mg tablet 0 16 00:00: 00 No 1mg omeprazole 20 mg capsule,del ayed release 0 16 00:00: 00 No 1mg lisinopril 10 mg tablet 0 114 00:00: 00 Yes 1mg Alex Gimenez omeprazole 20 mg capsule,del ayed release 0 14 00:00: 00 Yes 1mg Alex Gimenez lisinopril 10 mg tablet 0 1-14 00:00: 00 No 1mg omeprazole 20 mg capsule,del ayed release 0 14 00:00: 00 No 1mg lisinopril 10 mg tablet 0 14 00:00: 00 No 1mg omeprazole 20 mg capsule,del ayed release 0 14 00:00: 00 No 1mg lisinopril 10 mg tablet 1 2-14 00:00: 00 Yes 1mg Alex Gimenez omeprazole 20 mg capsule,del ayed release 1 2-14 00:00: 00 Yes 1mg Alex Gimenez lisinopril 10 mg tablet 2017-09 00:00: 00 No 1mg omeprazole 20 mg capsule,del ayed release 2017-09 00:00: 00 No 1mg lisinopril 10 mg tablet 2017-09 00:00: 00 No 1mg omeprazole 20 mg capsule,del ayed release 2017-09 00:00: 00 No 1mg fluticasone 50 mcg/actuati on nasal spray,suspe nsion 2017-09 00:00: 00 Yes 2mcg/ac tuation Alex Gimenez amoxicillin 500 mg-potassiu m clavulanate 125 mg tablet 2017-09 00:00: 00 Yes 1mg Alex Gimenez fluticasone 50 mcg/actuati on nasal spray,suspe nsion 2017-09 00:00: 00 No 2mcg/ac tuation amoxicillin 500 mg-potassiu m clavulanate 125 mg tablet 2017-09 00:00: 00 No 1mg fluticasone 50 mcg/actuati on nasal spray,suspe nsion 2017-09 00:00: 00 No 2mcg/ac tuation amoxicillin 500 mg-potassiu m clavulanate 125 mg tablet 2017-09 00:00: 00 No 1mg amoxicillin 500 mg capsule 11-26 00:00: 00 Yes 1mg Alex Gimenez amoxicillin 500 mg capsule 11-26 00:00: 00 No 1mg amoxicillin 500 mg capsule 11-26 00:00: 00 No 1mg Zoloft 50 mg tablet 10-16 00:00: 00 Yes 1mg Alex Gimenez trazodone 50 mg tablet 10-16 00:00: 00 Yes 1mg Alex Gimenez buspirone 5 mg tablet 10-16 00:00: 00 Yes 1mg Alex Gimenez Zoloft 50 mg tablet 10-16 00:00: 00 No 1mg trazodone 50 mg tablet 10-16 00:00: 00 No 1mg buspirone 5 mg tablet 10-16 00:00: 00 No 1mg Zoloft 50 mg tablet 10-16 00:00: 00 No 1mg trazodone 50 mg tablet 10-16 00:00: 00 No 1mg buspirone 5 mg tablet 10-16 00:00: 00 No 1mg lisinopril 10 mg tablet 04-21 00:00: 00 Yes 1mg Alex Gimenez lisinopril 10 mg tablet 04-21 00:00: 00 No 1mg lisinopril 10 mg tablet 04-21 00:00: 00 No 1mg lisinopril 10 mg tablet 03-20 00:00: 00 Yes 1mg Alex Gimenez meclizine 12.5 mg tablet 03-20 00:00: 00 Yes 1mg Alex Gimenez lisinopril 10 mg tablet 03-20 00:00: 00 No 1mg meclizine 12.5 mg tablet 03-20 00:00: 00 No 1mg lisinopril 10 mg tablet 03-20 00:00: 00 No 1mg meclizine 12.5 mg tablet 03-20 00:00: 00 No 1mg lisinopril 10 mg tablet 02-24 00:00: 00 Yes 1mg Alex Gimenez lisinopril 10 mg tablet 02-24 00:00: 00 No 1mg lisinopril 10 mg tablet 02-24 00:00: 00 No 1mg lisinopril 10 mg tablet 01-23 00:00: 00 Yes 1mg Alex Gimenez meclizine 12.5 mg tablet 01-23 00:00: 00 Yes 1mg Alex Gimenez lisinopril 10 mg tablet 01-23 00:00: 00 No 1mg meclizine 12.5 mg tablet 01-23 00:00: 00 No 1mg lisinopril 10 mg tablet 01-23 00:00: 00 No 1mg meclizine 12.5 mg tablet 01-23 00:00: 00 No 1mg lisinopril 10 mg tablet 12-25 00:00: 00 Yes 1mg Alex Gimenez meclizine 12.5 mg tablet 12-25 00:00: 00 Yes 1mg Alex Gimenez lisinopril 10 mg tablet 12-25 00:00: 00 No 1mg meclizine 12.5 mg tablet 12-25 00:00: 00 No 1mg lisinopril 10 mg tablet 12-25 00:00: 00 No 1mg meclizine 12.5 mg tablet 12-25 00:00: 00 No 1mg loratadine 10 mg tablet 10-24 00:00: 00 Yes 1mg Alex Gimenez loratadine 10 mg tablet 10-24 00:00: 00 No 1mg loratadine 10 mg tablet 10-24 00:00: 00 No 1mg tramadol 50 mg tablet 10-16 00:00: 00 Yes 1mg Alex Gimenez tramadol 50 mg tablet 10-16 00:00: 00 No 1mg tramadol 50 mg tablet 10-16 00:00: 00 No 1mg Immunizations Ordered Immunization Name Filled Immunization Name Date Status Comments Source Moderna COVID-19 Vaccine Moderna COVID-19 Vaccine 2020-10-13 00:00:00 Completed Alex Gimenez Moderna COVID-19 Vaccine 2020-10-13 00:00:00 Completed Moderna COVID-19 Vaccine 2020-10-13 00:00:00 Completed Moderna COVID-19 Vaccine Moderna COVID-19 Vaccine 2020-09-17 00:00:00 Completed Alex Gimenez Moderna COVID-19 Vaccine 2020-09-17 00:00:00 Completed Moderna COVID-19 Vaccine 2020-09-17 00:00:00 Completed Influenza, seasonal, inj Influenza, seasonal, inj 2020-07-04 00:00:00 Completed Alex Tash Gimenez Influenza, seasonal, inj 2020-07-04 00:00:00 Completed Influenza, seasonal, inj 2020-07-04 00:00:00 Completed Influenza, seasonal, inj Influenza, seasonal, inj 2020-06-26 00:00:00 Completed Alex Gimenez Influenza, seasonal, inj 2020-06-26 00:00:00 Completed Influenza, seasonal, inj 2020-06-26 00:00:00 Completed Hep B, adult Hep B, adult 2018-12-28 00:00:00 Completed Alex Tash Gimenez Hep B, adult 2018-12-28 00:00:00 Completed Hep B, adult 2018-12-28 00:00:00 Completed Hep B, adult Hep B, adult 2018-11-15 00:00:00 Completed Alex Gimenez Hep B, adult 2018-11-15 00:00:00 Completed Hep B, adult 2018-11-15 00:00:00 Completed Tdap Tdap 2018-09-03 00:00:00 Completed Alex Tash Gimenez Influenza, seasonal, inj Influenza, seasonal, inj 2018-09-03 00:00:00 Completed Alex Gimenez Tdap 2018-09-03 00:00:00 Completed Influenza, seasonal, inj 2018-09-03 00:00:00 Completed Tdap 2018-09-03 00:00:00 Completed Influenza, seasonal, inj 2018-09-03 00:00:00 Completed TDAP 2017-04-08 00:00:00 Completed [facility] Vital Signs Vital Name Observation Time Observation Value Comments S ource Systolic blood pressure 2023-04-27 21:33:00 130 mm[Hg] [facility] Diastolic blood pressure 2023-04-27 21:33:00 93 mm[Hg] [facility] Heart rate 2023-04-27 21:33:00 84 /min [facility] Body temperature 2023-04-27 21:33:00 37 Raine [facility] Respiratory rate 2023-04-27 21:33:00 20 /min [facility] Body height 2023-04-27 21:33:[address] [facility] Body weight 2023-04-27 21:33:[address] [facility] BMI 2023-04-27 21:33:00 27.46 kg/m2 [facility] Oxygen saturation in Arterial blood by Pulse oximetry 2023-04-27 21:33:00 99 /min [facility] Height Measured 2025-05-25 10:54:00 54.00 inches Alex Gimenez Body Temperature 2025-05-25 10:54:00 Alex Gimenez Heart Rate 2025-05-25 10:54:00 82.00 /min Rebecca en F Pernell Respiratory Rate 2025-05-25 10:54:00 18.00 /min Alex F Pernell BP Systolic 2025-05-25 10:54:00 112 mm[Hg] Step hen F Pernell BP Diastolic 2025-05-25 10:54:00 77 mm[Hg] Ben phen F Pernell Weight Measured 2025-05-25 10:54:00 195.20 pounds Alex F Pernell BP Systolic 2022-09-01 18:25:00 Step hen F Pernell BP Diastolic 2022-09-01 18:25:00 Ben phen F Pernell Weight Measured 2022-09-01 18:25:00 182.80 pounds Alex F Pernell Height Measured 2022-09-01 18:25:00 54.00 inches Alex F Pernell Body Temperature 2022-09-01 18:25:00 Alex F Pernell Heart Rate 2022-09-01 18:25:00 Rebecca en F Pernell Respiratory Rate 2022-09-01 18:25:00 Alex F Pernell BP Systolic 2022-06-17 11:09:00 118 mm[Hg] Step hen F Pernell BP Diastolic 2022-06-17 11:09:00 87 mm[Hg] Ben phen F Pernell Weight Measured 2022-06-17 11:09:00 182.80 pounds Alex F Pernlel Height Measured 2022-06-17 11:09:00 54.00 inches Alex F Pernell Body Temperature 2022-06-17 11:09:00 98.30 degrees Alex F Pernell Heart Rate 2022-06-17 11:09:00 97.00 /min Rebecca en F Pernell Respiratory Rate 2022-06-17 11:09:00 Alex F Pernell BP Systolic 2022-05-23 15:21:00 Step hen F Pernell BP Diastolic 2022-05-23 15:21:00 Ben phen F Pernell Weight Measured 2022-05-23 15:21:00 160.00 pounds Alex F Pernell Height Measured 2022-05-23 15:21:00 54.00 inches Alex F Pernell Body Temperature 2022-05-23 15:21:00 Alex F Pernell Heart Rate 2022-05-23 15:21:00 Rebecca en F Pernell Respiratory Rate 2022-05-23 15:21:00 Alex F Pernell BP Systolic 2022-02-19 17:06:00 127 mm[Hg] Step hen F Pernell BP Diastolic 2022-02-19 17:06:00 80 mm[Hg] Ben phen F Pernell Weight Measured 2022-02-19 17:06:00 160.00 pounds Alex F Pernell Height Measured 2022-02-19 17:06:00 Alex F Pernell Body Temperature 2022-02-19 17:06:00 Alex F Pernell Heart Rate 2022-02-19 17:06:00 Rebecca en F Pernell Respiratory Rate 2022-02-19 17:06:00 Alex F Pernell BP Systolic 2021-11-12 09:44:00 Step hen F Pernell BP Diastolic 2021-11-12 09:44:00 Ben phen F Pernell Weight Measured 2021-11-12 09:44:00 140.00 pounds Alex F Pernell Height Measured 2021-11-12 09:44:00 54.00 inches Alex F Pernell Body Temperature 2021-11-12 09:44:00 Alex F Pernell Heart Rate 2021-11-12 09:44:00 Rebecca en F Pernell Respiratory Rate 2021-11-12 09:44:00 Alex F Pernell BP Systolic 2021-08-06 14:45:00 124 mm[Hg] Step hen F Pernell BP Diastolic 2021-08-06 14:45:00 82 mm[Hg] Ben phen F Pernell Weight Measured 2021-08-06 14:45:00 189.40 pounds Alex F Pernell Height Measured 2021-08-06 14:45:00 54.00 inches Alex F Pernell Body Temperature 2021-08-06 14:45:00 98.20 degrees Alex F Pernell Heart Rate 2021-08-06 14:45:00 85.00 /min Rebecca en F Pernell Respiratory Rate 2021-08-06 14:45:00 21.00 /min Alex F Pernell BP Systolic 2021-03-21 15:50:00 116 mm[Hg] Step hen F Pernell BP Diastolic 2021-03-21 15:50:00 77 mm[Hg] Ben phen F Pernell Weight Measured 2021-03-21 15:50:00 197.20 pounds Alex F Pernell Height Measured 2021-03-21 15:50:00 54.00 inches Alex F Pernell Body Temperature 2021-03-21 15:50:00 98.60 degrees Alex F Pernell Heart Rate 2021-03-21 15:50:00 88.00 /min Rebecca en F Pernell Respiratory Rate 2021-03-21 15:50:00 21.00 /min Alex F Pernell BP Systolic 2021-02-27 16:37:00 130 mm[Hg] Step hen F Pernell BP Diastolic 2021-02-27 16:37:00 83 mm[Hg] Ben phen F Pernell Weight Measured 2021-02-27 16:37:00 197.80 pounds Alex F Pernell Height Measured 2021-02-27 16:37:00 54.00 inches Alex F Pernell Body Temperature 2021-02-27 16:37:00 99.50 degrees Alex F Pernell Heart Rate 2021-02-27 16:37:00 78.00 /min Rebecca en F Pernell Respiratory Rate 2021-02-27 16:37:00 16.00 /min Alex F Pernell BP Systolic 2021-02-21 13:36:00 124 mm[Hg] Step hen F Pernell BP Diastolic 2021-02-21 13:36:00 80 mm[Hg] Ben phen F Pernell Weight Measured 2021-02-21 13:36:00 197.40 pounds Alex F Pernell Height Measured 2021-02-21 13:36:00 54.00 inches Alex F Pernell Body Temperature 2021-02-21 13:36:00 98.60 degrees Alex F Pernell Heart Rate 2021-02-21 13:36:00 80.00 /min Rebecca en F Pernell Respiratory Rate 2021-02-21 13:36:00 21.00 /min Alex F Pernell BP Systolic 2021-02-20 14:29:00 126 mm[Hg] BP [...] OF BENEFITS 2023-04-27 22:18:50 Docto r Unassigned, [place] [facility] NOTICE OF PRIVACY PRACTICES 2023-04-27 21:20:36 Doctor Unassigned, [place] [facility] CONSENT/REFUSAL FOR DIAGNOSIS AND TREATMENT 2023-04-27 21:20:10 Doctor Unassigned, [place] [facility] Plan of Care Planned Activity Planned Date Details Comments Source Goal Plan of Care Note [code = 47906-5] Goal Plan of Care Note [code = 69388-6] Goal Plan of Care Note [code = 90492-7] Goal Plan of Care Note [code = 60055-1] Goal Plan of Care Note [code = 10808-1] Goal Plan of Care Note [code = 30294-5] Goal Plan of Care Note [code = 17801-7] Goal Plan of Care Note [code = 53861-0] Goal Plan of Care Note [code = 63736-3] Goal Plan of Care Note [code = 32065-2] Goal Plan of Care Note [code = 55760-5] Goal Plan of Care Note [code = 83104-2] Goal Plan of Care Note [code = 54792-1] Goal Plan of Care Note [code = 85305-6] Goal Plan of Care Note [code = 58149-1] Goal Plan of Care Note [code = 23712-3] Goal Plan of Care Note [code = 28183-9] Goal Plan of Care Note [code = 79537-7] Goal Plan of Care Note [code = 34243-4] Goal Plan of Care Note [code = 77083-4] Goal Plan of Care Note [code = 85777-8] Goal Plan of Care Note [code = 24624-7] Goal Plan of Care Note [code = 39442-1] Goal Plan of Care Note [code = 42412-5] Goal Plan of Care Note [code = 14593-6] Goal Plan of Care Note [code = 53742-4] Goal Plan of Care Note [code = 45266-0] Goal Plan of Care Note [code = 43362-5] Goal Plan of Care Note [code = 89609-7] Goal Plan of Care Note [code = 22822-2] Goal Plan of Care Note [code = 55089-8] Goal Plan of Care Note [code = 91574-8] Goal Plan of Care Note [code = 88663-6] Goal Plan of Care Note [code = 38385-0] Goal Plan of Care Note [code = 95377-6] Goal Plan of Care Note [code = 45731-5] Goal Plan of Care Note [code = 36136-3] Goal Plan of Care Note [code = 23162-9] Goal Plan of Care Note [code = 88302-3] Goal Plan of Care Note [code = 46635-2] Goal Plan of Care Note [code = 68380-9] Goal Plan of Care Note [code = 49181-1] Goal Plan of Care Note [code = 20661-5] Goal Plan of Care Note [code = 68547-5] Goal Plan of Care Note [code = 22025-1] Goal Plan of Care Note [code = 18413-1] Goal Plan of Care Note [code = 31938-3] Goal Plan of Care Note [code = 12535-7] Goal Plan of Care Note [code = 24837-2] Goal Plan of Care Note [code = 69729-3] Goal Plan of Care Note [code = 43023-4] Goal Plan of Care Note [code = 99131-1] Goal Plan of Care Note [code = 49598-8] Goal Plan of Care Note [code = 97868-2] Goal Plan of Care Note [code = 36384-4] Goal Plan of Care Note [code = 00178-1] Goal Plan of Care Note [code = 96040-2] Goal Plan of Care Note [code = 30540-2] Goal Plan of Care Note [code = 02120-1] Goal Plan of Care Note [code = 80421-5] Goal Plan of Care Note [code = 12779-1] Goal Plan of Care Note [code = 64587-6] Goal Plan of Care Note [code = 66527-6] Goal Plan of Care Note [code = 10087-7] Goal Plan of Care Note [code = 10248-4] Goal Plan of Care Note [code = 13000-2] Goal Plan of Care Note [code = 69628-9] Goal Plan of Care Note [code = 12796-4] Goal Plan of Care Note [code = 71522-0] Goal Plan of Care Note [code = 05079-3] Goal Plan of Care Note [code = 91969-9] Goal Plan of Care Note [code = 22338-7] Goal Plan of Care Note [code = 71880-3] Goal Plan of Care Note [code = 57674-5] Goal Plan of Care Note [code = 94908-4] Goal Plan of Care Note [code = 80066-0] Goal Plan of Care Note [code = 33762-0] Goal Plan of Care Note [code = 19540-5] Goal Plan of Care Note [code = 69793-5] Goal Plan of Care Note [code = 45848-6] Goal Plan of Care Note [code = 63263-2] Goal Plan of Care Note [code = 56043-1] Goal Plan of Care Note [code = 05581-0] Goal Plan of Care Note [code = 63155-0] Goal Plan of Care Note [code = 78353-7] Goal Plan of Care Note [code = 83508-3] Goal Plan of Care Note [code = 89790-7] Goal Plan of Care Note [code = 11199-9] Goal Plan of Care Note [code = 62961-5] Goal Plan of Care Note [code = 36987-7] Goal Plan of Care Note [code = 22394-3] Goal Plan of Care Note [code = 28232-8] Goal Plan of Care Note [code = 12388-2] Goal Plan of Care Note [code = 90105-7] Goal Plan of Care Note [code = 61392-5] Goal Plan of Care Note [code = 64682-0] Goal Plan of Care Note [code = 98335-3] Goal Plan of Care Note [code = 44685-5] Goal Plan of Care Note [code = 84923-9] Goal Plan of Care Note [code = 77791-9] Goal Plan of Care Note [code = 95518-0] Goal Plan of Care Note [code = 96804-0] Goal Plan of Care Note [code = 55161-0] Goal Plan of Care Note [code = 04390-6] Goal Plan of Care Note [code = 14918-1] Goal Plan of Care Note [code = 76634-3] Goal Plan of Care Note [code = 79732-6] Goal Plan of Care Note [code = 27746-5] Goal Plan of Care Note [code = 94786-6] Goal Plan of Care Note [code = 36914-3] Goal Plan of Care Note [code = 69464-4] Goal Plan of Care Note [code = 31426-5] Goal Plan of Care Note [code = 42322-1] Goal Plan of Care Note [code = 03843-7] Goal Plan of Care Note [code = 14931-8] Goal Plan of Care Note [code = 67922-0] Encounters Start Date/Time End Date/Time Encounter Type Admission Type [facility]ending [facility] Care Facility Care Department Encounter ID Source 2024-06-21 15:15[id number] [facility] 2024-06-20 12:30:00 [id number] [facility] 2025-05-25 10:41:18 2025-05-25 10:41:18 Outpatient [facility] [id number] Alex Gimenez 2025-05-25 00:00:00 2025-05-25 00:00:00 Outpatient Visit [facility] [id number] Alex Gimenez 2025-05-24 15:08:13 2025-05-24 15:08:13 Outpatient [facility] [id number] Alex Gimenez 2025-01-09 09:34:04 2025-01-09 09:34:04 Outpatient [facility] [id number] Alex Gimenez 2023-12-29 00:00:00 2023-12-29 00:00:00 Outpatient [id number] diyala_S [facility] [id number] [facility] 2023-04-27 16:34:00 2023-04-27 20:29:00 Emergency X SERJIO SOW [facility] ERT [id number] [facility] 2023-04-27 16:34:00 2023-04-27 20:29:00 Emergency Serjio Sow [facility] [id number] [facility] 2022-09-01 18:36:29 2022-09-01 18:36:29 Outpatient [facility] [id number] Alex Gimenez 2022-08-25 18:01:33 2022-08-25 18:01:33 Outpatient [facility] [id number] Alex Gimenez 2022-06-17 00:00:00 2022-06-17 00:00:00 Outpatient Visit [id number] 2022-05-23 00:00:00 2022-05-23 00:00:00 Outpatient Visit [id number]-[id number] Results Test Description Test Time Test [...] views. Current mammographic images were evaluated by [employer] CAD (computer-aided detection) software. Comparison is made to exams dated 04/20/2020 mammogram and 10/13/2018 mammogram - [facility] There are scattered fibroglandular tissues in both breasts. No suspicious mass, architectural distortion, malignant type calcification, or lymph node abnormality detected. IMPRESSION: NEGATIVEThere is no mammographic evidence of malignancy. Bilateral survey ultrasound to follow.COMPLETE ULTRASOUND OF BOTH BREASTS AND AXILLA: 2Comparison is made to exams dated 04/20/2020 mammogram and 10/13/2018 mammogram - [facility]-. Color flow and real-time ultrasound [...] 08/04/2022 12:56:06Imaging Technologist: Jael Alfaro FW, [facility]; Rose Lundberg FW, [facility]-FWletter sent: BIRADS 1-2 Normal Mammogram BI-RADS: 1 Negative Ultrasound BI-RADS: 1 Negative [id number] 04:50:21* Test Item Value Reference Range Interpretation Comme nts RPR RESULT (test code = 3501) NON-REACTIVE NON-REACTIVE RPR TITER (test code = 3500) NOT INDIC. TITER NOT INDIC. UNLESS OTHERWISE INDICATED, [facility] [employer] [address] [place] [address] [employer]: MARQUIS GURROLA M.D. [place] NUMBER [id number] [facility] [place]. [id number] HIV 1/2 4TH GEN, RFLX [id number] 04:32:05* Test Item Value Reference Range Interpretation Comme nts HIV 1/2 4TH GEN, RFLX CONF ( test code = 3514) NON-REACTIVE NON-REACTIVE HEPATITIS PANEL, [id number] 04:32:05* Test Item Value Reference Range Interpretation Comme nts HEPATITIS A IgM (test code = 52578) NON-REACTIVE NON-REACTIVE HEPATITIS B CORE IgM (test code = 4644) NON-REACTIVE NON-REACTIVE HEPATITIS B SURF AG (test code = 2739) NON-REACTIVE NON-REACTIVE HEPATITIS C ANTIBODY (test code = 4675) NON-REACTIVE NON-REACTIVE INTERPRETATION HEPATITIS A: (test code = 2552) (NOTE) Hepatitis A serology shows no evidence of acute hepatitis A. INTERPRETATION HEPATITIS B: (test code = 18919) (NOTE) Hepatitis B serology shows no evidence of acute hepatitis B andno indication of exposure to hepatitis B virus in the previous zulma eight months. INTERPRETATION HEPATITIS C: (test code = 75018) (NOTE) Hepatitis C serology shows no evidence of exposure to hepatitisC virus at this time. It can take up to 12 months after exposure tothe hepatitis C virus for antibodies to become detectable in the blood in certain patients. HEPATITIS PANEL, ACUTE [ADDED]2022-06-18 00:00:00* Test Item Value Reference Range Interpretation Comme nts HEPATITIS A IgM (test code = 40124) NON-REACTIVE HEPATITIS B CORE IgM (test c ode = 4644) NON-REACTIVE HEPATITIS B SURF AG (test co de = 2739) NON-REACTIVE HEPATITIS C ANTIBODY (test c ode = 4675) NON-REACTIVE INTERPRETATION HEPATITIS A: (test code = 2552) (NOTE) INTERPRETATION HEPATITIS B: (test code = 12610) (NOTE) INTERPRETATION HEPATITIS C: (test code = 14245) (NOTE) Alex GimenezCT/NG, NAAT, URINE [ADDED]2022-06-18 00:00:00* Test Item Value Reference Range Interpretation Comme nts GONORRHEA, NAAT (test code = 69136) NEGATIVE CHLAMYDIA, NAAT (test code = 28324) NEGATIVE Alex GimenezRPR [ADDED]2022-06-18 00:00:00* Test Item Value Reference Range Interpretation Comme nts RPR RESULT (test code = 3501) NON-REACTIVE RPR TITER (test code = 3500) NOT INDIC. TITER Alex GimenezHIV 1/2 4TH GEN, RFLX CONF [ADDED]2022-06-18 00:00:00* Test Item Value Reference Range Interpretation Comme nts HIV 1/2 4TH GEN, RFLX CONF ( test code = 3514) NON-REACTIVE Alex GimenezSARS-CoV-2 (COVID-19), RT-PCR/[id number] 07:46:51* Test Item Value Reference Range Interpretation Comments SARS-CoV-2 INTERPRETATION (test code = 77002) NEGATIVE SEE NOTE SARS-CoV-2 R NA NOT [...] prevalence is high. SOURCE (test code = 08186) NASOPHARYNGEAL Note: Methodolog y is Tim Marjorie Real-Time RT-PCR. The expected result or reference range is NEGATIVE (Not Detected). For more information regarding COVID-19 testing to include clinicalinformation, methodology detail, intended use, FDA authorization andrecommended fact sheets for patients or healthcare providers, see [employer] Announcement: SARS-CoV-2 (COVID-19) by NAAT at URL below (note,fact sheets are provided by method given in report:[email or web address] Alternatively, see downloadable PDF fact sheet at:[email or web address] UNLESS OTHERWISE INDICATED, ALL TESTING PERFORMED [facility] [employer], [facility]. [address] [place] [address] [employer] MARQUIS GURROLA M.D. [place] NUMBER [id number] [facility] [place]. [id number] SARS-CoV-2 (COVID-19) by RT-PCR (HIGH RISK)2021-10-31 00:00:00* Test Item Value Reference Range Interpretation Comme nts SARS-CoV-2 INTERPRETATION (test code = 01798) NEGATIVE SOURCE (test code = 76603) NASOPHARYNGEAL SARS-CoV-2 (COVID-19) by RT-PCR (HIGH RISK)2021-10-31 00:00:00* Test Item Value Reference Range Interpretation Comme nts SARS-CoV-2 INTERPRETATION (test code = 99907) NEGATIVE SOURCE (test code = 99847) NASOPHARYNGEAL SARS-CoV-2 (COVID-19) by RT-PCR (HIGH RISK)2021-10-31 00:00:00* Test Item Value Reference Range Interpretation Comme nts SARS-CoV-2 INTERPRETATION (test code = 12640) NEGATIVE SOURCE (test code = 39169) NASOPHARYNGEAL Alex GimenezSARS-CoV-2 (COVID-19) by RT-PCR (HIGH RISK)2020-08-29 00:00:00* Test Item Value Reference Range Interpretation Comme nts SARS-CoV-2 INTERPRETATION (test code = 61508) NEGATIVE SOURCE (test code = 70171) NASOPHARYNGEAL SARS-CoV-2 (COVID-19) by RT-PCR (HIGH RISK)2020-08-29 00:00:00* Test Item Value Reference Range Interpretation Comme nts SARS-CoV-2 INTERPRETATION (test code = 02344) NEGATIVE SOURCE (test code = 53942) NASOPHARYNGEAL SARS-CoV-2 (COVID-19) by RT-PCR (HIGH RISK)2020-08-29 00:00:00* Test Item Value Reference Range Interpretation Comme nts SARS-CoV-2 INTERPRETATION (test code = 12302) NEGATIVE SOURCE (test code = 55042) NASOPHARYNGEAL Alex F AustinLIPID [id number] 00:00:00* Test Item Value Reference Range Interpretation Comme nts CHOLESTEROL (test code = 2210) 195 MG/DL TRIGLYCERIDES (test code = 2232) 334 MG/DL HDL CHOLESTEROL (test code = 2220) 34 MG/DL CALC LDL CHOL (test code = 2237) 113 MG/DL RISK RATIO LDL/HDL (test cod e = 2238) 3.32 RATIO COMPREHENSIVE METABOLIC [id number] 00:00:00* Test Item Value Reference Range Interpretation Comme nts GLUCOSE (test code = 2217) 89 MG/DL BUN (test code = 2208) 16 MG/DL CREATININE (test code = 2214) 0.74 MG/DL eGFR AMER. (test cod e = 25395) 117 ML/MIN/1.73 eGFR NON- AMER. (test code = 16887) 101 ML/MIN/1.73 CALC BUN/CREAT (test code = [...] (test code = 2219) 23 U/L LIPID [id number] 00:00:00* Test Item Value Reference Range Interpretation Comme nts CHOLESTEROL (test code = 2210) 195 MG/DL TRIGLYCERIDES (test code = 2232) 334 MG/DL HDL CHOLESTEROL (test code = 2220) 34 MG/DL CALC LDL CHOL (test code = 2237) 113 MG/DL RISK RATIO LDL/HDL (test cod e = 2238) 3.32 RATIO COMPREHENSIVE METABOLIC [id number] 00:00:00* Test Item Value Reference Range Interpretation Comme nts GLUCOSE (test code = 2217) 89 MG/DL BUN (test code = 2208) 16 MG/DL CREATININE (test code = 2214) 0.74 MG/DL eGFR AMER. (test cod e = 38266) 117 ML/MIN/1.73 eGFR NON- AMER. (test code = 49734) 101 ML/MIN/1.73 CALC BUN/CREAT (test code = [...] (test code = 2219) 23 U/L LIPID [id number] 00:00:00* Test Item Value Reference Range Interpretation Comme nts CHOLESTEROL (test code = 2210) 195 MG/DL TRIGLYCERIDES (test code = 2232) 334 MG/DL HDL CHOLESTEROL (test code = 2220) 34 MG/DL CALC LDL CHOL (test code = 2237) 113 MG/DL RISK RATIO LDL/HDL (test cod e = 2238) 3.32 RATIO Alex F AustinCOMPREHENSIVE METABOLIC [id number] 00:00:00* Test Item Value Reference Range Interpretation Comme nts GLUCOSE (test code = 2217) 89 MG/DL BUN (test code = 2208) 16 MG/DL CREATININE (test code = 2214) 0.74 MG/DL eGFR AMER. (test cod e = 59058) 117 ML/MIN/1.73 eGFR NON- AMER. (test code = 81713) 101 ML/MIN/1.73 CALC BUN/CREAT (test code = [...] ALT (test code = 2219) 23 U/L Alex GimenezSARS-CoV-2 (COVID-19) by RT-PCR (HIGH RISK)2020-04-27 00:00:00* Test Item Value Reference Range Interpretation Comme nts SARS-CoV-2 INTERPRETATION (test code = 95295) NEGATIVE SOURCE (test code = 84225) NASOPHARYNGEAL SARS-CoV-2 (COVID-19) by RT-PCR (HIGH RISK)2020-04-27 00:00:00* Test Item Value Reference Range Interpretation Comme nts SARS-CoV-2 INTERPRETATION (test code = 53867) NEGATIVE SOURCE (test code = 32636) NASOPHARYNGEAL SARS-CoV-2 (COVID-19) by RT-PCR (HIGH RISK)2020-04-27 00:00:00* Test Item Value Reference Range Interpretation Comme nts SARS-CoV-2 INTERPRETATION (test code = 22332) NEGATIVE SOURCE (test code = 98706) NASOPHARYNGEAL Alex Bianchi AustinSCR MAMM BILATERAL CAD [id number] 09:16:04- SCR MAMM BILATERAL CAD DIGITALBILATERAL DIGITAL SCREENING MAMMOGRAM WITH CAD: 7/31/2020CLINICAL: Asymptomatic. Current mammographic images were evaluated by either a [facility] [employer] M-Vu or a [employer] ImageChecker CAD (computer aided detection system). Comparison is made to exam dated 10/13/2018 mammogram -[facility]-. There are scattered fibroglandular tissues in both breasts. No suspicious mass, architectural distortion, malignant type calcification, or lymph node abnormality detected.Breast architecture is stable compared to prior exams.IMPRESSION: NEGATIVEThere is no mammographic evidence of malignancy. Resume annual screening mammography in one year. Xu Ascencio M.D. ss/p enrad:04/20/2020 09:16:04 Solar Photovoltaic Installer: Kaye Marion , [facility]-letter sent: BIRADS 1-2 Normal Mammogram BI-RADS: 1 NegativePAP TEST, THINPREP, [id number] 00:00:00* Test Item Value Reference Range Interpretation Comme nts SOURCE: (test code = 8001) Cervical/Endocervical SLIDES: (test code = 8011) 1 LMP: (test code = 8021) 03/05/2020 SPECIMEN ADEQUACY: (test code = 91097) (NOTE) INTERPRETATION: (test code = 67512) NILM/NO EPITH. ABNORMALITY;SEE BELOW CRA: (test code = 8101) AD Meier (ASCP) QC TECHNOLOGIST: (test code = 8111) MAYKEL Muas(ASCP)CT(IA C) LOCATION: (test code = 78027) (NOTE) CPT: (test code = 8140) (NOTE) PAP TEST, THINPREP, [id number] 00:00:00* Test Item Value Reference Range Interpretation Comme nts SOURCE: (test code = 8001) Cervical/Endocervical SLIDES: (test code = 8011) 1 LMP: (test code = 8021) 03/05/2020 SPECIMEN ADEQUACY: (test code = 56421) (NOTE) INTERPRETATION: (test code = 00837) NILM/NO EPITH. ABNORMALITY;SEE BELOW CRA: (test code = 8101) AD Meier (ASCP) QC TECHNOLOGIST: (test code = 8111) Roxanne OlsenL[facility](ASCP)CT(IA C) LOCATION: (test code = 14517) (NOTE) CPT: (test code = 8140) (NOTE) PAP TEST, THINPREP, [id number] 00:00:00* Test Item Value Reference Range Interpretation Comme nts SOURCE: (test code = 8001) Cervical/Endocervical SLIDES: (test code = 8011) 1 LMP: (test code = 8021) 03/05/2020 SPECIMEN ADEQUACY: (test code = 83313) (NOTE) INTERPRETATION: (test code = 29722) NILM/NO EPITH. ABNORMALITY;SEE BELOW CRA: (test code = 8101) Amparo Hartman CT (ASCP) QC TECHNOLOGIST: (test code = 8111) R[facility] OlsenLOS [facility]AM[facility](ASCP)CT(IA C) LOCATION: (test code = 90434) (NOTE) CPT: (test code = 8140) (NOTE) Alex Bianchi AustinHPV HIGH RISK WITH GENOTYPE, [id number] 00:00:00* Test Item Value Reference Range Interpretation Comme nts HPV HIGH RISK INTERP (test c ode = 13805) POSITIVE HPV 16 (test code = 87853) NEGATIVE HPV 18 (test code = 73308) NEGATIVE HPV, HR, OTHER GENOTYPES (te st code = 01016) POSITIVE Alex F AustinHPV HIGH RISK WITH GENOTYPE, [id number] 00:00:00* Test Item Value Reference Range Interpretation Comme nts HPV HIGH RISK INTERP (test c ode = 56166) POSITIVE HPV 16 (test code = 48617) NEGATIVE HPV 18 (test code = 92321) NEGATIVE HPV, HR, OTHER GENOTYPES (te st code = 77153) POSITIVE HPV HIGH RISK WITH GENOTYPE, [id number] 00:00:00* Test Item Value Reference Range Interpretation Comme nts HPV HIGH RISK INTERP (test c ode = 63385) POSITIVE HPV 16 (test code = 15638) NEGATIVE HPV 18 (test code = 79689) NEGATIVE HPV, HR, OTHER GENOTYPES (te st code = 47912) POSITIVE VAGINAL PATHOGENS DNA [id number] 00:00:00* Test Item Value Reference Range Interpretation Comme nts ELIZABETH SPECIES (test code = 38297) NEGATIVE G. VAGINALIS (test code = ) NEGATIVE T. VAGINALIS (test code = 38955) NEGATIVE VAGINAL PATHOGENS DNA [id number] 00:00:00* Test Item Value Reference Range Interpretation Comme nts ELIZABETH SPECIES (test code = ) NEGATIVE G. VAGINALIS (test code = 90786) NEGATIVE T. VAGINALIS (test code = 14381) NEGATIVE VAGINAL PATHOGENS DNA [id number] 00:00:00* Test Item Value Reference Range Interpretation Comme nts ELIZABETH SPECIES (test code = ) NEGATIVE G. VAGINALIS (test code = 26065) NEGATIVE T. VAGINALIS (test code = 11312) NEGATIVE Alex Bianchi [id number] (COVID-19) by RT-PCR (HIGH RISK)2020-03-19 00:00:00* Test Item Value Reference Range Interpretation Comme nts SARS-CoV-2 INTERPRETATION (t est code = 96916) NEGATIVE SOURCE (test code = 92486) NOT SPECIFIED SARS-CoV-2 (COVID-19) by RT-PCR (HIGH RISK)2020-03-19 00:00:00* Test Item Value Reference Range Interpretation Comme nts SARS-CoV-2 INTERPRETATION (t est code = 35218) NEGATIVE SOURCE (test code = 99681) NOT SPECIFIED SARS-CoV-2 (COVID-19) by RT-PCR (HIGH RISK)2020-03-19 00:00:00* Test Item Value Reference Range Interpretation Comme nts SARS-CoV-2 INTERPRETATION (t est code = 48579) NEGATIVE SOURCE (test code = 27945) NOT SPECIFIED Alex GimenezCULTURE, [id number] 00:00:00* Test Item Value Reference Range Interpretation Comme nts CULTURE, URINE (test code = 63288) SPECIMEN NUMBER: [id number] CULTURE, [id number] 00:00:00* Test Item Value Reference Range Interpretation Comme nts CULTURE, URINE (test code = 29297) SPECIMEN NUMBER: [id number] CULTURE, [id number] 00:00:00* Test Item Value Reference Range Interpretation Comme nts CULTURE, URINE (test code = 83553) SPECIMEN NUMBER: [id number] Alex Bianchi AustinCULTURE, URINE [ADDED]2019-10-07 00:00:00* Test Item Value Reference Range Interpretation Comme nts CULTURE, URINE (test code = 25363) SPECIMEN NUMBER: [id number] CULTURE, URINE [ADDED]2019-10-07 00:00:00* Test Item Value Reference Range Interpretation Comme nts CULTURE, URINE (test code = 35249) SPECIMEN NUMBER: [id number] CULTURE, URINE [ADDED]2019-10-07 00:00:00* Test Item Value Reference Range Interpretation Comme nts CULTURE, URINE (test code = 23345) SPECIMEN NUMBER: [id number] Alex Bianchi AustinCOMPREHENSIVE METABOLIC [id number] 00:00:00* Test Item Value Reference Range Interpretation Comme nts GLUCOSE (test code = 2217) 70 MG/DL BUN (test code = 2208) 13 MG/DL CREATININE (test code = 2214) 0.52 MG/DL eGFR AMER. (test cod e = 63702) 139 ML/MIN/1.73 eGFR NON- AMER. (test code = 94115) 120 ML/MIN/1.73 CALC BUN/CREAT (test code = [...] code = 2219) 19 U/L CBC W/AUTO [id number] 00:00:00* Test Item Value Reference Range Interpretation [...] (test code = 1015) 322 K/UL HEMOGLOBIN [id number] 00:00:00* Test Item Value Reference Range Interpretation Comme nts HEMOGLOBIN A1c (test code = 06579) 5.5 % [id number] 00:00:00* Test Item Value Reference Range Interpretation Comme nts TSH, THIRD GENERATION (test code = 2821) 0.978 UIU/ML COMPREHENSIVE METABOLIC [id number] 00:00:00* Test Item Value Reference Range Interpretation Comme nts GLUCOSE (test code = 2217) 70 MG/DL BUN (test code = 2208) 13 MG/DL CREATININE (test code = 2214) 0.52 MG/DL eGFR AMER. (test cod e = 00767) 139 ML/MIN/1.73 eGFR NON- AMER. (test code = 43130) 120 ML/MIN/1.73 CALC BUN/CREAT (test code = [...] code = 2219) 19 U/L CBC W/AUTO [id number] 00:00:00* Test Item Value Reference Range Interpretation [...] (test code = 1015) 322 K/UL HEMOGLOBIN [id number] 00:00:00* Test Item Value Reference Range Interpretation Comme nts HEMOGLOBIN A1c (test code = 86566) 5.5 % [id number] 00:00:00* Test Item Value Reference Range Interpretation Comme nts TSH, THIRD GENERATION (test code = 2821) 0.978 UIU/ML HEMOGLOBIN [id number] 00:00:00* Test Item Value Reference Range Interpretation Comme nts HEMOGLOBIN A1c (test code = 46066) 5.5 % Alex Tash [id number] 00:00:00* Test Item Value Reference Range Interpretation Comme nts TSH, THIRD GENERATION (test code = 2821) 0.978 UIU/ML Alex F PernellCOMPREHENSIVE METABOLIC [id number] 00:00:00* Test Item Value Reference Range Interpretation Comme nts GLUCOSE (test code = 2217) 70 MG/DL BUN (test code = 2208) 13 MG/DL CREATININE (test code = 2214) 0.52 MG/DL eGFR AMER. (test cod e = 65671) 139 ML/MIN/1.73 eGFR NON- AMER. (test code = 60168) 120 ML/MIN/1.73 CALC BUN/CREAT (test code = [...] ALT (test code = 2219) 19 U/L Alex Bianchi PernellCBC W/AUTO [id number] 00:00:00* Test Item Value Reference Range Interpretation [...] COUNT (test code = 1015) 322 K/UL Alex GimenezLIPID [id number] 00:00:00* Test Item Value Reference Range Interpretation Comme nts CHOLESTEROL (test code = 2210) 172 MG/DL TRIGLYCERIDES (test code = 2232) 230 MG/DL HDL CHOLESTEROL (test code = 2220) 36 MG/DL CALC LDL CHOL (test code = 2237) 90 MG/DL RISK RATIO LDL/HDL (test cod e = 2238) 2.50 RATIO LIPID [id number] 00:00:00* Test Item Value Reference Range Interpretation Comme nts CHOLESTEROL (test code = 2210) 172 MG/DL TRIGLYCERIDES (test code = 2232) 230 MG/DL HDL CHOLESTEROL (test code = 2220) 36 MG/DL CALC LDL CHOL (test code = 2237) 90 MG/DL RISK RATIO LDL/HDL (test cod e = 2238) 2.50 RATIO LIPID [id number] 00:00:00* Test Item Value Reference Range Interpretation Comme nts CHOLESTEROL (test code = 2210) 172 MG/DL TRIGLYCERIDES (test code = 2232) 230 MG/DL HDL CHOLESTEROL (test code = 2220) 36 MG/DL CALC LDL CHOL (test code = 2237) 90 MG/DL RISK RATIO LDL/HDL (test cod e = 2238) 2.50 RATIO Alex F AustinCBC W/AUTO [id number] 00:00:00* Test Item Value Reference Range Interpretation [...] (test code = 1015) 301 K/UL LIPID [id number] 00:00:00* Test Item Value Reference Range Interpretation Comme nts CHOLESTEROL (test code = 2210) 155 MG/DL TRIGLYCERIDES (test code = 2232) 192 MG/DL HDL CHOLESTEROL (test code = 2220) 36 MG/DL CALC LDL CHOL (test code = 2237) 81 MG/DL RISK RATIO LDL/HDL (test cod e = 2238) 2.24 RATIO COMPREHENSIVE METABOLIC [id number] 00:00:00* Test Item Value Reference Range Interpretation Comme nts GLUCOSE (test code = 2217) 103 MG/DL BUN (test code = 2208) 16 MG/DL CREATININE (test code = 2214) 0.58 MG/DL eGFR AMER. (test cod e = 22393) 135 ML/MIN/1.73 eGFR NON- AMER. (test code = 43280) 116 ML/MIN/1.73 CALC BUN/CREAT (test code = [...] ALT (test code = 2219) 19 U/L [id number] 00:00:00* Test Item Value Reference Range Interpretation Comme nts TSH, THIRD GENERATION (test code = 2821) 0.772 UIU/ML CBC W/AUTO [id number] 00:00:00* Test Item Value Reference Range Interpretation [...] (test code = 1015) 301 K/UL LIPID [id number] 00:00:00* Test Item Value Reference Range Interpretation Comme nts CHOLESTEROL (test code = 2210) 155 MG/DL TRIGLYCERIDES (test code = 2232) 192 MG/DL HDL CHOLESTEROL (test code = 2220) 36 MG/DL CALC LDL CHOL (test code = 2237) 81 MG/DL RISK RATIO LDL/HDL (test cod e = 2238) 2.24 RATIO COMPREHENSIVE METABOLIC [id number] 00:00:00* Test Item Value Reference Range Interpretation Comme nts GLUCOSE (test code = 2217) 103 MG/DL BUN (test code = 2208) 16 MG/DL CREATININE (test code = 2214) 0.58 MG/DL eGFR AMER. (test cod e = 99295) 135 ML/MIN/1.73 eGFR NON- AMER. (test code = 58354) 116 ML/MIN/1.73 CALC BUN/CREAT (test code = [...] ALT (test code = 2219) 19 U/L [id number] 00:00:00* Test Item Value Reference Range Interpretation Comme nts TSH, THIRD GENERATION (test code = 2821) 0.772 UIU/ML COMPREHENSIVE METABOLIC [id number] 00:00:00* Test Item Value Reference Range Interpretation Comme nts GLUCOSE (test code = 2217) 103 MG/DL BUN (test code = 2208) 16 MG/DL CREATININE (test code = 2214) 0.58 MG/DL eGFR AMER. (test cod e = 92455) 135 ML/MIN/1.73 eGFR NON- AMER. (test code = 69593) 116 ML/MIN/1.73 CALC BUN/CREAT (test code = [...] ALT (test code = 2219) 19 U/L Alex [id number] 00:00:00* Test Item Value Reference Range Interpretation Comme nts TSH, THIRD GENERATION (test code = 2821) 0.772 UIU/ML Alex GimenezCBC W/AUTO [id number] 00:00:00* Test Item Value Reference Range Interpretation [...] COUNT (test code = 1015) 301 K/UL Alex GimenezLIPID [id number] 00:00:00* Test Item Value Reference Range Interpretation Comme nts CHOLESTEROL (test code = 2210) 155 MG/DL TRIGLYCERIDES (test code = 2232) 192 MG/DL HDL CHOLESTEROL (test code = 2220) 36 MG/DL CALC LDL CHOL (test code = 2237) 81 MG/DL RISK RATIO LDL/HDL (test cod e = 2238) 2.24 RATIO Alex GimenezMUMPS IgG AND [id number] 00:00:00* Test Item Value Reference Range Interpretation Comme nts MUMPS VIRUS IgG (test code = 32142) 46.5 AU/mL MUMPS VIRUS IgM (test code = 4587) 0.55 IV Alex GimenezMUMPS IgG AND [id number] 00:00:00* Test Item Value Reference Range Interpretation Comme nts MUMPS VIRUS IgG (test code = 26443) 46.5 AU/mL MUMPS VIRUS IgM (test code = 4587) 0.55 IV MUMPS IgG AND [id number] 00:00:00* Test Item Value Reference Range Interpretation Comme nts MUMPS VIRUS IgG (test code = 77795) 46.5 AU/mL MUMPS VIRUS IgM (test code = 4587) 0.55 IV RUBEOLA IgG [id number] 00:00:00* Test Item Value Reference Range Interpretation Comme nts RUBEOLA IgG ANTIBODY (test c ode = 50006) 98.5 AU/ML RUBELLA ANTIBODY [id number] 00:00:00* Test Item Value Reference Range Interpretation Comme nts RUBELLA ANTIBODY SCREEN (katelin t code = 4600) 12 IU/ML RUBELLA IgG INTERP (test cod e = 17327) REACTIVE VARICELLA ZOSTER [id number] 00:00:00* Test Item Value Reference Range Interpretation Comme nts VARICELLA ZOSTER IgG (test c ode = 36382) 454 INDEX HEPATITIS B SURFACE [id number] 00:00:00* Test Item Value Reference Range Interpretation Comme nts HEPATITIS B SURFACE AB (test code = 2737) NON-REACTIVE RUBEOLA IgG [id number] 00:00:00* Test Item Value Reference Range Interpretation Comme nts RUBEOLA IgG ANTIBODY (test c ode = 39129) 98.5 AU/ML RUBELLA ANTIBODY [id number] 00:00:00* Test Item Value Reference Range Interpretation Comme nts RUBELLA ANTIBODY SCREEN (katelin t code = 4600) 12 IU/ML RUBELLA IgG INTERP (test cod e = 96857) REACTIVE VARICELLA ZOSTER [id number] 00:00:00* Test Item Value Reference Range Interpretation Comme nts VARICELLA ZOSTER IgG (test c ode = 81885) 454 INDEX HEPATITIS B SURFACE [id number] 00:00:00* Test Item Value Reference Range Interpretation Comme nts HEPATITIS B SURFACE AB (test code = 2737) NON-REACTIVE RUBELLA ANTIBODY [id number] 00:00:00* Test Item Value Reference Range Interpretation Comme nts RUBELLA ANTIBODY SCREEN (katelin t code = 4600) 12 IU/ML RUBELLA IgG INTERP (test cod e = 04098) REACTIVE Alex F AustinVARICELLA ZOSTER [id number] 00:00:00* Test Item Value Reference Range Interpretation Comme nts VARICELLA ZOSTER IgG (test c ode = 39199) 454 INDEX Alex F AustinHEPATITIS B SURFACE [id number] 00:00:00* Test Item Value Reference Range Interpretation Comme nts HEPATITIS B SURFACE AB (test code = 2737) NON-REACTIVE Alex F AustinRUBEOLA IgG [id number] 00:00:00* Test Item Value Reference Range Interpretation Comme nts RUBEOLA IgG ANTIBODY (test c ode = 24144) 98.5 AU/ML Alex Bianchi AustinDIAG MAMM BILATERAL CAD [id number] 11:19:31- DIAG MAMM BILATERAL CAD DIGITALBILATERAL DIGITAL DIAGNOSTIC MAMMOGRAM WITH CAD: 10/13/2018CLINICAL: Palpable mass, left breast. Current mammographic images were evaluated by either a [facility] [employer] [facility] or a [employer] ImageChecker CAD (computer aided detection system). No [...] clinical examination.Xu Ascencio M.D. ss/:10/13/2018 11:19:31 Entry: lc - 10/14/2018 08:09:35Imaging Technologist: Marti HUERTA, [facility]-FWletter sent: BIRADS 1-2 Combo FU Letter Mammogram BI-RADS: 0 Indeterminate Ultrasound BI-RADS: 1 NegativeBREAST ULTRASOUND BILATERAL 2018-10-13 11:19:31- DIAG MAMM BILATERAL CAD DIGITALBILATERAL DIGITAL DIAGNOSTIC MAMMOGRAM WITH CAD: 10/13/2018CLINICAL: Palpable mass, left breast. Current mammographic images were evaluated by either a [facility] [employer] M-Vu or a [employer] ImageDynamo Micropowercker CAD (computer aided detection system). No prior [...] Entry: - 10/14/2018 08:09:35Imaging Technologist: Marti Shannon FW, [facility]-FWletter sent: BIRADS 1-2 Combo FU Letter Mammogram BI-RADS: 0 Indeterminate Ultrasound BI-RADS: 1 NegativeCBC W/AUTO [id number] 00:00:00* Test Item Value Reference Range Interpretation [...] code = 1015) 312 K/UL COMPREHENSIVE METABOLIC [id number] 00:00:00* Test Item Value Reference Range Interpretation Comme nts GLUCOSE (test code = 2217) 85 MG/DL BUN (test code = 2208) 13 MG/DL CREATININE (test code = 2214) 0.56 MG/DL eGFR AMER. (test cod e = 30670) 136 ML/MIN/1.73 eGFR NON- AMER. (test code = 93583) 117 ML/MIN/1.73 CALC BUN/CREAT (test code = [...] ALT (test code = 2219) 18 U/L [id number] 00:00:00* Test Item Value Reference Range Interpretation Comme nts TSH, THIRD GENERATION (test code = 2821) 0.630 UIU/ML CBC W/AUTO [id number] 00:00:00* Test Item Value Reference Range Interpretation [...] code = 1015) 312 K/UL COMPREHENSIVE METABOLIC [id number] 00:00:00* Test Item Value Reference Range Interpretation Comme nts GLUCOSE (test code = 2217) 85 MG/DL BUN (test code = 2208) 13 MG/DL CREATININE (test code = 2214) 0.56 MG/DL eGFR AMER. (test cod e = 70915) 136 ML/MIN/1.73 eGFR NON- AMER. (test code = 15003) 117 ML/MIN/1.73 CALC BUN/CREAT (test code = [...] ALT (test code = 2219) 18 U/L [id number] 00:00:00* Test Item Value Reference Range Interpretation Comme nts TSH, THIRD GENERATION (test code = 2821) 0.630 UIU/ML [id number] 00:00:00* Test Item Value Reference Range Interpretation Comme nts TSH, THIRD GENERATION (test code = 2821) 0.630 UIU/ML Alex GimenezCBC W/AUTO [id number] 00:00:00* Test Item Value Reference Range Interpretation [...] COUNT (test code = 1015) 312 K/UL Alex GimenezCOMPREHENSIVE METABOLIC [id number] 00:00:00* Test Item Value Reference Range Interpretation Comme nts GLUCOSE (test code = 2217) 85 MG/DL BUN (test code = 2208) 13 MG/DL CREATININE (test code = 2214) 0.56 MG/DL eGFR AMER. (test cod e = 14433) 136 ML/MIN/1.73 eGFR NON- AMER. (test code = 77302) 117 ML/MIN/1.73 CALC BUN/CREAT (test code = [...] ALT (test code = 2219) 18 U/L Alex Bianchi DennisCOMPREHENSIVE METABOLIC [id number] 00:00:00* Test Item Value Reference Range Interpretation Comme nts GLUCOSE (test code = 2217) 92 MG/DL BUN (test code = 2208) 20 MG/DL CREATININE (test code = 2214) 0.69 MG/DL eGFR AMER. (test cod e = 24950) 129 ML/MIN/1.73 eGFR NON- AMER. (test code = 58953) 111 ML/MIN/1.73 CALC BUN/CREAT (test code = [...] code = 2219) 20 U/L COMPREHENSIVE METABOLIC [id number] 00:00:00* Test Item Value Reference Range Interpretation Comme nts GLUCOSE (test code = 2217) 92 MG/DL BUN (test code = 2208) 20 MG/DL CREATININE (test code = 2214) 0.69 MG/DL eGFR AMER. (test cod e = 14085) 129 ML/MIN/1.73 eGFR NON- AMER. (test code = 31143) 111 ML/MIN/1.73 CALC BUN/CREAT (test code = [...] code = 2219) 20 U/L COMPREHENSIVE METABOLIC [id number] 00:00:00* Test Item Value Reference Range Interpretation Comme nts GLUCOSE (test code = 2217) 92 MG/DL BUN (test code = 2208) 20 MG/DL CREATININE (test code = 2214) 0.69 MG/DL eGFR AMER. (test cod e = 29068) 129 ML/MIN/1.73 eGFR NON- AMER. (test code = 24041) 111 ML/MIN/1.73 CALC BUN/CREAT (test code = [...] ALT (test code = 2219) 20 U/L Alex GimenezCOMPREHENSIVE METABOLIC [id number] 00:00:00* Test Item Value Reference Range Interpretation Comme nts GLUCOSE (test code = 2217) 85 MG/DL BUN (test code = 2208) 15 MG/DL CREATININE (test code = 2214) 0.48 MG/DL eGFR AMER. (test cod e = 46615) 146 ML/MIN/1.73 eGFR NON- AMER. (test code = 48459) 126 ML/MIN/1.73 CALCULATED BUN/CREAT (test code = [...] (test code = 2219) 9 U/L LIPID [id number] 00:00:00* Test Item Value Reference Range Interpretation Comme nts CHOLESTEROL (test code = 2210) 187 MG/DL TRIGLYCERIDES (test code = 2232) 284 MG/DL HDL CHOLESTEROL (test code = 2220) 39 MG/DL CALCULATED LDL CHOL (test co de = 2237) 91 MG/DL RISK RATIO LDL/HDL (test cod e = 2238) 2.34 RATIO CBC W/AUTO [id number] 00:00:00* Test Item Value Reference Range Interpretation [...] (test code = 1015) 261 K/UL HEMOGLOBIN [id number] 00:00:00* Test Item Value Reference Range Interpretation Comme nts HEMOGLOBIN A1c (test code = 72170) 5.3 % [id number] 00:00:00* Test Item Value Reference Range Interpretation Comme nts TSH (test code = 2821) 0.9 UIU/ML COMPREHENSIVE METABOLIC [id number] 00:00:00* Test Item Value Reference Range Interpretation Comme nts GLUCOSE (test code = 2217) 85 MG/DL BUN (test code = 2208) 15 MG/DL CREATININE (test code = 2214) 0.48 MG/DL eGFR AMER. (test cod e = 83162) 146 ML/MIN/1.73 eGFR NON- AMER. (test code = 85692) 126 ML/MIN/1.73 CALCULATED BUN/CREAT (test code = [...] (test code = 2219) 9 U/L LIPID [id number] 00:00:00* Test Item Value Reference Range Interpretation Comme nts CHOLESTEROL (test code = 2210) 187 MG/DL TRIGLYCERIDES (test code = 2232) 284 MG/DL HDL CHOLESTEROL (test code = 2220) 39 MG/DL CALCULATED LDL CHOL (test co de = 2237) 91 MG/DL RISK RATIO LDL/HDL (test cod e = 2238) 2.34 RATIO CBC W/AUTO [id number] 00:00:00* Test Item Value Reference Range Interpretation [...] (test code = 1015) 261 K/UL HEMOGLOBIN [id number] 00:00:00* Test Item Value Reference Range Interpretation Comme nts HEMOGLOBIN A1c (test code = 75678) 5.3 % [id number] 00:00:00* Test Item Value Reference Range Interpretation Comme nts TSH (test code = 2821) 0.9 UIU/ML LIPID [id number] 00:00:00* Test Item Value Reference Range Interpretation Comme nts CHOLESTEROL (test code = 2210) 187 MG/DL TRIGLYCERIDES (test code = 2232) 284 MG/DL HDL CHOLESTEROL (test code = 2220) 39 MG/DL CALCULATED LDL CHOL (test co de = 2237) 91 MG/DL RISK RATIO LDL/HDL (test cod e = 2238) 2.34 RATIO Alex GimenezCBC W/AUTO [id number] 00:00:00* Test Item Value Reference Range Interpretation [...] EOSINOPHILS (test code = 1012) 1 % PLATELET COUNT (test code = 1015) 261 K/UL Alex GimenezHEMOGLOBIN [id number] 00:00:00* Test Item Value Reference Range Interpretation Comme hortensia HEMOGLOBIN A1c (test code = 07492) 5.3 % Alex [id number] 00:00:00* Test Item Value Reference Range Interpretation Comme nts TSH (test code = 2821) 0.9 UIU/ML Alex GimenezCOMPREHENSIVE METABOLIC [id number] 00:00:00* Test Item Value Reference Range Interpretation Comme nts GLUCOSE (test code = 2217) 85 MG/DL BUN (test code = 2208) 15 MG/DL CREATININE (test code = 2214) 0.48 MG/DL eGFR AMER. (test cod e = 54812) 146 ML/MIN/1.73 eGFR NON- AMER. (test code = 65182) 126 ML/MIN/1.73 CALCULATED BUN/CREAT (test code = [...] (ALT) (test code = 2219) 9 U/L Alex Gimenez Notes Date/Time Note Provider Source Alex Gimenez [facility]2023-08-07 20:29:04 Patient eloped before dispo. [facility]24[facility]25 Patient called from [facility]. No answer [facility]2023-08-07 19:54:38 Patient called from [employer]. No answer. [facility]2023-08-07 16:32:23 Patient reports having a headache for the past couple of days. Reports taking 1000mg Tylenol every 4 hours with no relief. Reports nausea / vomiting. Head pain at the front / top of head [facility] Jade Parikh [facility]
[2025-06-08] MEDS ORDERED: LORazepam 2 MG/ML VIAL ONE (08:18)
[2025-06-08] MEDS ORDERED: ONDANSETRON 4 MG/2 ML VIAL ONE (08:18)
[2025-06-08] MEDS ORDERED: MORPHINE 4 MG/ML SYR ONE (08:19)
[2025-06-08] MEDS ORDERED: NA CHLORIDE 0.9% 1,000 ML ONE (08:19)
[2025-06-08 08:21] LABS: Absolute Lymphocytes (CBC) 3.8 K/uL (0.7-4.9); Hematocrit 42.4 % (36.0-45.0); Hemoglobin 14.6 g/dL (12.0-15.0); MCH 29.0 pg (27.0-35.0); MCHC 34.5 g/dL (32.0-36.0); MCV 84.1 fL (80-100); MPV 7.1 fL (7.6-11.3); Nucleated RBC Absolute Count 0.0 (0-0); Nucleated Red Blood Cells % 0.0 % (0-0); RBC Red Blood Cell Count 5.04 M/uL (3.86-4.86); White Blood Count 11.10 thou/uL (4.3-10.9)
[2025-06-08 08:43] LABS: Anion Gap 12.7 mEq/L (5.0-15.0); BUN Blood Urea Nitrogen 15.0 mg/dL (7-18); Glucose Level 156.0 mg/dL (74-106); Potassium 2.7 mEq/L (3.5-5.1); Troponin High Sensitivity 3.5 pg/mL (<58.9)
--- NOTE | 2025-06-08 09:05 | RAD REPORT ---
EXAMINATION: ONE VIEW CHEST XR CLINICAL INDICATION: CHEST PAIN TECHNIQUE: Frontal chest projection is submitted. Examination is limited by patient positioning and t echnique. COMPARISON: No prior exam. FINDINGS: The lungs are well inflated and clear. The heart is normal in size. No displaced fractures identified . IMPRESSION: No acute intrathoracic abnormalities.
[2025-06-08] MEDS ORDERED: POTASSIUM 25 MEQ EFFERV TAB ONE (09:12)
[2025-06-08 09:16] LABS: Urine Microscopic Reflex YN NO UMIC
--- NOTE | 2025-06-08 09:39 | RAD REPORT ---
EXAM: CT brain without contrast HISTORY: DIZZINESS COMPARISON: 04/17/2017 TECHNIQUE: Multiple contiguous axial images were obtained and a CT of the brain without contrast. Sag ittal and coronal reformats were performed. One or more of the following dose reduction techniques were used: Automated exposure control, adjust ment of the mA and/or kV according to patient size, and/or iterative reconstruction. FINDINGS: No evidence of hydrocephalus, intracranial hemorrhage, or extra-axial fluid collection. The brain is normal in morphology. No evidence of midline shift or areas of brain edema. The calvarium is intact. The visualized paranasal sinuses and mastoid air cells are essentially clear . IMPRESSION: No evidence of acute intracranial abnormality.
--- NOTE | 2025-06-08 09:47 | ER ---
Nurse's Notes [facility] Name: Maria De Jesus Wagoner Age: 44 yrs Sex: Female : 1980 Arrival Date: 06/08/2025 Time: 07:59 Bed 7 Private MD: Diagnosis: Hypokalemia;Panic disorder [episodic paroxysmal anxiety] without agoraphobia Presentation: 06/08 08:21 Chief complaint: Patient states: "I was brushing my teeth and started having pressure mb9 on my chest, headache, and nausea.". Coronavirus screen: Vaccine status: Patient reports being unvaccinated. Ebola Screen: No symptoms or risks identified at this time. Initial Sepsis Screen: Does the patient meet any 2 criteria? No. Patient's initial sepsis screen is negative. Does the patient have a suspected source of infection? No. Patient's initial sepsis screen is negative. Risk Assessment: Do you want to hurt yourself or someone else? Patient reports no desire to harm self or others. Onset of symptoms was June 08, 2025. 08:21 Acuity: JOCELIN 3 mb9 08:21 Method Of Arrival: Ambulatory mb9 Triage Assessment: 08:10 Headache History: The patient has had previous headaches and this one is similar to mb9 previous episodes. General: Appears uncomfortable, Behavior is anxious, crying. Pain: Complains of pain in chest Pain radiates to face Pain currently is 10 out of 10 on a pain scale. Quality of pain is described as pressure, Pain began suddenly, Is continuous, Also complains of nausea. EENT: No signs and/or symptoms were reported regarding the EENT system. Neuro: [place] Agitation-Sedation Scale (RASS): 0 - Alert and Calm Level of Consciousness is awake, alert, obeys commands, Oriented to person, place, time, situation, Appropriate for age Reports dizziness, headache. Cardiovascular: Patient's skin is warm and dry. Respiratory: Airway is patent Respiratory effort is even, unlabored, Respiratory pattern is regular, symmetrical, Breath sounds are clear bilaterally. GI: Abdomen is round non-distended, Bowel sounds present X 4 quads. Abd is soft and non tender X 4 quads. : No signs and/or symptoms were reported regarding the genitourinary system. Derm: Skin is pink, warm \\T\\ dry. Musculoskeletal: Range of motion: intact in all extremities. ENGINEER BYPRODUCT: 08:30 LMP N/A - control method, Not mb9 Historical: - Allergies: 08:22 No Known Allergies; mb9 - PMHx: 08:22 adhd; Anxiety; depressive disorder; GERD; Hypertension; mb9 - PSHx: 08:22 Cholecystectomy; tubal ligation; mb9 - Immunization history:: Adult Immunizations up to date. - Infectious Disease History:: Denies. - Social history:: Smoking status: Patient denies any tobacco usage or history of. Screenin:30 [facility] ED Fall Risk Assessment (Adult) History of falling in the last 3 months, mb9 including since admission No falls in past 3 months (0 pts) Confusion or Disorientation No (0 pts) Intoxicated or Sedated No (0 pts) Impaired Gait No (0 pts) Mobility Assist Device Used No (0 pt) Altered Elimination No (0 pt) Score/Fall Risk Level 0 - 2 = Low Risk Oriented to surroundings, Maintained a safe environment, Educated pt \\T\\ family on fall prevention, incl call for assistance when getting out of bed. Abuse screen: Denies threats or abuse. Nutritional screening: No deficits noted. Tuberculosis screening: No symptoms or risk factors identified. Assessment: 08:30 Reassessment: see triage assessment. mb9 Vital Signs: 08:21 BP 161 / 104; Pulse 85; Resp 18; Temp 98; Pulse Ox 100% ; Weight 99.79 kg; Height 5 ft. mb9 3 in. ; Pain 10/10; 09:50 BP 145 / 75; Pulse 74; Resp 18; Pulse Ox 100% on R/A; mb9 08:21 Body Mass Index 38.97 (99.79 kg, 160.02 cm) mb9 08:21 Pain Scale: Adult mb9 [place] Coma Score: 10:12 Eye Response: spontaneous(4). Motor Response: obeys commands(6). Verbal Response: dr5 oriented(5). Total: 15. ED Course: 08:01 Patient arrived in ED. cj3 08:02 Dale Andrade FNP-C is PHCP. dr5 08:02 Sandra Olson MD is Attending Physician. dr5 08:05 Elisa Funes RN is Primary Nurse. mb9 08:10 EKG done, by ED staff, reviewed by Dale GARZON. mb9 08:10 Initial lab(s) drawn, by me, sent to lab. Inserted saline lock: 20 gauge in right mb9 antecubital area, using aseptic technique. Blood collected. Flushed with 10 mL NS. 08:22 Triage completed. mb9 08:22 Arm band placed on. mb9 08:30 Placed in gown. Bed in low position. Call light in reach. Side rails up X 1. Provided mb9 Education on: press call light if needing anything. Client placed on continuous cardiac and pulse oximetry monitoring. NIBP monitoring applied. site monitor on. Door closed. Noise minimized. Warm blanket given. Pillow given. 08:31 No provider procedures requiring assistance completed. mb9 08:54 XRAY Chest (1 view) In Process Unspecified. EDMS 09:27 CT Head Brain wo Cont In Process Unspecified. EDMS 09:50 IV discontinued, intact, bleeding controlled, No redness/swelling at site. Pressure mb9 dressing applied. Administered Medications: 08:23 Drug: Ondansetron IVP 4 mg IVP once; over 2 minutes Route: IVP; Site: right antecubital;mb9 09:16 Follow up: Response: No adverse reaction mb9 08:25 Drug: morphine IVP or IV 4 mg IVP once over 4 mins Route: IVP; Infused Over: 4 mins; mb9 Site: right antecubital; 09:16 Follow up: Response: No adverse reaction mb9 08:30 Drug: Ativan IVP 1 mg IVP once Route: IVP; Site: right antecubital; mb9 09:16 Follow up: Response: No adverse reaction mb9 08:32 Drug: NS 0.9% IV 1000 ml IV at 1000 ml once; to be given as a bolus over 60 minutes mb9 Route: IV; Rate: 1000 ml; Site: right antecubital; 09:16 Follow up: Response: No adverse reaction; IV Status: Completed infusion mb9 09:16 Drug: Potassium PO Effervescent Tablet 50 mEq PO once; dissolve in 4 ounces of water or mb9 juice Route: PO; 09:50 Follow up: Response: No adverse reaction mb9 Medication: 08:30 VIS not applicable for this client. mb9 Outcome: 09:46 Discharge ordered by . raz 10:09 Discharged to home ambulatory, mb9 10:09 Condition: stable 10:09 Discharge instructions given to patient, Instructed on discharge instructions, follow up and referral plans. Demonstrated understanding of instructions, follow-up care, medications, Prescriptions given X 1, :09 Patient left the ED. mb9 Signatures: Dispatcher [employer] Elisa Martinez RN RN mb9 Dale Andrade, PLANT OPERATIONS ENGINEER-C PLANT OPERATIONS ENGINEER-Cdr5 Eve Masterson cj3
--- NOTE | 2025-06-08 09:47 | EDPHYS ---
Physician Documentation [facility] Name: Maria De Jesus Wagoner Age: 44 yrs Sex: Female : 1980 Arrival Date: 06/08/2025 Time: 07:59 Bed 7 Private MD: ED Physician Sanrda Olson HPI: 06/08 08:09 This 44 yrs old Female presents to ER via Unassigned with complaints of dr5 Headache, Dizziness, Nausea, Chest Pain. 08:09 Onset: The symptoms/episode began/occurred acutely. Onset: The symptoms/episode dr5 began/occurred this morning. Patient is a 44 year old female with history of hypertension coming in with generalized headache, chest pain that doesn't radiate, nausea, vomiting, and shortness of breath that started this morning. Patient denies increase stress at home, denies dysuria, vaginal bleeding, and abdominal pain.. LEGAL SPECIALIST: 08:30 LMP N/A - control method, Not mb9 Historical: - Allergies: 08:22 No Known Allergies; mb9 - PMHx: 08:22 adhd; Anxiety; depressive disorder; GERD; Hypertension; mb9 - PSHx: 08:22 Cholecystectomy; tubal ligation; mb9 - Immunization history:: Adult Immunizations up to date. - Infectious Disease History:: Denies. - Social history:: Smoking status: Patient denies any tobacco usage or history of. ROS: 08:09 Constitutional: as per hpi dr5 Exam: 08:09 Constitutional: This is a well developed, well nourished patient who is awake, alert, dr5 and in no acute distress. Head/Face: Normocephalic, atraumatic. Eyes: Pupils equal round and reactive to light, extra-ocular motions intact. Lids and lashes normal. Conjunctiva and sclera are non-icteric and not injected. Cornea within normal limits. Periorbital areas with no swelling, redness, or edema. Neck: Trachea midline, no thyromegaly or masses palpated, and no cervical lymphadenopathy. Supple, full range of motion without nuchal rigidity, or vertebral point tenderness. No Meningismus. Chest/axilla: Normal chest wall appearance and motion. Nontender with no deformity. No lesions are appreciated. Cardiovascular: Regular rate and rhythm with a normal S1 and S2. Normal PMI, no JVD. No pulse deficits. Respiratory: Lungs have equal breath sounds bilaterally, clear to auscultation. No rales, rhonchi or wheezes noted. Patient has increased rate of breathing upon arrival to room. Abdomen/GI: Soft, non-tender, non-distended Back: No spinal tenderness. No costovertebral tenderness. Full range of motion. Skin: Warm, dry with normal turgor. Normal color with no rashes, no lesions, and no evidence of cellulitis. MS/ Extremity: Pulses equal, no cyanosis. Neurovascular intact. Full, normal range of motion. Neuro: Awake and alert, GCS 15, oriented to person, place, time, and situation. Cranial nerves II-XII grossly intact. Motor strength 5/5 in all extremities. Sensory grossly intact. Cerebellar exam normal. Normal gait. Vital Signs: 08:21 BP 161 / 104; Pulse 85; Resp 18; Temp 98; Pulse Ox 100% ; Weight 99.79 kg; Height 5 ft. mb9 3 in. ; Pain 10/10; 09:50 BP 145 / 75; Pulse 74; Resp 18; Pulse Ox 100% on R/A; mb9 08:21 Body Mass Index 38.97 (99.79 kg, 160.02 cm) mb9 08:21 Pain Scale: Adult mb9 Evangelist Coma Score: 10:12 Eye Response: spontaneous(4). Motor Response: obeys commands(6). Verbal Response: dr5 oriented(5). Total: 15. MDM: 08:03 Medical Screening Exam initiated dr5 10:12 Differential diagnosis: otitis, sinusitis, Generalized anxiety disorder, NSTEMI, dr5 urinary tract infection, intracranial hemorrhage. Data reviewed: vital signs, nurses notes, lab test result(s), CBC, white blood cell count, hemoglobin, hematocrit, platelets, electrolytes, sodium, potassium, chloride, serum bicarbonate, BUN, creatinine, serum glucose, urinalysis, EKG. 10:13 Data reviewed: radiologic studies, CT scan. Consideration of Admission/Observation dr5 Escalation of care including admission/observation considered. Escalation considered if patient symptoms did not resolve or patient found to have elevated troponin or abnormality on CT scan. I considered the following discharge prescriptions or medication management in the emergency department I discussed and recommended Over The Counter medications, Medications were administered in the Emergency Department. See MAR. Independent interpretation of the following test(s) in the Emergency Department X-Ray: My interpretation is Independent rotation of x-ray does not reveal pneumonia. No abnormality noted such as intracranial hemorrhage or midline shift on CT scan . Historians other than the Patient: Parent: Mother at bedside. Care significantly affected by the following chronic conditions: ADHD, anxiety, depression, GERD, hypertension. Care significantly affected by the following Social Determinants of Health: Poor access to healthcare and/or lack of insurance, Poor access to transportation, Problems related to employment. Scoring Tools HEART Score: History: ECG: Age: Risk Factors: 1 or 2 risk factors (1), Troponin: Total Score = 1. Counseling: I had a detailed discussion with the patient and/or guardian regarding the historical points, exam findings, and any diagnostic results supporting the discharge/admit diagnosis, the presence of at least one elevated blood pressure reading (>120/80) during this emergency department visit, lab results, radiology results, the need for outpatient follow up, for definitive care, a family practitioner, to return to the emergency department if symptoms worsen or persist or if there are any questions or concerns that arise at home. Medication response: Morphine, Zofran, normal saline, Ativan. Response to treatment: the patient's symptoms have resolved after treatment, the patient's condition has returned to base line, the patient is now symptom free. Special discussion: Based on the patient's history, exam, and Dx evaluation, there is no indication for emergent intervention or inpatient Tx. It is understood by the patient/guardian that if the Sx's persist or worsen they need to return immediately for re-evaluation. I discussed with the patient/guardian in detail that at this point there is no indication for admission to the hospital. It is understood, however, that if the symptoms persist or worsen the patient needs to return immediately for re-evaluation. Based on the history and exam findings, there is no indication for further emergent testing or inpatient evaluation. I discussed with the patient/guardian the need to see the primary care provider for further evaluation of the symptoms. ED course: Will have patient follow-up with my CHN. Patient reports that she would like to have a CT scan of her head due to headache. All results printed out and given to patient to take with her for follow-up. All questions answered. Strict ER precautions given. No abnormality other than hypokalemia noted on lab work. Patient passed p.o. challenge with replacement of potassium. Patient's tachypnea has resolved and patient is breathing fine And pain is resolved.. 06/08 08:03 Order name: Basic Metabolic Panel; Complete Time: 08:43 [facility] 06/08 08:03 Order name: CBC with Diff; Complete Time: 08:28 [facility] 06/08 08:03 Order name: Troponin HS; Complete Time: 08:43 [facility] 06/08 08:29 Order name: UA Rfx Lauri Cult if indicated; Complete Time: 09:16 [facility] 06/08 08:29 Order name: Test, Urine; Complete Time: 09:44 [facility] 06/08 08:03 Order name: XRAY Chest (1 view); Complete Time: 09:14 [facility] 06/08 09:08 Order name: CT Head Brain wo Cont; Complete Time: 09:44 [facility] 06/08 08:03 Order name: Cardiac monitoring; Complete Time: 08:20 [facility] 06/08 08:03 Order name: EKG - Nurse/Tech; Complete Time: 08:20 [facility] 06/08 08:03 Order name: IV Saline Lock; Complete Time: 08:20 [facility] 06/08 08:03 Order name: Labs collected and sent; Complete Time: 08:20 [facility] 06/08 08:03 Order name: O2 Per Protocol; Complete Time: 08:20 [facility] 06/08 08:03 Order name: O2 Sat Monitoring; Complete Time: 08:20 [facility] EC:12 Rate is 81 beats/min. Rhythm is regular. QRS [place] is Normal. MI interval is normal at dr5 166 msec. QRS interval is normal at 84 msec. QT interval is normal at 396 msec. Clinical impression: Normal ECG. Administered Medications: 08:23 Drug: Ondansetron IVP 4 mg IVP once; over 2 minutes Route: IVP; Site: right antecubital;mb9 09:16 Follow up: Response: No adverse reaction mb9 08:25 Drug: morphine IVP or IV 4 mg IVP once over 4 mins Route: IVP; Infused Over: 4 mins; mb9 Site: right antecubital; 09:16 Follow up: Response: No adverse reaction mb9 08:30 Drug: Ativan IVP 1 mg IVP once Route: IVP; Site: right antecubital; mb9 09:16 Follow up: Response: No adverse reaction mb9 08:32 Drug: NS 0.9% IV 1000 ml IV at 1000 ml once; to be given as a bolus over 60 minutes mb9 Route: IV; Rate: 1000 ml; Site: right antecubital; 09:16 Follow up: Response: No adverse reaction; IV Status: Completed infusion mb9 09:16 Drug: Potassium PO Effervescent Tablet 50 mEq PO once; dissolve in 4 ounces of water or mb9 juice Route: PO; 09:50 Follow up: Response: No adverse reaction mb9 Disposition: 19:14 Co-signature as Attending Physician, Sandra Olson MD I reviewed the patient's care gb1 provided by the Advanced Practice Provider and agree with the diagnosis and treatment plan. Disposition Summary: 06/08/25 09:46 Discharge Ordered Notes: Location: Home dr5 Condition: Stable dr5 Diagnosis - Hypokalemia dr5 - Panic disorder [episodic paroxysmal anxiety] without agoraphobia dr5 Followup: dr5 - With: Emergency Department - When: As needed - Reason: Worsening of condition Followup: dr5 - With: Private Physician - When: 1 - 2 days - Reason: Recheck today's complaints, Continuance of care, Re-evaluation by your physician Discharge Instructions: - Discharge Summary Sheet dr5 - Panic Attack dr5 - Hypertension, Adult dr5 Forms: - Work release form dr5 - Medication Reconciliation Form dr5 - Patient Portal Instructions dr5 - Leadership Thank You Letter dr5 Prescriptions: - Hydroxyzine HCl 25 mg Oral Tablet - take 1 tablet ORAL route every 6 hours As needed; 12 tablet; Refills: 0, dr5 Product Selection Permitted Signatures: Dispatcher [employer] Elisa Martinez RN RN mb9 Blocker, Gina, MD MD gb1 Dale Andrade, HEALTH INFORMATION SPECIALIST-C HEALTH INFORMATION SPECIALIST-Cdr5 Corrections: (The following items were deleted from the chart) 08:04 08:04 Chest Single View+RAD.RAD.BRZ ordered. EDMS EDMS 09:08 09:08 Head Brain Wo Cont+CT.RAD.BRZ ordered. EDMS EDMS
[2025-06-08 10:13] VITALS: TEMP 98; O2SAT 100
[2025-06-08 10:15] VITALS: BP 145/75
== END 2025-06-08 10:09 | disposition home or self-care (01) ==
LOC: ER 07:59
DX: E87.6 Hypokalemia (principal); F41.0 Panic disorder [episodic paroxysmal anxiety]
CPT/HCPCS: 36415; 70450; 71045; 80048; 81003; 81025; 84484; 85025; 93005; 96361; 96374; 96375; 99285; J2405; J7030

== ENCOUNTER 2025-06-13 09:53 | Emergency (ER) | payer SELFPAY ==
--- OUTSIDE RECORDS SUMMARY | 2025-06-13 10:02 | XMS REPORT | Continuity of Care Document ---
Author Name Unknown Address [address] [facility] [place] [address] [facility] Address [address] [facility] [place] [address] Care Team Providers Care Java Developer With Security Clearance Name Role Phone Pcp, Patient Does Not Have A Primary Care Physic nanci GC_GCBZW_Kadialea_S Attending Clinician Serjio Richard NP Attending Clinician SERJIO SOW Attending Clinician Unavailable GC_GCBZW_Kadiyala_S Admitting Clinician Candelario sifuentes Payers Payer Name Policy Type Policy Number Effective Date Expirati on Date Source COMMERCIAL FFS CI [id number] SELF-PAY CI [id number] [employer]ET[employer] [id number] 2023 00:00:00 Problems Condition Name Condition Details Condition Category Status Onset Date Resolution Date Last Treatment Date Treating Clinician Comments Source Other general counseling and advice for contracept carolyn management Other general counseling and advice for contracept carolyn management Disease Active 04-08 00:[facility]: [facility] Essential hypertensi on, benign Essential hypertensi on, benign Disease Active 04-08 00:00: 00 [facility] Tubal ligation status Tubal ligation status Disease Active 04-08 00:00: 00 [facility] Non morbid obesity due to excess calories Non morbid obesity due to excess calories Disease Active 7-19 00:00: 00 [facility] Allergies, Adverse Reactions, Alerts Allergy Name Allergy Type Status Severity Reaction(s) Onset Date Inactive Date Treating Clinician Comments Source NO KNOWN ALLERGIE S Drug Class Active [facility] Social History Social Habit Start Date Stop Date Quantity Comments Source Gender identity [facility] Sexual orientation U [facility] Sex Assigned At 1980 00:00:00 1980 00:00:00 [facility] Smoking Status Start Date Stop Date Source Tobacco smoking consumption unknown [facility] Medications Ordered Medication Name Filled Medication Name [...] BUSPIRONE 15MG 2023-0 1-29 00:00: 00 Yes 10830 Alex Gimenez ARIPIPRAZOL E 2MG 2023-0 1-09 00:00: 00 Yes 2000 Alex Gimenez DULOXETINE 60MG DR 2023-0 1-09 00:00: 00 Yes [id number] Alex Gimenez BUSPIRONE 10MG 2022-1 1-15 00:00: 00 Yes [id number] Alex Gimenez LISINOPRIL 20MG 2022-1 0-15 00:00: 00 Yes [id number] Alex Gimenez OMEPRAZOLE 40 MG CPDR 2022-0 9-06 00:00: 00 Yes Alex Gimenez LISINOPRIL 20 MG TABS 2022-0 9-06 00:00: 00 Yes 20 Alex Gimenez buspirone HCl (BUSPIRONE ORAL) 2022-0 - 19:54: 31 Yes Take by mouth daily[facility] lisinopriL 20 mg tablet 2022-0 8-07 19:54: 31 Yes 20mg Take 1 tablet by mouth in the morning. [facility] omeprazole 40 mg capsule 8-07 19:54: 31 Yes 40mg Take 1 capsule by mouth in the morning. [facility] DULOXETINE HCL 30 MG CPEP 6-08 [...] 00 Yes 108 Alex Gimenez AMOX/K CLAV [phone] 3-04 00:00: 00 Yes Alex Gimenez HYDROCO/APA [...] Hep B, adult 2018-12-28 00:00:00 Completed Alex Gimenez Hep B, adult 2018-12-28 00:00:00 Completed Hep B, adult 2018-12-28 00:00:00 Completed Hep B, adult Hep B, adult 2018-11-15 00:00:00 Completed Alex Gimenez Hep B, adult 2018-11-15 00:00:00 Completed Hep B, adult 2018-11-15 00:00:00 Completed Tdap Tdap 2018-09-03 00:00:00 Completed Alex Gimenez Influenza, seasonal, inj Influenza, seasonal, inj 2018-09-03 00:00:00 Completed Alex Gimenez Tdap 2018-09-03 00:00:00 Completed Influenza, seasonal, inj 2018-09-03 00:00:00 Completed Tdap 2018-09-03 00:00:00 Completed Influenza, seasonal, inj 2018-09-03 00:00:00 Completed TDAP 2017-04-08 00:00:00 Completed [facility] Vital Signs Vital Name Observation Time Observation Value Comments S ource Systolic blood pressure 2023-04-27 21:33:00 130 mm[Hg] [place] [facility] Diastolic blood pressure 2023-04-27 21:33:00 93 mm[Hg] [place] [facility] Heart rate 2023-04-27 21:33:00 84 /min [facility] Body temperature 2023-04-27 21:33:00 37 Raine [facility] Respiratory rate 2023-04-27 21:33:00 20 /min [facility] Body height 2023-04-27 21:33:00 162.6 cm [facility] Body weight 2023-04-27 21:33:00 72.576 kg [facility] BMI 2023-04-27 21:33:00 27.46 kg/m2 [facility] Oxygen saturation in Arterial blood by Pulse oximetry 2023-04-27 21:33:00 99 /min [place] [facility] BP Systolic 2025-06-09 09:40:00 141 mm[Hg] Ba Gimenez BP Diastolic 2025-06-09 09:40:00 97 mm[Hg] Ben Gimenez Weight Measured 2025-06-09 09:40:00 199.80 pounds Alex F Pernell Height Measured 2025-06-09 09:40:00 54.00 inches Alex F Pernell Body Temperature 2025-06-09 09:40:00 98.10 degrees Alex F Pernell Heart Rate 2025-06-09 09:40:00 77.00 /min Rebecca en F Pernell Respiratory Rate 2025-06-09 09:40:00 Alex F Pernell Height Measured 2025-05-25 10:54:00 54.00 inches Alex F Pernell Body Temperature 2025-05-25 10:54:00 Alex F Pernell Heart Rate 2025-05-25 10:54:00 82.00 /min Rebecca [...] Measured 2022-06-17 11:09:00 182.80 pounds Alex F Pernell Height Measured 2022-06-17 11:09:00 54.00 inches Alex [...] Heart Rate 2021-02-21 13:36:00 80.00 /min Rebecca Gimenez Respiratory Rate 2021-02-21 13:36:00 21.00 /min Alex Gimenez BP Systolic 2021-02-20 14:29:00 126 mm[Hg] BP [...] OF BENEFITS 2023-04-27 22:18:50 Docto r Unassigned, [place] [facility] NOTICE OF PRIVACY PRACTICES 2023-04-27 21:20:36 Doctor Unassigned, [place] [facility] CONSENT/REFUSAL FOR DIAGNOSIS AND TREATMENT 2023-04-27 21:20:10 Doctor Unassigned, [place] [facility] Plan of Care Planned Activity Planned Date Details Comments Source Goal Plan of Care Note [code = 90244-8] Goal Plan of Care Note [code = 04956-8] Goal Plan of Care Note [code = 20504-6] Goal Plan of Care Note [code = 26349-8] Goal Plan of Care Note [code = 31006-1] Goal Plan of Care Note [code = 26505-8] Goal Plan of Care Note [code = 01774-4] Goal Plan of Care Note [code = 94601-8] Goal Plan of Care Note [code = 87841-7] Goal Plan of Care Note [code = 09058-3] Goal Plan of Care Note [code = 77901-3] Goal Plan of Care Note [code = 07383-0] Goal Plan of Care Note [code = 58651-9] Goal Plan of Care Note [code = 18516-0] Goal Plan of Care Note [code = 95666-4] Goal Plan of Care Note [code = 89970-3] Goal Plan of Care Note [code = 61900-5] Goal Plan of Care Note [code = 09980-8] Goal Plan of Care Note [code = 60007-4] Goal Plan of Care Note [code = 07847-2] Goal Plan of Care Note [code = 89082-8] Goal Plan of Care Note [code = 28743-2] Goal Plan of Care Note [code = 49336-1] Goal Plan of Care Note [code = 49610-2] Goal Plan of Care Note [code = 20029-5] Goal Plan of Care Note [code = 58676-3] Goal Plan of Care Note [code = 72529-2] Goal Plan of Care Note [code = 63693-5] Goal Plan of Care Note [code = 27270-7] Goal Plan of Care Note [code = 44622-6] Goal Plan of Care Note [code = 27870-8] Goal Plan of Care Note [code = 06679-0] Goal Plan of Care Note [code = 08357-9] Goal Plan of Care Note [code = 45423-7] Goal Plan of Care Note [code = 83073-2] Goal Plan of Care Note [code = 61999-3] Goal Plan of Care Note [code = 49759-2] Goal Plan of Care Note [code = 59318-8] Goal Plan of Care Note [code = 81744-6] Goal Plan of Care Note [code = 84150-2] Goal Plan of Care Note [code = 66852-6] Goal Plan of Care Note [code = 28315-0] Goal Plan of Care Note [code = 64690-2] Goal Plan of Care Note [code = 09287-1] Goal Plan of Care Note [code = 44276-8] Goal Plan of Care Note [code = 27004-8] Goal Plan of Care Note [code = 34953-6] Goal Plan of Care Note [code = 05945-7] Goal Plan of Care Note [code = 00155-3] Goal Plan of Care Note [code = 53886-2] Goal Plan of Care Note [code = 24145-4] Goal Plan of Care Note [code = 48297-7] Goal Plan of Care Note [code = 86037-6] Goal Plan of Care Note [code = 07887-4] Goal Plan of Care Note [code = 10161-8] Goal Plan of Care Note [code = 96613-9] Goal Plan of Care Note [code = 55157-1] Goal Plan of Care Note [code = 85422-1] Goal Plan of Care Note [code = 11729-4] Goal Plan of Care Note [code = 20230-9] Goal Plan of Care Note [code = 86106-0] Goal Plan of Care Note [code = 66160-7] Goal Plan of Care Note [code = 05438-1] Goal Plan of Care Note [code = 56703-6] Goal Plan of Care Note [code = 22544-6] Goal Plan of Care Note [code = 89412-4] Goal Plan of Care Note [code = 41310-4] Goal Plan of Care Note [code = 58942-7] Goal Plan of Care Note [code = 41351-4] Goal Plan of Care Note [code = 84905-1] Goal Plan of Care Note [code = 06479-5] Goal Plan of Care Note [code = 60571-2] Goal Plan of Care Note [code = 37638-1] Goal Plan of Care Note [code = 41743-3] Goal Plan of Care Note [code = 99245-6] Goal Plan of Care Note [code = 39152-1] Goal Plan of Care Note [code = 96467-0] Goal Plan of Care Note [code = 91834-2] Goal Plan of Care Note [code = 88560-3] Goal Plan of Care Note [code = 97895-6] Goal Plan of Care Note [code = 40478-6] Goal Plan of Care Note [code = 22560-1] Goal Plan of Care Note [code = 63413-4] Goal Plan of Care Note [code = 63754-8] Goal Plan of Care Note [code = 31559-7] Goal Plan of Care Note [code = 40067-7] Goal Plan of Care Note [code = 18770-5] Goal Plan of Care Note [code = 30734-8] Goal Plan of Care Note [code = 78467-8] Goal Plan of Care Note [code = 55102-4] Goal Plan of Care Note [code = 75118-5] Goal Plan of Care Note [code = 62336-5] Goal Plan of Care Note [code = 55385-4] Goal Plan of Care Note [code = 73882-9] Goal Plan of Care Note [code = 35643-1] Goal Plan of Care Note [code = 26284-9] Goal Plan of Care Note [code = 39804-1] Goal Plan of Care Note [code = 63967-5] Goal Plan of Care Note [code = 37624-6] Goal Plan of Care Note [code = 91713-8] Goal Plan of Care Note [code = 48689-6] Goal Plan of Care Note [code = 29068-9] Goal Plan of Care Note [code = 19836-7] Goal Plan of Care Note [code = 89808-8] Goal Plan of Care Note [code = 65443-4] Goal Plan of Care Note [code = 20104-2] Goal Plan of Care Note [code = 50823-9] Goal Plan of Care Note [code = 40412-4] Goal Plan of Care Note [code = 68786-4] Goal Plan of Care Note [code = 02264-7] Goal Plan of Care Note [code = 82823-0] Goal Plan of Care Note [code = 41198-2] Goal Plan of Care Note [code = 89089-1] Goal Plan of Care Note [code = 55089-0] Goal Plan of Care Note [code = 37162-4] Goal Plan of Care Note [code = 08453-8] Encounters Start Date/Time End Date/Time Encounter Type Admission Type Attending [facility] Care Department Encounter ID Source 2024-06-21 15:15:00 Outpatient NAHIDGrace MICHELLE [id number] [facility] 2024-06-20 12:30:00 Outpatient [facility] [id number] [facility] 2025-06-09 10:05:02 2025-06-09 10:05:02 Outpatient [facility] [id number] Alex Gimenez 2025-06-09 00:00:00 2025-06-09 00:00:00 Outpatient Visit [facility] [id number] Alex Gimenez 2025-05-25 10:41:18 2025-05-25 10:41:18 Outpatient SFA [facility] [id number] Alex Gimenez 2025-05-25 00:00:00 2025-05-25 00:00:00 Outpatient Visit [facility] [id number] Alex Gimenez 2025-05-24 15:08:13 2025-05-24 15:08:13 Outpatient [facility] [id number] Alex Gimenez 2025-01-09 09:34:04 2025-01-09 09:34:04 Outpatient SFA [facility] [id number] Alex Gimenez 2023-12-29 00:00:00 2023-12-29 00:00:00 Outpatient GC_GCBZW_Ka hamzah_S PRIV [facility] [id number] [facility] 2023-04-27 16:34:00 2023-04-27 20:29:00 Emergency Serjio Sow [facility] [id number] [facility] 2023-04-27 16:34:00 2023-04-27 20:29:00 Emergency X SERJIO SOW [facility] ERT [id number] [facility] 2022-09-01 18:36:29 2022-09-01 18:36:29 Outpatient [facility] [id number] Alex Gimenez 2022-08-25 18:01:33 2022-08-25 18:01:33 Outpatient [facility] [id number] Alex Gimenez 2022-06-17 00:00:00 2022-06-17 00:00:00 Outpatient Visit [id number] 2022-05-23 00:00:00 2022-05-23 00:00:00 Outpatient Visit [id number] Results Test Description Test Time Test [...] views. Current mammographic images were evaluated by [employer] ImageCheck[employer] CAD (computer-aided detection) software. Comparison is made to exams dated 04/20/2020 mammogram and [facility] There are scattered fibroglandular tissues in both breasts. No suspicious mass, architectural distortion, malignant type calcification, or lymph node abnormality detected. IMPRESSION: NEGATIVEThere is no mammographic evidence of malignancy. Bilateral survey ultrasound to follow.COMPLETE ULTRASOUND OF BOTH BREASTS AND AXILLA: 2Comparison is made to exams dated 04/20/2020 mammogram and 10/13/2018 [facility]. Color flow and real-time ultrasound [...] Entry: - 08/04/2022 12:56:06Imaging Technologist: Jael Alfaro , [facility]; Rose Lundberg , [facility] sent: BIRADS 1-2 Normal Mammogram BI-RADS: 1 Negative Ultrasound BI-RADS: 1 Negative [id number] 04:50:21* Test Item Value Reference Range Interpretation Comme nts RPR RESULT (test code = 3501) NON-REACTIVE NON-REACTIVE RPR TITER (test code = 3500) NOT INDIC. TITER NOT INDIC. UNLESS OTHERWISE INDICATED, ALL TESTING PERFORMED ATCLINICAL PATHOLOGY [employer] [address] [place] [address] PRODUCT STRATEGY DIRECTOR: MARQUIS GURROLA M.D. CLIA NUMBER [id number] [place]. [id number] HIV 1/2 4TH GEN, RFLX [id number] 04:32:05* Test Item Value Reference Range Interpretation Comme nts HIV 1/2 4TH GEN, RFLX CONF ( test code = 3514) NON-REACTIVE NON-REACTIVE HEPATITIS PANEL, [id number] 04:32:05* Test Item Value Reference Range Interpretation Comme nts HEPATITIS A IgM (test code = 28895) NON-REACTIVE NON-REACTIVE HEPATITIS B CORE IgM (test code = 4644) NON-REACTIVE NON-REACTIVE HEPATITIS B SURF AG (test code = 2739) NON-REACTIVE NON-REACTIVE HEPATITIS C ANTIBODY (test code = 4675) NON-REACTIVE NON-REACTIVE INTERPRETATION HEPATITIS A: (test code = 2552) (NOTE) Hepatitis A serology shows no evidence of acute hepatitis A. INTERPRETATION HEPATITIS B: (test code = 49617) (NOTE) Hepatitis B serology shows no evidence of acute hepatitis B andno indication of exposure to hepatitis B virus in the previous zulma eight months. INTERPRETATION HEPATITIS C: (test code = 06025) (NOTE) Hepatitis C serology shows no evidence of exposure to hepatitisC virus at this time. It can take up to 12 months after exposure tothe hepatitis C virus for antibodies to become detectable in the blood in certain patients. HEPATITIS PANEL, ACUTE [ADDED]2022-06-18 00:00:00* Test Item Value Reference Range Interpretation Comme nts HEPATITIS A IgM (test code = 74252) NON-REACTIVE HEPATITIS B CORE IgM (test c ode = 4644) NON-REACTIVE HEPATITIS B SURF AG (test co de = 2739) NON-REACTIVE HEPATITIS C ANTIBODY (test c ode = 4675) NON-REACTIVE INTERPRETATION HEPATITIS A: (test code = 2552) (NOTE) INTERPRETATION HEPATITIS B: (test code = 12817) (NOTE) INTERPRETATION HEPATITIS C: (test code = 62677) (NOTE) Alex GimenezCT/NG, NAAT, URINE [ADDED]2022-06-18 00:00:00* Test Item Value Reference Range Interpretation Comme nts GONORRHEA, NAAT (test code = 62697) NEGATIVE CHLAMYDIA, NAAT (test code = 88805) NEGATIVE Alex Tash PernellRPR [ADDED]2022-06-18 00:00:00* Test Item Value Reference Range Interpretation Comme nts RPR RESULT (test code = 3501) NON-REACTIVE RPR TITER (test code = 3500) NOT INDIC. TITER Alex Bianchi PernellHIV / 4TH GEN, RFLX CONF [ADDED]2022-06-18 00:00:00* Test Item Value Reference Range Interpretation Comme nts HIV 1/2 4TH GEN, RFLX CONF ( test code = 3514) NON-REACTIVE Alex GimenezHEPATITIS PANEL, ACUTE [ADDED]2022-06-18 00:00:00* Test Item Value Reference Range Interpretation Comme nts HEPATITIS A IgM (test code = 35204) NON-REACTIVE HEPATITIS B CORE IgM (test c ode = 4644) NON-REACTIVE HEPATITIS B SURF AG (test co de = 2739) NON-REACTIVE HEPATITIS C ANTIBODY (test c ode = 4675) NON-REACTIVE INTERPRETATION HEPATITIS A: (test code = 2552) (NOTE) INTERPRETATION HEPATITIS B: (test code = 27529) (NOTE) INTERPRETATION HEPATITIS C: (test code = 50644) (NOTE) Alex GimenezCT/NG, NAAT, URINE [ADDED]2022-06-18 00:00:00* Test Item Value Reference Range Interpretation Comme nts GONORRHEA, NAAT (test code = 32799) NEGATIVE CHLAMYDIA, NAAT (test code = 46634) NEGATIVE Alex GimenezRPR [ADDED]2022-06-18 00:00:00* Test Item Value Reference Range Interpretation Comme nts RPR RESULT (test code = 3501) NON-REACTIVE RPR TITER (test code = 3500) NOT INDIC. TITER Alex GimenezHIV 1/2 4TH GEN, RFLX CONF [ADDED]2022-06-18 00:00:00* Test Item Value Reference Range Interpretation Comme nts HIV 1/2 4TH GEN, RFLX CONF ( test code = 3514) NON-REACTIVE Alex GimenezSARS-CoV-2 (COVID-19), RT-PCR/[id number] 07:46:51* Test Item Value Reference Range Interpretation Comments SARS-CoV-2 INTERPRETATION (test code = 72882) NEGATIVE SEE NOTE SARS-CoV-2 R NA NOT [...] prevalence is high. SOURCE (test code = 52525) NASOPHARYNGEAL Note: Methodolog y is Tim Marjorie Real-Time RT-PCR. The expected result or reference range is NEGATIVE (Not Detected). For more information regarding COVID-19 testing to include clinicalinformation, methodology detail, intended use, FDA authorization andrecommended fact sheets for patients or healthcare providers, see [employer] Announcement: SARS-CoV-2 (COVID-19) by NAAT at URL below (note,fact sheets are provided by method given in report:https://[email or web address] Internet/clinicians/cl ient-communications/ Alternatively, see downloadable PDF fact sheet at:https://www.[employer]/BBTEF-68-FP-PCR UNLESS OTHERWISE INDICATED, ALL TESTING PERFORMED [facility] [employer] [address] [place] [address] PRODUCT STRATEGY DIRECTOR: MARQUIS GURROLA M.D. CLIA NUMBER [id number] [facility]. [id number] SARS-CoV-2 (COVID-19) by RT-PCR (HIGH RISK)2021-10-31 00:00:00* Test Item Value Reference Range Interpretation Comme nts SARS-CoV-2 INTERPRETATION (test code = 22723) NEGATIVE SOURCE (test code = 11331) NASOPHARYNGEAL Alex GimenezSARS-CoV-2 (COVID-19) by RT-PCR (HIGH RISK)2021-10-31 00:00:00* Test Item Value Reference Range Interpretation Comme nts SARS-CoV-2 INTERPRETATION (test code = 02207) NEGATIVE SOURCE (test code = 26065) NASOPHARYNGEAL SARS-CoV-2 (COVID-19) by RT-PCR (HIGH RISK)2021-10-31 00:00:00* Test Item Value Reference Range Interpretation Comme nts SARS-CoV-2 INTERPRETATION (test code = 51556) NEGATIVE SOURCE (test code = 76104) NASOPHARYNGEAL SARS-CoV-2 (COVID-19) by RT-PCR (HIGH RISK)2021-10-31 00:00:00* Test Item Value Reference Range Interpretation Comme nts SARS-CoV-2 INTERPRETATION (test code = 81306) NEGATIVE SOURCE (test code = 08332) NASOPHARYNGEAL Alex Bianchi [id number] (COVID-19) by RT-PCR (HIGH RISK)2020-08-29 00:00:00* Test Item Value Reference Range Interpretation Comme nts SARS-CoV-2 INTERPRETATION (test code = 93147) NEGATIVE SOURCE (test code = 69605) NASOPHARYNGEAL Alex Bianchi [id number] (COVID-19) by RT-PCR (HIGH RISK)2020-08-29 00:00:00* Test Item Value Reference Range Interpretation Comme nts SARS-CoV-2 INTERPRETATION (test code = 11059) NEGATIVE SOURCE (test code = 38521) NASOPHARYNGEAL SARS-CoV-2 (COVID-19) by RT-PCR (HIGH RISK)2020-08-29 00:00:00* Test Item Value Reference Range Interpretation Comme nts SARS-CoV-2 INTERPRETATION (test code = 81722) NEGATIVE SOURCE (test code = 90105) NASOPHARYNGEAL SARS-CoV-2 (COVID-19) by RT-PCR (HIGH RISK)2020-08-29 00:00:00* Test Item Value Reference Range Interpretation Comme nts SARS-CoV-2 INTERPRETATION (test code = 28997) NEGATIVE SOURCE (test code = 18549) NASOPHARYNGEAL Alex GimenezCOMPREHENSIVE METABOLIC [id number] 00:00:00* Test Item Value Reference Range Interpretation Comme nts GLUCOSE (test code = 2217) 89 MG/DL BUN (test code = 2208) 16 MG/DL CREATININE (test code = 2214) 0.74 MG/DL eGFR AMER. (test cod e = 78927) 117 ML/MIN/1.73 eGFR NON- AMER. (test code = 37065) 101 ML/MIN/1.73 CALC BUN/CREAT (test code = [...] (test code = 2219) 23 U/L Alex Tash AustinLIPID [id number] 00:00:00* Test Item Value Reference Range Interpretation Comme nts CHOLESTEROL (test code = 2210) 195 MG/DL TRIGLYCERIDES (test code = 2232) 334 MG/DL HDL CHOLESTEROL (test code = 2220) 34 MG/DL CALC LDL CHOL (test code = 2237) 113 MG/DL RISK RATIO LDL/HDL (test cod e = 2238) 3.32 RATIO Alex F ColumbiaCOMPREHENSIVE METABOLIC [id number] 00:00:00* Test Item Value Reference Range Interpretation Comme nts GLUCOSE (test code = 2217) 89 MG/DL BUN (test code = 2208) 16 MG/DL CREATININE (test code = 2214) 0.74 MG/DL eGFR AMER. (test cod e = 14408) 117 ML/MIN/1.73 eGFR NON- AMER. (test code = 01748) 101 ML/MIN/1.73 CALC BUN/CREAT (test code = [...] (test code = 2219) 23 U/L Alex F AustinLIPID [id number] 00:00:00* Test Item Value Reference Range Interpretation Comme nts CHOLESTEROL (test code = 2210) 195 MG/DL TRIGLYCERIDES (test code = 2232) 334 MG/DL HDL CHOLESTEROL (test code = 2220) 34 MG/DL CALC LDL CHOL (test code = 2237) 113 MG/DL RISK RATIO LDL/HDL (test cod e = 2238) 3.32 RATIO COMPREHENSIVE METABOLIC [id number] 00:00:00* Test Item Value Reference Range Interpretation Comme nts GLUCOSE (test code = 2217) 89 MG/DL BUN (test code = 2208) 16 MG/DL CREATININE (test code = 2214) 0.74 MG/DL eGFR AMER. (test cod e = 03718) 117 ML/MIN/1.73 eGFR NON- AMER. (test code = 72023) 101 ML/MIN/1.73 CALC BUN/CREAT (test code = [...] (test code = 2219) 23 U/L LIPID [id number] 00:00:00* Test Item Value Reference Range Interpretation Comme nts CHOLESTEROL (test code = 2210) 195 MG/DL TRIGLYCERIDES (test code = 2232) 334 MG/DL HDL CHOLESTEROL (test code = 2220) 34 MG/DL CALC LDL CHOL (test code = 2237) 113 MG/DL RISK RATIO LDL/HDL (test cod e = 2238) 3.32 RATIO COMPREHENSIVE METABOLIC [id number] 00:00:00* Test Item Value Reference Range Interpretation Comme nts GLUCOSE (test code = 2217) 89 MG/DL BUN (test code = 2208) 16 MG/DL CREATININE (test code = 2214) 0.74 MG/DL eGFR AMER. (test cod e = 88764) 117 ML/MIN/1.73 eGFR NON- AMER. (test code = 57059) 101 ML/MIN/1.73 CALC BUN/CREAT (test code = [...] (test code = 2219) 23 U/L LIPID [id number] 00:00:00* Test Item Value Reference Range Interpretation Comme nts CHOLESTEROL (test code = 2210) 195 MG/DL TRIGLYCERIDES (test code = 2232) 334 MG/DL HDL CHOLESTEROL (test code = 2220) 34 MG/DL CALC LDL CHOL (test code = 2237) 113 MG/DL RISK RATIO LDL/HDL (test cod e = 2238) 3.32 RATIO Alex Bianchi [id number] (COVID-19) by RT-PCR (HIGH RISK)2020-04-27 00:00:00* Test Item Value Reference Range Interpretation Comme nts SARS-CoV-2 INTERPRETATION (test code = 76668) NEGATIVE SOURCE (test code = 68705) NASOPHARYNGEAL Alex Bianchi PwjydqXQSH-[id number] (COVID-19) by RT-PCR (HIGH RISK)2020-04-27 00:00:00* Test Item Value Reference Range Interpretation Comme nts SARS-CoV-2 INTERPRETATION (test code = 04453) NEGATIVE SOURCE (test code = 08688) NASOPHARYNGEAL SARS-CoV-2 (COVID-19) by RT-PCR (HIGH RISK)2020-04-27 00:00:00* Test Item Value Reference Range Interpretation Comme nts SARS-CoV-2 INTERPRETATION (test code = 16250) NEGATIVE SOURCE (test code = 50165) NASOPHARYNGEAL SARS-CoV-2 (COVID-19) by RT-PCR (HIGH RISK)2020-04-27 00:00:00* Test Item Value Reference Range Interpretation Comme nts SARS-CoV-2 INTERPRETATION (test code = 95301) NEGATIVE SOURCE (test code = 36328) NASOPHARYNGEAL Alex Bianchi AustinSCR MAMM BILATERAL CAD [id number] 09:16:04- SCR MAMM BILATERAL CAD DIGITALBILATERAL DIGITAL SCREENING MAMMOGRAM WITH CAD: 04/20/2020CLINICAL: Asymptomatic. Current mammographic images were evaluated by either a [employer] M-Vu or a [employer] ImageChecker CAD (computer aided detection system). Comparison is made to exam dated 10/13/2018 mammogram -[facility]-. There are scattered fibroglandular tissues in both breasts. No suspicious mass, architectural distortion, malignant type calcification, or lymph node abnormality detected.Breast architecture is stable compared to prior exams.IMPRESSION: NEGATIVEThere is no mammographic evidence of malignancy. Resume annual screening mammography in one year. Xu Ascencio M.D. ss/p enrad:04/20/2020 09:16:04 Continuing Education Director: Kaye Marion , [facility]-FWletter sent: BIRADS 1-2 Normal Mammogram BI-RADS: 1 NegativePAP TEST, THINPREP, [id number] 00:00:00* Test Item Value Reference Range Interpretation Comme nts SOURCE: (test code = 8001) Cervical/Endocervical SLIDES: (test code = 8011) 1 LMP: (test code = 8021) 03/05/2020 SPECIMEN ADEQUACY: (test code = 24224) (NOTE) INTERPRETATION: (test code = 42917) NILM/NO EPITH. ABNORMALITY;SEE BELOW NEUROPHYSIOLOGIST: (test code = 8101) Amparo Hartman, CT (ASCP) QC TECHNOLOGIST: (test code = 8111) Roxanne Olsen,SCT(ASCP)CT(IA C) LOCATION: (test code = 82460) (NOTE) CPT: (test code = 8140) (NOTE) Alex Bianchi AustinPAP TEST, THINPREP, [id number] 00:00:00* Test Item Value Reference Range Interpretation Comme nts SOURCE: (test code = 8001) Cervical/Endocervical SLIDES: (test code = 8011) 1 LMP: (test code = 8021) 03/05/2020 SPECIMEN ADEQUACY: (test code = 70543) (NOTE) INTERPRETATION: (test code = 79495) NILM/NO EPITH. ABNORMALITY;SEE BELOW NEUROPHYSIOLOGIST: (test code = 8101) AD Meier (ASCP) QC TECHNOLOGIST: (test code = 8111) MAYKEL Musa(ASCP)CT(IA C) LOCATION: (test code = 94066) (NOTE) CPT: (test code = 8140) (NOTE) PAP TEST, THINPREP, [id number] 00:00:00* Test Item Value Reference Range Interpretation Comme nts SOURCE: (test code = 8001) Cervical/Endocervical SLIDES: (test code = 8011) 1 LMP: (test code = 8021) 03/05/2020 SPECIMEN ADEQUACY: (test code = 18770) (NOTE) INTERPRETATION: (test code = 66609) NILM/NO EPITH. ABNORMALITY;SEE BELOW NEUROPHYSIOLOGIST: (test code = 8101) AD Meier (ASCP) QC TECHNOLOGIST: (test code = 8111) MAYKEL Musa(ASCP)CT(IA C) LOCATION: (test code = 05537) (NOTE) CPT: (test code = 8140) (NOTE) PAP TEST, THINPREP, [id number] 00:00:00* Test Item Value Reference Range Interpretation Comme nts SOURCE: (test code = 8001) Cervical/Endocervical SLIDES: (test code = 8011) 1 LMP: (test code = 8021) 03/05/2020 SPECIMEN ADEQUACY: (test code = 13482) (NOTE) INTERPRETATION: (test code = 35260) NILM/NO EPITH. ABNORMALITY;SEE BELOW NEUROPHYSIOLOGIST: (test code = 8101) Amparo Hartman, CT (ASCP) QC TECHNOLOGIST: (test code = 8111) Roxanne Olsen,SCT(ASCP)CT(IA C) LOCATION: (test code = 19024) (NOTE) CPT: (test code = 8140) (NOTE) Alex Bianchi AustinHPV HIGH RISK WITH GENOTYPE, [id number] 00:00:00* Test Item Value Reference Range Interpretation Comme nts HPV HIGH RISK INTERP (test c ode = 80389) POSITIVE HPV 16 (test code = 70102) NEGATIVE HPV 18 (test code = 22663) NEGATIVE HPV, HR, OTHER GENOTYPES (te st code = 58005) POSITIVE Alex Bianchi AustinHPV HIGH RISK WITH GENOTYPE, [id number] 00:00:00* Test Item Value Reference Range Interpretation Comme nts HPV HIGH RISK INTERP (test c ode = 74888) POSITIVE HPV 16 (test code = 40411) NEGATIVE HPV 18 (test code = 23938) NEGATIVE HPV, HR, OTHER GENOTYPES (te st code = 36123) POSITIVE Alex Bianchi AustinHPV HIGH RISK WITH GENOTYPE, [id number] 00:00:00* Test Item Value Reference Range Interpretation Comme nts HPV HIGH RISK INTERP (test c ode = 17028) POSITIVE HPV 16 (test code = 38006) NEGATIVE HPV 18 (test code = 10495) NEGATIVE HPV, HR, OTHER GENOTYPES (te st code = 31888) POSITIVE HPV HIGH RISK WITH GENOTYPE, [id number] 00:00:00* Test Item Value Reference Range Interpretation Comme nts HPV HIGH RISK INTERP (test c ode = 29455) POSITIVE HPV 16 (test code = 89838) NEGATIVE HPV 18 (test code = 88785) NEGATIVE HPV, HR, OTHER GENOTYPES (te st code = 32774) POSITIVE VAGINAL PATHOGENS DNA [id number] 00:00:00* Test Item Value Reference Range Interpretation Comme nts ELIZABETH SPECIES (test code = ) NEGATIVE G. VAGINALIS (test code = 98181) NEGATIVE T. VAGINALIS (test code = 79548) NEGATIVE Alex Bianchi AustinVAGINAL PATHOGENS DNA [id number] 00:00:00* Test Item Value Reference Range Interpretation Comme nts ELIZABETH SPECIES (test code = ) NEGATIVE G. VAGINALIS (test code = 82117) NEGATIVE T. VAGINALIS (test code = ) NEGATIVE VAGINAL PATHOGENS DNA [id number] 00:00:00* Test Item Value Reference Range Interpretation Comme nts ELIZABETH SPECIES (test code = ) NEGATIVE G. VAGINALIS (test code = 64432) NEGATIVE T. VAGINALIS (test code = ) NEGATIVE VAGINAL PATHOGENS DNA [id number] 00:00:00* Test Item Value Reference Range Interpretation Comme nts ELIZABETH SPECIES (test code = ) NEGATIVE G. VAGINALIS (test code = 55217) NEGATIVE T. VAGINALIS (test code = 46796) NEGATIVE Alex F [id number] (COVID-19) by RT-PCR (HIGH RISK)2020-03-19 00:00:00* Test Item Value Reference Range Interpretation Comme nts SARS-CoV-2 INTERPRETATION (t est code = 78130) NEGATIVE SOURCE (test code = 93100) NOT SPECIFIED Alex F [id number] (COVID-19) by RT-PCR (HIGH RISK)2020-03-19 00:00:00* Test Item Value Reference Range Interpretation Comme nts SARS-CoV-2 INTERPRETATION (t est code = 04814) NEGATIVE SOURCE (test code = 11651) NOT SPECIFIED SARS-CoV-2 (COVID-19) by RT-PCR (HIGH RISK)2020-03-19 00:00:00* Test Item Value Reference Range Interpretation Comme nts SARS-CoV-2 INTERPRETATION (t est code = 77766) NEGATIVE SOURCE (test code = 14371) NOT SPECIFIED SARS-CoV-2 (COVID-19) by RT-PCR (HIGH RISK)2020-03-19 00:00:00* Test Item Value Reference Range Interpretation Comme nts SARS-CoV-2 INTERPRETATION (t est code = 79796) NEGATIVE SOURCE (test code = 14701) NOT SPECIFIED Alex Bianchi AustinCULTURE, [id number] 00:00:00* Test Item Value Reference Range Interpretation Comme nts CULTURE, URINE (test code = 54980) SPECIMEN NUMBER: [id number] Alex GimenezCULTURE, [id number] 00:00:00* Test Item Value Reference Range Interpretation Comme nts CULTURE, URINE (test code = 06371) SPECIMEN NUMBER: [id number] CULTURE, [id number] 00:00:00* Test Item Value Reference Range Interpretation Comme nts CULTURE, URINE (test code = 71977) SPECIMEN NUMBER: [id number] CULTURE, [id number] 00:00:00* Test Item Value Reference Range Interpretation Comme nts CULTURE, URINE (test code = 58645) SPECIMEN NUMBER: [id number] Alex Bianchi AustinCULTURE, URINE [ADDED]2019-10-07 00:00:00* Test Item Value Reference Range Interpretation Comme nts CULTURE, URINE (test code = 71737) SPECIMEN NUMBER: [id number] Alex Bianchi AustinCULTURE, URINE [ADDED]2019-10-07 00:00:00* Test Item Value Reference Range Interpretation Comme nts CULTURE, URINE (test code = 76933) SPECIMEN NUMBER: [id number] CULTURE, URINE [ADDED]2019-10-07 00:00:00* Test Item Value Reference Range Interpretation Comme nts CULTURE, URINE (test code = 47540) SPECIMEN NUMBER: [id number] CULTURE, URINE [ADDED]2019-10-07 00:00:00* Test Item Value Reference Range Interpretation Comme nts CULTURE, URINE (test code = 75273) SPECIMEN NUMBER: [id number] Alex Bianchi AustinCBC W/AUTO [id number] 00:00:00* Test Item Value Reference Range Interpretation [...] (test code = 1015) 322 K/UL Alex Bianchi AustinHEMOGLOBIN [id number] 00:00:00* Test Item Value Reference Range Interpretation Comme nts HEMOGLOBIN A1c (test code = 99930) 5.5 % Alex [id number] 00:00:00* Test Item Value Reference Range Interpretation Comme nts TSH, THIRD GENERATION (test code = 2821) 0.978 UIU/ML Alex GimenezCOMPREHENSIVE METABOLIC [id number] 00:00:00* Test Item Value Reference Range Interpretation Comme nts GLUCOSE (test code = 2217) 70 MG/DL BUN (test code = 2208) 13 MG/DL CREATININE (test code = 2214) 0.52 MG/DL eGFR AMER. (test cod e = 93054) 139 ML/MIN/1.73 eGFR NON- AMER. (test code = 92150) 120 ML/MIN/1.73 CALC BUN/CREAT (test code = [...] (test code = 2219) 19 U/L Alex GimenezCBC W/AUTO [id number] 00:00:00* Test Item Value Reference Range Interpretation [...] (test code = 1015) 322 K/UL Alex GimenezCOMPREHENSIVE METABOLIC [id number] 00:00:00* Test Item Value Reference Range Interpretation Comme nts GLUCOSE (test code = 2217) 70 MG/DL BUN (test code = 2208) 13 MG/DL CREATININE (test code = 2214) 0.52 MG/DL eGFR AMER. (test cod e = 59129) 139 ML/MIN/1.73 eGFR NON- AMER. (test code = 89442) 120 ML/MIN/1.73 CALC BUN/CREAT (test code = [...] code = 2219) 19 U/L CBC W/AUTO [id number] 00:00:00* Test Item Value Reference Range Interpretation [...] (test code = 1015) 322 K/UL HEMOGLOBIN [id number] 00:00:00* Test Item Value Reference Range Interpretation Comme nts HEMOGLOBIN A1c (test code = 62446) 5.5 % [id number] 00:00:00* Test Item Value Reference Range Interpretation Comme nts TSH, THIRD GENERATION (test code = 2821) 0.978 UIU/ML COMPREHENSIVE METABOLIC [id number] 00:00:00* Test Item Value Reference Range Interpretation Comme nts GLUCOSE (test code = 2217) 70 MG/DL BUN (test code = 2208) 13 MG/DL CREATININE (test code = 2214) 0.52 MG/DL eGFR AMER. (test cod e = 55368) 139 ML/MIN/1.73 eGFR NON- AMER. (test code = 24870) 120 ML/MIN/1.73 CALC BUN/CREAT (test code = [...] code = 2219) 19 U/L CBC W/AUTO [id number] 00:00:00* Test Item Value Reference Range Interpretation [...] (test code = 1015) 322 K/UL HEMOGLOBIN [id number] 00:00:00* Test Item Value Reference Range Interpretation Comme [facility] HEMOGLOBIN A1c (test code = 96913) 5.5 % [id number] 00:00:00* Test Item Value Reference Range Interpretation Comme [facility] TSH, THIRD GENERATION (test code = 2821) 0.978 UIU/ML HEMOGLOBIN [id number] 00:00:00* Test Item Value Reference Range Interpretation Comme [facility] HEMOGLOBIN A1c (test code = 62658) 5.5 % Alex F [id number] 00:00:00* Test Item Value Reference Range Interpretation Comme nts TSH, THIRD GENERATION (test code = 2821) 0.978 UIU/ML Alex F AustinCOMPREHENSIVE METABOLIC [id number] 00:00:00* Test Item Value Reference Range Interpretation Comme nts GLUCOSE (test code = 2217) 70 MG/DL BUN (test code = 2208) 13 MG/DL CREATININE (test code = 2214) 0.52 MG/DL eGFR AMER. (test cod e = 07495) 139 ML/MIN/1.73 eGFR NON- AMER. (test code = 07964) 120 ML/MIN/1.73 CALC BUN/CREAT (test code = [...] code = 2219) 19 U/L Alex Bianchi AustinLIPID [id number] 00:00:00* Test Item Value Reference Range Interpretation Comme nts CHOLESTEROL (test code = 2210) 172 MG/DL TRIGLYCERIDES (test code = 2232) 230 MG/DL HDL CHOLESTEROL (test code = 2220) 36 MG/DL CALC LDL CHOL (test code = 2237) 90 MG/DL RISK RATIO LDL/HDL (test cod e = 2238) 2.50 RATIO Alex Bianchi AustinLIPID [id number] 00:00:00* Test Item Value Reference Range Interpretation Comme nts CHOLESTEROL (test code = 2210) 172 MG/DL TRIGLYCERIDES (test code = 2232) 230 MG/DL HDL CHOLESTEROL (test code = 2220) 36 MG/DL CALC LDL CHOL (test code = 2237) 90 MG/DL RISK RATIO LDL/HDL (test cod e = 2238) 2.50 RATIO LIPID [id number] 00:00:00* Test Item Value Reference Range Interpretation Comme nts CHOLESTEROL (test code = 2210) 172 MG/DL TRIGLYCERIDES (test code = 2232) 230 MG/DL HDL CHOLESTEROL (test code = 2220) 36 MG/DL CALC LDL CHOL (test code = 2237) 90 MG/DL RISK RATIO LDL/HDL (test cod e = 2238) 2.50 RATIO LIPID [id number] 00:00:00* Test Item Value Reference Range Interpretation Comme nts CHOLESTEROL (test code = 2210) 172 MG/DL TRIGLYCERIDES (test code = 2232) 230 MG/DL HDL CHOLESTEROL (test code = 2220) 36 MG/DL CALC LDL CHOL (test code = 2237) 90 MG/DL RISK RATIO LDL/HDL (test cod e = 2238) 2.50 RATIO Alex F AustinLIPID [id number] 00:00:00* Test Item Value Reference Range Interpretation Comme nts CHOLESTEROL (test code = 2210) 155 MG/DL TRIGLYCERIDES (test code = 2232) 192 MG/DL HDL CHOLESTEROL (test code = 2220) 36 MG/DL CALC LDL CHOL (test code = 2237) 81 MG/DL RISK RATIO LDL/HDL (test cod e = 2238) 2.24 RATIO Alex GimenezCOMPREHENSIVE METABOLIC [id number] 00:00:00* Test Item Value Reference Range Interpretation Comme nts GLUCOSE (test code = 2217) 103 MG/DL BUN (test code = 2208) 16 MG/DL CREATININE (test code = 2214) 0.58 MG/DL eGFR AMER. (test cod e = 27147) 135 ML/MIN/1.73 eGFR NON- AMER. (test code = 57904) 116 ML/MIN/1.73 CALC BUN/CREAT (test code = [...] (test code = 2219) 19 U/L Alex [id number] 00:00:00* Test Item Value Reference Range Interpretation Comme nts TSH, THIRD GENERATION (test code = 2821) 0.772 UIU/ML Alex GimenezCBC W/AUTO [id number] 00:00:00* Test Item Value Reference Range Interpretation [...] code = 1015) 301 K/UL Alex GimenezLIPID [id number] 00:00:00* Test Item Value Reference Range Interpretation Comme nts CHOLESTEROL (test code = 2210) 155 MG/DL TRIGLYCERIDES (test code = 2232) 192 MG/DL HDL CHOLESTEROL (test code = 2220) 36 MG/DL CALC LDL CHOL (test code = 2237) 81 MG/DL RISK RATIO LDL/HDL (test cod e = 2238) 2.24 RATIO Alex GimenezCBC W/AUTO [id number] 00:00:00* Test Item Value Reference Range Interpretation [...] (test code = 1015) 301 K/UL LIPID [id number] 00:00:00* Test Item Value Reference Range Interpretation Comme nts CHOLESTEROL (test code = 2210) 155 MG/DL TRIGLYCERIDES (test code = 2232) 192 MG/DL HDL CHOLESTEROL (test code = 2220) 36 MG/DL CALC LDL CHOL (test code = 2237) 81 MG/DL RISK RATIO LDL/HDL (test cod e = 2238) 2.24 RATIO COMPREHENSIVE METABOLIC [id number] 00:00:00* Test Item Value Reference Range Interpretation Comme nts GLUCOSE (test code = 2217) 103 MG/DL BUN (test code = 2208) 16 MG/DL CREATININE (test code = 2214) 0.58 MG/DL eGFR AMER. (test cod e = 38336) 135 ML/MIN/1.73 eGFR NON- AMER. (test code = 93173) 116 ML/MIN/1.73 CALC BUN/CREAT (test code = [...] ALT (test code = 2219) 19 U/L [id number] 00:00:00* Test Item Value Reference Range Interpretation Comme nts TSH, THIRD GENERATION (test code = 2821) 0.772 UIU/ML CBC W/AUTO [id number] 00:00:00* Test Item Value Reference Range Interpretation [...] (test code = 1015) 301 K/UL LIPID [id number] 00:00:00* Test Item Value Reference Range Interpretation Comme nts CHOLESTEROL (test code = 2210) 155 MG/DL TRIGLYCERIDES (test code = 2232) 192 MG/DL HDL CHOLESTEROL (test code = 2220) 36 MG/DL CALC LDL CHOL (test code = 2237) 81 MG/DL RISK RATIO LDL/HDL (test cod e = 2238) 2.24 RATIO COMPREHENSIVE METABOLIC [id number] 00:00:00* Test Item Value Reference Range Interpretation Comme nts GLUCOSE (test code = 2217) 103 MG/DL BUN (test code = 2208) 16 MG/DL CREATININE (test code = 2214) 0.58 MG/DL eGFR AMER. (test cod e = 94518) 135 ML/MIN/1.73 eGFR NON- AMER. (test code = 08628) 116 ML/MIN/1.73 CALC BUN/CREAT (test code = [...] ALT (test code = 2219) 19 U/L [id number] 00:00:00* Test Item Value Reference Range Interpretation Comme nts TSH, THIRD GENERATION (test code = 2821) 0.772 UIU/ML COMPREHENSIVE METABOLIC [id number] 00:00:00* Test Item Value Reference Range Interpretation Comme nts GLUCOSE (test code = 2217) 103 MG/DL BUN (test code = 2208) 16 MG/DL CREATININE (test code = 2214) 0.58 MG/DL eGFR AMER. (test cod e = 42553) 135 ML/MIN/1.73 eGFR NON- AMER. (test code = 49985) 116 ML/MIN/1.73 CALC BUN/CREAT (test code = [...] (test code = 2219) 19 U/L Alex [id number] 00:00:00* Test Item Value Reference Range Interpretation Comme nts TSH, THIRD GENERATION (test code = 2821) 0.772 UIU/ML Alex GimenezCBC W/AUTO [id number] 00:00:00* Test Item Value Reference Range Interpretation [...] (test code = 1015) 301 K/UL Alex Bianchi AustinMUMPS IgG AND [id number] 00:00:00* Test Item Value Reference Range Interpretation Comme nts MUMPS VIRUS IgG (test code = 35496) 46.5 AU/mL MUMPS VIRUS IgM (test code = 4587) 0.55 IV Alex Bianchi AustinMUMPS IgG AND [id number] 00:00:00* Test Item Value Reference Range Interpretation Comme nts MUMPS VIRUS IgG (test code = 08711) 46.5 AU/mL MUMPS VIRUS IgM (test code = 4587) 0.55 IV Alex Bianchi AustinMUMPS IgG AND [id number] 00:00:00* Test Item Value Reference Range Interpretation Comme nts MUMPS VIRUS IgG (test code = 74926) 46.5 AU/mL MUMPS VIRUS IgM (test code = 4587) 0.55 IV MUMPS IgG AND [id number] 00:00:00* Test Item Value Reference Range Interpretation Comme nts MUMPS VIRUS IgG (test code = 25429) 46.5 AU/mL MUMPS VIRUS IgM (test code = 4587) 0.55 IV RUBELLA ANTIBODY [id number] 00:00:00* Test Item Value Reference Range Interpretation Comme nts RUBELLA ANTIBODY SCREEN (katelin t code = 4600) 12 IU/ML RUBELLA IgG INTERP (test cod e = 94313) REACTIVE Alex GimenezVARICELLA ZOSTER [id number] 00:00:00* Test Item Value Reference Range Interpretation Comme nts VARICELLA ZOSTER IgG (test c ode = 19605) 454 INDEX Alex GimenezHEPATITIS B SURFACE [id number] 00:00:00* Test Item Value Reference Range Interpretation Comme nts HEPATITIS B SURFACE AB (test code = 2737) NON-REACTIVE Alex GimenezRUBEOLA IgG [id number] 00:00:00* Test Item Value Reference Range Interpretation Comme nts RUBEOLA IgG ANTIBODY (test c ode = 25340) 98.5 AU/ML Alex F AustinRUBEOLA IgG [id number] 00:00:00* Test Item Value Reference Range Interpretation Comme nts RUBEOLA IgG ANTIBODY (test c ode = 50600) 98.5 AU/ML RUBELLA ANTIBODY [id number] 00:00:00* Test Item Value Reference Range Interpretation Comme nts RUBELLA ANTIBODY SCREEN (katelin t code = 4600) 12 IU/ML RUBELLA IgG INTERP (test cod e = 41526) REACTIVE VARICELLA ZOSTER [id number] 00:00:00* Test Item Value Reference Range Interpretation Comme nts VARICELLA ZOSTER IgG (test c ode = 26811) 454 INDEX HEPATITIS B SURFACE [id number] 00:00:00* Test Item Value Reference Range Interpretation Comme nts HEPATITIS B SURFACE AB (test code = 2737) NON-REACTIVE RUBEOLA IgG [id number] 00:00:00* Test Item Value Reference Range Interpretation Comme nts RUBEOLA IgG ANTIBODY (test c ode = 22378) 98.5 AU/ML RUBELLA ANTIBODY [id number] 00:00:00* Test Item Value Reference Range Interpretation Comme nts RUBELLA ANTIBODY SCREEN (katelin t code = 4600) 12 IU/ML RUBELLA IgG INTERP (test cod e = 52324) REACTIVE VARICELLA ZOSTER [id number] 00:00:00* Test Item Value Reference Range Interpretation Comme nts VARICELLA ZOSTER IgG (test c ode = 64961) 454 INDEX HEPATITIS B SURFACE [id number] 00:00:00* Test Item Value Reference Range Interpretation Comme nts HEPATITIS B SURFACE AB (test code = 2737) NON-REACTIVE RUBELLA ANTIBODY [id number] 00:00:00* Test Item Value Reference Range Interpretation Comme nts RUBELLA ANTIBODY SCREEN (katelin t code = 4600) 12 IU/ML RUBELLA IgG INTERP (test cod e = 95826) REACTIVE Alex F AustinVARICELLA ZOSTER [id number] 00:00:00* Test Item Value Reference Range Interpretation Comme nts VARICELLA ZOSTER IgG (test c ode = 61528) 454 INDEX Alex F AustinHEPATITIS B SURFACE [id number] 00:00:00* Test Item Value Reference Range Interpretation Comme nts HEPATITIS B SURFACE AB (test code = 2737) NON-REACTIVE Alex Bianchi AustinRUBEOLA IgG [id number] 00:00:00* Test Item Value Reference Range Interpretation Comme hortensia RUBEOLA IgG ANTIBODY (test c ode = 50576) 98.5 AU/ML Alex DuttonAG MAMM BILATERAL CAD [id number] 11:19:31- DIAG MAMM BILATERAL CAD DIGITALBILATERAL DIGITAL DIAGNOSTIC MAMMOGRAM WITH CAD: 10/13/2018CLINICAL: Palpable mass, left breast. Current mammographic images were evaluated by either a [employer] M-Vu or a [employer] CAD (computer aided detection system). No prior [...] - 10/14/2018 08:09:35Imaging Technologist: Marti HUERTA, [facility]-FWletter sent: BIRADS 1-2 Combo FU Letter Mammogram BI-RADS: 0 Indeterminate Ultrasound BI-RADS: 1 NegativeBREAST ULTRASOUND BILATERAL 2018-10-13 11:19:31- DIAG MAMM BILATERAL CAD DIGITALBILATERAL DIGITAL DIAGNOSTIC MAMMOGRAM WITH CAD: 10/13/2018CLINICAL: Palpable mass, left breast. Current mammographic images were evaluated by either a [employer] M-Vu or a [employer] ImageChecker CAD (computer aided detection system). No [...] - 10/14/2018 08:09:35Imaging Technologist: Marti HUERTA, [facility]-FWletter sent: BIRADS 1-2 Combo FU Letter Mammogram BI-RADS: 0 Indeterminate Ultrasound BI-RADS: 1 NegativeCOMPREHENSIVE METABOLIC PANEL 2018-09-04 00:00:00* Test Item Value Reference Range Interpretation Comme nts GLUCOSE (test code = 2217) 85 MG/DL BUN (test code = 2208) 13 MG/DL CREATININE (test code = 2214) 0.56 MG/DL eGFR AMER. (test cod e = 53654) 136 ML/MIN/1.73 eGFR NON- AMER. (test code = 72354) 117 ML/MIN/1.73 CALC BUN/CREAT (test code = [...] (test code = 2219) 18 U/L Alex [id number] 00:00:00* Test Item Value Reference Range Interpretation Comme nts TSH, THIRD GENERATION (test code = 2821) 0.630 UIU/ML Alex GimenezCBC W/AUTO [id number] 00:00:00* Test Item Value Reference Range Interpretation [...] = 1015) 312 K/UL Alex GimenezCOMPREHENSIVE METABOLIC [id number] 00:00:00* Test Item Value Reference Range Interpretation Comme nts GLUCOSE (test code = 2217) 85 MG/DL BUN (test code = 2208) 13 MG/DL CREATININE (test code = 2214) 0.56 MG/DL eGFR AMER. (test cod e = 36665) 136 ML/MIN/1.73 eGFR NON- AMER. (test code = 35631) 117 ML/MIN/1.73 CALC BUN/CREAT (test code = [...] (test code = 2219) 18 U/L [facility] [id number] 00:00:00* Test Item Value Reference Range Interpretation [...] code = 1015) 312 K/UL COMPREHENSIVE METABOLIC [id number] 00:00:00* Test Item Value Reference Range Interpretation Comme nts GLUCOSE (test code = 2217) 85 MG/DL BUN (test code = 2208) 13 MG/DL CREATININE (test code = 2214) 0.56 MG/DL eGFR AMER. (test cod e = 77593) 136 ML/MIN/1.73 eGFR NON- AMER. (test code = 62469) 117 ML/MIN/1.73 CALC BUN/CREAT (test code = [...] ALT (test code = 2219) 18 U/L [id number] 00:00:00* Test Item Value Reference Range Interpretation Comme nts TSH, THIRD GENERATION (test code = 2821) 0.630 UIU/ML CBC W/AUTO [id number] 00:00:00* Test Item Value Reference Range Interpretation [...] code = 1015) 312 K/UL COMPREHENSIVE METABOLIC [id number] 00:00:00* Test Item Value Reference Range Interpretation Comme nts GLUCOSE (test code = 2217) 85 MG/DL BUN (test code = 2208) 13 MG/DL CREATININE (test code = 2214) 0.56 MG/DL eGFR AMER. (test cod e = 98244) 136 ML/MIN/1.73 eGFR NON- AMER. (test code = 67683) 117 ML/MIN/1.73 CALC BUN/CREAT (test code = [...] ALT (test code = 2219) 18 U/L [id number] 00:00:00* Test Item Value Reference Range Interpretation Comme nts TSH, THIRD GENERATION (test code = 2821) 0.630 UIU/ML [id number] 00:00:00* Test Item Value Reference Range Interpretation Comme nts TSH, THIRD GENERATION (test code = 2821) 0.630 UIU/ML Alex Tash PernellCBC W/AUTO [id number] 00:00:00* Test Item Value Reference Range Interpretation [...] = 1015) 312 K/UL Alex GimenezCOMPREHENSIVE METABOLIC [id number] 00:00:00* Test Item Value Reference Range Interpretation Comme nts GLUCOSE (test code = 2217) 92 MG/DL BUN (test code = 2208) 20 MG/DL CREATININE (test code = 2214) 0.69 MG/DL eGFR AMER. (test cod e = 36032) 129 ML/MIN/1.73 eGFR NON- AMER. (test code = 06597) 111 ML/MIN/1.73 CALC BUN/CREAT (test code = [...] (test code = 2219) 20 U/L Alex Bianchi ColumbiaCOMPREHENSIVE METABOLIC [id number] 00:00:00* Test Item Value Reference Range Interpretation Comme nts GLUCOSE (test code = 2217) 92 MG/DL BUN (test code = 2208) 20 MG/DL CREATININE (test code = 2214) 0.69 MG/DL eGFR AMER. (test cod e = 42955) 129 ML/MIN/1.73 eGFR NON- AMER. (test code = 15310) 111 ML/MIN/1.73 CALC BUN/CREAT (test code = [...] code = 2219) 20 U/L COMPREHENSIVE METABOLIC [id number] 00:00:00* Test Item Value Reference Range Interpretation Comme nts GLUCOSE (test code = 2217) 92 MG/DL BUN (test code = 2208) 20 MG/DL CREATININE (test code = 2214) 0.69 MG/DL eGFR AMER. (test cod e = 87730) 129 ML/MIN/1.73 eGFR NON- AMER. (test code = 58689) 111 ML/MIN/1.73 CALC BUN/CREAT (test code = [...] code = 2219) 20 U/L COMPREHENSIVE METABOLIC [id number] 00:00:00* Test Item Value Reference Range Interpretation Comme nts GLUCOSE (test code = 2217) 92 MG/DL BUN (test code = 2208) 20 MG/DL CREATININE (test code = 2214) 0.69 MG/DL eGFR AMER. (test cod e = 29273) 129 ML/MIN/1.73 eGFR NON- AMER. (test code = 55039) 111 ML/MIN/1.73 CALC BUN/CREAT (test code = [...] (test code = 2219) 20 U/L Alex GimenezLIPID [id number] 00:00:00* Test Item Value Reference Range Interpretation Comme nts CHOLESTEROL (test code = 2210) 187 MG/DL TRIGLYCERIDES (test code = 2232) 284 MG/DL HDL CHOLESTEROL (test code = 2220) 39 MG/DL CALCULATED LDL CHOL (test co de = 2237) 91 MG/DL RISK RATIO LDL/HDL (test cod e = 2238) 2.34 RATIO Alex GimenezCBC W/AUTO [id number] 00:00:00* Test Item Value Reference Range Interpretation [...] code = 1015) 261 K/UL Alex GimenezHEMOGLOBIN [id number] 00:00:00* Test Item Value Reference Range Interpretation Comme hortensia HEMOGLOBIN A1c (test code = 10749) 5.3 % Alex [id number] 00:00:00* Test Item Value Reference Range Interpretation Comme nts TSH (test code = 2821) 0.9 UIU/ML Alex GimenezCOMPREHENSIVE METABOLIC [id number] 00:00:00* Test Item Value Reference Range Interpretation Comme nts GLUCOSE (test code = 2217) 85 MG/DL BUN (test code = 2208) 15 MG/DL CREATININE (test code = 2214) 0.48 MG/DL eGFR AMER. (test cod e = 29134) 146 ML/MIN/1.73 eGFR NON- AMER. (test code = 48610) 126 ML/MIN/1.73 CALCULATED BUN/CREAT (test code = [...] (test code = 2219) 9 U/L Alex GimenezCOMPREHENSIVE METABOLIC [id number] 00:00:00* Test Item Value Reference Range Interpretation Comme nts GLUCOSE (test code = 2217) 85 MG/DL BUN (test code = 2208) 15 MG/DL CREATININE (test code = 2214) 0.48 MG/DL eGFR AMER. (test cod e = 41400) 146 ML/MIN/1.73 eGFR NON- AMER. (test code = 25415) 126 ML/MIN/1.73 CALCULATED BUN/CREAT (test code = [...] (test code = 2219) 9 U/L LIPID [id number] 00:00:00* Test Item Value Reference Range Interpretation Comme nts CHOLESTEROL (test code = 2210) 187 MG/DL TRIGLYCERIDES (test code = 2232) 284 MG/DL HDL CHOLESTEROL (test code = 2220) 39 MG/DL CALCULATED LDL CHOL (test co de = 2237) 91 MG/DL RISK RATIO LDL/HDL (test cod e = 2238) 2.34 RATIO CBC W/AUTO [id number] 00:00:00* Test Item Value Reference Range Interpretation [...] (test code = 1015) 261 K/UL HEMOGLOBIN [id number] 00:00:00* Test Item Value Reference Range Interpretation Comme nts HEMOGLOBIN A1c (test code = 50814) 5.3 % [id number] 00:00:00* Test Item Value Reference Range Interpretation Comme nts TSH (test code = 2821) 0.9 UIU/ML COMPREHENSIVE METABOLIC [id number] 00:00:00* Test Item Value Reference Range Interpretation Comme nts GLUCOSE (test code = 2217) 85 MG/DL BUN (test code = 2208) 15 MG/DL CREATININE (test code = 2214) 0.48 MG/DL eGFR AMER. (test cod e = 79424) 146 ML/MIN/1.73 eGFR NON- AMER. (test code = 45315) 126 ML/MIN/1.73 CALCULATED BUN/CREAT (test code = [...] (test code = 2219) 9 U/L LIPID [id number] 00:00:00* Test Item Value Reference Range Interpretation Comme nts CHOLESTEROL (test code = 2210) 187 MG/DL TRIGLYCERIDES (test code = 2232) 284 MG/DL HDL CHOLESTEROL (test code = 2220) 39 MG/DL CALCULATED LDL CHOL (test co de = 2236) 91 MG/DL RISK RATIO LDL/HDL (test cod e = 2238) 2.34 RATIO CBC W/AUTO [id number] 00:00:00* Test Item Value Reference Range Interpretation [...] (test code = 1015) 261 K/UL HEMOGLOBIN [id number] 00:00:00* Test Item Value Reference Range Interpretation Comme nts HEMOGLOBIN A1c (test code = 26709) 5.3 % [id number] 00:00:00* Test Item Value Reference Range Interpretation Comme nts TSH (test code = 2821) 0.9 UIU/ML LIPID [id number] 00:00:00* Test Item Value Reference Range Interpretation Comme nts CHOLESTEROL (test code = 2210) 187 MG/DL TRIGLYCERIDES (test code = 2232) 284 MG/DL HDL CHOLESTEROL (test code = 2220) 39 MG/DL CALCULATED LDL CHOL (test co de = 2237) 91 MG/DL RISK RATIO LDL/HDL (test cod e = 2238) 2.34 RATIO Alex GimenezCBC W/AUTO [id number] 00:00:00* Test Item Value Reference Range Interpretation [...] code = 1015) 261 K/UL Alex GimenezHEMOGLOBIN [id number] 00:00:00* Test Item Value Reference Range Interpretation Comme hortensia HEMOGLOBIN A1c (test code = 64222) 5.3 % Alex [id number] 00:00:00* Test Item Value Reference Range Interpretation Comme nts TSH (test code = 2821) 0.9 UIU/ML Alex GimenezCOMPREHENSIVE METABOLIC [id number] 00:00:00* Test Item Value Reference Range Interpretation Comme nts GLUCOSE (test code = 2217) 85 MG/DL BUN (test code = 2208) 15 MG/DL CREATININE (test code = 2214) 0.48 MG/DL eGFR AMER. (test cod e = 69155) 146 ML/MIN/1.73 eGFR NON- AMER. (test code = 64150) 126 ML/MIN/1.73 CALCULATED BUN/CREAT (test code = [...] Gimenez Notes Date/Time Note Provider Source Alex Cassidy [facility]2025-09-04 00:00:00 Alex TashAnne [facility]2023-08-07 20:29:04 Patient eloped before dispo. [id number] from [employer]. [id number] 19[facility]54[facility]38 Patient called from [employer]. No answer. [facility]2023-08-07 16:32:23 Patient reports having a headache for the past couple of days. Reports taking 1000mg Tylenol every 4 hours with no relief. Reports nausea / vomiting. Head pain at the front / top of head J[facility] Parikh [facility]
[2025-06-13] MEDS ORDERED: LORazepam 2 MG/ML VIAL ONE (10:17)
[2025-06-13] MEDS ORDERED: NA CHLORIDE 0.9% 1,000 ML ONE (10:17)
[2025-06-13] MEDS ORDERED: ONDANSETRON 4 MG/2 ML VIAL ONE (10:17)
[2025-06-13 10:34] LABS: Absolute Lymphocytes (CBC) 1.4 K/uL (0.7-4.9); Hematocrit 43.4 % (36.0-45.0); Hemoglobin 14.6 g/dL (12.0-15.0); MCH 28.6 pg (27.0-35.0); MCHC 33.7 g/dL (32.0-36.0); MCV 84.9 fL (80-100); MPV 7.5 fL (7.6-11.3); Nucleated RBC Absolute Count 0.0 (0-0); Nucleated Red Blood Cells % 0.1 % (0-0); RBC Red Blood Cell Count 5.11 M/uL (3.86-4.86); White Blood Count 13.40 thou/uL (4.3-10.9)
--- NOTE | 2025-06-13 10:41 | RAD REPORT ---
EXAMINATION: ONE VIEW CHEST XR CLINICAL INDICATION: Female, 44 years old.,DYSPNEA TECHNIQUE: Frontal chest projection is submitted. Examination is limited by patient positioning and t echnique. COMPARISON: 06/08/2025 FINDINGS: The lungs are well inflated and clear. No pneumothorax or sizable effusion. The heart is normal in s ize. Mediastinal contours are unremarkable. IMPRESSION: No acute intrathoracic abnormalities.
[2025-06-13 12:10] LABS: Anion Gap 9.1 mEq/L (5.0-15.0); BUN Blood Urea Nitrogen 14.0 mg/dL (7-18); Glucose Level 103.0 mg/dL (74-106); Magnesium 1.8 mg/dL (1.6-2.4); Potassium 3.1 mEq/L (3.5-5.1); Troponin High Sensitivity 3.6 pg/mL (<58.9)
--- NOTE | 2025-06-13 12:36 | ER ---
Nurse's Notes [facility] Name: Maria De Jesus Wagoner Age: 44 yrs Sex: Female : 1980 Arrival Date: 06/13/2025 Time: 09:53 Bed 20 Private MD: Diagnosis: Acute stress reaction;Dyspnea Presentation: 06/13 10:25 Chief complaint: Patient states: ENCINAS AND NAUSEA. Coronavirus screen: At this time, the bp client does not indicate any symptoms associated with coronavirus-19. Ebola Screen: No symptoms or risks identified at this time. Initial Sepsis Screen: Does the patient meet any 2 criteria? No. Patient's initial sepsis screen is negative. Does the patient have a suspected source of infection? No. Patient's initial sepsis screen is negative. Risk Assessment: Do you want to hurt yourself or someone else? Patient reports no desire to harm self or others. Onset of symptoms was June 13, 2025 at 07:00. 10:25 Method Of Arrival: Wheelchair bp 10:25 Acuity: JOCELIN 3 bp Triage Assessment: 10:26 General: Appears in no apparent distress. obese, Behavior is cooperative, appropriate bp for age, anxious. Pain: Complains of pain in chest. EENT: No deficits noted. Neuro: No deficits noted. Cardiovascular: Reports chest pain. Respiratory: Reports shortness of breath Onset: The symptoms/episode began/occurred this morning, the patient has mild shortness of breath. GI: Reports nausea. : No signs and/or symptoms were reported regarding the genitourinary system. Derm: No deficits noted. Musculoskeletal: No deficits noted. 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 - Infectious Disease History:: Denies. - Social history:: Smoking status: Patient denies any tobacco usage or history of. Screenin:28 [facility] ED Fall Risk Assessment (Adult) History of falling in the last 3 months, bp including since admission No falls in past 3 months (0 pts) Confusion or Disorientation No (0 pts) Intoxicated or Sedated No (0 pts) Impaired Gait No (0 pts) Mobility Assist Device Used No (0 pt) Altered Elimination No (0 pt) Score/Fall Risk Level 0 - 2 = Low Risk Oriented to surroundings. Abuse screen: Denies threats or abuse. Denies injuries from another. Nutritional screening: No deficits noted. Tuberculosis screening: No symptoms or risk factors identified. Assessment: 10:29 General: SEE TRIAGE NOTE. bp 11:30 General: Appears in no apparent distress. Behavior is calm, cooperative, appropriate ll1 for age, Reports fatigue for. Pain: Complains of pain in head Quality of pain is described as aching. Neuro: Reports headache weakness. Cardiovascular: Reports chest pain, shortness of breath. Respiratory: Reports shortness of breath. GI: Reports nausea. 11:38 Reassessment: No changes from previously documented assessment. Patient and/or family ll1 updated on plan of care and expected duration. Pain level reassessed. Patient is alert, oriented x 3, equal unlabored respirations, skin warm/dry/pink. 12:02 Reassessment: No changes from previously documented assessment. Patient and/or family ll1 updated on plan of care and expected duration. Pain level reassessed. Patient is alert, oriented x 3, equal unlabored respirations, skin warm/dry/pink. 12:05 Reassessment: Patient appears in no apparent distress at this time. Patient and/or kj2 family updated on plan of care and expected duration. Pain level reassessed. 12:05 Cardiovascular: Rhythm is sinus rhythm. Respiratory: Airway Respiratory effort is kj2 unlabored, Breath sounds are clear. Vital Signs: 10:25 BP 164 / 97; Pulse 90; Resp 16; Temp 98; Pulse Ox 100% ; bp 11:39 BP 134 / 87; Pulse 92; Resp 17; Pulse Ox 100% on R/A; ll1 12:05 BP 119 / 82; Pulse 88; Resp 18; Pulse Ox 94% on R/A; kj2 13:00 BP 121 / 81; Pulse 84; Resp 20; Temp 97.9; Pulse Ox 100% on R/A; kj2 ED Course: 09:55 Patient arrived in ED. al6 09:59 Mart[facility] Gonzalez [facility]-C [facility] kb 09:59 Javier Weems MD is Attending Physician. kb 10:14 Madi Castro, WILI is Primary Nurse. bp 10:25 XRAY Chest (1 view) In Process Unspecified. EDMS 10:26 Triage completed. bp 10:26 Arm band placed on. bp 10:28 Patient has correct armband on for positive identification. bp 10:28 Initial lab(s) drawn, by ED staff, sent to lab. EKG done, by ED staff, reviewed by bp Marti GARZON. Inserted saline lock: 20 gauge in right antecubital area, using aseptic technique. Blood collected. Flushed with 10 mL NS. 11:38 Warm blanket given. PO fluids given. ll1 12:05 Provided Education on: call light. kj2 12:15 Report given to WILI Archuleta. ll1 12:49 No provider procedures requiring assistance completed. IV discontinued, intact, kj2 bleeding controlled, No redness/swelling at site. Pressure dressing applied. Administered Medications: 10:30 Drug: Ondansetron IVP 4 mg IVP once; over 2 minutes Route: IVP; Site: right antecubital;bp 12:04 Follow up: Response: No adverse reaction; Nausea is decreased ll1 10:30 Drug: NS 0.9% IV 1000 ml IV at 1000 ml once; to be given as a bolus over 60 minutes bp Route: IV; Rate: 1000 ml; Site: right antecubital; 12:04 Follow up: Response: No adverse reaction; IV Status: Completed infusion; IV Intake: ll1 975ml 10:30 Drug: Ativan IVP 1 mg IVP once Route: IVP; Site: right antecubital; bp 12:04 Follow up: Response: No adverse reaction; Anxiety decreased ll1 13:00 Drug: Potassium Chloride PO 40 mEq PO once Route: PO; kj2 13:00 Follow up: Response: Medication administered at discharge. kj2 Medication: 12:05 VIS not applicable for this client. kj2 Intake: 12:04 IV: 975ml; Total: 975ml. ll1 Outcome: 12:35 Discharge ordered by . nehemias 12:49 Discharged to home ambulatory, kj2 12:49 Condition: stable 12:49 Discharge instructions given to patient, family, Instructed on discharge instructions, follow up and referral plans. Demonstrated understanding of instructions, follow-up care, 13:01 Patient left the ED. kj2 Signatures: Dispatcher [employer] EDRI Marti Gonzalez FNP-C FNP-Ckb Madi Castro, RN RN bp Jessee Wagoner, RN RN ll1 Kathe Figueroa, RN RN kj2 July Andersen
--- NOTE | 2025-06-13 12:36 | EDPHYS ---
Physician Documentation [facility] Name: Maria De Jesus Wagoner Age: 44 yrs Sex: Female : 1980 Arrival Date: 06/13/2025 Time: 09:53 Bed 20 Private MD: ED Physician Javier Weems HPI: 06/13 12:36 This 44 yrs old Female presents to ER via Wheelchair with complaints of kb Shortness Of Breath, Chest Pain. 12:36 Patient is a 44-year-old female who presents for headache, nausea and shortness of kb breath that started at 7 AM. Patient is hyperventilating at time of initial assessment. Patient reports her hands are starting to tingle. Patient coached into slow deep breaths, respirations improved and patient began feeling better.. 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 - Infectious Disease History:: Denies. - Social history:: Smoking status: Patient denies any tobacco usage or history of. ROS: 10:15 Constitutional: As per HPI kb Exam: 10:13 Constitutional: This is a well developed, well nourished patient who is awake, alert, kb and in no acute distress. Head/Face: Normocephalic, atraumatic. ENT: Moist Mucous membranes Cardiovascular: Regular rate Abdomen/GI: Soft, non-tender. No distention Skin: Warm, dry with normal turgor. Normal color. MS/ Extremity: Pulses equal, no cyanosis. Neurovascular intact. Full, normal range of motion. Neuro: Awake and alert, GCS 15, oriented to person, place, time, and situation. 10:13 ECG was reviewed by the Attending Physician. 10:13 Respiratory: the patient does not display signs of respiratory distress, Respirations: tachypnea, Vital Signs: 10:25 BP 164 / 97; Pulse 90; Resp 16; Temp 98; Pulse Ox 100% ; bp 11:39 BP 134 / 87; Pulse 92; Resp 17; Pulse Ox 100% on R/A; ll1 12:05 BP 119 / 82; Pulse 88; Resp 18; Pulse Ox 94% on R/A; kj2 13:00 BP 121 / 81; Pulse 84; Resp 20; Temp 97.9; Pulse Ox 100% on R/A; kj2 MDM: 10:00 Medical Screening Exam initiated kb 11:14 Data reviewed: vital signs, nurses notes. Independent interpretation of the following kb test(s) in the Emergency Department X-Ray: My interpretation is no pneumothorax, pneumonia. 12:32 Differential diagnosis: Arrhythmia, acute WA, anxiety. Counseling: I had a detailed kb discussion with the patient and/or guardian regarding the historical points, exam findings, and any diagnostic results supporting the discharge/admit diagnosis, lab results, radiology results, the need for outpatient follow up, a family practitioner, to return to the emergency department if symptoms worsen or persist or if there are any questions or concerns that arise at home. ED course: Symptoms resolved after treatment.. 06/13 10:09 Order name: Basic Metabolic Panel; Complete Time: 12:26 kb 06/13 10:09 Order name: CBC with Diff; Complete Time: 10:59 kb 06/13 10:09 Order name: Magnesium; Complete Time: 12:26 kb 06/13 10:09 Order name: Troponin HS; Complete Time: 12:26 kb 06/13 10:09 Order name: XRAY Chest (1 view); Complete Time: 10:59 kb 06/13 10:09 Order name: Cardiac monitoring; Complete Time: 10:21 kb 06/13 10:09 Order name: EKG - Nurse/Tech; Complete Time: 10:14 kb 06/13 10:09 Order name: IV Saline Lock; Complete Time: 10:30 kb 06/13 10:09 Order name: Labs collected and sent; Complete Time: 10:30 kb 06/13 10:09 Order name: O2 Per Protocol; Complete Time: 10:21 kb 06/13 10:09 Order name: O2 Sat Monitoring; Complete Time: 10:21 kb 06/13 11:12 Order name: Labs - recollect needed: recollect green top; Complete Time: 11:33 bd EC:13 Rate is 92 beats/min. Rhythm is regular. QRS [place] is Normal. NE interval is normal at kb 158 msec. QRS interval is normal at 74 msec. QT interval is normal at 497 msec. Administered Medications: 10:30 Drug: Ondansetron IVP 4 mg IVP once; over 2 minutes Route: IVP; Site: right antecubital;bp 12:04 Follow up: Response: No adverse reaction; Nausea is decreased ll1 10:30 Drug: NS 0.9% IV 1000 ml IV at 1000 ml once; to be given as a bolus over 60 minutes bp Route: IV; Rate: 1000 ml; Site: right antecubital; 12:04 Follow up: Response: No adverse reaction; IV Status: Completed infusion; IV Intake: ll1 975ml 10:30 Drug: Ativan IVP 1 mg IVP once Route: IVP; Site: right antecubital; bp 12:04 Follow up: Response: No adverse reaction; Anxiety decreased ll1 13:00 Drug: Potassium Chloride PO 40 mEq PO once Route: PO; kj2 13:00 Follow up: Response: Medication administered at discharge. kj2 Disposition Summary: 06/13/25 12:35 Discharge Ordered Notes: Location: Home kb Condition: Stable kb Diagnosis - Acute stress reaction kb - Dyspnea kb Followup: kb - With: Emergency Department - When: As needed - Reason: Worsening of condition Followup: kb - With: Private Physician - When: 2 - 3 days - Reason: Recheck today's complaints, Continuance of care, Re-evaluation by your physician Discharge Instructions: - Discharge Summary Sheet kb - Shortness of Breath, Adult, Iomv-fd-Blnd kb - Panic Attack, Prdc-sf-Soyn kb Forms: - Medication Reconciliation Form kb - Antibiotic Education kb - Prescription Opioid Use kb - Patient Portal Instructions kb - Leadership Thank You Letter kb Signatures: Dispatcher [employer] EDMarti Haddad, DURAN BARRETT-Gianna Rinaldi Brian, RN RN bp Kathe Figueroa, RN RN kj2 Jessee Wagoner RN ll1 Corrections: (The following items were deleted from the chart) 10:10 10:10 Chest Single View+[email or web address] ordered. EDFL BOZENAFL
[2025-06-13] MEDS ORDERED: POTASSIUM CL SA 10 MEQ TAB PO ONE (12:53)
[2025-06-13 13:11] VITALS: BP 121/81; TEMP 97.9; O2SAT 100
== END 2025-06-13 13:01 | disposition home or self-care (01) ==
LOC: ER 09:53
DX: F43.0 Acute stress reaction (principal); R06.00 Dyspnea, unspecified
CPT/HCPCS: 36415; 71045; 80048; 83735; 84484; 85025; 93005; 96361; 96374; 96375; 99284; J2405; J7030